=== PATIENT | female | born 1940 | race Caucasian/White ===

== ENCOUNTER → 2016-07-27 | Outpatient (REF) | payer MEDICARE, OTHER ==
[2016-07-27 19:00] LABS: BACTERIA, URINE SMALL AMOUNT; HYALINE CAST, URINE NONE SEEN /lpf (0-1); MICROSCOPIC EXAM PERFORMED; RBC, URINE NONE SEEN /hpf (0-3); SQUAMOUS EPITHELIAL CELL URINE SMALL AMOUNT /hpf (SMALL AMT)
== END ==
LOC: M LAB REF 16:54
PROVIDERS: ATTEND Internal Medicine Nephrology
DX: R31.9 Hematuria, unspecified (principal)

== ENCOUNTER → 2016-08-03 | Outpatient (REF) | payer MEDICARE, OTHER | LOC: M LAB REF 11:13 | PROVIDERS: ATTEND Internal Medicine Nephrology | DX: N18.3 Chronic kidney disease, stage 3 (moderate) (principal); R31.0 Gross hematuria ==

== ENCOUNTER → 2016-08-22 | Outpatient (CLI) | payer MEDICARE, OTHER ==
--- NOTE | 2016-08-22 12:14 | REPMRS ---
Patient History The patient states she has not had a clinical breast exam in over a year. Patient is postmenopausal. No known family history of cancer. Benign stereotatic breast biopsy of the right breast, 1999. Digital Woman Screen Mammo: August 22, 2016 - Exam #: [id number] Bilateral CC and MLO view(s) were taken. Technologist: Trang Ferrari, Technologist Prior study comparison: March 24, 2015, digital woman screen mammo performed at [facility] to [facility]. April 24, 2014, digital woman screen mammo performed at [facility] to [facility]. FINDINGS: There are scattered fibroglandular densities. There has been no change in the appearance of the mammogram from the prior studies. There is a mild amount of residual fibroglandular tissue which is fairly symmetric. There is no interval development of dominant mass, architectural distortion, or clustered microcalcification suggestive of malignancy. ASSESSMENT: BI-RADS/ACR category 1 mammogram. Negative. Recommendation Routine screening mammogram in 1 year (for women over age 40). This mammogram was interpreted with the aid of an FDA-approved computer-aided dectection system. Electronically Signed By: Florencio Black MD 08/22/16 [id number]
== END ==
LOC: M WHC 10:36
PROVIDERS: ATTEND Internal Medicine Hematology & Oncology
DX: Z12.31 Encounter for screening mammogram for malignant neoplasm of breast (principal); D59.1 Other autoimmune hemolytic anemias; Z78.0 Asymptomatic menopausal state; Z92.89 Personal history of other medical treatment
CPT/HCPCS: G0202; G0463

== ENCOUNTER 2016-09-19 17:03 | Emergency (ER) | payer MEDICARE, OTHER ==
[~2016-09-19] VITALS: Ht 162.6 cm; Wt 89.8 kg
[2016-09-19] MEDS ORDERED: ATOR1TAB18 (18:08)
[2016-09-19] MEDS ORDERED: ROZE8TAB9 (18:08)
[2016-09-19] MEDS ORDERED: FURO20TA2 (18:08)
[2016-09-19] MEDS ORDERED: LEVO150T7 (18:08)
[2016-09-19] MEDS ORDERED: ALPR0.5T3 (18:08)
[2016-09-19] MEDS ORDERED: MAG-TAB PO (18:08)
[2016-09-19] MEDS ORDERED: ASPI1TAB PO (18:08)
[2016-09-19] MEDS ORDERED: NITR4TASL SL (18:08)
[2016-09-19] MEDS ORDERED: BUPR150T3 (18:08)
[2016-09-19] MEDS ORDERED: CALC600T21 PO (18:08)
[2016-09-19] MEDS ORDERED: ATEN25TA (18:08)
[2016-09-19] MEDS ORDERED: VENLAFAXINE (18:08)
[2016-09-19] MEDS ORDERED: LOSA50TA20 (18:08)
[2016-09-19] MEDS ORDERED: FOLI1TAB2 (18:08)
[2016-09-19] MEDS ORDERED: CART240C (18:08)
[2016-09-19] MEDS ORDERED: NEXI40CA PO (18:08)
[2016-09-19 18:09] LABS: ANION GAP 6 MEQ/L (8-16); BLOOD UREA NITROGEN 23 MG/DL (7-18); CALCIUM LEVEL 8.7 MG/DL (8.8-10.2); CARBON DIOXIDE LEVEL 30 MEQ/L (21-32); CHLORIDE LEVEL 102 MEQ/L (98-107); CREATININE FOR GFR 1.36 MG/DL (0.55-1.02); GLOMERULAR FILTRATION RATE 40.5 (>39); GLUCOSE, FASTING 102 MG/DL (83-110); POTASSIUM SERUM 3.6 MEQ/L (3.5-5.1); SODIUM LEVEL 138 MEQ/L (136-145)
[2016-09-19 18:14] LABS: BASO # 0.1 K/mm3 (0.0-0.2); BASO % 0.7 % (0.0-1.0); EOS # 0.4 K/mm3 (0.0-0.50); EOS % 2.9 % (0.0-3.0); LARGE UNSTAINED CELL # 0.3 K/mm3 (0.0-0.4); LARGE UNSTAINED CELL % 1.9 % (0.0-4.0); LYMPH # 3.1 K/mm3 (1.5-4.5); LYMPH % 20.2 % (24.0-44.0); MEAN CORPUSCULAR HEMOGLOBIN 30.3 pg (27.0-33.0); MEAN CORPUSCULAR VOLUME 91.9 fl (80.0-96.0); MONO % 7.2 % (0.0-5.0); NEUTROPHILS # 9.4 K/mm3 (1.8-7.7); PLATELET COUNT, AUTOMATED 446 k/mm3 (150-450); RED CELL DISTRIBUTION WIDTH 13.8 % (11.5-14.5)
--- NOTE | 2016-09-19 18:30 | REP ---
PA and lateral chest: Comparison is 11/05/2013. The lung castle are clear. The cardiac size is normal The raj, mediastinum, and bony thorax are unremarkable. Impression: Negative PA and lateral chest. . Signed by Florencio Boudreaux MD 09/19/2016 06:21 P
[2016-09-19] MEDS ORDERED: ISOVUE-370 76% 100ML VIAL (Q9967) As Ordered ONE (22:14)
[2016-09-19 23:08] VITALS: BP 133/63
--- NOTE | 2016-09-20 08:24 | ECGEPIP ---
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
--- NOTE | 2016-09-20 08:30 | ECGEPIP ---
Stationary ECG Study [facility] - ED Test Date: 2016-09-19 Pat Name: CHUCHO TUCKER Department: Room: - Gender: F Vaccine Specialist: IssaB: 1940 Requested By: SARAVANAN Carnes Order Number: [id number] Reading MD: Phoenix Ng Measurements Intervals [place] Rate: 61 P: 58 OR: 220 QRS: -33 QRSD: 106 T: 15 QT: 420 QTc: 424 Interpretive Statements SINUS RHYTHM WITH FIRST DEGREE AV BLOCK LEFT AXIS DEVIATION SIMILAR TO PRIOR ON SAME DATE Electronically Signed On 09-20-2016 8:29:51 EDT by Phoenix Ng
== END 2016-09-19 23:14 | disposition home or self-care (01) ==
LOC: EDBD 17:03 → M ED 19:40
DX: R07.9 Chest pain, unspecified (principal); I10 Essential (primary) hypertension; E78.5 Hyperlipidemia, unspecified; M19.90 Unspecified osteoarthritis, unspecified site; D59.9 Acquired hemolytic anemia, unspecified; Z95.5 Presence of coronary angioplasty implant and graft; Z90.89 Acquired absence of other organs

== ENCOUNTER → 2016-09-26 | Outpatient (REF) | payer MEDICARE, OTHER ==
[~2016-09-26] MED LIST: ALPR0.5T3; ASPI1TAB PO; ATEN25TA; ATOR1TAB18; BUPR150T3; CALC600T21 PO; CART240C; FOLI1TAB2; FURO20TA2; LEVO150T7; LOSA50TA20; MAG-TAB PO; NEXI40CA PO; NITR4TASL SL; ROZE8TAB9; VENLAFAXINE
== END ==
LOC: M LAB REF 14:00
PROVIDERS: ATTEND Family Medicine
DX: R19.7 Diarrhea, unspecified (principal)

== ENCOUNTER → 2016-10-12 | Outpatient (CLI) | payer MEDICARE, OTHER ==
[2016-10-12 14:44] LABS: CALCIUM LEVEL 9.2 MG/DL (8.8-10.2); CREATININE FOR GFR 1.46 MG/DL (0.55-1.02); GLOMERULAR FILTRATION RATE 37.3 (>39); POTASSIUM SERUM 4.4 MEQ/L (3.5-5.1); THYROXINE (T4) 12.7 UG/DL (4.5-12.0)
[2016-10-12 14:51] LABS: BASO % 0.8 % (0.0-1.0); EOS % 2.6 % (0.0-3.0); LARGE UNSTAINED CELL % 1.7 % (0.0-4.0); LYMPH # 2.3 K/mm3 (1.5-4.5); LYMPH % 17.6 % (24.0-44.0); MEAN CORPUSCULAR HGB CONC 33.4 g/dl (32.0-36.5); MEAN CORPUSCULAR VOLUME 92.9 fl (80.0-96.0); MONO # 0.8 K/mm3 (0.0-0.8); MONO % 6.1 % (0.0-5.0); NEUTROPHILS # 9.5 K/mm3 (1.8-7.7); NEUTROPHILS % 71.3 % (36.0-66.0); PLATELET COUNT, AUTOMATED 523 k/mm3 (150-450); RED CELL DISTRIBUTION WIDTH 14.2 % (11.5-14.5); WHITE BLOOD COUNT 13.3 K/mm3 (4.0-10.0)
[2016-10-12 14:52] LABS: BASO # 0.1 K/mm3 (0.0-0.2); DIFF SLIDE NUMBER 231; EOS # 0.3 K/mm3 (0.0-0.50); LARGE UNSTAINED CELL # 0.1 K/mm3 (0.0-0.4)
[2016-10-15 00:07] LABS: ANTI-SACCHAROMYCES CEREV. IgA <20.0 Units (0.0-24.9); ANTI-SACCHAROMYCES CEREV. IgG <20.0 Units (0.0-24.9); TISSUE TRANSGLUTAMINASE IgG <2 U/mL (0-5)
== END ==
LOC: M LAB 12:55
PROVIDERS: ATTEND Internal Medicine Gastroenterology
DX: K21.9 Gastro-esophageal reflux disease without esophagitis (principal); E03.9 Hypothyroidism, unspecified

== ENCOUNTER → 2016-10-14 | Outpatient (REF) | payer MEDICARE, OTHER ==
[~2016-10-14] MED LIST changes: -ATOR1TAB18; +ATOR80TA59; -CALC600T21 PO; +CALC600T60 PO; -CART240C; +CART240C3; -FOLI1TAB2; +FOLI1TAB4; +ROZE8TAB16; -ROZE8TAB9
== END ==
LOC: M LAB REF 13:00
PROVIDERS: ATTEND Internal Medicine Gastroenterology
DX: K21.9 Gastro-esophageal reflux disease without esophagitis (principal); Z12.11 Encounter for screening for malignant neoplasm of colon

== ENCOUNTER → 2016-11-29 | Outpatient (REF) | payer MEDICARE, OTHER ==
[2016-11-29 14:56] LABS: RBC, URINE NONE SEEN /hpf (0-3)
[2016-11-29 14:59] LABS: BACTERIA, URINE NONE SEEN; HYALINE CAST, URINE NONE SEEN /lpf (0-1); MICROSCOPIC EXAM PERFORMED; SQUAMOUS EPITHELIAL CELL URINE SMALL AMOUNT /hpf (SMALL AMT)
== END ==
LOC: M LAB REF 13:03
PROVIDERS: ATTEND Internal Medicine Nephrology
DX: R31.9 Hematuria, unspecified (principal)

== ENCOUNTER → 2016-12-12 | Outpatient (CLI) | payer MEDICARE, OTHER ==
--- NOTE | 2016-12-12 12:45 | REP ---
CT ABDOMEN PELVIS WITHOUT IV OR ORAL CONTRAST: HISTORY: Chronic kidney disease stage III. Hematuria. Acquired hemolytic anemia. Comparison CT study of February 16, 2016. 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 The lung bases are clear. There is a small sliding-type hiatal hernia. There are clips in the gallbladder fossa. No focal liver lesion is seen. The spleen is surgically absent. There is no evidence of hydronephrosis, intrarenal mass or calculus on either side. Normal caliber aorta is seen. There are mildly enlarged small bowel mesenteric lymph nodes and there is an diffuse edema pattern versus fibrosis in the small bowel mesentery. This is similar in appearance to a prior CT study of the abdomen from November 13, 2008. Mesenteric panniculitis pattern. There is mild mural thickening in the rectosigmoid and sigmoid segments of the colon today question enteral colitis. No obstruction or mass lesion seen. Urinary bladder is unremarkable. The patient is status post hysterectomy. No other abnormality. IMPRESSION: Mesenteric panniculitis pattern again seen in the small bowel mesentery. The patient status post hysterectomy, appendectomy and cholecystectomy. Mild mural thickening affecting the rectosigmoid and sigmoid colon, question enteritis. Signed by Bossman Ch MD 12/12/2016 02:48 P
== END ==
LOC: M RAD 10:59
PROVIDERS: ATTEND Internal Medicine Nephrology
DX: N18.3 Chronic kidney disease, stage 3 (moderate) (principal)

== ENCOUNTER → 2017-01-05 | Outpatient (REF) | payer MEDICARE, OTHER ==
[2017-01-05 22:36] LABS: SQUAMOUS EPITHELIAL CELL URINE SMALL AMOUNT /hpf (SMALL AMT)
[2017-01-05 22:37] LABS: BACTERIA, URINE SMALL AMOUNT; HYALINE CAST, URINE NONE SEEN /lpf (0-1); MICROSCOPIC EXAM PERFORMED
== END ==
LOC: M LAB REF 16:50
PROVIDERS: ATTEND Internal Medicine Nephrology
DX: R31.9 Hematuria, unspecified (principal)

== ENCOUNTER → 2017-05-10 | Outpatient (CLI) | payer MEDICARE, OTHER ==
[2017-05-10 19:12] LABS: ANION GAP 7 MEQ/L (8-16); BLOOD UREA NITROGEN 19 MG/DL (7-18); CALCIUM LEVEL 8.7 MG/DL (8.8-10.2); CARBON DIOXIDE LEVEL 31 MEQ/L (21-32); CHLORIDE LEVEL 104 MEQ/L (98-107); CREATININE FOR GFR 1.33 MG/DL (0.55-1.02); GLOMERULAR FILTRATION RATE 41.4 (>39); GLUCOSE, FASTING 110 MG/DL (70-100); POTASSIUM SERUM 4.2 MEQ/L (3.5-5.1); SODIUM LEVEL 142 MEQ/L (136-145); URIC ACID 4.1 MG/DL (2.6-6.0)
== END ==
LOC: M WUC 11:34
DX: M10.371 Gout due to renal impairment, right ankle and foot (principal)
CPT/HCPCS: 84550

== ENCOUNTER → 2017-05-12 | Outpatient (REF) | payer MEDICARE, OTHER | LOC: M LAB REF 17:22 | DX: R31.9 Hematuria, unspecified (principal); N18.3 Chronic kidney disease, stage 3 (moderate) | CPT/HCPCS: 87186 ==

== ENCOUNTER → 2017-06-14 | Outpatient (CLI) | payer MEDICARE, OTHER | LOC: M ADAMS 14:00 | DX: J20.9 Acute bronchitis, unspecified (principal) | CPT/HCPCS: 71046 ==

== ENCOUNTER → 2017-06-30 | Outpatient (CLI) | payer MEDICARE, OTHER | LOC: M RAD 09:36 | DX: J18.1 Lobar pneumonia, unspecified organism (principal) | CPT/HCPCS: 71250 ==

== ENCOUNTER → 2017-08-14 | Outpatient (CLI) | payer MEDICARE, OTHER ==
[2017-08-14 11:46] LABS: ALBUMIN 3.1 GM/DL (3.2-5.2); ALBUMIN/GLOBULIN RATIO 1.03 (1.00-1.93); ALKALINE PHOSPHATASE 94 U/L (45-117); ALT/SGPT 28 U/L (12-78); ANION GAP 5 MEQ/L (8-16); AST/SGOT 18 U/L (7-37); BILIRUBIN,TOTAL 0.5 MG/DL (0.2-1.0); BLOOD UREA NITROGEN 18 MG/DL (7-18); CALCIUM LEVEL 8.3 MG/DL (8.8-10.2); CARBON DIOXIDE LEVEL 29 MEQ/L (21-32); CHLORIDE LEVEL 107 MEQ/L (98-107); CREATININE FOR GFR 1.27 MG/DL (0.55-1.30); GLOMERULAR FILTRATION RATE 43.7 (>39); GLUCOSE, FASTING 128 MG/DL (70-100); POTASSIUM SERUM 3.6 MEQ/L (3.5-5.1); SODIUM LEVEL 141 MEQ/L (136-145); TOTAL PROTEIN 6.1 GM/DL (6.4-8.2)
== END ==
LOC: M LAB 11:07
DX: D59.1 Other autoimmune hemolytic anemias (principal)
CPT/HCPCS: 80053

== ENCOUNTER → 2017-08-29 | Outpatient (CLI) | payer MEDICARE, OTHER | LOC: M WHC 11:28 | DX: Z12.31 Encounter for screening mammogram for malignant neoplasm of breast (principal); Z78.0 Asymptomatic menopausal state | CPT/HCPCS: 77067 ==

== ENCOUNTER → 2017-12-20 | Outpatient (CLI) | payer MEDICARE, OTHER | LOC: M ADAMS 14:21 | DX: S80.11XA Contusion of right lower leg, initial encounter (principal) | CPT/HCPCS: 73590 ==

== ENCOUNTER → 2017-12-25 | Outpatient (REF) | payer MEDICARE, OTHER ==
[2017-12-25 16:36] LABS: ERYTHROCYTE SEDIMENTATION RATE 30 mm/hr (0-30)
[2017-12-25 22:03] LABS: C REACTIVE PROTEIN QUANTITATIV 1.36 MG/DL (0.00-0.30)
== END ==
LOC: M SFHCPLAZ 12:47
DX: M79.604 Pain in right leg (principal)
CPT/HCPCS: 86140

== ENCOUNTER → 2017-12-29 | Outpatient (CLI) | payer MEDICARE, OTHER | LOC: M RAD 13:17 | DX: M79.604 Pain in right leg (principal) | CPT/HCPCS: 76882 ==

== ENCOUNTER → 2018-03-09 | Outpatient (CLI) | payer MEDICARE, OTHER ==
[2018-03-09 17:22] LABS: URIC ACID 4.2 MG/DL (2.6-6.0)
== END ==
LOC: M WUC 12:01
DX: M10.9 Gout, unspecified (principal)
CPT/HCPCS: 84550

== ENCOUNTER → 2018-03-27 | Outpatient (CLI) | payer MEDICARE, OTHER | LOC: M ADAMS 10:38 | DX: M77.31 Calcaneal spur, right foot (principal); R06.09 Other forms of dyspnea; M79.671 Pain in right foot | CPT/HCPCS: 71046 ==

== ENCOUNTER → 2018-05-10 | Outpatient (REF) | payer MEDICARE, OTHER ==
[~2018-05-10] MED LIST changes: +FOLI1TAB11; -FOLI1TAB4; -LOSA50TA20; +LOSA50TA88
[2018-05-10 13:44] LABS: HEMATOCRIT 40.3 % (36.0-47.0); HEMOGLOBIN 13.1 g/dl (12.0-15.5); MEAN CORPUSCULAR HEMOGLOBIN 30.3 pg (27.0-33.0); MEAN CORPUSCULAR HGB CONC 32.5 g/dl (32.0-36.5); MEAN CORPUSCULAR VOLUME 93.3 fl (80.0-96.0); PLATELET COUNT, AUTOMATED 361 10^3/uL (150-450); RED BLOOD COUNT 4.32 10^6/uL (4.00-5.40); WHITE BLOOD COUNT 11.6 10^3/uL (4.0-10.0)
[2018-05-10 14:37] LABS: ALBUMIN 3.7 GM/DL (3.2-5.2); BILIRUBIN,TOTAL 0.5 MG/DL (0.2-1.0); CALCIUM LEVEL 9.1 MG/DL (8.8-10.2); CHOLESTEROL RISK RATIO 3.609 (<5); CREATININE FOR GFR 1.07 MG/DL (0.55-1.30); FREE T4 1.36 NG/DL (0.76-1.46); GLOMERULAR FILTRATION RATE 53.1 (>39); POTASSIUM SERUM 4.2 MEQ/L (3.5-5.1); THYROID STIMULATING HORMONE 0.114 uIU/ML (0.358-3.740); TOTAL PROTEIN 6.7 GM/DL (6.4-8.2)
== END ==
LOC: M SFHCADAM 10:01
PROVIDERS: ATTEND Family Medicine
DX: E78.5 Hyperlipidemia, unspecified (principal); E03.9 Hypothyroidism, unspecified; N18.3 Chronic kidney disease, stage 3 (moderate); I25.10 Atherosclerotic heart disease of native coronary artery without angina pectoris
CPT/HCPCS: 80053; 80061; 84439; 84443; 85027; G0463

== ENCOUNTER → 2018-06-08 | Outpatient (CLI) | payer MEDICARE, OTHER | LOC: M LAB 12:19 | PROVIDERS: ATTEND Family Medicine | DX: M1A.9XX0 Chronic gout, unspecified, without tophus (tophi) (principal); Z53.8 Procedure and treatment not carried out for other reasons ==

== ENCOUNTER → 2018-08-22 | Outpatient (REF) | payer MEDICARE, OTHER ==
[~2018-08-22] MED LIST changes: -ASPI1TAB PO; +ASPI81TA26 PO
[2018-08-22 13:53] LABS: FERRITIN 42 NG/ML (8-252); FOLATE > 24.0 NG/ML; IRON (FE) 31 UG/DL (50-170); TOTAL IRON BINDING CAPACITY 259 UG/DL (250-450); VITAMIN B12 LEVEL 556 PG/ML
== END ==
LOC: M LAB REF 13:16
PROVIDERS: ATTEND Internal Medicine Nephrology
DX: N39.0 Urinary tract infection, site not specified (principal); D64.9 Anemia, unspecified

== ENCOUNTER → 2018-10-25 | Outpatient (REF) | payer MEDICARE, OTHER ==
[2018-10-25 19:37] LABS: HEMOGLOBIN A1c 6.8 %; TOTAL PROTEIN 7.1 GM/DL (6.4-8.2)
[2018-10-25 19:47] LABS: FOLATE > 24.0 NG/ML; VITAMIN B12 LEVEL 592 PG/ML
[2018-10-30 11:39] LABS: ALBUMIN 3.83 GM/DL (3.29-5.55); ALBUMIN % 53.9 % (55.8-66.1); ALPHA-1-GLOBULIN % 6.8 % (2.9-4.9); ALPHA-1-GLOBULINS 0.48 GM/DL (0.17-0.41); ALPHA-2-GLOBULINS 1.21 GM/DL (0.42-0.99); ALPHA-2-GLOBULINS % 17.1 % (7.1-11.8); BETA-1-GLOBULINS 0.45 GM/DL (0.28-0.60); BETA-1-GLOBULINS % 6.4 % (4.7-7.2); BETA-2-GLOBULINS 0.39 GM/DL (0.19-0.55); BETA-2-GLOBULINS % 5.5 % (3.2-6.5); GAMMA GLOBULIN % 10.3 % (11.1-18.8); GAMMA GLOBULINS 0.73 GM/DL (0.65-1.58)
[2018-11-07 00:07] LABS: CERULOPLASMIN 36.5 mg/dL (19.0-39.0); VITAMIN B1 LEVEL WHOLE BLOOD 172.1 nmol/L (66.5-200.0); VITAMIN B6,PYRIDOXAL PHOSPHATE 7.8 ug/L (2.0-32.8); VITAMIN E(GAMMA TOCOPHEROL) 1.8 mg/L (0.5-4.9)
== END ==
LOC: M LABNEURO 14:54
PROVIDERS: ATTEND Psychiatry & Neurology Neurology
DX: E11.9 Type 2 diabetes mellitus without complications (principal); E51.9 Thiamine deficiency, unspecified; E83.01 Wilson's disease; D51.9 Vitamin B12 deficiency anemia, unspecified

== ENCOUNTER → 2019-04-23 | Outpatient (CLI) | payer MEDICARE, OTHER ==
[2019-04-23 13:29] LABS: HEMATOCRIT 36.8 % (36.0-47.0); MEAN CORPUSCULAR HEMOGLOBIN 31.3 pg (27.0-33.0); MEAN CORPUSCULAR HGB CONC 32.6 g/dl (32.0-36.5); MEAN CORPUSCULAR VOLUME 95.8 fl (80.0-96.0); PLATELET COUNT, AUTOMATED 342 10^3/uL (150-450); RED BLOOD COUNT 3.84 10^6/uL (4.00-5.40); WHITE BLOOD COUNT 11.9 10^3/uL (4.0-10.0)
[2019-04-23 13:58] LABS: ALBUMIN 3.2 GM/DL (3.2-5.2); BILIRUBIN,TOTAL 0.5 MG/DL (0.2-1.0); CALCIUM LEVEL 8.7 MG/DL (8.8-10.2); CHOLESTEROL RISK RATIO 3.375 (<5); CREATININE FOR GFR 0.99 MG/DL (0.55-1.30); FREE T4 1.45 NG/DL (0.76-1.46); GLOMERULAR FILTRATION RATE 57.9 (>39); POTASSIUM SERUM 4.3 MEQ/L (3.5-5.1); THYROID STIMULATING HORMONE 0.553 uIU/ML (0.358-3.740); TOTAL PROTEIN 6.4 GM/DL (6.4-8.2)
== END ==
LOC: M LAB 11:55
PROVIDERS: ATTEND Family Medicine
DX: E03.9 Hypothyroidism, unspecified (principal); Z90.81 Acquired absence of spleen; Z95.5 Presence of coronary angioplasty implant and graft; E78.5 Hyperlipidemia, unspecified; I25.10 Atherosclerotic heart disease of native coronary artery without angina pectoris

== ENCOUNTER 2019-05-30 12:00 | Day surgery (SDC) | payer MEDICARE, OTHER ==
[~2019-05-30] VITALS: Ht 162.6 cm; Wt 81.6 kg
[~2019-05-30 12:00] MED LIST changes: -ALPR0.5T3; +ALPR0.5T3 PO; -ATEN25TA; +ATEN25TA PO; -ATOR80TA59; +ATOR80TA59 PO; -CART240C3; +CART240C3 PO; -FOLI1TAB11; +FOLI1TAB11 PO; -FURO20TA2; +FURO20TA2 PO; +GABA-843 PO; -LEVO150T7; +LEVO150T7 PO; -LOSA50TA88; +LOSA50TA88 PO; +MELA3TAB41 PO; +NS 1,000 ML IV ONE; +QUET1TAB7 PO; -VENLAFAXINE; +VENLAFAXINE PO; +ZYLO300T6 PO
--- NOTE | 2019-05-30 13:58 | ROOR ---
Patient Name: Carolina Weinstein Procedure Date: 05/30/2019 1:27 PM Date of : 1940 Age: 79 Room: [facility] Gender: Female Note Status: Finalized Procedure: Colonoscopy Indications: High risk colon cancer surveillance: Personal history of colonic polyps Providers: Noé Odom Jr, MD Referring MD: Arnold Reece MD Requesting Provider: Medicines: Propofol per Anesthesia Complications: No immediate complications. Procedure: Pre-Anesthesia Assessment: - Prior to the procedure, a History and Physical was performed, and patient medications and allergies were reviewed. The patient is competent. The risks and benefits of the procedure and the sedation options and risks were discussed with the patient. All questions were answered and informed consent was obtained. Patient identification and proposed procedure were verified by the physician and the nurse in the pre-procedure area and in the procedure room. Mental Status Examination: alert and oriented. Airway Examination: normal oropharyngeal airway and neck mobility. Respiratory Examination: clear to auscultation. CV Examination: normal. ASA Grade Assessment: II - A patient with mild systemic disease. After reviewing the risks and benefits, the patient was deemed in satisfactory condition to undergo the procedure. The anesthesia plan was to use moderate sedation / analgesia (conscious sedation). Immediately prior to administration of medications, the patient was re-assessed for adequacy to receive sedatives. The heart rate, respiratory rate, oxygen saturations, blood pressure, adequacy of pulmonary ventilation, and response to care were monitored throughout the procedure. The physical status of the patient was re-assessed after the procedure. The Colonoscope was introduced through the anus and advanced to the cecum, identified by appendiceal orifice and ileocecal valve. The colonoscopy was performed without difficulty. The patient tolerated the procedure well. The quality of the bowel preparation was adequate. Findings: The rectum, recto-sigmoid colon, sigmoid colon, descending colon, transverse colon, ascending colon, cecum, appendiceal orifice and ileocecal valve appeared normal. Biopsies for histology were taken with a cold forceps from the ascending colon, transverse colon, descending colon, sigmoid colon and rectosigmoid colon for evaluation of microscopic colitis. Impression: - The rectum, recto-sigmoid colon, sigmoid colon, descending colon, transverse colon, ascending colon, cecum, appendiceal orifice and ileocecal valve are normal. Biopsied. Recommendation: - Discharge patient to home (ambulatory). - Return to my office at appointment to be scheduled. Noé Odom MD Noé Odom Jr, MD 05/30/2019 1:58:34 PM Electronically signed by Noé Odom Jr, MD Number of Addenda: 0 Note Initiated On: 05/30/2019 1:27 PM Estimated Blood Loss: Estimated blood loss: none.
[2019-05-30] MEDS ORDERED: LIDOCAINE 2% INJ 100 MG/5 ML SDV (FOR ANES.) As Ordered ONE (13:59)
[2019-05-30] MEDS ORDERED: propofoL 200 MG/20 ML VIAL As Ordered ONE (13:59)
[2019-05-30 14:30] VITALS: BP 114/66
== END 2019-05-30 14:40 | disposition home or self-care (01) ==
LOC: M OPP 12:00
PROVIDERS: ATTEND Surgery
DX: Z12.11 Encounter for screening for malignant neoplasm of colon (principal); Z86.010 Personal history of colon polyps; D72.828 Other elevated white blood cell count; I10 Essential (primary) hypertension; E03.9 Hypothyroidism, unspecified; Z79.82 Long term (current) use of aspirin; Z79.899 Other long term (current) drug therapy; Z88.1 Allergy status to other antibiotic agents; Z88.5 Allergy status to narcotic agent; Z88.8 Allergy status to other drugs, medicaments and biological substances

== ENCOUNTER → 2019-08-16 | Outpatient (REF) | payer MEDICARE, OTHER ==
[~2019-08-16] MED LIST changes: -MELA3TAB41 PO; +MELA3TAB62 PO; -NS 1,000 ML IV ONE
[2019-08-16 19:40] LABS: PERCENT SATURATION 41.2 % (13.2-45.0)
== END ==
LOC: M LAB REF 16:43
PROVIDERS: ATTEND Nurse Practitioner Family
DX: D50.9 Iron deficiency anemia, unspecified (principal)

== ENCOUNTER → 2019-09-16 | Outpatient (CLI) | payer MEDICARE, OTHER ==
[2019-09-16 11:31] LABS: HEMATOCRIT 38.8 % (36.0-47.0); HEMOGLOBIN 12.6 g/dl (12.0-15.5); MEAN CORPUSCULAR HEMOGLOBIN 32.1 pg (27.0-33.0); MEAN CORPUSCULAR HGB CONC 32.5 g/dl (32.0-36.5); PLATELET COUNT, AUTOMATED 256 10^3/uL (150-450); RED BLOOD COUNT 3.92 10^6/uL (4.00-5.40); WHITE BLOOD COUNT 11.7 10^3/uL (4.0-10.0)
[2019-09-16 12:22] LABS: CHOLESTEROL RISK RATIO 2.219 (<5); FOLATE 21.8 NG/ML (>5.4); PERCENT SATURATION 23.9 % (13.2-45.0)
== END ==
LOC: M WUC 10:23
PROVIDERS: ATTEND Family Medicine
DX: I25.10 Atherosclerotic heart disease of native coronary artery without angina pectoris (principal); E03.9 Hypothyroidism, unspecified; I11.9 Hypertensive heart disease without heart failure; R60.0 Localized edema; N18.3 Chronic kidney disease, stage 3 (moderate); Z86.2 Personal history of diseases of the blood and blood-forming organs and certain disorders involving the immune mechanism; Z90.81 Acquired absence of spleen

== ENCOUNTER → 2019-09-16 | Outpatient (CLI) | payer MEDICARE, OTHER ==
[2019-09-16 12:28] LABS: CALCIUM LEVEL 9.1 MG/DL (8.8-10.2); CREATININE FOR GFR 1.11 MG/DL (0.55-1.30); GLOMERULAR FILTRATION RATE 50.7 (>39); POTASSIUM SERUM 3.8 MEQ/L (3.5-5.1)
== END ==
LOC: M WUC 10:28
PROVIDERS: ATTEND Physician Assistant
DX: R60.0 Localized edema (principal); N18.3 Chronic kidney disease, stage 3 (moderate)

== ENCOUNTER 2019-09-26 10:04 | Emergency (ER) | payer MEDICARE, OTHER ==
[~2019-09-26] VITALS: Ht 162.6 cm; Wt 91.9 kg
[2019-09-26] MEDS ORDERED: FURO40TA2 (10:30)
[2019-09-26] MEDS ORDERED: BUDE3CAP (10:30)
[2019-09-26 10:45] LABS: BASO # 0.1 10^3/uL (0.0-0.2); BASO % 0.8 % (0.0-1.0); EOS # 0.3 10^3/uL (0.0-0.5); EOS % 1.9 % (0.0-3.0); HEMATOCRIT 41.4 % (36.0-47.0); HEMOGLOBIN 13.5 g/dl (12.0-15.5); LYMPH # 5.3 10^3/uL (1.5-5.0); LYMPH % 37.2 % (24.0-44.0); MEAN CORPUSCULAR HEMOGLOBIN 31.8 pg (27.0-33.0); MEAN CORPUSCULAR HGB CONC 32.6 g/dl (32.0-36.5); MEAN CORPUSCULAR VOLUME 97.4 fl (80.0-96.0); MONO # 1.1 10^3/uL (0.0-0.8); MONO % 7.7 % (0.0-5.0); NEUTROPHILS # 7.5 10^3/uL (1.5-8.5); NEUTROPHILS % 51.9 % (36.0-66.0); PLATELET COUNT, AUTOMATED 267 10^3/uL (150-450); RED BLOOD COUNT 4.25 10^6/uL (4.00-5.40)
[2019-09-26 10:47] LABS: WHITE BLOOD COUNT 14.4 10^3/uL (4.0-10.0)
[2019-09-26 11:01] LABS: CALCIUM LEVEL 8.8 MG/DL (8.8-10.2); CREATININE FOR GFR 1.08 MG/DL (0.55-1.30); GLOMERULAR FILTRATION RATE 52.4 (>39); POTASSIUM SERUM 3.5 MEQ/L (3.5-5.1)
[2019-09-26] MEDS ORDERED: SPIR-10 PO (11:41)
[2019-09-26 11:45] VITALS: BP 173/79
[2019-09-26 11:57] LABS: ALBUMIN 2.7 GM/DL (3.2-5.2); BILIRUBIN,DIRECT 0.2 MG/DL (0.0-0.2); BILIRUBIN,TOTAL 0.4 MG/DL (0.2-1.0); TOTAL PROTEIN 6.3 GM/DL (6.4-8.2)
[2019-09-26] MEDS ORDERED: ACETAMINOPHEN 325 MG TAB PO ONE (12:00)
[2019-09-26 12:05] LABS: ERYTHROCYTE SEDIMENTATION RATE 11 mm/hr (0-30)
--- NOTE | 2019-09-26 21:32 | ECGEPIP ---
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
[2019-10-02 08:09] LABS: ALDOSTERONE 2.7 ng/dL (0.0-30.0); RENIN LEVEL 1.449 ng/mL/hr (0.167-5.380)
== END 2019-09-26 12:11 | disposition home or self-care (01) ==
LOC: M ED 10:04
DX: I10 Essential (primary) hypertension (principal); R00.1 Bradycardia, unspecified; N18.3 Chronic kidney disease, stage 3 (moderate); I35.0 Nonrheumatic aortic (valve) stenosis; E03.9 Hypothyroidism, unspecified; Z79.82 Long term (current) use of aspirin; Z79.899 Other long term (current) drug therapy; Z88.8 Allergy status to other drugs, medicaments and biological substances; Z87.891 Personal history of nicotine dependence

== ENCOUNTER → 2019-10-08 | Outpatient (REF) | payer MEDICARE, OTHER ==
[~2019-10-08] MED LIST changes: +BUDE3CAP; +FURO40TA2; +SPIR-10 PO
[2019-10-08 13:34] LABS: CALCIUM LEVEL 9.3 MG/DL (8.8-10.2); CREATININE FOR GFR 1.27 MG/DL (0.55-1.30); GLOMERULAR FILTRATION RATE 43.4 (>39); MAGNESIUM LEVEL 2.1 MG/DL (1.8-2.4)
== END ==
LOC: M SFHCADAM 10:51
PROVIDERS: ATTEND Physician Assistant
DX: I11.9 Hypertensive heart disease without heart failure (principal)

== ENCOUNTER → 2019-12-25 | Outpatient (REF) | payer MEDICARE, OTHER ==
[~2019-12-25] MED LIST changes: +MELA3TAB30 PO; -MELA3TAB62 PO
[2019-12-25 19:09] LABS: HEMOGLOBIN 12.3 g/dl (12.0-15.5); MEAN CORPUSCULAR HEMOGLOBIN 33.2 pg (27.0-33.0); MEAN CORPUSCULAR HGB CONC 32.4 g/dl (32.0-36.5); MEAN CORPUSCULAR VOLUME 102.7 fl (80.0-96.0); PLATELET COUNT, AUTOMATED 286 10^3/uL (150-450)
[2019-12-25 19:26] LABS: ALBUMIN 3.2 GM/DL (3.2-5.2); ALT/SGPT 43 U/L (12-78); BILIRUBIN,TOTAL 0.6 MG/DL (0.2-1.0); BLOOD UREA NITROGEN 31 MG/DL (7-18); CALCIUM LEVEL 8.9 MG/DL (8.8-10.2); CARBON DIOXIDE LEVEL 30 MEQ/L (21-32); CHLORIDE LEVEL 104 MEQ/L (98-107); CHOLESTEROL LEVEL 150 MG/DL (<200); CHOLESTEROL RISK RATIO 1.948 (<5); CREATININE FOR GFR 1.27 MG/DL (0.55-1.30); FERRITIN 61 NG/ML (8-252); GLOMERULAR FILTRATION RATE 43.4 (>39); GLUCOSE, FASTING 96 MG/DL (70-100); HDL CHOLESTEROL 77 MG/DL (>40); IRON (FE) 125 UG/DL (50-170); LDL CHOLESTEROL 59 MG/DL (<100); NON-HDL-C 73 MG/DL; PERCENT SATURATION 43.9 % (13.2-45.0); POTASSIUM SERUM 4.8 MEQ/L (3.5-5.1); SODIUM LEVEL 139 MEQ/L (136-145); TOTAL IRON BINDING CAPACITY 285 UG/DL (250-450); TRIGLYCERIDES LEVEL 71 MG/DL (<150)
[2019-12-26 11:09] LABS: VITAMIN B12 LEVEL 441 PG/ML (247-911)
[2019-12-26 11:10] LABS: FOLATE > 24.0 NG/ML (>5.4)
== END ==
LOC: M LAB REF 17:36
PROVIDERS: ATTEND Family Medicine
DX: E03.9 Hypothyroidism, unspecified (principal); I25.10 Atherosclerotic heart disease of native coronary artery without angina pectoris; I11.9 Hypertensive heart disease without heart failure; Z86.2 Personal history of diseases of the blood and blood-forming organs and certain disorders involving the immune mechanism; Z90.81 Acquired absence of spleen

== ENCOUNTER → 2020-01-02 | Outpatient (CLI) | payer MEDICARE, OTHER ==
--- NOTE | 2020-01-17 09:41 | REP ---
CHEST X-RAY: 3 VIEWS HISTORY: Dyspnea. COMPARISON: Chest x-ray 03/27/18. FINDINGS: There are surgical clips in the right upper quadrant. The lungs are symmetric aerated and clear. Pleural angles are sharp. Heart size is normal. There are degenerative changes in the thoracic spine. The aorta is somewhat tortuous. Pulmonary vasculature isnt increased. IMPRESSION: No active disease. MTDD
== END ==
LOC: M WUC 13:35
PROVIDERS: ATTEND Nurse Practitioner Family
DX: R06.00 Dyspnea, unspecified (principal)

== ENCOUNTER → 2020-01-25 | Outpatient (CLI) | payer MEDICARE, OTHER ==
[2020-01-25 13:23] LABS: FREE T4 1.57 NG/DL (0.76-1.46); THYROID STIMULATING HORMONE 0.006 uIU/ML (0.358-3.740)
== END ==
LOC: M LAB 11:47
PROVIDERS: ATTEND Family Medicine
DX: E03.9 Hypothyroidism, unspecified (principal)

== ENCOUNTER → 2020-01-30 | Outpatient (REF) | payer MEDICARE, OTHER ==
[2020-01-30 17:15] LABS: INR 0.93; PARTIAL THROMBOPLASTIN TIME 24.1 SECONDS (24.2-38.5); PROTHROMBIN TIME 12.7 SECONDS (12.5-14.3)
[2020-01-30 17:18] LABS: D-DIMER QUANT 1325.37 ng/ml (<500)
== END ==
LOC: M SFHCADAM 14:24
PROVIDERS: ATTEND Family Medicine
DX: R06.00 Dyspnea, unspecified (principal); R23.8 Other skin changes; Z86.2 Personal history of diseases of the blood and blood-forming organs and certain disorders involving the immune mechanism
CPT/HCPCS: 85379; 85610; 85730; G0463

== ENCOUNTER → 2020-01-31 | Outpatient (CLI) | payer MEDICARE, OTHER ==
--- NOTE | 2020-01-31 10:27 | REPVR ---
PROCEDURE INFORMATION: Exam: US Duplex Lower Extremity Veins, Bilateral Exam date and time: 01/31/2020 9:47 AM Age: 80 years old Clinical indication: Abnormal findings; Abnormal lab test; Elevated d-dimer; Additional info: Dyspnea on exertion TECHNIQUE: Imaging protocol: Real-time duplex ultrasound of the extremities with 2-D zapata scale, color Doppler flow and spectral waveform analysis with image documentation. Complete exam focused on the bilateral lower extremity veins. COMPARISON: No relevant prior studies available. FINDINGS: Right deep veins: The common femoral, femoral, and popliteal veins are patent without thrombus. Normal compressibility and/or augmentation response. The right femoral vein is duplicated and both vessels are patent. Right superficial veins: The saphenofemoral junction is patent without thrombus. Left deep veins: The common femoral, femoral, and popliteal veins are patent without thrombus. Normal compressibility and/or augmentation response. Left superficial veins: The saphenofemoral junction is patent without thrombus. Soft tissues: A 4.5 x 0.9 x 4.8 cm circumscribed fluid collection within the right popliteal fossa is consistent with a popliteal cyst. A 3.4 x 0.9 x 3.1 cm circumscribed mildly septated fluid collection within the left popliteal fossa is consistent with a popliteal cyst. IMPRESSION: 1. No evidence of deep vein thrombosis in the visualized lower extremities. 2. Bilateral popliteal cysts. Electronically signed by: David Koo On 01/31/2020 10:27:10 AM
--- NOTE | 2020-01-31 13:28 | REPVR ---
PROCEDURE INFORMATION: Exam: XR Chest, 2 Views Exam date and time: 01/31/2020 12:34 PM Age: 80 years old Clinical indication: Shortness of breath and other: Elevated D-dimer, question pulmonary embolism TECHNIQUE: Imaging protocol: XR of the chest Views: 2 views. COMPARISON: CR CHEST 2 VIEW 01/02/2020 1:55 PM FINDINGS: Lungs: No pulmonary mass, consolidation, or edema. Pleural space: No pleural effusion. No pneumothorax. Heart/Mediastinum: Heart size is within normal limits. Coronary stent. Vasculature: Tortuous thoracic aorta. Diaphragm: Right hemidiaphragm eventration redemonstrated. Bones/joints: Degenerative spine disease. Soft tissues: Upper abdominal surgical clips redemonstrated. IMPRESSION: No radiographic evidence of acute cardiopulmonary disease. Electronically signed by: David Koo On 01/31/2020 13:28:07 PM
--- NOTE | 2020-01-31 14:59 | REP ---
INDICATION: DYSPNEA ELEVATED D DIMER ? DVT SOB ? PE XR1/NM2 . COMPARISON: Comparison is made with today's chest x-ray.. TECHNIQUE: 1.0 mCi of technetium 99m DTPA aerosol is utilized for the ventilation study and is followed by a 5.4 mCi dose of technetium 99m MAA given intravenously for the perfusion exam. Sequence of 8 planar images are acquired for each portion of the study. FINDINGS: There is some central bronchial deposition of inspired ventilatory tracer consistent with some degree of COPD. Some swallowed tracer is observed in the esophagus and gastric fundus. There is no evidence of mismatched V/Q defect. There is a small matched defect in the left base and another on the lateral film in the left lower lobe. IMPRESSION: Low probability scan for pulmonary embolus. <Electronically signed by Enrique Ch > 01/31/20 [id number]
== END ==
LOC: M RAD 09:32
PROVIDERS: ATTEND Family Medicine
DX: R06.00 Dyspnea, unspecified (principal); Z78.9 Other specified health status; M71.21 Synovial cyst of popliteal space [Baker], right knee; M71.22 Synovial cyst of popliteal space [Baker], left knee; R79.89 Other specified abnormal findings of blood chemistry
CPT/HCPCS: 71046; 78582; 93970; A9540; A9567

== ENCOUNTER → 2020-03-13 | Outpatient (CLI) | payer MEDICARE, OTHER ==
[2020-03-13 13:06] LABS: THYROID STIMULATING HORMONE 0.077 uIU/ML (0.358-3.740)
== END ==
LOC: M LAB 11:28
PROVIDERS: ATTEND Psychiatry & Neurology Neurology
DX: R53.1 Weakness (principal); E03.9 Hypothyroidism, unspecified; R06.00 Dyspnea, unspecified

== ENCOUNTER → 2020-03-26 | Outpatient (CLI) | payer MEDICARE, OTHER ==
--- NOTE | 2020-03-26 12:06 | REP ---
INDICATION: DECLINE IN RENAL FUNCTION; CKD III - IV DECLINE IN RENAL FUNCTION. COMPARISON: None. TECHNIQUE: Real-time sonographic evaluation of the kidneys is performed. Real-time ultrasound evaluation and duplex Doppler interrogation of the bilateral renal arteries is performed. FINDINGS: Renal cortical echogenicity pattern is normal bilaterally and contours are smooth. There is bilateral cortical thinning. There is no evidence of hydronephrosis or calculus in either kidney. There is a 1 cm cyst in the mid left kidney. The right kidney measures 11.8 x 4.1 x 6.3 cm. Left renal dimensions are 11.0 x 5.6 x 6.0 cm. The peak systolic velocity of the abdominal aorta at the level of the renal arteries is 59.8 centimeter/second. The peak systolic velocity of the visualized main right renal artery is 76.1 centimeter/second, distally. The more proximal right renal artery, at the origin and in the mid aspect, is not visualized due to body habitus and bowel gas. Renal to aortic ratio 1.3. Resistive indices are measured in the upper, middle and lower thirds of the right kidney and range between 0.76 and 0.80. Acceleration times range between 0.03 and 0.06. Peak systolic velocity of the visualized main left renal artery is 49.6 centimeters/second, distally. Again the more proximal left renal artery is not visualized. Renal to aortic ratio 0.8. Resistive indices range between 0.71 and 0.82. Acceleration times range 15 0.01 and 0.04. Intrarenal waveforms are blunted. IMPRESSION: Limited evaluation of the renal arteries bilaterally due to body habitus and bowel gas. Further evaluation may be made with CTA or MRA. <Electronically signed by Florencio Black > 03/26/20 [id number]
--- NOTE | 2020-03-26 12:07 | REP ---
INDICATION: CKD III - IV DECLINE IN RENAL FUNCTION. COMPARISON: None. TECHNIQUE: Real-time sonographic evaluation of urinary bladder performed. FINDINGS: Bladder measures 4.9 x 6.6 x 5.3 cm for total volume of 112 cc. Bladder is only mildly distended. No gross bladder wall mass is seen. No calculus is seen. Ureteral jets are seen in the urinary bladder bilaterally with Doppler color evaluation. There is no postvoid residual. IMPRESSION: Suboptimal distention but no evidence of bladder mass or calculus. No postvoid residual. <Electronically signed by Florencio Black > 03/26/20 [id number]
== END ==
LOC: M RAD 08:31
PROVIDERS: ATTEND Nurse Practitioner Family
DX: N18.4 Chronic kidney disease, stage 4 (severe) (principal); R33.9 Retention of urine, unspecified; R09.89 Other specified symptoms and signs involving the circulatory and respiratory systems

== ENCOUNTER → 2020-04-06 | Outpatient (CLI) | payer MEDICARE, OTHER ==
[2020-04-06 13:16] LABS: FREE T4 1.23 NG/DL (0.76-1.46); THYROID STIMULATING HORMONE 0.078 uIU/ML (0.358-3.740)
== END ==
LOC: M LAB 11:56
PROVIDERS: ATTEND Family Medicine
DX: E03.9 Hypothyroidism, unspecified (principal)

== ENCOUNTER → 2020-04-28 | Outpatient (REF) | payer MEDICARE, OTHER ==
[2020-04-28 18:02] LABS: HEMATOCRIT 41.2 % (36.0-47.0); HEMOGLOBIN 13.3 g/dl (12.0-15.5); MEAN CORPUSCULAR HEMOGLOBIN 34.3 pg (27.0-33.0); MEAN CORPUSCULAR HGB CONC 32.3 g/dl (32.0-36.5); MEAN CORPUSCULAR VOLUME 106.2 fl (80.0-96.0); PLATELET COUNT, AUTOMATED 170 10^3/uL (150-450); RED BLOOD COUNT 3.88 10^6/uL (4.00-5.40); WHITE BLOOD COUNT 17.6 10^3/uL (4.0-10.0)
[2020-04-28 18:33] LABS: ALBUMIN 3.6 GM/DL (3.2-5.2); BILIRUBIN,TOTAL 0.7 MG/DL (0.2-1.0); CALCIUM LEVEL 9.1 MG/DL (8.8-10.2); CREATININE FOR GFR 2.37 MG/DL (0.55-1.30); FREE T4 1.18 NG/DL (0.76-1.46); GLOMERULAR FILTRATION RATE 21.1 (>39); POTASSIUM SERUM 5.3 MEQ/L (3.5-5.1); THYROID STIMULATING HORMONE 0.06 uIU/ML (0.358-3.740); TOTAL PROTEIN 6.3 GM/DL (6.4-8.2)
== END ==
LOC: M SFHCADAM 12:08
PROVIDERS: ATTEND Family Medicine
DX: E03.9 Hypothyroidism, unspecified (principal); R55 Syncope and collapse; Z90.81 Acquired absence of spleen

== ENCOUNTER 2020-05-18 14:59 | Emergency (ER) | payer MEDICARE, OTHER ==
[~2020-05-18] VITALS: Ht 162.6 cm; Wt 95.0 kg
[2020-05-18 14:59] VITALS: BP 174/96
[~2020-05-18 14:59] MED LIST changes: -BUPR150T3; +BUPR150T4; +GABA-282 PO; -GABA-843 PO
--- OUTSIDE RECORDS SUMMARY | 2020-05-18 17:58 | CCD ---
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 486092432 Problem Vitamin D deficiency E55.9 Active 14469211 Problem Nonrheumatic aortic valve stenosis I35.0 Activ e 749033240 Problem Other and unspecified hyperlipidemia E78.5 Act nahid 27053856 Problem Atherosclerosis of [place] ronary artery of [place] heart without angina pectoris I25.10 Active 0403665256926 Problem Hypertensive heart disease without heart failure I 11.9 Active 68269164 Problem Epidermal cyst of vulva N90.7 Active 52860002 Problem Medicare annual wellness visit, subsequent Z00.00 Active 195107608 Problem CKD (chronic kidney disease), stage III N18.3 Active 633997714 Problem Chronic gout without tophus, unspecified cause, unspecified site M1A.9XX0 Active 349543705 Problem Adjustment disorder with mixed anxiety and depressed mood F43.23 Active 83317213 Problem Aortic valve stenosis, etiology of cardiac valve disease unspecified I35.0 Active 57202920 Problem Insomnia, unspecified type G47.00 Active 19721 2000 Problem S/P drug eluting coronary stent placement Z95.5 Active 505898483 Problem Frequent falls R29.6 Active 652138512 Problem Adjustment disorder with anxious mood F43.22 Ac tive 64719312 Problem 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 Active 177899679 Taxol in [place] 2005 Problem Reactive depression F32.9 Active 67444534 Problem Lymphocytic colitis K52.832 Active 75690052 Problem Lower extremity edema R60.0 Active 210839445 Problem STORY (dyspnea on exertion) R06.00 Active 853430 06 Problem Stage 3b chronic kidney disease N18.32 Active 688134304 ALLERGIES Allergen (clinical drug ingredient) Drug/Non Drug Allergy do cumented on EMR Reaction Allergy Type Onset Date Status Amlodipine amlodipine edema, SOB Non Drug Allergy Active Colchicine colchicine severe GI sx Non Drug Allergy Active Rozarem didn't help her sleep Non Drug Allergy Active Lunesta didn't work Non Drug Allergy Active trazodone TraZODone HCl([facility] Code:[address]-08) Anaphylaxi s/diff. swallowing Drug Allergy Active Taxol hemolytic anemia Non Drug Allergy Ac tive levofloxacin Levofloxacin([facility] Code:[address]-04) nerve pain, tendon pain Drug Allergy Active ENCOUNTERS from 1942 to 2020-04-30 Encounter Location Date Provider Diagnosis [facility] [address] [place] [address] 12 Apr, 2020 Eddy Reece Medicare annual wellness visit, subsequent Z00.00 ; Syncope and collapse R55 ; Aortic valve stenosis, etiology of cardiac valve disease unspecified I35.0 ; RADHA (acute kidney injury) N17.9 ; Skin tear of lower leg without complication, unspecified laterality, initial encounter S81.819A ; Stress due to marital problems Z63.0 ; Frequent falls R29.6 ; Hypothyroidism, unspecified type E03.9 ; 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 ; Hypertensive heart disease without heart failure I11.9 and Stage 3b chronic kidney disease N18.32 IMMUNIZATIONS Vaccine Route Administration Date Status Meningococcal B 0.5mL (Bexsero) IM Intramuscular July 05, 2018 Administered Zoster 50mcg/0.5mL (Shingrix) Unknown September 25, 2017 Ad ministered Zoster 50mcg/0.5mL (Shingrix) Unknown Jan 10, 2018 Ad ministered Meningococcal B (VFC) 0.5mL (Bexsero) IM Intramuscular May 30 019 Administered Pneumococcal 0.5mL (Prevnar 13) Unknown September 03, 2014 Administered Meningococcal 0.5mL (Menveo Groups A,C,Y & W-135) Unknown August 16, 2013 Administered Meningococcal 0.5mL (Menveo Groups A,C,Y & W-135) Unknown Dec 07, 2004 Administered Influenza (High Dose 65 & up) Unknown Feb 15, 2017 Ad ministered Zoster 0.65mL (Zostavax) Unknown July 17, 2013 Adminis tered Pneumococcal Adult 0.5mL (Pneumovax 23) Unknown August 16, 2013 Administered Pneumococcal Adult 0.5mL (Pneumovax 23) Unknown Mar 10, 2010 Administered Pneumococcal Adult 0.5mL (Pneumovax 23) Unknown Dec 08, 2004 Administered TDAP 0.5mL (Boostrix) Unknown Apr 17, 2013 Administer ed SOCIAL HISTORY Tobacco Use: Social History Observation Description Date Details (start date - stop date) Former Smoker Sex Assigned At : Social History Observation Description Sex Assigned At Unknown Education: Question Answer Notes Level of Education: High School some college Language: Question Answer Notes Languages spoken: Greenlandic Yarsanism: Question Answer Notes Yarsanism 21 Christianity Sexual Hx: Question Answer Notes Had sex in the last 12 months (vaginal, oral, or anal)? No Have you ever had an STD? No Alcohol Screening: Question Answer Notes Did you have a drink containing alcohol in the past year? No Points 0 Interpretation Negative BMI Care Goal Follow-Up Question Answer Notes Above Normal BMI Follow-Up Giving encouragement to exercise Tobacco Use: Question Answer Notes Are you a: former smoker How long has it been since you last smoked? > 10 years REASON FOR REFERRAL No Information VITAL SIGNS Weight 209 lbs Apr, Height 64 in Apr, BMI 35.87 kg/m2 Apr, Heart Rate 75 /min Apr, Respiratory Rate 22 /min Apr, Temperature 98.8 degrees Fahrenheit Apr, Oximetry 94 Apr, Blood pressure systolic 118 mm Hg Apr, Blood pressure diastolic 62 mm Hg Apr, MEDICATIONS Medication SIG (Take, Route, Frequency, Duration) Notes Start Da te End Date Status Potassium Chloride ER 20 MEQ TAKE 1 TABLET BY MOUTH TWICE DAILY Ora l for 90 Active Furosemide 20 MG 1 tablet Orally Once a day for 90 days Not-Taking Cartia XT 240 mg TAKE 1 CAPSULE DAILY Active Alprazolam 0.5 MG 1 tablet Orally once daily as needed for 30 da y(s) Mar, Active Venlafaxine HCl 75 MG 1 tablet with food Orally Once a day Active Magnesium 400mg Daily Active Folic Acid 1 MG 1 tablet Orally Once a day Active Shower Chair without wheels as directed R26.2 Daily Use for 90 d ay(s) Apr, Active Furosemide 40 MG 1 tablet Orally Once a day for 90 days August, Not-Taking Atenolol 25 MG 1 tablet Orally Daily for 90 days Active Aspir-81 81 MG 1 tablet Orally Once a day Active Levothyroxine Sodium 100 MCG 1 tablet in the morning o n an empty stomach Orally Once a day for 30 day(s) Feb, Active Quetiapine Fumarate 25 mg 2 tabs Oral before bedtime Active Budesonide 3 MG 2 capsules Orally Once a day for 90 day(s) Jun, Active Allopurinol 300 MG TAKE 1 TABLET BY MOUTH ONCE DAILY for 90 Active Atorvastatin Calcium 80 MG 1 tablet Orally Once a day Active Albuterol Sulfate HFA Act nahid Ferrous Gluconate 324 (38 Fe) MG Oral for 100 Not-Taking Spironolactone 25 mg 1 tablet Orally Once a day Active Torsemide 20 MG TAKE 2 TABLETS BY MOUTH TWICE DAILY Oral for 30 Active PROCEDURES No Information RESULTS No Results REASON FOR VISIT bilateral leg pain/fall, shaky,dizzy, unsteady. dfell in parkinmg lot and hit he ad MEDICAL (GENERAL) HISTORY Type Description Date Medical History HTN Medical History s/p splenectomy (hemolytic anemia) Medical History hyperlipidemia Medical History Aortic stenosis, [facility]; e cho [facility] 05/05: EF55-60%, mild LAE, mild diastolic dyfxn, ao sclerosis without stenosis Medical History arthritis Medical History hypothyroid Medical History depression Medical History headache Medical History anemia hemolytic, sees Neil tologist [place]; ? 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 Medical History CAD s/p MEHNAZ stent LAD 2004; NST at [facility] 05/05: normal perfusion, EF >60% Medical History Vit D deficiency Medical History chronic anxiety/depression Medical History GERD Medical History E coli UTI /7, 05/04 Medical History gout Medical History microscopic colitis +colon bx 06/06 Surgical History AMARIS hysterectomy and BSO for endometrio sis 1974 Surgical History gallbladder Surgical History splenectomy 2005 Surgical History rectal fissure repair Surgical History CAD--MEHNAZ 2005 Surgical History colonoscopy (Dr Sanchez Patel, adenomatous darrin yp?) 2014 Surgical History colonoscopy--+ bx microscopic colitis Goals Section No Information Health Concerns No Information MEDICAL EQUIPMENT No Information MENTAL STATUS No Information FUNCTIONAL STATUS No Information ASSESSMENTS Encounter Date Diagnosis Assessment Notes Treatment Notes Treatm ent Clinical Notes Apr, Medicare annual wellness visit, subsequent (ICD- 10 - Z00.00) age appropriate anticipatory guidance given, per USPSTF recommendations; immunizations up to date. discussed plans for implementing improvement in identified areas Apr, Syncope and collapse (ICD-10 - R55) case d/w Dr Schneider, will see Apr, Aortic valve stenosis, etiol ogy of cardiac valve disease unspecified (ICD-10 - I35.0) Apr, RADHA (acute kidney injury) (ICD-10 - N17.9) saw nephro 04/23/ Will forward results They state she is NOT on FRANCIE/ARB; we have her taking losartan. Advised to d/c Apr, Skin tear of lower leg witho ut complication, unspecified laterality, initial encounter (ICD-10 - S81.819A) Apr, Stress due to marital problems (ICD-10 - Z63.0) Apr, Frequent falls (ICD-10 - R29.6) Apr, Hypothyroidism, unspecified type (ICD-10 - E03.9 ) Apr, Post-splenectomy (ICD-10 - Z90.81) Apr, Hypertensive heart disease without heart failure (ICD-10 - I11.9) Apr, Stage 3b chronic kidney disease (ICD-10 - N18.32 ) PLAN OF TREATMENT Medication Medication Name Sig Start Date Stop Date Shower Chair without wheels as directed R26.2 Daily Use for 90 day(s) Apr, Treatment Notes Assessment Notes Clinical Notes Medicare annual wellness visit, subsequent age appropriate anticipatory guidance given, per USPSTF recommendations; immunizations up to date. discussed plans for implementing improvement in identified areas Syncope and collapse case d/w Dr Schneider, wi see RADHA (acute kidney injury) saw nephro 04/23 / Will forward resultsThey state she is NOT on FRANCIE/ARB; we have her taking losartan. Advised to d/c Next Appt Details 4 Weeks Reason: Provider Name:Arnold Reece, 2020-05 11:00:00 AM, [address], [place], [address], Insurance Providers Payer Name Payer Address Payer Phone Insured Name Patient Relati onship to Insured Coverage Start Date Coverage End Date MEDICARE Part A and B [address] [facility] [address] [employer] self R [facility] [address] [id number] [facility] [phone] [employer] self
--- OUTSIDE RECORDS SUMMARY | 2020-05-18 17:58 | CCD | Continuity of Care Document ---
Author Author [facility] Organization Unknown Address [address] [place] [address] Phone [phone] Care Team Providers Care Gill Box Tender Name Role Phone Arnold Reece M.D. AUTM [phone] Problems Description No Information Available Social History Type Date Description Comments Sex Unknown ETOH Use Denies alcohol use Recreational Drug Use Denies Drug Use Tobacco Use Start: Unknown End: Unknown Patient is a former smoker 1 PPD FOR 8 YEARS QUIT 1967 Allergies, Adverse Reactions, Alerts Description No Known Drug Allergies Medications Active Medications SIG Qnty Indications Ordering Provide r Date Allopurinol 100mg Tablets 1 by mouth 2 x every day Unknown Atenolol 25mg Tablets 1 by mouth every day Unknown Atorvastatin Calcium 80mg Tablets 1 by mouth every day Unknown Diltiazem HCL ER Coated Beads 240mg Caps ER 24HR 1 qd Unknown Folic Acid 1mg Tablets 1 by mouth every day Unknown Levothyroxine Sodium 150mcg Tablet s 1 by mouth a day Unknown Nitrostat 0.4mg Tablets Sub a s needed Unknown Venlafaxine HCL ER 75mg Caps ER 24HR 1 qd Unknown Furosemide 20mg Tablets 1 by mouth every day Unknown Aspirin 81mg Tablets DR 1 by mouth every day Unknown Losartan Potassium 50mg Tablets Once Daily Unknown Melatonin 3mg Capsules AT Bed time Unknown Quetiapine Fumarate 25mg Tablets Chay Blake M.D. Immunizations Description No Information Available Vital Signs Date Vital Result Comment 06/06/2019 1:22pm BP Systolic 150 mmHg BP Diastolic 80 mmHg Height 64 inches 5'4" Weight 192.00 lb BMI (Body Mass Index) 33.0 kg/m2 [place] Body Weight 120 lb Weight 87.091 kg BSA (Body Surface Area) 1.92 m2 05/07/2019 10:48am BP Systolic 112 mmHg BP Diastolic 62 mmHg Height 64 inches 5'4" Weight 186.38 lb BMI (Body Mass Index) 32.0 kg/m2 [place] Body Weight 120 lb Weight 84.540 kg BSA (Body Surface Area) 1.90 m2 Results Description No Information Available Procedures Description No Information Available Medical Devices Description No Information Available Encounters Description No Information Available Assessments Description No Information Available Plan of Treatment 06/06/2019 - Julio Salcedo NP* R19.7 Diarrhea, unspecified * K52.839 Microscopic colitis, unspecified* Comments:* Refer to gastroenterology for management. Patient requests Dr. Metcalf. * Z48.89 Encounter for other specified surgical aftercare Functional Status Description No Information Available Mental Status Description No Information Available Referrals Description No Information Available
--- OUTSIDE RECORDS SUMMARY | 2020-05-18 17:58 | CCD ---
Author Author [facility] Organization 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 047007615 Problem Reactive depression F32.9 Active 04807239 Problem Nonrheumatic aortic valve stenosis I35.0 Activ e 896612894 Problem Hypothyroidism, unspecified type E03.9 Active 49484300 Problem Atherosclerosis of [place] co ronary artery of [place] heart without angina pectoris I25.10 Active 7909080937891 Problem Vitamin D deficiency E55.9 Active 86336016 Problem Hypertensive heart disease without heart failure I 11.9 Active 09763671 Problem Adjustment disorder with anxious mood F43.22 Ac tive 03296597 Problem CKD (chronic kidney disease), stage III N18.3 Active 959199945 Problem Lower extremity edema R60.0 Active 622494561 Problem Medicare annual wellness visit, subsequent Z00.00 Active 379369212 Problem STORY (dyspnea on exertion) R06.00 Active 935794 06 Problem Other and unspecified hyperlipidemia E78.5 Act nahid 84919718 Problem Epidermal cyst of vulva N90.7 Active 82660900 Problem Insomnia, unspecified type G47.00 Active 01079 2000 Problem Chronic gout without tophus, unspecified cause, unspecified site M1A.9XX0 Active 656561303 Problem Adjustment disorder with mixed anxiety and depressed mood F43.23 Active 12036427 Problem Lymphocytic colitis K52.832 Active 82855261 ALLERGIES Allergen (clinical drug ingredient) Drug/Non Drug Allergy do cumented on EMR Reaction Allergy Type Onset Date Status amlodipine edema, SOB Non Drug Allergy Active colchicine severe GI sx Non Drug Allergy Active Rozarem didn't help her sleep Non Drug Allergy Active Lunesta didn't work Non Drug Allergy Active trazodone TraZODone HCl([facility] Code:[address]-51) Anaphylaxi s/diff. swallowing Drug Allergy Active Taxol hemolytic anemia Non Drug Allergy Ac tive levofloxacin Levofloxacin([facility] Code:[address]-03) nerve pain, tendon pain Drug Allergy Active ENCOUNTERS from 1942 to 2020-04-01 Encounter Location Date Provider Diagnosis [address] [address] Mar, Arnold Ramireztim Adjustment disorder with mixed anxiety a nd depressed mood F43.23 IMMUNIZATIONS Vaccine Route Administration Date Status Meningococcal B 0.5mL (Bexsero) IM Intramuscular July 05, 2018 Administered Zoster 50mcg/0.5mL (Shingrix) Unknown September 25, 2017 Ad ministered Zoster 50mcg/0.5mL (Shingrix) Unknown Jan 10, 2018 Ad ministered Meningococcal B (VFC) 0.5mL (Bexsero) IM Intramuscular May 30, 019 Administered Pneumococcal 0.5mL (Prevnar 13) Unknown [...] college Language: Question Answer Notes Languages spoken: Arabic Zoroastrianism: Question Answer Notes Zoroastrianism 21 Restorationist Sexual Hx: Question Answer Notes Had sex [...] REASON FOR REFERRAL No Information VITAL SIGNS No information MEDICATIONS Medication SIG (Take, Route, Frequency, Duration) Notes Start Da te End Date Status Alprazolam 0.5 MG 1 tablet Orally once daily as needed for 30 da y(s) Mar, Active Furosemide 40 MG 1 tablet Orally Once a day for 90 days August, Not-Taking Furosemide 20 MG 1 tablet Orally Once a day for 90 days Active Allopurinol 300 MG TAKE 1 TABLET BY MOUTH ONCE DAILY for 90 Active Aspir-81 81 MG 1 tablet Orally Once a day Active Venlafaxine HCl 75 MG 1 tablet with food Orally Once a day Active Atorvastatin Calcium 80 MG 1 tablet Orally Once a day Active Magnesium 400mg Daily Active Cartia XT 240 MG 1 capsule Orally Once a day Active Spironolactone 25 mg 1 tablet Orally Once a day Active Losartan Potassium 50 MG 1 tablet Orally twice a day Active Ferrous Gluconate 324 (38 Fe) MG Oral for 100 Not-Taking Atenolol 25 MG 1 tablet Orally Daily for 90 days Active Folic Acid 1 MG 1 tablet Orally Once a day Active Levothyroxine Sodium 100 MCG 1 tablet in the morning o n an empty stomach Orally Once a day for 30 day(s) Feb, Active Quetiapine Fumarate 25 mg 2 tabs Oral before bedtime Active Budesonide 3 MG 2 capsules Orally Once a day for 90 day(s) Jun, Active PROCEDURES No Information RESULTS No Results REASON FOR VISIT alprazolam MEDICAL (GENERAL) HISTORY Type Description Date Medical History HTN Medical History s/p splenectomy (hemolytic anemia) Medical History hyperlipidemia Medical History Aortic stenosis, [facility]; e cho [facility] 05/05: EF55-60%, mild LAE, mild diastolic dyfxn, ao sclerosis without stenosis Medical History arthritis Medical History hypothyroid Medical History depression Medical History headache Medical History anemia hemolytic, sees Neil tologist [place]; ? 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 Medical History CAD s/p MEHNAZ stent LAD 2004; NST at [facility] 05/05: normal perfusion, EF >60% Medical History [...] Notes Treatment Notes Treatm ent Clinical Notes Mar, Adjustment disorder with mix ed anxiety and depressed mood (ICD-10 - F43.23) PLAN OF TREATMENT Medication Medication Name Sig Start Date Stop Date Atorvastatin Calcium 80 MG 1 tablet Orally Once a day Levothyroxine Sodium 100 MCG 1 tablet in the morning o n an empty stomach Orally Once a day for 30 day(s) Feb, Alprazolam 0.5 MG 1 tablet Orally once daily as needed for 30 day(s) Mar, Spironolactone 25 mg 1 tablet Orally Once a day Next Appt Details Provider Name:Arnold Reece, 2020-04 02:15:00 PM, [address], [place], [address], Insurance Providers Payer Name Payer Address Payer Phone Insured Name Patient Relati onship to Insured Coverage Start Date Coverage End Date R [facility] [id number] [facility] [phone] [employer] MEDICARE Part A and B [address] [place] [address] [phone] [employer] TUCKER
--- OUTSIDE RECORDS SUMMARY | 2020-05-18 17:58 | CCD | Continuity of Care Document ---
Author Author [facility]ILL[facility]FA[facility] DO Organization Unknown Address [address] [place] [address] Phone [phone] Care Team Providers Care Spray Machine Tender Name Role Phone Arnold Reece M.D. AUTM [phone] Problems Description No Information Available Social History Type Date Description Comments Sex Unknown ETOH Use Denies alcohol use Recreational Drug Use Denies Drug Use Tobacco Use Start: Unknown End: Unknown Patient is a former smoker 1 PPD FOR 8 YEARS QUIT 1966 Smoking Status Reviewed: 04/08/20 Patient is a former smoker 1 PPD FOR 8 YEARS QUIT 1966 Allergies, Adverse Reactions, Alerts Description No Known Drug Allergies Medications Active Medications SIG Qnty Indications Ordering Provide r Date Symbicort 80-4.5mcg/Act Aerosol 2 puff twice a day 30.6gm Juliano Oconnor MD 04/08/2020 Albuterol Sulfate HFA 108(90Base) mcg/Act Aerosol inhale two puffs by mouth four times a day as needed 18units Juliano Oconnor MD 04/08/2020 Prednisone 10mg Tablets 40mg po qd x 4 days then 30mg qd x 4 days then 20mg qd x 4 days then 10mg qd x 4 days and stop 40tabs Juliano Oconnor MD 04/08/2020 Bisoprolol Fumarate 5mg Tablets 1 tab by mouth everyday Unknown Gabapentin 300mg Capsules 2 tabs by mouth everyday Unknown Magnesium Oxide 400(240Mg) mg Tabl ets 1 tab by mouth everyday Unknown Spironolactone 25mg Tablets 1 by mouth every day Unknown Xanax 0.5mg Tablets 1 tab by mouth as needed Unknown Quetiapine Fumarate 25mg Tablets Chay Blake M.D. Aspirin 81mg Tablets DR 1 by mouth every day Unknown Furosemide 20mg Tablets 1 by mouth every day Unknown Venlafaxine HCL ER 75mg Caps ER 24HR 1 qd Unknown Nitrostat 0.4mg Tablets Sub a s needed Unknown Levothyroxine Sodium 150mcg Tablet s 1 by mouth a day Unknown Folic Acid 1mg Tablets 1 by mouth every day Unknown Diltiazem HCL ER Coated Beads 240mg Caps ER 24HR 1 qd Unknown Atorvastatin Calcium 80mg Tablets 1 by mouth every day Unknown Allopurinol 100mg Tablets 1 by mouth 2 x every day Unknown Immunizations Description No Information Available Vital Signs Date Vital Result Comment 04/08/2020 2:02pm BP Systolic 152 mmHg BP Diastolic 90 mmHg Heart Rate 80 /min O2 % BldC Oximetry 92 % Height 64 inches 5'4" Weight 212.00 lb BMI (Body Mass Index) 36.4 kg/m2 [place] Body Weight 120 lb Weight 96.163 kg BSA (Body Surface Area) 2.01 m2 06/06/2019 1:22pm BP Systolic 150 mmHg BP Diastolic 80 mmHg Height 64 inches 5'4" Weight 192.00 lb BMI (Body Mass Index) 33.0 kg/m2 [place] Body Weight 120 lb Weight 87.091 kg BSA (Body Surface Area) 1.92 m2 Results Description No Information Available Procedures Date Code Description Status 03/30/2020 67852 Diffusing Capacity Completed 03/30/2020 37945 Plethysmography Determination Karen ng Volumes & Per Airway Resist Completed 03/30/2020 89039 Maximum Breathing Capacity, Maxi mal Voluntary Ventilation Completed 03/30/2020 63232 Bronchospasm Evaluation Complete d Medical Devices Description No Information Available Encounters Description No Information Available Assessments Date Code Description Provider 04/08/2020 J45.40 Moderate persistent asthma, unco mplicated Juliano Oconnor MD 04/08/2020 Z90.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
--- OUTSIDE RECORDS SUMMARY | 2020-05-18 17:58 | CCD ---
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 699508646 Problem Vitamin D deficiency E55.9 Active 00549759 Problem Nonrheumatic aortic valve stenosis I35.0 Activ e 763392730 Problem Other and unspecified hyperlipidemia E78.5 Act nahid 43388236 Problem Atherosclerosis of [place] ronary artery of [place] heart without angina pectoris I25.10 Active 4654313764856 Problem Hypertensive heart disease without heart failure I 11.9 Active 10411501 Problem Epidermal cyst of vulva N90.7 Active 93366925 Problem Medicare annual wellness visit, subsequent Z00.00 Active 027886531 Problem CKD (chronic kidney disease), stage III N18.3 Active 614106951 Problem Chronic gout without tophus, unspecified cause, unspecified site M1A.9XX0 Active 089801434 Problem Adjustment disorder with mixed anxiety and depressed mood F43.23 Active 00916962 Problem Aortic valve stenosis, etiology of cardiac valve disease unspecified I35.0 Active 89734737 Problem Insomnia, unspecified type G47.00 Active 76512 2000 Problem S/P drug eluting coronary stent placement Z95.5 Active 763551732 Problem Frequent falls R29.6 Active 967837397 Problem Adjustment disorder with anxious mood F43.22 Ac tive 63049115 Problem 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 Active 362540302 Taxol in [place] 2005 Problem Reactive depression F32.9 Active 52710871 Problem Lymphocytic colitis K52.832 Active 29475666 Problem Lower extremity edema R60.0 Active 150542891 Problem STORY (dyspnea on exertion) R06.00 Active 781017 06 Problem Stage 3b chronic kidney disease N18.32 Active 115313606 ALLERGIES Allergen (clinical drug ingredient) Drug/Non Drug Allergy do cumented on EMR Reaction Allergy Type Onset Date Status Amlodipine amlodipine edema, SOB Non Drug Allergy Active Colchicine colchicine severe GI sx Non Drug Allergy Active Rozarem didn't help her sleep Non Drug Allergy Active Lunesta didn't work Non Drug Allergy Active trazodone TraZODone HCl([facility] Code:[address]-28) Anaphylaxi s/diff. swallowing Drug Allergy Active Taxol hemolytic anemia Non Drug Allergy Ac tive levofloxacin Levofloxacin([facility] Code:[address]-95) nerve pain, tendon pain Drug Allergy Active ENCOUNTERS from 1942 to 2020-04-30 Encounter Location Date Provider Diagnosis [facility] [address] [place] [address] 14 Apr, 2020 Eddy Reece IMMUNIZATIONS Vaccine Route Administration Date Status Meningococcal [...] college Language: Question Answer Notes Languages spoken: Cape Verdean Zoroastrian: Question Answer Notes Zoroastrian 21 Christianity Sexual Hx: Question Answer Notes [...] Information RESULTS No Results REASON FOR VISIT labs MEDICAL (GENERAL) HISTORY Type Description Date Medical History HTN Medical History s/p splenectomy (hemolytic anemia) Medical History hyperlipidemia Medical History Aortic stenosis, [facility]; e cho [facility] 05/05: EF55-60%, mild LAE, mild diastolic dyfxn, ao sclerosis without stenosis Medical History arthritis Medical History hypothyroid Medical History depression Medical History headache Medical History anemia hemolytic, sees Neil tologist [place]; ? 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 Medical History CAD s/p MEHNAZ stent LAD 2004; NST at [facility] 05/05: normal perfusion, EF >60% Medical History Vit D deficiency Medical History chronic anxiety/depression Medical History GERD Medical History E coli UTI /, 05/04 Medical History gout Medical History microscopic [...] No Information FUNCTIONAL STATUS No Information ASSESSMENTS No Information PLAN OF TREATMENT Medication Medication Name Sig Start Date Stop Date Shower Chair without wheels as directed R26.2 Daily Use for 90 day(s) Apr, Next Appt Details Provider Name:Arnold Reece, 2020-05 11:00:00 AM, [address], [place], [address], Insurance Providers Payer Name Payer Address Payer Phone Insured Name Patient Relati onship to Insured Coverage Start Date Coverage End Date UMR [facility] [address] [id number] [facility] [address] [employer] MEDICARE Part A and B [address] [facility] [address] [phone] [employer]
--- OUTSIDE RECORDS SUMMARY | 2020-05-18 17:58 | CCD | Continuity of Care Document ---
Author Author Carolina BLAKE M.D. Organization Unknown Address [address] [place] [address] Phone [phone] Care Team Providers Care Fertilizer Applicator Name Role Phone Arnold Reece M.D. AUTM [phone] Problems Active Problems Provider Date Cervico-occipital neuralgia Chay Blake M.D. Onset: 06/30 Migraine without aura, not refractory Chay Blake M.D. On set: 06/30/2016 Chronic tension-type headache Chay Blake M.D. Onset: Spondylolysis of cervical spine Chay Blake M.D. Onset: 0 06/30/2016 Diplopia Chay Blake M.D. Onset: 06/30/2016 Disorders of initiating and maintaining sleep Deyvi Irvin Onset: 01/20/2017 Mild major depression, single episode Chay Blake M.D. On set: 07/26/2018 Generalized anxiety disorder Chay Blake M.D. Onset: 07/16 Low back pain Chay Blake M.D. Onset: 01/25/2019 Social History Type Date Description Comments Sex Unknown Tobacco Use Start: Unknown Patient has never smoked Allergies, Adverse Reactions, Alerts Active Allergies Reaction Severity Comments Date Levofloxacin Inflammed Tendons 07/21/2017 Inactive Allergies NKDA 06/30/2016 Medications Active Medications SIG Qnty Indications Ordering Provide r Date Gabapentin 100mg Capsules 1 po tid 270caps Chay Blake M.D. 04/22/2020 Quetiapine Fumarate 25mg Tablets take 1 or 2 tablets at bedtime (max daily dose: 2) 180tabs Chay Blake M.D. 08/10/2018 Butalbital/Acetaminophen/Caffeine 50-325-40mg Capsules 1 by mouth twice a day as needed for headaches terrence Blake M.D. 06/30/2016 Immunizations Description No Information Available Vital Signs Date Vital Result Comment 06/30/2016 9:57am BP Systolic 125 mmHg BP Diastolic 75 mmHg Heart Rate 74 /min Respiratory Rate 16 /min Height 64 inches 5'4" Weight 197.00 lb BMI (Body Mass Index) 33.8 kg/m2 [place] Body Weight 120 lb Results Test Acquired Date Facility Test Result H/L Range Note Laboratory test finding 03/13/2020 Located within [facility] CPK Creatine Phosphokinase 58 U/L Normal 26-192 Thyroid Stimulating Hormone 0.077 uIU/ML Low 0.358-3.740 Anti-Histone Antibodies 0.2 units Normal 0.0-0.9 1 Acetylcholine Rcptor Binding A < 0.03 nmol/L Normal 0.00-0.24 2 Striational Antibodies Negative Normal Neg:<1:40 3 1 Negative <1.0 Weak Positive 1.0 - 1.5 Moderate Positive 1.6 - 2.5 Strong Positive >2.5 2 Negative: 0.00 - 0.24 Borderline: 0.25 - 0.40 Positive: >0.40 3 Performed at: [facility] Lab[address] [id number] 61 Estate Administrator: Mitchell Hernadez MD, Phone: [phone] Performed at: [facility] Lab[address] [id number] Estate Administrator: Lisa Natarajan MD, Phone: [phone] Procedures Description No Information Available Medical Devices Description No Information Available Encounters Type Date Location Provider Dx Diagnosis Office Visit 04/22/2020 1:30p [place] M54.81 Occipital neuralgia M54.2 Cervicalgia M43.02 Spondylolysis, cervical perez on F51.01 Primary insomnia F41.1 Generalized anxiety disorder G44.229 Chronic tension-type headach e, not intractable G43.009 Migraine w/o aura, not intra ctable, w/o status migrainosus Office Visit 02/25/2020 11:30a Main office - [place] Christie M54.81 Occipital neuralgia M54.2 Cervicalgia M43.02 Spondylolysis, cervical perez on F51.01 Primary insomnia F41.1 Generalized anxiety disorder M54.5 Low back pain G44.229 Chronic tension-type headach e, not intractable Assessments Date Code Description Provider 04/22/2020 M54.81 Occipital neuralgia Chay Blake M.D. 04/22/2020 M54.2 Cervicalgia Chay Blake M.D. 04/22/2020 M43.02 Spondylolysis, cervical region Venecia Blake M.D. 04/22/2020 F51.01 Primary insomnia Susana Irvin 04/22/2020 F41.1 Generalized anxiety disorder Mark Anthony Blake M.D. 04/22/2020 G44.229 Chronic tension-type headache, n ot intractable Chay Blake M.D. 04/22/2020 G43.009 Migraine without aura, not intra ctable, without status migra Chay Blake M.D. 02/25/2020 M54.81 Occipital neuralgia Chay Blake M.D. 02/25/2020 M54.2 Cervicalgia Chay Blake M.D. 02/25/2020 M43.02 Spondylolysis, cervical region Venecia Blake M.D. 02/25/2020 F51.01 Primary insomnia Susana Irvin 02/25/2020 F41.1 Generalized anxiety disorder Mark Anthony Blake M.D. 02/25/2020 M54.5 Low back pain Chay Blake M.D. 02/25/2020 G44.229 Chronic tension-type headache, n ot intractable Chay Blake M.D. Plan of Treatment Future Appointment(s):* 07/21/2020 2:45 pm - Chay Blake M.D. at Main office - [place] Functional Status Description No Information Available Mental Status Description No Information Available Referrals Description No Information Available
--- OUTSIDE RECORDS SUMMARY | 2020-05-18 17:58 | CCD ---
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 848366127 Problem Vitamin D deficiency E55.9 Active 66363858 Problem Nonrheumatic aortic valve stenosis I35.0 Activ e 075173618 Problem Other and unspecified hyperlipidemia E78.5 Act nahid 94709349 Problem Atherosclerosis of [place] ronary artery of [place] heart without angina pectoris I25.10 Active 5279203527952 Problem Hypertensive heart disease without heart failure I 11.9 Active 25457620 Problem Epidermal cyst of vulva N90.7 Active 71805934 Problem Medicare annual wellness visit, subsequent Z00.00 Active 281454569 Problem CKD (chronic kidney disease), stage III N18.3 Active 779241028 Problem Chronic gout without tophus, unspecified cause, unspecified site M1A.9XX0 Active 834717834 Problem Adjustment disorder with mixed anxiety and depressed mood F43.23 Active 32954177 Problem Aortic valve stenosis, etiology of cardiac valve disease unspecified I35.0 Active 12399517 Problem Insomnia, unspecified type G47.00 Active 30245 2000 Problem S/P drug eluting coronary stent placement Z95.5 Active 597747426 Problem Frequent falls R29.6 Active 629907719 Problem Adjustment disorder with anxious mood F43.22 Ac tive 24507457 Problem 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 Active 427966116 Taxol in [place] 2005 Problem Reactive depression F32.9 Active 58281146 Problem Lymphocytic colitis K52.832 Active 35491607 Problem Lower extremity edema R60.0 Active 192480980 Problem STORY (dyspnea on exertion) R06.00 Active 715031 06 Problem Stage 3b chronic kidney disease N18.32 Active 927356279 ALLERGIES Allergen (clinical drug ingredient) Drug/Non Drug Allergy do cumented on EMR Reaction Allergy Type Onset Date Status amlodipine edema, SOB Non Drug Allergy Active colchicine severe GI sx Non Drug Allergy Active Rozarem didn't help her sleep Non Drug Allergy Active Lunesta didn't work Non Drug Allergy Active trazodone TraZODone HCl([facility] Code:[address]-88) Anaphylaxi s/diff. swallowing Drug Allergy Active Taxol hemolytic anemia Non Drug Allergy Ac tive levofloxacin Levofloxacin([facility] Code:[address]-09) nerve pain, tendon pain Drug Allergy Active ENCOUNTERS from 1942 to 2020-04-29 Encounter Location Date Provider Diagnosis [facility] [address] [place] [address] 13 Apr, 2020 Eddy Reece IMMUNIZATIONS Vaccine Route Administration Date Status Meningococcal B (VFC) 0.5mL (Bexsero) IM Intramuscular May 30 019 Administered Meningococcal B 0.5mL (Bexsero) IM Intramuscular July 05, 2018 Administered Zoster 50mcg/0.5mL (Shingrix) Unknown September 25, 2017 Ad ministered Zoster 50mcg/0.5mL (Shingrix) Unknown Jan 10, 2018 Ad ministered Pneumococcal 0.5mL (Prevnar 13) Unknown September 03, [...] college Language: Question Answer Notes Languages spoken: Armenian Christian: Question Answer Notes Christian 21 Church Sexual Hx: Question Answer Notes Had sex [...] Information RESULTS No Results REASON FOR VISIT lock 04/28/2020 MEDICAL (GENERAL) HISTORY Type Description Date Medical History HTN Medical History s/p splenectomy (hemolytic anemia) Medical History hyperlipidemia Medical History [facility]ortic stenosis, [facility]; e cho [facility] 05/05: EF55-60%, mild LAE, mild diastolic dyfxn, ao sclerosis without stenosis Medical History arthritis Medical History hypothyroid Medical History depression Medical History headache Medical History anemia hemolytic, sees Neil tologist [place]; ? 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
--- OUTSIDE RECORDS SUMMARY | 2020-05-18 17:58 | CCD | Continuity of Care Document ---
Author Author Carolina BLAKE M.D. Organization Unknown Address [address] [place] [address] Phone [phone] Care Team Providers Care Oil Well Logging Engineer Name Role Phone Arnold Reece M.D. AUTM [phone] Problems Active Problems Provider Date Cervico-occipital neuralgia [...] lb BMI (Body Mass Index) 33.8 kg/m2 [place] Body Weight 120 lb Results Test Acquired Date Facility Test Result H/L Range Note Laboratory test finding 03/13/2020 [facility] CPK Creatine Phosphokinase 58 U/L Normal 26-192 [...] - 0.40 Positive: >0.40 3 Performed at: [facility] [address] [id number] Coating Manager: Mitchell Hernadez MD, Phone: [phone] Performed at: [facility] [address] [id number] Coating Manager: Lisa Natarajan MD, Phone: [phone] Procedures Description No Information Available Medical Devices Description No Information Available Encounters Type Date Location Provider Dx Diagnosis Office Visit 04/22/2020 1:30p [place] M54.81 Occipital neuralgia M54.2 Cervicalgia M43.02 Spondylolysis, cervical perez on F51.01 Primary insomnia F41.1 Generalized anxiety disorder M54.5 Low back pain G44.229 Chronic tension-type headach e, not intractable G43.009 Migraine w/o aura, not intra ctable, w/o status migrainosus Office Visit 02/25/2020 11:30a Main office - [place] Chay Ali, M. D. M54.81 Occipital neuralgia M54.2 Cervicalgia M43.02 Spondylolysis, [...] anxiety disorder Mark Anthony Blake M.D. 04/22/2020 M54.5 Low back pain Chay Blake M.D. 04/22/2020 G44.229 Chronic tension-type headache, [...] intractable Chay Blake M.D. Plan of Treatment No Information Available Functional Status Description No Information Available Mental Status Description No Information Available Referrals Description No Information Available
--- OUTSIDE RECORDS SUMMARY | 2020-05-18 17:59 | CCD | Continuity of Care Document ---
Author Author Carolina BLAKE M.D. Organization Unknown Address [address] [place] [address] Phone [phone] Care Team Providers Care Resident Advisor Name Role Phone Arnold Reece M.D. AUTM [phone] Problems Active Problems Provider Date Cervico-occipital neuralgia Chay Blake M.D. Onset: 06/30 Migraine without aura, not refractory Chay Blake M.D. On set: 06/30/2016 Chronic tension-type headache Chay Blake M.D. Onset: Spondylolysis of cervical spine Chay Blake M.D. Onset: 0 06/30/2016 Diplopia Chay Blake M.D. Onset: 06/30/2016 Disorders of initiating and maintaining sleep Devyi Irvin Onset: 01/20/2017 Mild major depression, single [...] Qnty Indications Ordering Provide r Date Gabapentin 300mg Capsules 1 po tid 270caps Chay Blake M.D. 12/11/2018 Quetiapine Fumarate 25mg Tablets take 1 or 2 tablets at bedtime (max daily dose: 2) 180tabs Chay Blake M.D. 08/10/2018 Butalbital/Acetaminophen/Caffeine 50-325-40mg Capsules 1 by mouth twice a day as needed for headaches 30caps Chay Blake M.D. 06/30/2016 Immunizations Description No Information Available Vital Signs Date Vital Result Comment 06/30/2016 9:57am BP Systolic 125 mmHg BP Diastolic 75 mmHg Heart Rate 74 /min Respiratory Rate 16 /min Height 64 inches 5'4" Weight 197.00 lb BMI (Body Mass Index) 33.8 kg/m2 [place] Body Weight 120 lb Results Description No Information Available Procedures Description No Information Available Medical Devices Description No Information Available Encounters Type Date Location Provider Dx Diagnosis Office Visit 09/25/2019 2:15p Main office - [place] Deyvi Irvin M54.81 Occipital neuralgia M54.2 Cervicalgia M43.02 Spondylolysis, cervical perez on F5.01 Primary insomnia F41.1 Generalized anxiety disorder G43.009 Migraine w/o aura, not intra ctable, w/o status migrainosus M54.5 Low back pain Assessments Date Code Description Provider 02/25/2020 M54.81 Occipital neuralgia Chay Blake M.D. 02/25/2020 M54.2 Cervicalgia Chay Blake M.D. 02/25/2020 M43.02 Spondylolysis, cervical region Venecia Blake M.D. 02/25/2020 F51.01 Primary insomnia Susana Irvin 02/25/2020 F41.1 Generalized anxiety disorder Mark Anthony Blake M.D. 02/25/2020 M54.5 Low back pain Chay Blake M.D. 02/25/2020 G44.229 Chronic tension-type headache, n ot intractable Chay Blake M.D. 09/25/2019 M54.81 Occipital neuralgia Chay Blake M.D. 09/25/2019 M54.2 Cervicalgia Chay Blake M.D. 09/25/2019 M43.02 Spondylolysis, cervical region Venecia Blake M.D. 09/25/2019 F51.01 Primary insomnia Susana Irvin 09/25/2019 F41.1 Generalized anxiety disorder Mark Anthony Blake M.D. 09/25/2019 G43.009 Migraine without aura, not intra ctable, without status migra Chay Blake M.D. 09/25/2019 M54.5 Low back pain Chay Blake M.D. Plan of Treatment No Information Available Functional Status Description No Information Available Mental Status Description No Information Available Referrals Description No Information Available
--- OUTSIDE RECORDS SUMMARY | 2020-05-18 17:59 | CCD | Continuity of Care Document ---
Author Author Carolina BLAKE M.D. Organization Unknown Address [address] [place] [address] Phone [phone] Care Team Providers Care Drug Coordinator Name Role Phone Arnold Reece M.D. AUTM [phone] Problems Active Problems Provider Date Cervico-occipital neuralgia Chay Blake M.D. Onset: 06/30 Migraine without aura, not refractory Chay Blake M.D. On set: 06/30/2016 Chronic tension-type headache Chay Blake M.D. Onset: Spondylolysis of cervical spine Chay Blake M.D. Onset: 0 06/30/2016 Diplopia Chay Blake M.D. Onset: 06/30/2016 Disorders of initiating and maintaining sleep Deyvi Irvin Onset: 01/20/2017 Mild major depression, single episode hCay Blake M.D. On set: 07/26/2018 Generalized anxiety [...] lb BMI (Body Mass Index) 33.8 kg/m2 [place] Body Weight 120 lb Results Description No Information Available Procedures Description No Information Available Medical Devices Description No Information Available Encounters Type Date Location Provider Dx Diagnosis Office Visit 02/25/2020 11:30a [place] M54.81 Occipital neuralgia M54.2 Cervicalgia M43.02 Spondylolysis, cervical perez on F5.01 Primary insomnia F41.1 Generalized anxiety disorder M54.5 Low back pain G44.229 Chronic tension-type headach e, not intractable Office Visit 09/25/2019 2:15p [place] M54.81 Occipital neuralgia M54.2 Cervicalgia M43.02 Spondylolysis, cervical perez on F51.01 Primary insomnia F41.1 Generalized anxiety disorder G43.009 [...] Blake M.D. 09/25/2019 M43.02 Spondylolysis, cervical region M katherine Blake M.D. 09/25/2019 F51.01 Primary insomnia Susana [...]
--- OUTSIDE RECORDS SUMMARY | 2020-05-18 17:59 | CCD ---
Author Author [facility] Organization [facility] Address Unknown Phone Unavailable Care Team Providers Care Is Architect Name Role Phone ERIKA GAMINO MD Unavailable Unavailable ERIKA GAMINO MD Unavailable Unavailable HANNYERIKA MD Unavailable Unavailable HANNYERIKA MD Unavailable Unavailable HANNYERIKA MD Unavailable Unavailable HANNYERIKA MD Unavailable Unavailable HANNYERIKA MD Unavailable Unavailable ERIKA GAMINO MD Unavailable Unavailable HANNYERIKA MD Unavailable Unavailable HANNYERIKA MD Unavailable Unavailable ERIKA GAMINO MD Unavailable Unavailable HANNYERIKA MD Unavailable Unavailable HANNYERIKA MD Unavailable Unavailable HANNYERIKA MD Unavailable Unavailable HANNYERIKA MD Unavailable Unavailable HANNYERIKA MD Unavailable Unavailable ERIKA GAMINO MD Unavailable Unavailable ERIKA GAMINO MD Unavailable Unavailable ERIKA GAMINO MD Unavailable Unavailable ERIKA GAMINO MD Unavailable Unavailable ERIKA GAMINO MD Unavailable Unavailable ERIKA GAMINO MD Unavailable Unavailable ERIKA GAMINO MD Unavailable Unavailable ERIKA GAMINO MD Unavailable Unavailable ERIKA GAMINO MD Unavailable Unavailable ERIKA GAMINO MD Unavailable Unavailable ERIKA GAMINO MD Unavailable Unavailable ERIKA GAMINO MD Unavailable Unavailable ERIKA GAMINO MD Unavailable Unavailable ERIKA GAMINO MD Unavailable Unavailable ERIKA GAMINO MD Unavailable Unavailable ERIKA GAMINO MD Unavailable Unavailable ERIKA GAMINO MD Unavailable Unavailable ERIKA GAMINO MD Unavailable Unavailable ERIKA GAMINO MD Unavailable Unavailable ERIKA GAMINO MD Unavailable Unavailable ERIKA GAMINO MD Unavailable Unavailable HANNYERIKA MD Unavailable Unavailable ERIKA GAMINO MD Unavailable Unavailable ERIKA GAMINO MD Unavailable Unavailable HANNYERIKA MD Unavailable Unavailable HANNY, JAMES MD Unavailable Unavailable HANNY, JAMES MD Unavailable Unavailable HANNY, JAMES MD Unavailable Unavailable HANNY, JAMES MD Unavailable Unavailable HANNY, JAMES MD Unavailable Unavailable HANNY, JAMES MD Unavailable Unavailable HANNY, JAMES MD Unavailable Unavailable HANNY, JAMES MD Unavailable Unavailable HANNY, JAMES MD Unavailable Unavailable HANNY, JAMES MD Unavailable Unavailable HANNY, JAMES MD Unavailable Unavailable HANNY, JAMES MD Unavailable Unavailable HANNY, JAMES MD Unavailable Unavailable Ali, Chay MD Unavailable Unavailable Ali, Chay MD Unavailable Unavailable Ali, Chay MD Unavailable Unavailable Ali, Chay MD Unavailable Unavailable Ali, Chay MD Unavailable Unavailable Ali, Chay MD Unavailable Unavailable Ali, Chay MD Unavailable Unavailable Ali, Chay MD Unavailable Unavailable Ali, Chay MD Unavailable Unavailable Ali, Chay MD Unavailable Unavailable Ali, Chay MD Unavailable Unavailable Ali, Chay MD Unavailable Unavailable Ali, Chay MD Unavailable Unavailable Ali, Chay MD Unavailable Unavailable Ali, Chay MD Unavailable Unavailable Ali, Chay MD Unavailable Unavailable Ali, Chay MD Unavailable Unavailable Ali, Chay MD Unavailable Unavailable Ali, Chay MD Unavailable Unavailable Ali, Chay MD Unavailable Unavailable Ali, Chay MD Unavailable Unavailable Ali, Chay MD Unavailable Unavailable Ali, Chay MD Unavailable Unavailable Ali, Chay MD Unavailable Unavailable Ali, Chay MD Unavailable Unavailable Ali, Chay MD Unavailable Unavailable Ali, Chay MD Unavailable Unavailable Ali, Chay MD Unavailable Unavailable Ali, Chay MD Unavailable Unavailable Ali, Chay MD Unavailable Unavailable Ali, Chay MD Unavailable Unavailable Ali, Chay MD Unavailable Unavailable Ali, Chay MD Unavailable Unavailable Ali, Chay MD Unavailable Unavailable Ali, Chay MD Unavailable Unavailable Ali, Chay MD Unavailable Unavailable Ali, Chay MD Unavailable Unavailable Ali, Chay MD Unavailable Unavailable Ali, Chay MD Unavailable Unavailable Ali, Chay MD Unavailable Unavailable Ali, Chay MD Unavailable Unavailable Ali, Chay MD Unavailable Unavailable Ali, Chay MD Unavailable Unavailable Ali, Chay MD Unavailable Unavailable Ali, Chay MD Unavailable Unavailable Ali, Chay MD Unavailable Unavailable Ali, Chay MD Unavailable Unavailable Ali, Chay MD Unavailable Unavailable Ali, Chay MD Unavailable Unavailable Re-disclosure Warning The records that you are about to access may contain information from federally-assisted alcohol or drug abuse programs. If such information is present, then the following federally mandated warning applies: This information has been disclosed to you from records protected by federal confidentiality rules (42 CFR part 2). The federal rules prohibit you from making any further disclosure of this information unless further disclosure is expressly permitted by the written consent of the person to whom it pertains or as otherwise permitted by 42 CFR part 2. A general authorization for the release of medical or other information is NOT sufficient for this purpose. The Federal rules restrict any use of the information to criminally investigate or prosecute any alcohol or drug abuse patient.The records that you are about to access may contain highly sensitive health information, the redisclosure of which is protected by Article 27-F of the [facility] Public Health law. If you continue you may have access to information: Regarding HIV / AIDS; Provided by facilities licensed or operated by the [facility] Office of Mental Health; or Provided by the [facility] Office for People With Developmental Disabilities. If such information is present, then the following [facility] mandated warning applies: This information has been disclosed to you from confidential records which are protected by state law. State law prohibits you from making any further disclosure of this information without the specific written consent of the person to whom it pertains, or as otherwise permitted by law. Any unauthorized further disclosure in violation of state law may result in a fine or prison sentence or both. A general authorization for the release of medical or other information is NOT sufficient authorization for further disc losure. Allergies and Adverse Reactions Type Description Substance Reaction Status Data Source(s ) Drug allergy Levofloxacin Levofloxacin nerve pain, tendon pain Activ e eCW1 ([facility]) Drug allergy TraZODone HCl Trazodone Anaphylaxis/diff. swallowing A ctive eCW1 ([facility]) colchicine colchicine Colchicine 0.6 MG Oral Capsule severe GI sx Ac tive eCW1 ([facility]) amlodipine amlodipine Amlodipine 5 MG Oral Tablet edema, SOB Active eCW1 ([facility]) Taxol Taxol Taxol hemolytic anemia Active eCW1 ([facility]) Buckyrem Jing Lawlerrem didn't help her sleep Active eC W1 ([facility]) Lunesta Lunesta Lunesta didn't work Active eCW1 ([facility]) Lunesta Lunesta Lunesta didn't work Active eCW1 ([facility]) amlodipine amlodipine Amlodipine 5 MG Oral Tablet edema, SOB Active eCW1 ([facility]) Taxol Taxol Taxol hemolytic anemia Active eCW1 ([facility]) colchicine colchicine Colchicine 0.6 MG Oral Capsule severe GI sx Ac tive eCW1 ([facility]) Rozarem Rozarem Rozarem didn't help her sleep Active eC W1 ([facility]) Lunesta Lunesta Lunesta didn't work Active eCW1 ([facility]) amlodipine amlodipine Amlodipine 5 MG Oral Tablet edema, SOB Active eCW1 ([facility]) Taxol Taxol Taxol hemolytic anemia Active eCW1 ([facility]) colchicine colchicine Colchicine 0.6 MG Oral Capsule severe GI sx Ac tive eCW1 ([facility]) Rozarem Rozarem Rozarem didn't help her sleep Active eC W1 ([facility]) Lunesta Lunesta Lunesta didn't work Active eCW1 ([facility]) amlodipine amlodipine amlodipine edema, SOB Active eCW1 ([facility]) Taxol Taxol Taxol hemolytic anemia Active eCW1 ([facility]) colchicine colchicine colchicine severe GI sx Active eCW1 ([facility]) Rozarem Rozarem Rozarem didn't help her sleep Active eC W1 ([facility]) Family History Family Member Name Family Member Gender Family Member Status Date o f Status Description Data Source(s) Unknown Unknown Problem MEDENT ([facility], [facility]) mother Unknown Male Problem MEDENT ([facility] () - brain aneuryism age 50 Unknown Unknown Problem MEDENT ([facility] Unknown Female Problem MEDENT ([facility]) Unknown Female Problem MEDENT ([facility]) Unknown Female Problem MEDENT ([facility]) Encounters Encounter Providers Location Date Indications Data Source(s ) Unknown [address] [facility] [place] [address] 04/30/2020 12:00:00 AM EST eCW1 (On license of [facility]) Unknown [address] [facility] [place] [address] 04/29/2020 12:00:00 AM EST eCW1 ([facility] Office Visit, Est Pt., Level 4 PC [address] [place] [address] 04/28/2020 12:00:00 AM EST eCW1 ([facility]) Outpatient Attender: Chay Blake MD Main office - [place] 04/22/2020 12:30:00 PM EST MEDENT ([facility], ) Unknown [address] [facility] [place] [address] 03/31/2020 12:00:00 AM EST [facility]CW1 [facility] Outpatient Attender: Chay Blake MD Main office - [place] 02/25/2020 10:30:00 AM EST MEDENT ([facility], ) Office Visit, Est Pt., Level 4 PC [address] [place] [address] 02/25/2020 12:00:00 AM EST eCW1 ([facility]) Unknown [address] [facility] [place] [address] 01/31/2020 12:00:00 AM EDT eCW1 [facility] Unknown [address] [facility] [place] [address] 01/31/2020 12:00:00 AM EDT eCW1 [facility] Outpatient [address] [facility] [place] [address] 01/30/2020 12:00:00 AM EDT eCW1 ([facility] Unknown [address] [facility] [place] [address] 01/30/2020 12:00:00 AM EDT eCW1 [facility]) Outpatient Attender: ERIKA GAMINO MD SJИван.BARBARA-SJP.BARBARA 0 12:00:00 AM EDT - 01/29/2020 11:15:22 AM [facility] [address] [facility] [place] [address] 01/16/2020 12:00:00 AM EDT eCW1 ([facility]) Outpatient Attender: ERIKA GAMINO MDReferrer: ERIKA HoganBARBARA-SJP.BARBARA 01/10/2020 07:06:[address] [facility] Outpatient Referrer: ERIKA ROBISONBARBARA-SJP.BARBARA 01/10/2020 12:00:00 AM EDT [facility] Outpatient Attender: ERIKA BALDRERAMA-SJP.BARBARA 0 12:00:00 AM EDT - 12/25/2019 01:33:[address] [facility] Outpatient [address] [facility] [place] [address] 11/07/2019 12:00:00 AM EDT eCW1 ([facility] Unknown [address] [place] [address] [place] [address] 09/26/2019 12:00:00 AM EDT eCW1 [facility]) Office Visit Attender: Chay Blake MD Main office - [place] 09/25/2019 02:15:00 PM EDT MEDENT ([facility], ) [address] [address] 09/24/2019 12:00:00 AM EDT eCW1 [facility] Unknown [address] [place] [address], [place] [address] 09/23/2019 12:00:00 AM EDT eCW1 ([facility]) [facility] Miller [address] [place] [address] [place] [address] 09/06/2019 12:00:00 AM EDT eCW1 ([facility] Miller [address] [place] [address] [place] [address] 08/29/2019 12:00:00 AM EDT eCW1 ([facility] Philippe [address] [place] [address], [place] [address] 08/27/2019 12:00:00 AM EDT eCW1 ([facility]) [facility] Paul [address] [place] [address] 07/30/2019 12:00:00 AM EDT eCW1 [facility]) [facility] Paul [address] [place] [address] 07/30/2019 12:00:00 AM EDT [facility]CW1 [facility]) [facility] Paul [address] [place] [address] 07/29/2019 12:00:00 AM EDT eCW1 ([facility]) [facility] Paul [address] [place] [address] 07/03/2019 12:00:00 AM EDT eCW1 [facility]) [facility] Paul [address] [place] [address] 06/18/2019 12:00:00 AM EST eCW1 ([facility]) [address] [address] 04/30/2019 12:00:00 AM EST [facility]CW1 [facility]) [facility] Paul [address] [place] [address] [place] [address] 04/30/2019 12:00:00 AM EST [facility]CW1 [facility]) [facility] Paul [address] [place] [address] 04/26/2019 12:00:00 AM EST eCW1 ([facility]) [facility] Paul [address] [place] [address] [place] [address] 04/08/2019 12:00:00 AM EST eCW1 ([facility]) [address] [address] 04/02/2019 12:00:00 AM EST eCW1 [facility]) Medications Medication Brand Name Start Date Product Form Dose Route Admi nistrative Instructions Pharmacy Instructions Status Indications Reaction Description Data Source(s) Shower Chair without wheels UNK 04/28/2020 12:00:00 AM EST active Shower Chair without wheels eCW1 ([facility]) Shower Chair without wheels UNK 04/28/2020 12:00:00 AM EST active Shower Chair without wheels eCW1 ([facility]) Shower Chair without wheels UNK 04/28/2020 12:00:00 AM EST active Shower Chair without wheels eCW1 ([facility]) gabapentin 100 MG Oral Capsule Gabapentin 04/22/2020 12:00:00 AM EST ORAL active MEDENT ([facility], ) Prednisone 10 MG Oral Tablet Prednisone 04/08/2020 12:00:00 AM EST ORAL active MEDENT ([facility], ) 60 ACTUAT Budesonide 0.08 MG/ACTUAT / fo rmoterol fumarate 0.0045 MG/ACTUAT Metered Dose Inhaler [Symbicort] Symbicort 04/08/2020 12:00:00 AM EST RESPIRATORY active MEDENT ( [facility], ) 60 ACTUAT Albuterol 0.09 MG/ACTUAT Metered Dose Inhaler Albu terol Sulfate HFA 04/08/2020 12:00:00 AM EST ORAL active MEDENT ([facility], ) Levothyroxine Sodium 0.1 MG Oral Tablet Levothyroxine Sodium 100 MCG Levothyroxine Sodium 100 MCG 02/25/2020 12:00:00 AM EST active Levothyroxine Sodium 100 MCG eCW1 ([facility]) Levothyroxine Sodium 0.1 MG Oral Tablet Levothyroxine Sodium 100 MCG Levothyroxine Sodium 100 MCG 02/25/2020 12:00:00 AM EST active Levothyroxine Sodium 100 MCG eCW1 ([facility]) Levothyroxine Sodium 0.1 MG Oral Tablet Levothyroxine Sodium 100 MCG Levothyroxine Sodium 100 MCG 02/25/2020 12:00:00 AM EST active Levothyroxine Sodium 100 MCG eCW1 ([facility]) Levothyroxine Sodium 0.1 MG Oral Tablet Levothyroxine Sodium 100 MCG Levothyroxine Sodium 100 MCG 02/25/2020 12:00:00 AM EST active Levothyroxine Sodium 100 MCG eCW1 ([facility]) Levothyroxine Sodium 0.1 MG Oral Tablet Levothyroxine Sodium 100 MCG Levothyroxine Sodium 100 MCG 02/25/2020 12:00:00 AM EST active Levothyroxine Sodium 100 MCG eCW1 ([facility]) Levothyroxine Sodium 0.125 MG Oral Tablet Levothyroxin e Sodium 125 MCG Levothyroxine Sodium 125 MCG 01/30/2020 12:00:00 AM EDT active Levothyroxine Sodium 125 MCG eCW1 ([facility]) Levothyroxine Sodium 0.125 MG Oral Tablet Levothyroxin e Sodium 125 MCG Levothyroxine Sodium 125 MCG 01/30/2020 12:00:00 AM EDT active Levothyroxine Sodium 125 MCG eCW1 ([facility]) Levothyroxine Sodium 0.125 MG Oral Tablet Levothyroxin e Sodium 125 MCG Levothyroxine Sodium 125 MCG 01/30/2020 12:00:00 AM EDT active Levothyroxine Sodium 125 MCG eCW1 ([facility]) Levothyroxine Sodium 0.125 MG Oral Tablet Levothyroxin e Sodium 125 MCG Levothyroxine Sodium 125 MCG 01/30/2020 12:00:00 AM EDT active Levothyroxine Sodium 125 MCG eCW1 ([facility]) Furosemide 40 MG Oral Tablet Furosemide 40 MG 09/06/2019 12:00:00 A M EDT 1.0 {tablet} active Furosemide 40 MG eCW1 ( [facility]) Furosemide 40 MG Oral Tablet Furosemide 40 MG 09/06/2019 12:00:00 A M EDT 1.0 {tablet} suspended Furosemide 40 MG eCW1 ([facility]) Furosemide 40 MG Oral Tablet Furosemide 40 MG 09/06/2019 12:00:00 A M EDT 1.0 {tablet} suspended Furosemide 40 MG eCW1 ([facility]) Furosemide 40 MG Oral Tablet Furosemide 40 MG 09/06/2019 12:00:00 A M EDT 1.0 {tablet} suspended Furosemide 40 MG eCW1 ([facility]) Furosemide 40 MG Oral Tablet Furosemide 40 MG 09/06/2019 12:00:00 A M EDT 1.0 {tablet} suspended Furosemide 40 MG eCW1 ([facility]) Furosemide 40 MG Oral Tablet Furosemide 40 MG 09/06/2019 12:00:00 A M EDT 1.0 {tablet} suspended Furosemide 40 MG eCW1 ([facility]) Furosemide 40 MG Oral Tablet Furosemide 40 MG 09/06/2019 12:00:00 A M EDT 1.0 {tablet} suspended Furosemide 40 MG eCW1 ([facility]) Furosemide 40 MG Oral Tablet Furosemide 40 MG 09/06/2019 12:00:00 A M EDT 1.0 {tablet} suspended Furosemide 40 MG eCW1 ([facility]) Furosemide 40 MG Oral Tablet Furosemide 40 MG 09/06/2019 12:00:00 AM E DT active 1 tablet eCW1 ([facility]) Furosemide 40 MG Oral Tablet Furosemide 40 MG 09/06/2019 12:00:00 A M EDT 1.0 {tablet} suspended Furosemide 40 MG eCW1 ([facility]) Furosemide 40 MG Oral Tablet Furosemide 40 MG 09/06/2019 12:00:00 A M EDT 1.0 {tablet} suspended Furosemide 40 MG eCW1 ([facility]) Furosemide 40 MG Oral Tablet Furosemide 40 MG 09/06/2019 12:00:00 A M EDT 1.0 {tablet} suspended Furosemide 40 MG eCW1 ([facility]) Furosemide 40 MG Oral Tablet Furosemide 40 MG 09/06/2019 12:00:00 A M EDT 1.0 {tablet} active Furosemide 40 MG eCW1 ( [facility]) Furosemide 40 MG Oral Tablet Furosemide 40 MG 09/06/2019 12:00:00 A M EDT 1.0 {tablet} suspended Furosemide 40 MG eCW1 ([facility]) Budesonide 3 MG Delayed Release Oral Capsule Budesonide 3 MG 06/19/2019 12:00:00 AM EST 2.0 {capsules} active Budesoni de 3 MG eCW1 ([facility]) Budesonide 3 MG Delayed Release Oral Capsule Budesonide 3 MG 06/19/2019 12:00:00 AM EST 2.0 {capsules} active Budesoni de 3 MG eCW1 ([facility]) Budesonide 3 MG Delayed Release Oral Capsule Budesonide 3 MG 06/19/2019 12:00:00 AM EST 2.0 {capsules} active Budesoni de 3 MG eCW1 ([facility]) Budesonide 3 MG Delayed Release Oral Capsule Budesonide 3 MG 06/19/2019 12:00:00 AM EST 2.0 {capsules} active Budesoni de 3 MG eCW1 ([facility]) Budesonide 3 MG Delayed Release Oral Capsule Budesonide 3 MG 06/19/2019 12:00:00 AM EST active 2 capsules eCW1 ([facility]) Budesonide 3 MG Delayed Release Oral Capsule Budesonide 3 MG 06/19/2019 12:00:00 AM EST 2.0 {capsules} active Budesoni de 3 MG eCW1 ([facility]) Budesonide 3 MG Delayed Release Oral Capsule Budesonide 3 MG 06/19/2019 12:00:00 AM EST active 2 capsules eCW1 ([facility]) Budesonide 3 MG Delayed Release Oral Capsule Budesonide 3 MG 06/19/2019 12:00:00 AM EST 2.0 {capsules} active Budesoni de 3 MG eCW1 ([facility]) Budesonide 3 MG Delayed Release Oral Capsule Budesonide 3 MG 06/19/2019 12:00:00 AM EST active 2 capsules eCW1 ([facility]) Budesonide 3 MG Delayed Release Oral Capsule Budesonide 3 MG 06/19/2019 12:00:00 AM EST 2.0 {capsules} active Budesoni de 3 MG eCW1 ([facility]) Budesonide 3 MG Delayed Release Oral Capsule Budesonide 3 MG 06/19/2019 12:00:00 AM EST 2.0 {capsules} active Budesoni de 3 MG eCW1 ([facility]) Budesonide 3 MG Delayed Release Oral Capsule Budesonide 3 MG 06/19/2019 12:00:00 AM EST 2.0 {capsules} active Budesoni de 3 MG eCW1 ([facility]) Budesonide 3 MG Delayed Release Oral Capsule Budesonide 3 MG 06/19/2019 12:00:00 AM EST 2.0 {capsules} active Budesoni de 3 MG eCW1 ([facility]) Budesonide 3 MG Delayed Release Oral Capsule Budesonide 3 MG 06/19/2019 12:00:00 AM EST 2.0 {capsules} active Budesoni de 3 MG eCW1 ([facility]) Budesonide 3 MG Delayed Release Oral Capsule Budesonide 3 MG 06/19/2019 12:00:00 AM EST 2.0 {capsules} active Budesoni de 3 MG eCW1 ([facility]) Budesonide 3 MG Delayed Release Oral Capsule Budesonide 3 MG 06/19/2019 12:00:00 AM EST 2.0 {capsules} active Budesoni de 3 MG eCW1 ([facility]) Insurance Providers Payer name Policy type / Coverage type Policy ID Covered constitution party ID Covered constitution party's relationship to scruggs Policy Scruggs Plan Information UMR [facility] [id number] SP [id number] MEDICARE [id number] SP [id number] UMR O [id number] S [id number] MEDICARE C [id number] S [id number] UMR [id number] Mily [id number] MEDICARE [id number] Mily [id number] ANSI-Medicare Part B [id number] ANSI-Commercial [id number] ANSI-Medicare Part B [id number] ANSI-Commercial [id number] ANSI-Medicare Part B [id number] ANSI-Commercial [id number] ANSI-Medicare Part B [id number] ANSI-Commercial [id number] ANSI-Medicare Part B [id number] ANSI-Commercial [id number] ANSI-Commercial [id number] ANSI-Medicare Part B [id number] Medicare Dme Medigap Part B [id number] Self [id number] Medicare Medicare Primary [id number] Self [id number] [facility] Commercial [id number] Self [id number] Medicare Dme Medigap Part B [id number] Self [id number] Medicare Medicare Primary [id number] Self 6 [id number] ANSI-Commercial [id number] ANSI-Medicare Part B [id number] ANSI-Medicare Part B [id number] ANSI-Commercial [id number] ANSI-Medicare Part B [id number] ANSI-Commercial [id number] ANSI-Medicare Part B [id number] ANSI-Commercial [id number] uh78da4b-cs3a-40k7-vvzg-eg6vu1507uut Medicare [facility] Medigap Part B [id number] Self [id number] Medicare Dme Supplies Medigap Part B [id number] Self [id number] Medicare [facility] Medicare Primary [id number] Self [id number] [facility] (pr) Medigap Part B [id number] Self [id number] [place] B [id number] Self [id number] Medicare Dme Supplies Medigap Part B [id number] Self [id number] Medicare [facility] Medicare Primary [id number] Self [id number] ANSI-Commercial [id number]-o068-70tf-i67d-[id number] 55563on9-o452-98wa-g28w-j9xy131a11a3 ANSI-Medicare Part B [id number]-9w4q-ryo1-3rw88lz4gjv8 ANSI-Medicare Part B [id number]-120s-pj8w-[id number] ANSI-Commercial 41764s65-0499-07m0-n7ja-89ug63s2i4y9 53932l90-7073-13t2-h6zy-36ps04r0g6h8 [place] [id number] Self [id number] Medicare Dme Supplies Medigap Part B [id number] Self [id number] [place] [id number] Self [id number] ANSI-Commercial [id number]-f4v1-22vt-[id number] 9f3x3w24-v6l3-31yl-l822-84606p099076 ANSI-Medicare Part B [id number]-[id number] ANSI-Medicare Part B [id number]-[id number]-[id number] ANSI-Commercial h045756z-6380-3i3p-ff93-s45s43w9x661 l501606t-1323-1f2i-wx86-o72n48r3r948 ANSI-Commercial 3k1l43c5-8818-0wgz-qeqo-pbq1v76y7p3d 4u6e30r9-0646-7sot-zmwg-yzz1c74q7k0v ANSI-Medicare Part B [id number]-[id number] ANSI-Commercial 84o21373-yz9c-9669-i372-2382q565f28a 01t07248-nn7t-0513-n217-7071t341u11j ANSI-Medicare Part B p691tq9l-7crr-2j4h-7889-r08rrm0la1t9 z447vf8r-6pvl-0a5q-3162-c98wqw9ux3w2 ANSI-Commercial y8r81bl2-08j0-23d0-ob63-u51ugznaot9n m3z41we1-65f6-68q7-ot29-t85knzsnwk3m ANSI-Medicare Part B [id number]-y8ut-1oem-068f-[id number] 70a9u7zd-m9eh-0qdc-162v-u9863g317jj9 ANSI-Medicare Part B [id number]-26c6-i1h8-5cw4r21od88y 599ba654-w6ie-87a6-f2k0-4ks4d13vb80j ANSI-Commercial 8843091k-xe87-7hv6-i739-kf4438y20829 8345956u-ag37-4jr1-c577-rn6080z26920 ANSI-Medicare Part B [id number]my5 s4j00601-5298-1gy5-5r55-696k7wb26xd9 ANSI-Commercial z25fc316-2yar-178z-44my-h0kf3t63622z g66oj574-2clb-584n-42ex-q1sg9z34577i ANSI-Medicare Part B [id number]-crv9-2h2g-xym1-[id number] 7rmt0087-jbp3-5i0i-ngk5-e978761322lb ANSI-Commercial nz75q5q7-4210-195z-8sxw-zf81632u449w oo93l2e8-7535-288y-8fhe-vs84821y766y ANSI-Commercial qp69rkz3-01c0-7u49-85x6-65go9n961703 an74zru9-70z4-3e82-28w3-47od8d965664 ANSI-Medicare Part B [id number]-5906-u745-[id number] 9518e712-km3t-8378-v430-c4c341194fs0 [facility] [id number] SP [id number] MEDICARE [id number] SP [id number] ANSI-Medicare Part B [id number]-6u08-a57w-48e44r4jwi7o y2170005-0e0v-0a75-u02u-29e56s9xgl2y ANSI-Commercial f41avv05-pm2d-355p-zub5-c7z44rys75tp o65kmv31-cq4m-741j-sxt1-e3h81jjl52ba ANSI-Medicare Part B [id number]-9e1b-35v7-z6k1a8202u96 06941i77-338l-7j3m-12a8-u7w4p5417f23 ANSI-Commercial 5l844x7i-35q9-1a00-8729-m120cvw068hb 7a590c9m-13s1-7a84-7422-k021orx752ox ANSI-Commercial 9a49n31m-4454-7240-3505-in61p66960c3 6h33k66j-1867-6042-7403-no12c89093b9 ANSI-Medicare Part B [id number]-76de-03tu-lie3-16ku89w618t7 po1410hn-03en-01yi-dcp8-43ma61h796q1 ANSI-Commercial nl6b5e59-0h74-3g77-cn0p-8x3x55x7946g ai4j8v86-7x79-9g26-te6n-7i5l92j1436d ANSI-Medicare Part B [id number]-dwd7-9883-k164-11be3qf5s15u 2x3w41b4-sgs8-7260-p791-56xp0lx3p61y ANSI-Commercial 8b065003-d5q6-7j58-o92q-277sk172c928 1l557610-a9k5-7r46-p95r-864zm109z123 ANSI-Medicare Part B [id number]-0zm5-3859-c269d6091377 o6ap706t-627q-0gu3-1753-s374q5707817 ANSI-Commercial 289fbq6d-rzm7-7si2-un43-vjt601367oj9 841zmn4b-qrb8-3de6-ym94-zxm711764hr9 ANSI-Medicare Part B f518w89i-7b68-35xl-kq6e-u0q0o91o63ei q722a40w-3x50-16in-zm1a-g3k3g74j86cd ANSI-Medicare Part B 0y5d60xn-1f2u-6lh9-la1d-4gbs03dxgpj8 0a6y56nt-1k0x-9du6-df5t-8znh51emedf7 ANSI-Commercial 49o249hn-bmx1-09a3-im76-0957qxu5c98x 64b956eu-iwy9-01c6-ao83-8774obl9u27p ANSI-Medicare Part B 9b6fo1i5-7a05-9w3g-b237-gks3k72q675b 2g8rp0t2-4o07-2b0j-n490-isk9p42r816r ANSI-Commercial 542u7773-2sdc-2d87-uipm-2041927h6410 364l7576-1mds-0b12-zxkr-8099110j1314 ANSI-Medicare Part B 42qb8fw8-3wie-3ozo-2pw2-295s806f505i 29hf2xj0-8ofr-6aqk-2jm5-624j894f753c ANSI-Commercial 4e12a993-844l-1w42-kfb4-03y15ss8n602 5b90b013-826y-8g78-bye3-41x90qg2j296 ANSI-Medicare Part B 5251g96u-3ww6-5705-8b9l-74i4i4x2o4u0 5154p24r-1iz2-9485-0r6p-54r5f1g6p7v4 ANSI-Commercial 4cav46oj-er65-4t4n-25ah-3c0elw257g76 0eml46pn-zr44-6b6e-68df-2f2jzu189i24 ANSI-Commercial 199u340u-1n10-597k-u60v-uhf39ny17049 328f391b-2v49-485e-e30i-mts81cn89037 ANSI-Medicare Part B a486wq00-31ob-6w72-1867-i794o77fy5w1 x012zo76-87ju-9f81-7190-l043a88vo3j8 ANSI-Medicare Part B b31wk1e2-b628-751b-3ufu-p5uc2uqhec97 m28el3z1-x521-877t-1pid-j4df2tqbxn72 ANSI-Commercial 966f4z1o-6u9u-837j-s304-j5509h8g3i37 975u8q2a-1w1e-279b-w850-e3512z8e7g50 ANSI-Commercial a5adlnv9-b15c-8022-5v4d-1k622pk21zf7 w8iywmy3-s22b-0157-9w3n-4p272of33hf6 ANSI-Medicare Part B 5c76br0k-581w-284g-1904-2648e8b46718 8h60qf8v-629v-496i-8196-7982y4n34125 ANSI-Medicare Part B o04373w5-4rx6-6793-ab95-l940622d3140 y59436r6-4un4-7151-mu72-l089281b8307 ANSI-Commercial 577eqh5e-13rh-0818-p41o-7884wuwh908t 676jyx4r-89xv-8365-a09j-0778axzr912k ANSI-Medicare Part B 5w596m9c-7853-309h-00c5-oq54sbj7fc2v 5o232h2r-2308-696p-02l0-tr67dxy3md2u ANSI-Commercial y0223641-e432-5ww1-i00o-u23e5880uaf4 a5454544-e191-9qo1-h93l-x04g3435ksk1 [facility] [id number] SP [id number] [facility] [place] Part B [id number] Self Y [id number] Medicare Natl Gov't Servi Medicare Primary [id number] Self [id number] ANSI-Medicare Part B [id number]-1596-552t-2s45-249844t4kj15 s11u4g0o-5769-672c-5q16-184339w3ze91 ANSI-Commercial oy6b27o2-60z6-679l-b5z3-rbq51f350919 cr4s04h7-89n4-939u-p8f2-syl30n784073 ANSI-Commercial kvs5072v-q84b-2x96-8997-993a16k1nfqx rim2851f-p33c-7s62-3139-288a75n3nlic ANSI-Medicare Part B 64pmwtlr-sd03-60nhvc21-33kz-oo87-54wyv1t01422 48yxzdjc-tk20-29ewoj53-78pj-qf03-68ubp2g68161 ANSI-Medicare Part B 18go730j-0f11-8uhf-bkq5-70slomp29r0r 30am615q-4e40-8ekb-kra3-50bpuqe59q9d ANSI-Commercial 49wbz102-2b66-2405-4127-2vhlm896uyr4 58zvw515-5b58-4068-5545-9upwj105eym5 ANSI-Commercial 670q335l-5rg6-6xk4-ik6v-332jr3l88080 011m888w-9pf5-0an4-ms2j-836oq3s49126 ANSI-Medicare Part B 600kj9s6-8811-23ay-0470-b13327r9rn9w 856dq5j0-7510-56si-5620-g87043s3cs3q [place] [id number] Self [id number] Medicare Dme Supplies Medigap Part B [id number] Self [id number] [place] [id number] Self [id number] ANSI-Medicare Part B [id number]-7924-66m2-212npf0t4ej4 r172e0t5-4d8i-8254-83d0-119xrv6d5ho5 ANSI-Commercial 3j50omqj-88k5-0b61-42fo-63g8ulwlmmv3 0m56sqeh-54p3-1n57-27nu-69k0dqbvkcg8 ANSI-Commercial 82aal126-13z1-52vw-9397-6e5642wlu9b2 03lsv095-58f2-31yq-4781-1i8053dpk7g1 ANSI-Medicare Part B [id number]-tl55-08wb-410b-71n8n080a98w 754p9sg2-su80-77ta-101z-44p5h415n56t ANSI-Medicare Part B [id number]-11p6-2kck-4ib2-7s581295h88i g83ca9qc-41f0-5nkt-2vp0-3f348631b54l ANSI-Commercial 23065r19-vj12-3kk6-110o-el72k2z0wkv4 61664f43-gt30-5qi7-005u-zr07x3b6avo8 ANSI-Medicare Part B [id number]-ez53-0cr539pk5xg1 130f4642-4828-8d04-el14-6in099pv1fi2 ANSI-Commercial 33yo15i3-ons7-4x01-7q51-24tyq07i419u 58yv39c0-yvq4-6p74-6t41-03jep23u510n ANSI-Medicare Part B [id number]-m583-02w2-7p65-2r669x9594z6 73v60i7i-l416-89m2-6x62-1r449i5184o0 ANSI-Commercial 5f94857g-94o8-153e-287i-r8j831501j06 6p10153d-76w2-137r-254n-q2i740514n28 [place] Part B [id number] Self [id number] Medicare Dme Supplies Medigap Part B [id number] Self [id number] [place] Primary [id number] Self [id number] ANSI-Commercial h224vt10-6353-656t-6s86-2220357n2suo y058rf71-1381-320l-2m55-9657080e0ovw ANSI-Medicare Part B [id number]-5t21-w80b-[id number]-0i32-s42j-02dhxs033187 [facility] Part B [id number] Self Y [id number] Medicare Natl Gov't Servi Medicare Primary [id number] Self [id number] [facility] [id number] SP [id number] [facility] [id number] SP [id number] MEDICARE [id number] SP [id number] A ANSI-Medicare Part B [id number]-0y3q-[id number] ANSI-Commercial 1r954hx1-25q3-0t18-gl4c-7uc145e66174 4x798vi4-57d1-5d67-ub4c-3ek838a60259 [facility] [id number] SP [id number] [facility] [id number] SP [id number] MEDICARE [id number] SP [id number] A [facility] PPO O [id number] S [id number] MEDICARE C [id number] S [id number] A [facility] [id number] SP [id number] [facility] Medigap Part B [id number] Self [id number] Medicare [place]l Gov't Servi Medicare Primary [id number] Self [id number] Medicare Dme Medigap Part B [id number] Self [id number] Medicare Medicare Primary [id number] Self [id number] [place] Med[place] Part B [id number] Self [id number] Medicare Dme Medigap Part B [id number] Self [id number] Medicare Medicare Primary [id number] Self [id number] Medicare Dme Medigap Part B [id number] Self [id number] Medicare Medicare Primary [id number] Self [id number] Medicare Dme Supplies Medigap Part B [id number] Self [id number] [place] [id number] Self [id number] [facility] (pr) Medigap Part B [id number] Self [id number] [facility] Medigap Part B [id number] Self [id number] [place] Primary [id number] Self [id number] [facility] PPO O [id number] S [id number] Medicare Dme Supplies Medigap Part B [id number] Self [id number] [place] Primary [id number] Self [id number] [facility] [id number] SP [id number] [facility] Med[facility]ap Part B [id number] Self [id number] [place] Medicare Primary [id number] Self [id number] [facility] Medig[place] Part B Self [place] Primary Self [facility] (pr) Medigap Part B Self [place] Primary Self [id number] A [id number] Problems, Conditions, and Diagnoses Code Display Name Description Problem Type Effective Dates Data Source(s) N18.32 252233980 Stage 3b chronic kidney disease Problem 04/28/2020 12:00:00 AM EST eCW1 ([facility]) R29.6 [id number] Frequent falls Problem 04/28/2020 12:00:00 A M EST eCW1 ([facility]) I35.0 46397202 Aortic valve stenosi s, etiology of cardiac valve disease unspecified Problem 04/28/2020 12:00:00 AM EST eCW1 ([facility]) R06.00 [id number] STORY (dyspnea on exertion) Problem 01/31/2020 12:00:00 AM EDT eCW1 ([facility]) R60.0 [id number] Lower extremity edema Problem 09/06/2019 12: 00:00 AM EDT eCW1 ([facility]) R60.0 [id number] Lower extremity edema Problem 09/06/2019 12: 00:00 AM EDT eCW1 ([facility]) K52.832 37182490 Lymphocytic colitis Problem 06/19/2019 12:00 :00 AM EST eCW1 ([facility]) K52.832 09758323 Lymphocytic colitis Problem 06/19/2019 12:00 :00 AM EST eCW1 ([facility]) R06.02 Shortness of breath Shortness of breath Diagnosis 1 10:36:53 AM EDT [facility] E03.9 Hypothyroidism, unspecified Hypothyroidism, unspecifie d Diagnosis 01/29/2020 10:36:53 AM EDT [facility] I10 Essential (primary) hypertension Essential (primary) h ypertension Diagnosis 01/29/2020 10:36:53 AM EDT [facility] 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 Other acquired hemolytic anemias Diagnosis 01/29/2020 10:36:53 AM EDT [facility] R07.9 Chest pain, unspecified Chest pain, unspecified Diagno sis 01/29/2020 10:36:53 AM EDT [facility] E78.5 Hyperlipidemia, unspecified Hyperlipidemia, unspecifie d Diagnosis 01/29/2020 10:36:53 AM EDT [facility] I25.10 Atherosclerotic heart diseas e of [place] coronary artery without angina pectoris Atherosclerotic heart disease of [place] Diagnosis 01/29/2020 10:36:53 AM EDT [facility] I35.0 Nonrheumatic aortic (valve) stenosis Nonrheumati c aortic (valve) stenosis Diagnosis 01/29/2020 10:36:[address] [facility] Surgeries/Procedures Procedure Description Date Indications Data Source(s) Bronchospasm Evaluation 03/30/2020 12:00:00 AM EST MEDENT ([facility], ) Maximum Breathing Capacity, Maximal Voluntary Ventilation 03/30/2020 12:00:00 AM EST [facility] ([facility]) Plethysmography Determination Lung Volumes & Per Airway Resi st 03/30/2020 12:00:00 AM EST [facility] ([facility]) DIFFUSING CAPACITY 03/30/2020 12:00:00 AM EST [facility] ([facility]) Office Visit, Est Pt., Level 2 FC 09/06/2019 12:00:00 AM EDT eCW1 ([facility]) Office Visit, Est Pt., Level 4 PC 09/06/2019 12:00:00 AM EDT eCW1 ([facility]) PSYTX W PT 45 MINUTES 04/30/2019 12:00:00 AM EST eCW1 ([facility]) Annual wellness visit, includes a person alized prevention plan of service (pps), subsequent visit 04/30/2019 12:00:00 AM EST eCW 1 ([facility]) Results ID Date Data Source [id number] 03/13/2020 11:38:00 AM EST [facility] ([facility], ) Name Value Range Interpretation Code Description Data Leonie rce(s) Supporting Document(s) Creatine kinase [Enzymatic activity/volume] in Serum or Plasma 58 U /L 26-192 [facility] ([facility], ) Thyrotropin [Units/volume] in Serum or Plasma 0.077 uIU/ML 0.358-3.74 0 [facility] ([facility], ) Histone Ab [Presence] in Serum 0.2 units 0.0-0.9 [facility] ([facility], ) <content>Negative <1.0</c ontent>
<content>Weak Positive 1.0 - 1.5</content>
<content>Moderate Positive 1.6 - 2.5</content>
<content>Strong Positive >2.5</content>
<content></content> Acetylcholine receptor Ab [Units/volume] in Serum [facility]24 [facility], [facility] Negative: 0.00 - 0.24 Borderline: 0.25 - 0.40 Positive: >0.40 Striated muscle Ab [Presence] in Serum Laboratory test result [facility] ([facility], ) Performed at: - [facility] [address] [id number] [place] Operator: Mitchell Hernadez MD, Phone: [phone] Performed at: - [facility] [address] [id number] [place] Operator: Lisa Natarajan MD, Phone: [phone] ID Date Data Source Chest X-ray PA and lateral 02/04/2020 05:29:27 AM EDT eCW1 ( [facility]) Name Value Range Interpretation Code Description Data Leonie rce(s) Supporting Document(s) eCW1 ([facility]) ID Date Data Source PT & APTT 01/31/2020 11:03:47 AM EDT eCW1 ([facility]) Name Value Range Interpretation Code Description Data Leonie rce(s) Supporting Document(s) 12.7 eCW1 ([facility]) 0.93 eCW1 ([facility]) 24.1 eCW1 ([facility]) ID Date Data Source DDIMER QUANT 01/31/2020 11:03:47 AM EDT eCW1 ([facility]) Name Value Range Interpretation Code Description Data Leonie rce(s) Supporting Document(s) 1325.37 eCW1 ([facility]) ID Date Data Source CBC - Complete Blood Count 01/16/2020 03:54:30 AM EDT eCW1 ( [facility]) Name Value Range Interpretation Code Description Data Leonie rce(s) Supporting Document(s) 14.0 eCW1 ([facility]) 12.3 eCW1 ([facility]) 102.7 eCW1 ([facility]) 3.70 eCW1 ([facility]) 38.0 eCW1 ([facility]) 17.0 eCW1 ([facility]) 33.2 eCW1 ([facility]) 286 eCW1 ([facility]) 32.4 eCW1 ([facility]) ID Date Data Source VITAMIN B12 LEVEL 01/16/2020 03:54:19 AM EDT eCW1 ([facility]) Name Value Range Interpretation Code Description Data Leonie rce(s) Supporting Document(s) 441 eCW1 ([facility]) ID Date Data Source FREE T4 & TSH PANEL 01/16/2020 03:54:19 AM EDT eCW1 ([facility]) Name Value Range Interpretation Code Description Data Leonie rce(s) Supporting Document(s) 0.010 THYROID STIMULATING HORMONE eC W1 ([facility]) 1.50 FREE T4 eCW1 ([facility]) ID Date Data Source LIPID PANEL (CARDIAC RISK) 01/16/2020 03:54:19 AM EDT eCW1 ( [facility]) Name Value Range Interpretation Code Description Data Leonie rce(s) Supporting Document(s) Triglyceride [Mass/volume] in Serum or Plasma by calculation 71 TRIGLYCERIDES LEVEL eCW1 ([facility]) Cholesterol [Moles/volume] in Serum or Plasma 150 CHOLESTEROL LEVEL eCW1 ([facility]) Cholesterol in HDL [Moles/volume] in Serum or Plasma 77 HDL CHOLESTEROL eCW1 ([facility]) Cholesterol in LDL [Mass/volume] in Serum or Plasma by calculation 59 LDL CHOLESTEROL eCW1 ([facility]) 73 NON-HDL-C eCW1 ([facility]) 1.948 CHOLESTEROL RISK RATIO eCW1 ([facility]) ID Date Data Source HAPTOGLOBIN 01/16/2020 03:54:19 AM EDT eCW1 ([facility]) Name Value Range Interpretation Code Description Data Leonie rce(s) Supporting Document(s) 356 eCW1 ([facility]) ID Date Data Source TOTAL IRON BINDING CAPACIT 01/16/2020 03:54:19 AM EDT eCW1 ( [facility]) Name Value Range Interpretation Code Description Data Leonie rce(s) Supporting Document(s) 285 eCW1 ([facility]) 125 eCW1 ([facility]) 43.9 eCW1 ([facility]) ID Date Data Source Reticulocyte Count Sysmex 01/16/2020 03:54:19 AM EDT eCW1 ([facility]) Name Value Range Interpretation Code Description Data Leonie rce(s) Supporting Document(s) 2.2 eCW1 ([facility]) ID Date Data Source FOLATE 01/16/2020 03:54:19 AM EDT eCW1 ([facility]) Name Value Range Interpretation Code Description Data Leonie rce(s) Supporting Document(s) > 24.0 eCW1 ([facility]) ID Date Data Source FERRITIN 01/16/2020 03:54:19 AM EDT eCW1 ([facility]) Name Value Range Interpretation Code Description Data Leonie rce(s) Supporting Document(s) 61 eCW1 ([facility]) ID Date Data Source Comprehensive Metabolic Profile (CMP) 01/16/2020 03:54:19 AM EDT eCW1 ([facility]) Name Value Range Interpretation Code Description Data Leonie rce(s) Supporting Document(s) 31 BLOOD UREA NITROGEN eCW1 [facility] 96 GLUCOSE, FASTING eCW1 ([facility]) 4.8 POTASSIUM SERUM eCW1 ([facility]) 139 SODIUM LEVEL eCW1 ([facility]) 1.27 CREATININE FOR GFR eCW1 ([facility]) 43.4 GLOMERULAR FILTRATION RATE eCW 1 ([facility]) 30 CARBON DIOXIDE LEVEL eCW1 ([facility]) 23 AST/SGOT eCW1 ([facility]) 104 CHLORIDE LEVEL eCW1 ([facility]) 8.9 CALCIUM LEVEL eCW1 ([facility]) 63 ALKALINE PHOSPHATASE eCW1 ([facility]) 6.0 TOTAL PROTEIN eCW1 ([facility]) 43 ALT/SGPT eCW1 ([facility]) 0.6 BILIRUBIN,TOTAL eCW1 ([facility]) 1.1 ALBUMIN/GLOBULIN RATIO eCW1 ([facility]) 3.2 ALBUMIN eCW1 ([facility]) ID Date Data Source [id number] 01/11/2020 12:29:31 AM EDT [facility] Name Value Range Interpretation Code Description Data Leonie rce(s) Supporting Document(s) &PDF [facility] IGVWXj8pYpZGFzIi02/ZBUgdMYMno4SiDMpnRUc0ONlcYHInT9NysXgdIPaOJgUDIz5AGLKdKMiDAVpf hdG [file] jD39UmNFA7ChgUF+A/4EGq7O+shb6qECZ12A23ROKa/TiID+CD+BA+[place]+DN3yrdaQ/TpXpY/gN/CY+js aqJD5Uo1Pt8uvd7/rSEv6E5TU6Tr/nicolás/C7+Bw+fuqVcMQ0Ul+gOvZF/L4K7YF2bseWtqU/xJelREwNaj [file] MEREDITH+MEkuRZeusRg5vQKtXEOyDz7VTCAcERMlOGKaTEFvLEMxZZOyHLLmSLJcHCQeMHErCEPeERKeFPAf ICAgICAgICAgICAgICAgICAgICAgICAgICAgICAgIC PbYUGyRRYuPHGpZNKhOFUlXSCiUUPdMSJxZJKhFM1JNNGhXPDlHIRwQRKhIEWfPBWzQLSzKRNgIPYjZU AgICAgICAgICAgICAgICAgICAgICAgICAgICAgICAgICAgICAgICAgICAgICAgICAgICAgICAgICAgIC SmIZAxBJVjYUYsHA1MTWCdQWPjCDKcQTGcTPKxUMUk ICAgICAgICAgICAgICAgICAgICAgICAgICAgICAgICAgICAgICAgICAgICAgICAgICAgICAgICAgICAg PIOcCXOoKJXnGSZxVVRgPUVxNOShLP9DIJQnPKDbCLTpQTXrREWlUBHdCNCiAJHiIAYhBNRfACHkHFEt ICAgICAgICAgICAgICAgICAgICAgICAgICAgICAgIC IoVFNsBGVuHKAsCKQcTATpEJXgTDYwMCWqLZPrIVYsQT1FHJKdQBYnBSBwZVRgQCKvUIFrJWMaNACnDN AgICAgICAgICAgICAgICAgICAgICAgICAgICAgICAgICAgICAgICAgICAgICAgICAgICAgICAgICAgIC BqSNFjHAAiTBVlGFGdUY2EQQSqQXEnWPEuBXQwSFAx ICAgICAgICAgICAgICAgICAgICAgICAgICAgICAgICAgICAgICAgICAgICAgICAgICAgICAgICAgICAg GTIpXEOnDIBaGOEwJFDeXYDkGDFxSUXxDX2DUSTdIJHvLEOkSPCiZNUvZUQgUPAhHXKoRLJeQTSeSKAx ICAgICAgICAgICAgICAgICAgICAgICAgICAgICAgIC EoMXTbLGPcEXBfFBZwTATuAHLrHFXcZDUzTZEdGJJvGZWuJD6RNHKzEDYwXYYeFGYvIXKhQJRcUCBjNQ AgICAgICAgICAgICAgICAgICAgICAgICAgICAgICAgICAgICAgICAgICAgICAgICAgICAgICAgICAgIC ElVRWhHWMcUALiCYHgYKDlBP3LKAFsPNOhFRIsZPVm ICAgICAgICAgICAgICAgICAgICAgICAgICAgICAgICAgICAgICAgICAgICAgICAgICAgICAgICAgICAg IZEcRXFvBWAgLZRjSKJrPWXsNISuEQXnGLMnFI1SSFIsXLBiUQLyLJKyRPDuVMEtRNPfUHDpZDTbCPMg ICAgICAgICAgICAgICAgICAgICAgICAgICAgICAgIC IxFODyXIMpWSCsBZOrUWKlMACjCAKeEQAbYJUmLVJxDZWqGLFjSS8YXN29lUQmf6A2UKPiJZ0rbaa/Pg 0GFHjkfiRnuHNkOF0CIxKoYO4enn1XIuXtMB5bmt0STBdXOzFbW7P6eEYlAGFyNXBSUiHxT04tIRdsNk 06LAvvTTGwMpCkISz0Va6UOzWjG0bjMWNmMhJ5GPDa ZjZ9JIZgByH5FNQtJtOrZOhbAC2Ji8RowXNxIXw+Uk3POD5zf8GqAQjgAFWjRR3tdk0MSVdZVyEeP8V1 oIClJ0F7VItrVx8XHIPjIEGgRqIoIHFYCDwkXF6WCL8zdsI5GC8QwVVkICBuSTAofJWsCNi6G11idDRm NMcrBI2OHWD+Emma+Sr2FZIHfKDBiOMThLxQnITDAVl QhD10rmLAkJSLsYRJ2SBEvNm2MAWGpQ1VngzBjwIcubsDnUDPkQELXRK6BXZficcEteOYeuCwpBL44hD quIJ0PSf4RXhKxKI4bis8QhKVlCr6ZPUAsEV1AIOZdTFOeJKIvLTP5WNIiHmToMWviSEWaDPRsATK8QA FzZIXsWT9FOhJlTAVeIkPyJTJxJESpOOFhft1CFBUr OYCbWnjnTrHoDDWtOZVnWEbbEGAyMCBdRBn1AUUqWFFhSU7EWyMhKTAuDMP8ESPdLMXiASRggy0KFBDp UFSwPhT7WDLzOBAxQUXyTDryHDZaVIQ4UXP8LINyUIRiQV6DPrXoHDBdOYG2XsbyMTGqPEFstd7DGGMi KBNzNlF3LzLmPJHlCHKwYQwfUUGzQVK5AZB1VQMnSP QgHG9WGaOoKQCzKLo3GQqoJIQiGDVmtg2FZKTdMZRsVNunXHRpFUWqUBQgBYlzWIPqMKM5HWz8UXXsUW KcBQ7KRdVwKLGqVLg9TSIrYXEfEFRyag4SLLRcCPIaUXB1SKFmCXPjWPVwCTcoXRSzBAWkVcP3TJGmSO PpNN4VMuFqDJNtZPJyEMGwUMHqEHAdpl6AARYeXQCf CDCxOZMeVTYjVYNoBEawUZTuVTT2XzTqZOQaLQEgAD0AQkOcYBArWAY0RkQcLPYgEOZfwi6MGZGdEVZu MyHmIPAyNPUiDVUhKUorFXInXFD7FRRyZYIfQPBdLP0GPmEaOVGjOWilOZWyHAYiFUChxk6JBAIdZEIx NzMxOCAwMDAwMCBuDQowMDAwMDIzMDAyIDAwMDAwIG 7CWzWxDMBrEuFsInNiUBMcKUXvgp1VBCLjRQPfTbC1XgTrRBVfFTHsSTeaHGXeGWB9NLD6VTPkTCHbWF 1TMzGwNKamYHMGBkb6AJclO1g1FRRcAU8MY0Pug0VdXpueROJMDCkiDL3lzdMtKTTcMr5ML3gVDsw3SY AvQ8TlPBM9BSY9UKA7YKOsGsG5S5WnTsHwZSN1Lv7o LDVkGmRvFuT3CbEhTAkeUmFmOHYhWbnpZPSeH6LoPhqiCpBzMA1QCf0IXqO1GVM5nKTkIq0RRwupKSOA OsSuZS0YAVc= Procedure Social History Code Duration Value Status Description Data Source(s ) Smoking 04/28/2020 12:00:00 AM EST Former Smoker completed Former Smoker [email or web address] ([facility]) Smoking 04/28/2020 12:00:00 AM EST Former Smoker completed Former Smoker [email or web address] ([facility]) Smoking 04/28/2020 12:00:00 AM EST Former Smoker completed Former Smoker [email or web address] ([facility]) Smoking 04/08/2020 12:00:00 AM EST Patient is a former smoker completed Patient is a former smoker [facility] ([facility] ) Smoking 02/25/2020 12:00:00 AM EST Former Smoker completed Former Smoker [email or web address] ([facility]) Smoking 02/25/2020 12:00:00 AM EST Former Smoker completed Former Smoker [email or web address] ([facility]) Smoking 01/30/2020 12:00:00 AM EDT Former Smoker completed Former Smoker [email or web address] ([facility]) Smoking 01/30/2020 12:00:00 AM EDT Former Smoker completed Former Smoker [email or web address] ([facility]) Smoking 01/30/2020 12:00:00 AM EDT Former Smoker completed Former Smoker eCW1 ([facility]) Smoking 01/30/2020 12:00:00 AM EDT Former Smoker completed Former Smoker [email or web address] ([facility]) Smoking 11/07/2019 12:00:00 AM EDT Former Smoker completed Former Smoker eCW1 ([facility]) Smoking 11/07/2019 12:00:00 AM EDT Former Smoker completed Former Smoker [email or web address] ([facility]) Smoking 09/06/2019 12:00:00 AM EDT Former Smoker completed Former Smoker [email or web address] ([facility]) Smoking 09/06/2019 12:00:00 AM EDT Former Smoker completed Former Smoker [email or web address] ([facility]) Vital Signs ID Date Data Source UNK Name Value Range Interpretation Code Description Data Source(s) Diastolic blood pressure 62 mm[Hg] 62 mm[Hg] eCW1 ([facility]) Systolic blood pressure 118 mm[Hg] 118 mm[Hg] e CW1 ([facility]) Body temperature 98.8 [degF] 98.8 [degF] eCW1 ( [facility]) Respiratory rate 22 /min 22 /min eCW1 ([facility]) Heart rate 75 /min 75 /min eCW1 ([facility]) Body mass index (BMI) [Ratio] 35.87 kg/m2 35.87 kg/m2 eCW1 ([facility]) Body height 64 [in_i] 64 [in_i] eCW1 ([facility]) Body weight 209 [lb_av] 209 [lb_av] eCW1 ([facility]) Body surface area Derived from formula 2.01 m2 2.01 m2 MEDENT ([facility], ) Body weight 96.163 kg 96.163 kg MEDENT ([facility], ) [place] body weight 120 [lb_av] 120 [lb_av] MEDEN T ([facility], ) Body mass index (BMI) [Ratio] 36.4 kg/m2 36.4 k g/m2 MEDENT ([facility], ) Body weight 212.00 [lb_av] 212.00 [lb_av] MEDEN T ([facility], ) Body height 64 [in_i] 64 [in_i] [facility] ([facility], ) 5'4" Oxygen saturation in Arterial blood by Pulse oximetry 92 % 92 % [facility] ([facility]) Heart rate 80 /min 80 /min [facility] Diastolic blood pressure 90 mm[Hg] 90 mm[Hg] [facility] Systolic blood pressure 152 mm[Hg] 152 mm[Hg] [facility] Diastolic blood pressure 72 mm[Hg] 72 mm[Hg] eCW1 ([facility]) Systolic blood pressure 128 mm[Hg] 128 mm[Hg] e CW1 ([facility]) Body temperature 96.8 [degF] 96.8 [degF] eCW1 ( [facility]) Respiratory rate 20 /min 20 /min eCW1 ([facility]) Heart rate 101 /min 101 /min eCW1 ([facility]) Body mass index (BMI) [Ratio] 36.73 kg/m2 36.73 kg/m2 W1 ([facility]) Body height 64 [in_i] 64 [in_i] eCW1 ([facility]) Body weight 214 [lb_av] 214 [lb_av] eCW1 ([facility]) Diastolic blood pressure 80 mm[Hg] 80 mm[Hg] eCW1 ([facility]) Systolic blood pressure 120 mm[Hg] 120 mm[Hg] e CW1 ([facility]) Body temperature 98.9 [degF] 98.9 [degF] eCW1 ( [facility]) Respiratory rate 18 /min 18 /min eCW1 ([facility]) Heart rate 85 /min 85 /min eCW1 ([facility]) Body mass index (BMI) [Ratio] 37.62 kg/m2 37.62 kg/m2 eCW1 ([facility]) Body height 64 [in_i] 64 [in_i] eCW1 ([facility]) Body weight 219.2 [lb_av] 219.2 [lb_av] eCW1 ([facility]) Diastolic blood pressure 68 mm[Hg] 68 mm[Hg] eCW1 ([facility]) Systolic blood pressure 134 mm[Hg] 134 mm[Hg] e CW1 ([facility]) Body temperature 97.9 [degF] 97.9 [degF] eCW1 ( [facility]) Respiratory rate 18 /min 18 /min eCW1 ([facility]) Heart rate 95 /min 95 /min eCW1 ([facility]) Body mass index (BMI) [Ratio] 35.18 kg/m2 35.18 kg/m2 eCW1 ([facility]) Body height 64 [in_i] 64 [in_i] eCW1 ([facility]) Body weight 205 [lb_av] 205 [lb_av] eCW1 ([facility]) Diastolic blood pressure 66 mm[Hg] 66 mm[Hg] eCW1 ([facility]) Systolic blood pressure 132 mm[Hg] 132 mm[Hg] e CW1 ([facility]) Body temperature 97.8 [degF] 97.8 [degF] eCW1 ( [facility]) Respiratory rate 18 /min 18 /min eCW1 ([facility]) Heart rate 77 /min 77 /min eCW1 ([facility]) Body mass index (BMI) [Ratio] 34.64 kg/m2 34.64 kg/m2 eCW1 ([facility]) Body height 64 [in_us] 64 [in_us] eCW1 ([facility]) Body weight Measured 201.8 [lb_av] 201.8 [lb_av ] eCW1 ([facility]) Diastolic blood pressure 70 mm[Hg] 70 mm[Hg] eCW1 ([facility]) Systolic blood pressure 140 mm[Hg] 140 mm[Hg] e CW1 ([facility]) Body temperature 97.9 [degF] 97.9 [degF] eCW1 ( [facility]) Respiratory rate 18 /min 18 /min eCW1 ([facility]) Heart rate 82 /min 82 /min eCW1 ([facility]) Body mass index (BMI) [Ratio] 34.36 kg/m2 34.36 kg/m2 eCW1 ([facility]) Body height 64 [in_us] 64 [in_us] eCW1 ([facility]) Body weight Measured 200.2 [lb_av] 200.2 [lb_av ] eCW1 ([facility]) Body surface area Derived from formula 1.92 m2 1.92 m2 [facility] ([facility]) Body weight 87.091 kg 87.091 kg [facility] ([facility]) [place] body weight 120 [lb_av] 120 [lb_av] MEDEN T ([facility]) Body mass index (BMI) [Ratio] 33.0 kg/m2 33.0 k g/m2 [facility] ([facility]) Body weight 192.00 [lb_av] 192.00 [lb_av] MEDEN T ([facility]) Body height 64 [in_i] 64 [in_i] [facility] ([facility]) 5'4" Diastolic blood pressure 80 mm[Hg] 80 mm[Hg] [facility] ([facility]) Systolic blood pressure 150 mm[Hg] 150 mm[facility]Hg] [facility] Body surface area Derived from formula 1.90 m2 1.90 m2 [facility] ([facility]) Body weight 84.540 kg 84.540 kg [facility] ([facility]) [place] body weight 120 [lb_av] 120 [lb_av] MEDEN T ([facility]) Body mass index (BMI) [Ratio] 32.0 kg/m2 32.0 k g/m2 [facility] ([facility]) Body weight 186.38 [lb_av] 186.38 [lb_av] MEDEN T ([facility]) Body height 64 [in_i] 64 [in_i] MEDENT ([facility], ) 5'4" Diastolic blood pressure 62 mm[Hg] 62 mm[Hg] MEDENT ([facility], ) Systolic blood pressure 112 mm[Hg] 112 mm[Hg] M EDENT ([facility], ) Diastolic blood pressure 70 mm[Hg] 70 mm[Hg] eCW1 ([facility]) Systolic blood pressure 130 mm[Hg] 130 mm[Hg] e CW1 ([facility]) Body temperature 97.2 [degF] 97.2 [degF] eCW1 ( [facility]) Respiratory rate 18 /min 18 /min eCW1 ([facility]) Heart rate 77 /min 77 /min eCW1 ([facility]) Body mass index (BMI) [Ratio] 32.09 kg/m2 32.09 kg/m2 eCW1 ([facility]) Body height 64 [in_us] 64 [in_us] eCW1 ([facility]) Body weight Measured 187 [lb_av] 187 [lb_av] eC W1 ([facility]) Patient Treatment Plan of Care Planned Activity Planned Date Details Description Data Source (s) Shower Chair without wheels 04/28/2020 12:00:00 AM EST eCW1 ([facility]) Shower Chair without wheels 04/28/2020 12:00:00 AM EST eCW1 ([facility]) Shower Chair without wheels 04/28/2020 12:00:00 AM EST eCW1 ([facility]) Levothyroxine Sodium 0.1 MG Oral Tablet 02/25/2020 12:00:00 AM EST eCW1 ([facility]) Levothyroxine Sodium 0.1 MG Oral Tablet 02/25/2020 12:00:00 AM EST eCW1 ([facility]) Levothyroxine Sodium 0.125 MG Oral Tablet 01/30/2020 12:00:00 AM ED T eCW1 ([facility]) Levothyroxine Sodium 0.125 MG Oral Tablet 01/30/2020 12:00:00 AM ED T eCW1 ([facility]) Levothyroxine Sodium 0.125 MG Oral Tablet 01/30/2020 12:00:00 AM ED T eCW1 ([facility]) Levothyroxine Sodium 0.125 MG Oral Tablet 01/30/2020 12:00:00 AM ED T eCW1 ([facility]) Furosemide 40 MG Oral Tablet 09/06/2019 12:00:00 AM EDT eCW1 ([facility]) Furosemide 40 MG Oral Tablet 09/06/2019 12:00:00 AM EDT eCW1 ([facility]) Furosemide 40 MG Oral Tablet 09/06/2019 12:00:00 AM EDT eCW1 ([facility]) Budesonide 3 MG Delayed Release Oral Capsule 06/19/2019 12:00:00 AM EST eCW1 ([facility])
--- OUTSIDE RECORDS SUMMARY | 2020-05-18 17:59 | CCD ---
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 Active 447114197 Problem Reactive depression F32.9 Active 31104110 Problem Nonrheumatic aortic valve stenosis I35.0 Activ e 822551781 Problem Hypothyroidism, unspecified type E03.9 Active 00574424 Problem Atherosclerosis of [place] co ronary artery of [place] heart without angina pectoris I25.10 Active 6200715126243 Problem Vitamin D deficiency E55.9 Active 19389911 Problem Hypertensive heart disease without heart failure I 11.9 Active 14520581 Problem Adjustment disorder with anxious mood F43.22 Ac tive 44061818 Problem CKD (chronic kidney disease), stage III N18.3 Active 759202377 Problem Lower extremity edema R60.0 Active 268045050 Problem Medicare annual wellness visit, subsequent Z00.00 Active 431399846 Problem STORY (dyspnea on exertion) R06.00 Active 490596 06 Problem Other and unspecified hyperlipidemia E78.5 Act nahid 09530527 Problem Epidermal cyst of vulva N90.7 Active 37683773 Problem Insomnia, unspecified type G47.00 Active 72030 2000 Problem Chronic gout without tophus, unspecified cause, unspecified site M1A.9XX0 Active 685821514 Problem Adjustment disorder with mixed anxiety and depressed mood F43.23 Active 12801944 Problem Lymphocytic colitis K52.832 Active 48370282 ALLERGIES Allergen (clinical drug ingredient) Drug/Non Drug Allergy do cumented on EMR Reaction Allergy Type Onset Date Status amlodipine edema, SOB Non Drug Allergy Active colchicine severe GI sx Non Drug Allergy Active Rozarem didn't help her sleep Non Drug Allergy Active Lunesta didn't work Non Drug Allergy Active trazodone TraZODone HCl([facility] Code:[address]-85) Anaphylaxi s/diff. swallowing Drug Allergy Active Taxol hemolytic anemia Non Drug Allergy Ac tive levofloxacin Levofloxacin([facility] Code:[address]-77) nerve pain, tendon pain Drug Allergy Active ENCOUNTERS from 1942 to 2020-02-29 Encounter Location Date Provider Diagnosis [facility] [address] [place] [address] 10 Feb, 2020 Eddy Reece STORY (dyspnea on exertion) R06.00 ; Hypertensive heart disease without heart failure I11.9 ; Hypothyroidism, unspecified type E03.9 ; Nonrheumatic aortic valve stenosis I35.0 ; Atherosclerosis of [place] coronary artery of [place] heart without angina pectoris I25.10 ; S/P drug eluting coronary stent placement Z95.5 ; 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 and Adjustment disorder with mixed anxiety and depressed mood F43.23 IMMUNIZATIONS Vaccine Route Administration Date Status Zoster 50mcg/0.5mL (Shingrix) Unknown Jan 10, 2018 Ad ministered Meningococcal B 0.5mL (Bexsero) IM Intramuscular July 05, 2018 Administered Meningococcal B (VFC) 0.5mL (Bexsero) IM Intramuscular May 30 019 Administered Zoster 50mcg/0.5mL (Shingrix) Unknown September 25, 2017 Ad ministered Pneumococcal 0.5mL (Prevnar 13) Unknown [...] college Language: Question Answer Notes Languages spoken: Haitian Congregation: Question Answer Notes Congregation 21 Yazdanism Sexual Hx: Question Answer Notes Had sex [...] FOR REFERRAL No Information VITAL SIGNS Weight 214 lbs Feb, Height 64 in Feb, BMI 36.73 kg/m2 Feb, Heart Rate 101 /min Feb, Respiratory Rate 20 /min Feb, Temperature 96.8 degrees Fahrenheit Feb, Oximetry 94 Feb, Blood pressure systolic 128 mm Hg Feb, Blood pressure diastolic 72 mm Hg Feb, MEDICATIONS Medication SIG (Take, Route, Frequency, Duration) Start Date En d Date Status Atorvastatin Calcium 80 MG 1 tablet Orally Once a day Active Furosemide 40 MG 1 tablet Orally Once a day for 90 days August, 0 Not-Taking Spironolactone 25 MG 1 tablet Orally Once a day for 90 days Active Allopurinol 300 MG TAKE 1 TABLET BY MOUTH ONCE DAILY for 90 Active Aspir-81 81 MG 1 tablet Orally Once a day Active Alprazolam 0.5 MG 1 tablet Orally once daily as needed for 30 day(s) Mar, Active Venlafaxine HCl 75 MG 1 tablet with food Orally Once a day Active Magnesium 400mg Daily Active Cartia XT 240 MG 1 capsule Orally Once a day Active Furosemide 20 MG 1 tablet Orally Once a day for 90 days Active Losartan Potassium 50 MG 1 tablet [...] Information RESULTS No Results REASON FOR VISIT discuss breathing test, refill MEDICAL (GENERAL) HISTORY Type Description Date Medical History HTN Medical History s/p splenectomy (hemolytic anemia) Medical History hyperlipidemia Medical History [facility], [facility]; e cho [facility] 05/05: EF55-60%, mild LAE, mild diastolic dyfxn, ao sclerosis without stenosis Medical History arthritis Medical History hypothyroid Medical History depression Medical History headache Medical History anemia hemolytic, sees Neil tologist [place]; ? 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 05/05: normal perfusion, EF >60% Medical History [...] STATUS No Information ASSESSMENTS Encounter Date Diagnosis Notes Feb, Atherosclerosis of [place] co ronary artery of [place] heart without angina pectoris (ICD-10 - I25.10) Feb, Nonrheumatic aortic valve stenosis (ICD- 10 - I35.0) Feb, 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 (ICD-10 - Z86.2) Taxol in MEHNAZ 2005Feb, S/P drug eluting coronary stent placemen t (ICD-10 - Z95.5) Feb, STORY (dyspnea on exertion) (ICD-10 - R06. 00) Feb, Hypothyroidism, unspecified type (ICD-10 - E03.9) Feb, Hypertensive heart disease without heart failure (ICD-10 - I11.9) Feb, Adjustment disorder with mix ed anxiety and depressed mood (ICD-10 - F43.23) PLAN OF TREATMENT Medication Medication Name Sig Start Date Stop Date Alprazolam 0.5 MG 1 tablet Orally once daily as needed for 30 day(s) Mar, Levothyroxine Sodium 100 MCG 1 tablet in the morning o n an empty stomach Orally Once a day for 30 day(s) Feb, Treatment Notes Assessment Notes Clinical Notes STORY (dyspnea on exertion) we walked aggr essively in halls, O2 sat was 94% at rest, 90-91% with walking. I had ordered PFTs with [facility] but pt cancelled. Agrees to [facility] referral Hypertensive heart disease without heart failure Per JNC 8 guidelines, goal BP < 140/90 (150/90 if age >60), is meeting goal on current regimen. Advised heart- healthy diet, sodium restriction Nonrheumatic aortic valve stenosis per p t, [place] [facility] [place] 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 haptoglobin nl Future Test Test Name Order Date FREE T4 & TSH PANEL [id number] Next Appt Details 2 Months Reason: Provider Name:Arnold Ashleytim, 2020-04 02:15:00 PM, [address] , [place], [address], Insurance Providers Payer Name Payer Address Payer Phone Insured Name Patient Relati onship to Insured Coverage Start Date Coverage End Date MEDICARE Part A and B [address] [facility] [id number] [phone] [employer] self [facility] [address] [address] [facility] [address] [employer] self
== END 2020-05-18 18:28 | disposition left against medical advice (07) ==
LOC: M ED 14:59
DX: I73.9 Peripheral vascular disease, unspecified (principal); G89.29 Other chronic pain; M54.5 Low back pain; M79.604 Pain in right leg; M79.605 Pain in left leg; R53.1 Weakness; I12.9 Hypertensive chronic kidney disease with stage 1 through stage 4 chronic kidney disease, or unspecified chronic kidney disease; E78.5 Hyperlipidemia, unspecified; M10.9 Gout, unspecified; E03.9 Hypothyroidism, unspecified; Z88.1 Allergy status to other antibiotic agents; Z88.8 Allergy status to other drugs, medicaments and biological substances; Z79.899 Other long term (current) drug therapy

== ENCOUNTER 2020-05-22 12:22 | Inpatient (IN) | payer MEDICARE, OTHER ==
[~2020-05-22] VITALS: Ht 162.6 cm; Wt 92.8 kg
[~2020-05-22 12:22] MED LIST changes: -ALBU8.5H INH; -BISO5TAB14 PO; -GABA-1171 PO; -LEVO100T54 PO; -PATIENT COMMENT; -POTA1TAB14 PO; -QUET1TAB7 PO; +QUET25TA3 PO; -SYMB80INH INH; -TORS20TA2 PO; -VENL75TA2 PO
[2020-05-22] MEDS ORDERED: ACETAMINOPHEN TAB 650MG DOSE (2X325MG) PO PRN (12:45)
[2020-05-22] MEDS ORDERED: NS 1,000 ML IV SCH (12:45)
[2020-05-22] MEDS ORDERED: CEFTAROLINE FOSAMIL 300 MG in D5W 50 ML IV SCH (12:45)
[2020-05-22] MEDS ORDERED: ALPRAZolam 0.5 MG TAB PO PRN (13:00)
[2020-05-22 14:13] VITALS: BP_SYST 123; BP_SYST 160; BP_DIAS 68; BP_DIAS 85
--- OUTSIDE RECORDS SUMMARY | 2020-05-22 14:20 | CCD ---
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 confirmed 161 374846 Problem Vitamin D deficiency E55.9 Active confirmed 98328483 Problem Nonrheumatic aortic valve stenosis I35.0 Activ e confirmed 591445480 Problem Other and unspecified hyperlipidemia E78.5 Act nahid confirmed 08677961 Problem Atherosclerosis of [place] co ronary artery of [place] heart without angina pectoris I25.10 Active confirmed 6313339986499 Problem Hypertensive heart disease without heart failure I 11.9 Active confirmed 27846774 Problem Epidermal cyst of vulva N90.7 Active confirmed 47433231 Problem Medicare annual wellness visit, subsequent Z00.00 Active confirmed 477702043 Problem CKD (chronic kidney disease), stage III N18.3 Active confirmed 813094260 Problem Chronic gout without tophus, unspecified cause, unspecified site M1A.9XX0 Active confirmed 171305901 Problem Adjustment disorder with mixed anxiety and depressed mood F43.23 Active confirmed 97456155 Problem Aortic valve stenosis, etiology of cardiac valve disease unspecified I35.0 Active confirmed 96938861 Problem Insomnia, unspecified type G47.00 Active confirmed 876038175 Problem S/P drug eluting coronary stent placement Z95.5 Active confirmed 193954077 Problem Frequent falls R29.6 Active confirmed 24700 2001 Problem Adjustment disorder with anxious mood F43.22 Ac tive confirmed 18682711 Problem 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 Active confirmed 929057147 Taxol in MEHNAZ 2006 Problem Reactive depression F32.9 Active confirmed 55527349 Problem Lymphocytic colitis K52.832 Active confirmed 01320352 Problem Lower extremity edema R60.0 Active confirmed 508165614 Problem STORY (dyspnea on exertion) R06.00 Active confirmed 71464859 Problem Stage 3b chronic kidney disease N18.32 Active confi rmed 740503925 ALLERGIES Allergen (clinical drug ingredient) Drug/Non Drug Allergy do cumented on EMR Reaction Allergy Type Onset Date Status amlodipine edema, SOB Non Drug Allergy Active colchicine severe GI sx Non Drug Allergy Active Rozarem didn't help her sleep Non Drug Allergy Active Lunesta didn't work Non Drug Allergy Active trazodone TraZODone HCl([facility] Code:[address]-05) Anaphylaxi s/diff. swallowing Drug Allergy Active Taxol hemolytic anemia Non Drug Allergy Ac tive levofloxacin Levofloxacin([facility] Code:[address]-90) nerve pain, tendon pain Drug Allergy Active ENCOUNTERS from 1942 to 2020-05-20 Encounter Location Date Provider Diagnosis [address] [address] May, Arnold Reece IMMUNIZATIONS Vaccine Route Administration Date Status [...] college Language: Question Answer Notes Languages spoken: Latvian Hindu: Question Answer Notes Hindu 21 Worship Sexual Hx: Question Answer Notes Had sex [...] with food Orally Once a day Active Allopurinol 300 mg TAKE 1 TABLET DAILY Active Folic Acid 1 MG 1 tablet [...] a day for 30 day(s) Feb, Active Magnesium 400mg Daily Active Budesonide 3 MG 2 capsules Orally Once a day for 90 day(s) Jun, Active Spironolactone 25 mg 1 tablet Orally Once a day Active Atorvastatin Calcium 80 MG 1 tablet Orally Once a day Active Albuterol Sulfate HFA Act nahid Ferrous Gluconate 324 (38 Fe) MG Oral for 100 Not-Taking Quetiapine Fumarate 25 mg 2 tabs Oral before bedtime Active Torsemide 20 MG TAKE 2 TABLETS BY MOUTH TWICE DAILY Oral for 30 Active PROCEDURES No Information RESULTS No Results REASON FOR VISIT not well MEDICAL (GENERAL) HISTORY Type Description Date Medical History HTN Medical History s/p splenectomy (hemolytic anemia) Medical History hyperlipidemia Medical History [facility]ortic stenosis, [facility]; e cho [facility] 05/05: EF55-60%, mild LAE, mild diastolic dyfxn, ao sclerosis without stenosis Medical History arthritis Medical History hypothyroid Medical History depression Medical History headache Medical History anemia hemolytic, sees Neil tologist [place]; ? 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 Medical History CAD s/p MEHNAZ stent LAD 2004; NST at [facility] 05/05: normal perfusion, EF >60% Medical [...] Medication Name Sig Start Date Stop Date Allopurinol 300 mg TAKE 1 TABLET DAILY Shower Chair without wheels as directed R26.2 Daily Use for 90 day(s) Apr, Next Appt Details Provider Name:Arnold Zakmae, 2020-05 11:00:00 AM, [address], [place], [address], Insurance Providers Payer Name Payer Address Payer Phone Insured Name Patient Relati onship to Insured Coverage Start Date Coverage End Date MEDICARE Part A and B [facility] [address] [facility] [id number] [phone] [employer]UCKER self [facility] [id number] [facility] [phone] [employer] self
--- OUTSIDE RECORDS SUMMARY | 2020-05-22 14:22 | CCD ---
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 If you continue you may have access to information: Regarding HIV / AIDS; Provided by facilities licensed or operated by the [facility] Office of Mental Health; or Provided by the [facility] Office for People With Developmental Disabilities. If such information is present, then the following [facility] mandated warning applies: This information has been [...] law may result in a fine or halfway sentence or both. A general authorization for the release of medical or other information is NOT sufficient authorization for further disc losure. Allergies and Adverse Reactions Type Description Substance Reaction Status Data Source(s ) Drug allergy Levofloxacin Levofloxacin nerve pain, tendon pain Activ e eCW1 ([facility]) Drug allergy TraZODone HCl Trazodone Anaphylaxis/diff. swallowing A ctive eCW1 ([facility]) colchicine colchicine Colchicine 0.6 MG Oral Capsule severe GI sx Ac tive eCW1 ([facility]) amlodipine amlodipine Amlodipine 5 MG Oral Tablet edema, SOB Active eCW1 ([facility]) Taxol Taxol Taxol hemolytic anemia Active eCW1 ([facility]) Buckyrem Jing Lawlerrem didn't help her sleep Active eC W1 ([facility]) Lunesta Lunesta Lunesta didn't work Active eCW1 ([facility]) Lunesta Lunesta Lunesta didn't work Active eCW1 ([facility]) amlodipine amlodipine Amlodipine 5 MG Oral Tablet edema, SOB Active eCW1 ([facility]) Taxol Taxol Taxol hemolytic anemia Active eCW1 ([facility]) colchicine colchicine Colchicine 0.6 MG Oral Capsule severe GI sx Ac tive eCW1 ([facility]) Rozarem Rozarem Rozarem didn't help her sleep Active eC W1 ([facility]) Lunesta Lunesta Lunesta didn't work Active eCW1 ([facility]) amlodipine amlodipine Amlodipine 5 MG Oral Tablet edema, SOB Active eCW1 ([facility]) Taxol Taxol Taxol hemolytic anemia Active eCW1 ([facility]) colchicine colchicine Colchicine 0.6 MG Oral Capsule severe GI sx Ac tive eCW1 ([facility]) Rozarem Rozarem Rozarem didn't help her sleep Active eC W1 ([facility]) Lunesta Lunesta Lunesta didn't work Active eCW1 ([facility]) amlodipine amlodipine amlodipine edema, SOB [facility] Taxol Taxol Taxol hemolytic anemia Active eCW1 ([facility]) colchicine colchicine colchicine severe GI sx Active eCW1 ([facility]) Rozarem Rozarem Rozarem didn't help her sleep Active eC W1 ([facility]) Family History Family Member Name Family Member Gender Family Member Status Date o f Status Description Data Source(s) Unknown Unknown Problem MEDENT ([facility]) mother Unknown Male Problem MEDENT ([facility] () - brain aneuryism age 50 Unknown Unknown Problem MEDENT ([facility] Unknown Female Problem MEDENT ([facility]) Unknown Female Problem MEDENT ([facility]) Unknown Female Problem MEDENT ([facility]) Encounters Encounter Providers Location Date Indications Data Source(s ) [place] [address] [facility] [address] 05/18/2020 12:00:00 AM EST eCW1 ([facility]) Unknown [address] [facility] [address] 04/30/2020 12:00:00 AM EST eCW1 ([facility]) Unknown [address] [facility] [place] [address] 04/29/2020 12:00:00 AM EST eCW1 ([facility]) Office Visit, Est Pt., Level 4 PC [address] [place] [address] 04/28/2020 12:00:00 AM EST eCW1 ([facility]) Outpatient Attender: Chay Blake MD Main office - [place] 04/22/2020 12:30:00 PM EST MEDENT ([facility]) Unknown [address] [facility] [address] 03/31/2020 12:00:00 AM EST eCW1 ([facility]) Outpatient Attender: Chay Blake MD Main office - [place] 02/25/2020 10:30:00 AM EST MEDENT ([facility]) Office Visit, Est Pt., Level 4 PC [address] [place] [address] 02/25/2020 12:00:00 AM EST eCW1 ([facility]) Unknown [address] [facility] [place] [address] 01/31/2020 12:00:00 AM EDT eCW1 [facility] Unknown [address] [facility] [place] [address] 01/31/2020 12:00:00 AM EDT eCW1 ([facility]) Outpatient [address] [facility] [place] [address] 01/30/2020 12:00:00 AM EDT eCW1 ([facility]) Unknown [address] [facility] [place] [address] 01/30/2020 12:00:00 AM EDT eCW1 ([facility]) Outpatient Attender: ERIKA GAMINO MD SJP.BARBARA-SJSharlaBARBARA 0 12:00:00 AM EDT - 01/29/2020 11:15:22 AM EDT [facility] [place] [address] [facility] [address] 01/16/2020 12:00:00 AM EDT eCW1 ([facility]) Outpatient Attender: ERIKA GAMINO MDReferrer: ERIKA HoganBARBARA-SJP.BARBARA 01/10/2020 07:06:12 AM EDT [facility] Outpatient Referrer: ERIKA ROBISONBARBARA-SJP.BARBARA 01/10/2020 12:00:[address] [facility] Outpatient Attender: ERIKA ROBISONBARBARA-SJP.BARBARA 0 12:00:00 AM EDT - 12/25/2019 01:33:03 PM EDT [facility] Outpatient [address] [facility] [address] 11/07/2019 12:00:00 AM EDT eCW1 ([facility]) [place] [address] [facility] [address] 09/26/2019 12:00:00 AM EDT eCW1 ([facility]) Office Visit Attender: Chay Blake MD Main office - [place] 09/25/2019 02:15:00 PM EDT MEDENT ([facility] anurag, ) [facility] [address] [facility] [address] 09/24/2019 12:00:00 AM EDT eCW1 ([facility]) [place] [address] [facility] [place] [address] 09/23/2019 12:00:00 AM EDT eCW1 ([facility]) [facility] Miller [address] [facility] [place] [address] 09/06/2019 12:00:00 AM EDT eCW1 ([facility]) [facility] Miller [address] [facility] [place] [address] 08/29/2019 12:00:00 AM EDT eCW1 ([facility]) [facility] Philippe [address] [facility] [address] 08/27/2019 12:00:00 AM EDT eCW1 ([facility]) [facility] Paul [address] [facility] [address] 07/30/2019 12:00:00 AM EDT eCW1 ([facility]) [facility] Paul [address] [place] [address], [place] [address] 07/30/2019 12:00:00 AM EDT eCW1 ([facility]) [facility] Paul [address] [place] [address] [place] [address] 07/29/2019 12:00:00 AM EDT eCW1 ([facility]) [facility] Paul [address] [place] [address] [place] [address] 07/03/2019 12:00:00 AM EDT eCW1 ([facility]) [facility] Paul [address] [place] [address], [place] [address] 06/18/2019 12:00:00 AM EST eCW1 ([facility]) [address] [address] 04/30/2019 12:00:00 AM EST eCW1 ([facility]) [facility] Paul [address] [place] [address] [place] [address] 04/30/2019 12:00:00 AM EST eCW1 ([facility]) [facility] Paul [address] [place] [address] N [place] [address] 04/26/2019 12:00:00 AM EST eCW1 ([facility]) [facility] Miller [address] [place] [address] [place] [address] 04/08/2019 12:00:00 AM EST eCW1 ([facility]) [address] [address] 04/02/2019 12:00:00 AM EST eCW1 ([facility]) Medications Medication Brand Name Start Date Product Form Dose Route Admi nistrative Instructions Pharmacy Instructions Status Indications Reaction Description Data Source(s) Shower Chair without wheels UNK 04/28/2020 12:00:00 AM EST active Shower Chair without wheels eCW1 ([facility]) Shower Chair without wheels UNK 04/28/2020 12:00:00 AM EST active Shower Chair without wheels eCW1 ([facility]) Shower Chair without wheels UNK 04/28/2020 12:00:00 AM EST active Shower Chair without wheels eCW1 ([facility]) Shower Chair without wheels UNK 04/28/2020 12:00:00 AM EST active Shower Chair without wheels eCW1 ([facility]) gabapentin 100 MG Oral Capsule Gabapentin 04/22/2020 12:00:00 AM EST ORAL active MEDENT ([facility], ) Prednisone 10 MG Oral Tablet Prednisone 04/08/2020 12:00:00 AM EST ORAL active MEDENT ([facility], ) 60 ACTUAT Budesonide 0.08 MG/ACTUAT / fo rmoterol fumarate 0.0045 MG/ACTUAT Metered Dose Inhaler [Symbicort] Symbicort 04/08/2020 12:00:00 AM EST RESPIRATORY active MEDENT ( [facility], ) 60 ACTUAT Albuterol 0.09 MG/ACTUAT Metered Dose Inhaler Albu terol Sulfate HFA 04/08/2020 12:00:00 AM EST ORAL active MEDENT ([facility], ) Levothyroxine Sodium 0.1 MG Oral Tablet Levothyroxine Sodium 100 MCG Levothyroxine Sodium 100 MCG 02/25/2020 12:00:00 AM EST active Levothyroxine Sodium 100 MCG eCW1 ([facility]) Levothyroxine Sodium 0.1 MG Oral Tablet Levothyroxine Sodium 100 MCG Levothyroxine Sodium 100 MCG 02/25/2020 12:00:00 AM EST active Levothyroxine Sodium 100 MCG eCW1 ([facility]) Levothyroxine Sodium 0.1 MG Oral Tablet Levothyroxine Sodium 100 MCG Levothyroxine Sodium 100 MCG 02/25/2020 12:00:00 AM EST active Levothyroxine Sodium 100 MCG eCW1 ([facility]) Levothyroxine Sodium 0.1 MG Oral Tablet Levothyroxine Sodium 100 MCG Levothyroxine Sodium 100 MCG 02/25/2020 12:00:00 AM EST active Levothyroxine Sodium 100 MCG eCW1 ([facility]) Levothyroxine Sodium 0.1 MG Oral Tablet Levothyroxine Sodium 100 MCG Levothyroxine Sodium 100 MCG 02/25/2020 12:00:00 AM EST active Levothyroxine Sodium 100 MCG eCW1 ([facility]) Levothyroxine Sodium 0.1 MG Oral Tablet Levothyroxine Sodium 100 MCG Levothyroxine Sodium 100 MCG 02/25/2020 12:00:00 AM EST active Levothyroxine Sodium 100 MCG eCW1 ([facility]) Levothyroxine Sodium 0.125 MG Oral Tablet Levothyroxin e Sodium 125 MCG Levothyroxine Sodium 125 MCG 01/30/2020 12:00:00 AM EDT active Levothyroxine Sodium 125 MCG eCW1 ([facility]) Levothyroxine Sodium 0.125 MG Oral Tablet Levothyroxin e Sodium 125 MCG Levothyroxine Sodium 125 MCG 01/30/2020 12:00:00 AM EDT active Levothyroxine Sodium 125 MCG eCW1 ([facility]) Levothyroxine Sodium 0.125 MG Oral Tablet Levothyroxin e Sodium 125 MCG Levothyroxine Sodium 125 MCG 01/30/2020 12:00:00 AM EDT active Levothyroxine Sodium 125 MCG eCW1 ([facility]) Levothyroxine Sodium 0.125 MG Oral Tablet Levothyroxin e Sodium 125 MCG Levothyroxine Sodium 125 MCG 01/30/2020 12:00:00 AM EDT active Levothyroxine Sodium 125 MCG eCW1 ([facility]) Furosemide 40 MG Oral Tablet Furosemide 40 MG 09/06/2019 12:00:00 A M EDT 1.0 {tablet} suspended Furosemide 40 MG eCW1 ([facility]) Furosemide 40 MG Oral Tablet Furosemide 40 MG 09/06/2019 12:00:00 A M EDT 1.0 {tablet} suspended Furosemide 40 MG eCW1 ([facility]) Furosemide 40 MG Oral Tablet Furosemide 40 MG 09/06/2019 12:00:00 A M EDT 1.0 {tablet} suspended Furosemide 40 MG eCW1 ([facility]) Furosemide 40 MG Oral Tablet Furosemide 40 MG 09/06/2019 12:00:00 A M EDT 1.0 {tablet} suspended Furosemide 40 MG eCW1 ([facility]) Furosemide 40 MG Oral Tablet Furosemide 40 MG 09/06/2019 12:00:00 A M EDT 1.0 {tablet} active Furosemide 40 MG eCW1 ( [facility]) Furosemide 40 MG Oral Tablet Furosemide 40 MG 09/06/2019 12:00:00 A M EDT 1.0 {tablet} suspended Furosemide 40 MG eCW1 ([facility]) Furosemide 40 MG Oral Tablet Furosemide 40 MG 09/06/2019 12:00:00 A M EDT 1.0 {tablet} active Furosemide 40 MG eCW1 ( [facility]) Furosemide 40 MG Oral Tablet Furosemide 40 MG 09/06/2019 12:00:00 A M EDT 1.0 {tablet} suspended Furosemide 40 MG eCW1 ([facility]) Furosemide 40 MG Oral Tablet Furosemide 40 MG 09/06/2019 12:00:00 A M EDT 1.0 {tablet} suspended Furosemide 40 MG eCW1 ([facility]) Furosemide 40 MG Oral Tablet Furosemide 40 MG 09/06/2019 12:00:00 A M EDT 1.0 {tablet} suspended Furosemide 40 MG eCW1 ([facility]) Furosemide 40 MG Oral Tablet Furosemide 40 MG 09/06/2019 12:00:00 A M EDT 1.0 {tablet} suspended Furosemide 40 MG eCW1 ([facility]) Furosemide 40 MG Oral Tablet Furosemide 40 MG 09/06/2019 12:00:00 A M EDT 1.0 {tablet} suspended Furosemide 40 MG eCW1 ([facility]) Furosemide 40 MG Oral Tablet Furosemide 40 MG 09/06/2019 12:00:00 A M EDT 1.0 {tablet} suspended Furosemide 40 MG eCW1 ([facility]) Furosemide 40 MG Oral Tablet Furosemide 40 MG 09/06/2019 12:00:00 AM E DT active 1 tablet eCW1 ([facility]) Furosemide 40 MG Oral Tablet Furosemide 40 MG 09/06/2019 12:00:00 A M EDT 1.0 {tablet} suspended Furosemide 40 MG eCW1 ([facility]) Budesonide 3 MG Delayed Release Oral Capsule Budesonide 3 MG 06/19/2019 12:00:00 AM EST 2.0 {capsules} active Budesoni de 3 MG eCW1 ([facility]) Budesonide 3 MG Delayed Release Oral Capsule Budesonide 3 MG 06/19/2019 12:00:00 AM EST 2.0 {capsules} active Budesoni de 3 MG eCW1 ([facility]) Budesonide 3 MG Delayed Release Oral Capsule Budesonide 3 MG 06/19/2019 12:00:00 AM EST 2.0 {capsules} active Budesoni de 3 MG eCW1 ([facility]) Budesonide 3 MG Delayed Release Oral Capsule Budesonide 3 MG 06/19/2019 12:00:00 AM EST 2.0 {capsules} active Budesoni de 3 MG eCW1 ([facility]) Budesonide 3 MG Delayed Release Oral Capsule Budesonide 3 MG 06/19/2019 12:00:00 AM EST 2.0 {capsules} active Budesoni de 3 MG eCW1 ([facility]) Budesonide 3 MG Delayed Release Oral Capsule Budesonide 3 MG 06/19/2019 12:00:00 AM EST 2.0 {capsules} active Budesoni de 3 MG eCW1 ([facility]) Budesonide 3 MG Delayed Release Oral Capsule Budesonide 3 MG 06/19/2019 12:00:00 AM EST 2.0 {capsules} active Budesoni de 3 MG eCW1 ([facility]) Budesonide 3 MG Delayed Release Oral Capsule Budesonide 3 MG 06/19/2019 12:00:00 AM EST 2.0 {capsules} active Budesoni de 3 MG eCW1 ([facility]) Budesonide 3 MG Delayed Release Oral Capsule Budesonide 3 MG 06/19/2019 12:00:00 AM EST 2.0 {capsules} active Budesoni de 3 MG eCW1 ([facility]) Budesonide 3 MG Delayed Release Oral Capsule Budesonide 3 MG 06/19/2019 12:00:00 AM EST 2.0 {capsules} active Budesoni de 3 MG eCW1 ([facility]) Budesonide 3 MG Delayed Release Oral Capsule Budesonide 3 MG 06/19/2019 12:00:00 AM EST active 2 capsules eCW1 ([facility]) Budesonide 3 MG Delayed Release Oral Capsule Budesonide 3 MG 06/19/2019 12:00:00 AM EST 2.0 {capsules} active Budesoni de 3 MG eCW1 ([facility]) Budesonide 3 MG Delayed Release Oral Capsule Budesonide 3 MG 06/19/2019 12:00:00 AM EST active 2 capsules eCW1 ([facility]) Budesonide 3 MG Delayed Release Oral Capsule Budesonide 3 MG 06/19/2019 12:00:00 AM EST 2.0 {capsules} active Budesoni de 3 MG eCW1 ([facility]) Budesonide 3 MG Delayed Release Oral Capsule Budesonide 3 MG 06/19/2019 12:00:00 AM EST active 2 capsules eCW1 ([facility]) Budesonide 3 MG Delayed Release Oral Capsule Budesonide 3 MG 06/19/2019 12:00:00 AM EST 2.0 {capsules} active Budesoni de 3 MG eCW1 ([facility]) Budesonide 3 MG Delayed Release Oral Capsule Budesonide 3 MG 06/19/2019 12:00:00 AM EST 2.0 {capsules} active Budesoni de 3 MG eCW1 ([facility]) Insurance Providers Payer name Policy type / Coverage type Policy ID Covered constitution party ID Covered constitution party's relationship to scruggs Policy Scruggs Plan Information UMR [facility] [id number] SP [id number] MEDICARE [id number] SP [id number] X41 UMR O [id number] S [id number] MEDICARE C [id number] S [id number] X41 UMR [id number] Mily [id number] MEDICARE [id number] Mily [id number] X41 ANSI-Medicare Part B [id number] ANSI-Commercial [id number] ANSI-Medicare Part B [id number] ANSI-Commercial [id number] ANSI-Medicare Part B [id number] ANSI-Commercial [id number] ANSI-Medicare Part B [id number] ANSI-Commercial [id number] ANSI-Medicare Part B [id number] ANSI-Commercial [id number] ANSI-Commercial [id number] ANSI-Medicare Part B [id number] Medicare Dme [facility] [id number] Self [id number] Medicare Medicare Primary [id number] Self [id number] Commercial [id number] Self [id number] Medicare Dme [facility] [id number] Self [id number] Medicare Medicare Primary [id number] Self [id number] ANSI-Commercial [id number] ANSI-Medicare Part B [id number] ANSI-Medicare Part B [id number] ANSI-Commercial [id number] ANSI-Medicare Part B [id number] ANSI-Commercial [id number] ANSI-Medicare Part B [id number] ANSI-Commercial [id number] [place] [id number] Self [id number] Medicare Dme Supplies Medigap Part B [id number] Self [id number] [place] Primary [id number] Self [id number] Umr (pr) [facility] Part B [id number] Self [id number] [place] Med[place] Part B [id number] Self [id number] Medicare Dme Supplies [facility] [id number] Self [id number] [place] Primary [id number] Self [id number] ANSI-Commercial [id number] ANSI-Medicare Part B [id number] ANSI-Medicare Part B [id number] ANSI-Commercial [id number] [place] Med[place] B [id number] Self [id number] Medicare Dme Supplies [facility] [id number] Self [id number] [place] Primary [id number] Self [id number] ANSI-Commercial [id number] ANSI-Medicare Part B [id number] ANSI-Medicare Part B [id number] ANSI-Commercial [id number] ANSI-Commercial [id number] ANSI-Medicare Part B [id number] ANSI-Commercial [id number] ANSI-Medicare Part B [id number] ANSI-Commercial [id number] ANSI-Medicare Part B [id number] ANSI-Medicare Part B [id number] ANSI-Commercial [id number] ANSI-Medicare Part B [id number] ANSI-Commercial [id number]-36nl-y9si7x13297n ANSI-Medicare Part B 4hpk0082-rhw9-5m3j-euo0-j756821758li 5hly9707-efd1-2h5s-lpu9-l852692167kc ANSI-Commercial eh73b2w1-7096-517a-7ilo-np70402x099g lw74y5x3-0814-813f-4slh-au95005m249j ANSI-Commercial mh54xpx6-12v5-4h43-52u9-28tu1t381245 ym40prq1-11g8-1j81-29z0-50ga4m170183 ANSI-Medicare Part B 0580v892-aj4f-4500-t834-c0v023854lz3 8345q545-iq4p-4028-p497-r4b044393sh4 [facility] [id number] SP [id number] MEDICARE [id number] SP 2FH0FB7E X41 ANSI-Medicare Part B [id number]-2m52-t61h-82d25o5vqn6i f8131504-7b3x-7i38-f80k-70m16o7qjp7k ANSI-Commercial c64yfz99-xx9r-233s-yhh3-t0b90mgt67ot e71epg29-yb0z-312x-ocv3-f9r19tau32gx ANSI-Medicare Part B 28168l75-229x-5u5y-04m1-q9t0l7010v08 76059c97-639i-4o4z-06b8-y5k0j8252s29 ANSI-Commercial 0h850u8m-65o9-1h06-6730-q269htn192yq 3c740c5c-89d8-1y02-3284-m475lgz831il ANSI-Commercial 4i92i15a-3902-5728-1490-ns35u99615m6 0h97z59b-4883-1311-1208-bi75a28104s1 ANSI-Medicare Part B ez4377yd-32vw-27uf-slu6-10ff72y689s1 cr4284ge-52fr-59hz-rsg2-85do31x894w8 ANSI-Commercial ba6e4j42-1x63-2m08-qk4o-2p5s70t1335a pe9z8m08-3i74-9s61-xq3j-4y2x58n5164r ANSI-Medicare Part B 4d0x61l8-wmw7-7673-a127-78eq9wm6u78c 8i1i87m8-xlu1-5630-h671-69ra3xf1t78z ANSI-Commercial 2c540952-n4r8-6w76-v82f-893bl700a562 2z945877-a0d3-5i77-l39g-251vy049e643 ANSI-Medicare Part B i6ej766q-955t-8ox1-6323-w722z4274021 i5ng832w-831d-8vb0-3784-m327w6317902 ANSI-Commercial 566ckq1l-bwh6-2vj0-bs06-lhp201121kn8 046lfz3g-sxc4-8tc8-an16-nxo592319hb9 ANSI-Medicare Part B r443b15j-9c33-34mb-qn7a-s8x5s09k46ni m229e81y-6y26-61ey-dh3c-s8u8s85z12de ANSI-Medicare Part B 9e6t92zi-2w1c-5iv7-yz1u-1icp30peogb1 3n2a36sn-8y3y-9go8-oc1t-9aqm85jvusc5 ANSI-Commercial 78y986jj-juq3-12q4-he80-8872npg7c87c 52t853yt-edt3-21j9-lw42-2002smx2m00d ANSI-Medicare Part B 0h0is5c0-5t99-1g4n-j570-wre3u50b125a 4z5sy6q6-7b25-3q6c-q797-mtu1t95u729m ANSI-Commercial 675m9117-9euj-5u59-gjmj-1992585s2980 796d1381-6ajp-7d14-rktx-4457230z9501 ANSI-Medicare Part B 43tt3pr4-1hah-5ioi-1yc5-442m095j906q 00qz2qt1-5zcp-4xcy-3ky8-156i038p183b ANSI-Commercial 8b76w904-204f-1l77-dxe7-17y12ax2s065 1x07u080-134z-6n06-ekm9-35h92og7m209 ANSI-Medicare Part B 9362b12n-6ag6-1935-9n6f-21f4w8x8p3l4 2032f82d-1wy7-8284-7b7m-23x2z0l6o5l0 ANSI-Commercial 2eqd66vr-lr10-1g6x-83cq-3h0llp141i42 7lqc61nm-dv47-1c1u-90yx-1q5wfo217x36 ANSI-Commercial 506u800e-2k64-670j-y58o-uiu52kc80124 876s987x-2d30-990e-g04b-vub55jh09642 ANSI-Medicare Part B u180yd61-06tk-2s82-3326-c468o53ji9i0 c110vg12-97tg-1r02-9663-g393s55rr8q1 ANSI-Medicare Part B v79yg9h2-k154-914m-4cup-e4ap2lvyzn40 n21na4n9-x935-139j-8cbo-n6dp6ndlop55 ANSI-Commercial [id number] ANSI-Commercial [id number] ANSI-Medicare Part B [id number] ANSI-Medicare Part B [id number] ANSI-Commercial [id number] ANSI-Medicare Part B [id number] ANSI-Commercial [id number] UMR [facility] [id number] SP [id number] Umr/[facility] Medigap Part B [id number] Self [id number] Medicare Natl Gov't Servi Medicare Primary [id number] Self [id number] ANSI-Medicare Part B [id number] ANSI-Commercial [id number] ANSI-Commercial [id number] ANS-Medicare Part B [id number] ANS-Medicare Part B [id number] ANSI-Commercial [id number] ANSI-Commercial [id number] ANSI-Medicare Part B [id number] [place] B [id number] Self [id number] Medicare Dme Supplies Medigap Part B [id number] Self [id number] [place] [id number] Self [id number] ANSI-Medicare Part B [id number] ANSI-Commercial [id number] ANSI-Commercial [id number] ANSI-Medicare Part B [id number] ANSI-Medicare Part B [id number] ANSI-Commercial [id number] ANSI-Medicare Part B [id number] ANSI-Commercial [id number] ANSI-Medicare Part B [id number] ANSI-Commercial [id number] Medicare [facility] [id number] Self [id number] Medicare Dme Supplies Medigap Part B [id number] Self [id number] [place] Primary [id number] Self [id number] ANSI-Commercial [id number] ANSI-Medicare Part B [id number] Umr/[facility] Medigap Part B [id number] Self Y [id number] Medicare Natl Gov't Servi Medicare Primary [id number] Self [id number] UMR [facility] [id number] SP [id number] [facility] [id number] SP [id number] MEDICARE [id number] SP [id number] A ANSI-Medicare Part B [id number] ANSI-Commercial [id number] [facility] [id number] SP [id number] [facility] [id number] SP [id number] MEDICARE [id number] SP [id number] A [facility] PPO O [id number] S [id number] MEDICARE C [id number] S [id number] A [facility] [id number] SP [id number] [facility] Medigap Part B [id number] Self [id number] Medicare Natl Gov't Servi Medicare Primary [id number] Self [id number] Medicare Dme Medigap Part B [id number] Self [id number] Medicare Medicare Primary [id number] Self [id number] [facility] Medigap Part B [id number] Self [id number] Medicare Dme Medigap Part B [id number] Self [id number] Medicare Medicare Primary [id number] Self [id number] Medicare Dme Medigap Part B [id number] Self 0 [id number] Medicare Medicare Primary [id number] Self [id number] Medicare Dme Supplies Medigap Part B [id number] Self [id number] [place] Primary [id number] Self [id number] [facility] (pr) Medigap Part B [id number] Self [id number] [employer] Medigap Part B [id number] Self [id number] [place] Primary [id number] Self [id number] [facility] PPO O [id number] S [id number] Medicare Dme Supplies Medigap Part B [id number] Self [id number] [place] Primary [id number] Self [id number] [facility] [id number] SP [id number] [facility] Medigap Part B [id number] Self [id number] [place] Medicare Primary [id number] Self [id number] [employer] Medigap Part B Self [place] Medicare Primary Self [facility] (pr) Medigap Part B Self [place] Primary Self [id number] A [id number] Problems, Conditions, and Diagnoses Code Display Name Description Problem Type Effective Dates Data Source(s) N18.32 434080461 Stage 3b chronic kidney disease Problem 04/28/2020 12:00:00 AM EST eCW1 ([facility]) R29.6 [id number] Frequent falls Problem 04/28/2020 12:00:00 A M EST eCW1 ([facility]) I35.0 [id number] Aortic valve stenosi s, etiology of cardiac valve disease unspecified Problem 04/28/2020 12:00:00 AM EST eCW1 [facility] R06.00 [id number] STORY (dyspnea on exertion) Problem 01/31/2020 12:00:00 AM EDT eCW1 ([facility]) R60.0 [id number] Lower extremity edema Problem 09/06/2019 12: 00:00 AM EDT eCW1 ([facility]) R60.0 [id number] Lower extremity edema Problem 09/06/2019 12: 00:00 AM EDT eCW1 ([facility]) K52.832 93879819 Lymphocytic colitis Problem 06/19/2019 12:00 :00 AM EST eCW1 ([facility]) K52.832 62053830 Lymphocytic colitis Problem 06/19/2019 12:00 :00 AM EST eCW1 ([facility]) R06.02 Shortness of breath Shortness of breath Diagnosis 1 10:36:[address] [facility] E03.9 Hypothyroidism, unspecified Hypothyroidism, unspecifie d Diagnosis 01/29/2020 10:36:[address] [facility] I10 Essential (primary) hypertension Essential (primary) h ypertension Diagnosis 01/29/2020 10:36:[address] 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 E78.5 Hyperlipidemia, unspecified Hyperlipidemia, unspecifie d Diagnosis 01/29/2020 10:36:[address] [facility] I25.10 Atherosclerotic heart diseas e of [place] coronary artery without angina pectoris Atherosclerotic heart disease of [place] Diagnosis 01/29/2020 10:36:[address] [facility] I35.0 Nonrheumatic aortic (valve) stenosis Nonrheumati c aortic (valve) stenosis Diagnosis 01/29/2020 10:36:53 AM EDT [facility] Surgeries/Procedures Procedure Description Date Indications Data Source(s) Bronchospasm Evaluation 03/30/2020 12:00:00 AM EST [facility] ([facility], ) Maximum Breathing Capacity, Maximal Voluntary Ventilation 03/30/2020 12:00:00 AM EST [facility] Plethysmography Determination Lung Volumes & Per Airway Resi st 03/30/2020 12:00:00 AM EST [facility] ([facility] ) DIFFUSING CAPACITY 03/30/2020 12:00:00 AM EST [facility] ([facility], ) Office Visit, Est Pt., Level 2 FC 09/06/2019 12:00:00 AM EDT eCW1 ([facility]) Office Visit, Est Pt., Level 4 PC 09/06/2019 12:00:00 AM EDT eCW1 ([facility]) PSYTX W PT 45 MINUTES 04/30/2019 12:00:00 AM EST eCW1 ([facility]) Annual wellness visit, includes a person alized prevention plan of service (pps), subsequent visit 04/30/2019 12:00:00 AM EST eCW 1 ([facility]) Results ID Date Data Source [id number] 03/13/2020 11:38:00 AM EST MEDENT ([facility], ) Name Value Range Interpretation Code Description Data Leonie rce(s) Supporting Document(s) Creatine kinase [Enzymatic activity/volume] in Serum or Plasma 58 U /L 26-192 MEDENT ([facility], ) Thyrotropin [Units/volume] in Serum or Plasma 0.077 uIU/ML 0.358-3.74 0 [facility] ([facility], ) Histone Ab [Presence] in Serum 0.2 units 0.0-0.9 [facility] <content>Negative <1.0</c ontent>
<content>Weak Positive 1.0 - 1.5</content>
<content>Moderate Positive 1.6 - 2.5</content>
<content>Strong Positive >2.5</content>
<content></content> Acetylcholine receptor Ab [Units/volume] in Serum Laboratory test result 0.00-0.24 [facility]) Negative: 0.00 - 0.24 Borderline: 0.25 - 0.40 Positive: >0.40 Striated muscle Ab [Presence] in Serum Laboratory test result [facility] ([facility], ) Performed at: - [facility] [id number] [employer] Feeder: Mitchell Hernadez MD, Phone: [phone] Performed at: - [facility] [address] [id number] [employer]: Lisa Natarajan MD, Phone: [phone] ID Date Data Source Chest X-ray PA and lateral 02/04/2020 05:29:27 AM EDT eCW1 ( [facility]) Name Value Range Interpretation Code Description Data Leonie rce(s) Supporting Document(s) eCW1 ([facility]) ID Date Data Source PT & APTT 01/31/2020 11:03:47 AM EDT eCW1 ([facility] Name Value Range Interpretation Code Description Data Leonie rce(s) Supporting Document(s) 12.7 eCW1 ([facility]) 0.93 eCW1 ([facility]) 24.1 eCW1 ([facility]) ID Date Data Source DDIMER QUANT 01/31/2020 11:03:47 AM EDT eCW1 ([facility]) Name Value Range Interpretation Code Description Data Leonie rce(s) Supporting Document(s) 1325.37 eCW1 ([facility]) ID Date Data Source CBC - Complete Blood Count 01/16/2020 03:54:30 AM EDT eCW1 ( [facility]) Name Value Range Interpretation Code Description Data Leonie rce(s) Supporting Document(s) 14.0 eCW1 ([facility]) 12.3 eCW1 ([facility]) 102.7 eCW1 ([facility]) 3.70 eCW1 ([facility]) 38.0 eCW1 ([facility]) 17.0 eCW1 ([facility]) 33.2 eCW1 ([facility]) 286 eCW1 ([facility]) 32.4 eCW1 ([facility]) ID Date Data Source VITAMIN B12 LEVEL 01/16/2020 03:54:19 AM EDT eCW1 ([facility]) Name Value Range Interpretation Code Description Data Leonie rce(s) Supporting Document(s) 441 eCW1 ([facility]) ID Date Data Source FREE T4 & TSH PANEL 01/16/2020 03:54:19 AM EDT eCW1 ([facility]) Name Value Range Interpretation Code Description Data Leonie rce(s) Supporting Document(s) 0.010 THYROID STIMULATING HORMONE eC W1 ([facility]) 1.50 FREE T4 eCW1 ([facility]) ID Date Data Source LIPID PANEL (CARDIAC RISK) 01/16/2020 03:54:19 AM EDT eCW1 ( [facility]) Name Value Range Interpretation Code Description Data Leonie rce(s) Supporting Document(s) Triglyceride [Mass/volume] in Serum or Plasma by calculation 71 TRIGLYCERIDES LEVEL eCW1 ([facility]) Cholesterol [Moles/volume] in Serum or Plasma 150 CHOLESTEROL LEVEL eCW1 ([facility]) Cholesterol in HDL [Moles/volume] in Serum or Plasma 77 HDL CHOLESTEROL eCW1 ([facility]) Cholesterol in LDL [Mass/volume] in Serum or Plasma by calculation 59 LDL CHOLESTEROL eCW1 ([facility]) 73 NON-HDL-C eCW1 ([facility]) 1.948 CHOLESTEROL RISK RATIO eCW1 ([facility]) ID Date Data Source HAPTOGLOBIN 01/16/2020 03:54:19 AM EDT eCW1 ([facility]) Name Value Range Interpretation Code Description Data Leonie rce(s) Supporting Document(s) 356 eCW1 ([facility]) ID Date Data Source TOTAL IRON BINDING CAPACIT 01/16/2020 03:54:19 AM EDT eCW1 ( [facility]) Name Value Range Interpretation Code Description Data Leonie rce(s) Supporting Document(s) 285 eCW1 ([facility]) 125 eCW1 ([facility]) 43.9 eCW1 ([facility]) ID Date Data Source Reticulocyte Count Sysmex 01/16/2020 03:54:19 AM EDT eCW1 ([facility]) Name Value Range Interpretation Code Description Data Leonie rce(s) Supporting Document(s) 2.2 eCW1 ([facility]) ID Date Data Source FOLATE 01/16/2020 03:54:19 AM EDT eCW1 ([facility]) Name Value Range Interpretation Code Description Data Leonie rce(s) Supporting Document(s) > 24.0 eCW1 ([facility]) ID Date Data Source FERRITIN 01/16/2020 03:54:19 AM EDT eCW1 ([facility]) Name Value Range Interpretation Code Description Data Leonie rce(s) Supporting Document(s) 61 eCW1 ([facility]) ID Date Data Source Comprehensive Metabolic Profile (CMP) 01/16/2020 03:54:19 AM EDT eCW1 ([facility]) Name Value Range Interpretation Code Description Data Leonie rce(s) Supporting Document(s) 31 BLOOD UREA NITROGEN eCW1 ([facility]) 96 GLUCOSE, FASTING eCW1 ([facility] hospital) 4.8 POTASSIUM SERUM eCW1 ([facility]) 139 SODIUM LEVEL eCW1 ([facility] hospital) 1.27 CREATININE FOR GFR eCW1 ([facility]) 43.4 GLOMERULAR FILTRATION RATE eCW 1 ([facility]) 30 CARBON DIOXIDE LEVEL eCW1 (Count includes the [facility]) 23 AST/SGOT eCW1 ([facility]) 104 CHLORIDE LEVEL eCW1 ([facility]) 8.9 CALCIUM LEVEL eCW1 ([facility]) 63 ALKALINE PHOSPHATASE eCW1 (Count includes the [facility]) 6.0 TOTAL PROTEIN eCW1 ([facility]) 43 ALT/SGPT eCW1 ([facility]) 0.6 BILIRUBIN,TOTAL eCW1 ([facility]) 1.1 ALBUMIN/GLOBULIN RATIO eCW1 ([facility]) 3.2 ALBUMIN eCW1 ([facility]) ID Date Data Source [id number] 01/11/2020 12:29:[address] [facility] Name Value Range Interpretation Code Description Data Leonie rce(s) Supporting Document(s) &PDF [facility] MKLSVd6lTiDNTzBw21/KGLwvAIYeo9OeUOnmOXr3VEikPMFsE7GfhKdkKVpCOfTILd2DXNQzJGvYUIuc hdG [file] gC44FwBCS3XorGW+A/4EGq7O+sew6aGEL22E26XYJo/TiID+CD+BA+Chion+ZJ7mwboP/TpXpY/gN/CY+js vbIP3Xc0Us9vby4/gJIu9R4BL1Df/nicolás/C7+Bw+rttNxUE2Qv+gOvZF/U5A2JH4yloXuaI/xJelREwNaj [file] MEREDITH+SXwtAKnqbQc7qSLmQFNzYa7NOHQuRPPhHKFhOENnXWIjBHYhSSWkORVtJDFhOEGqQIHoKVXrIYId ICAgICAgICAgICAgICAgICAgICAgICAgICAgICAgIC NvMCBnBDUmUJJjXVAaNVCnBRNyGDZfBCAoVGSeGE4YNVRnQPOsRWLtFTDpYBPdCGFvBWSpMOKyCSOfRW AgICAgICAgICAgICAgICAgICAgICAgICAgICAgICAgICAgICAgICAgICAgICAgICAgICAgICAgICAgIC EkRZWbTNNdXAViSD1GHLKbUOJkCWTfSSHtRHAnFECu ICAgICAgICAgICAgICAgICAgICAgICAgICAgICAgICAgICAgICAgICAgICAgICAgICAgICAgICAgICAg GQGfLWEoIQCgVZOeDJLzETJuUAHlEF8NHPOrFVTvGAAxUVTdWTVmYDUqEJAoYCMmYHGvZJEkNMIdRUMt ICAgICAgICAgICAgICAgICAgICAgICAgICAgICAgIC KwEMEsDCNcPYRrQPMvDMQwSSYwNBEwIRYmIPJfLDBsRE8OYULgYPLtHMIiPHRlQXLvZSErLQXeKYQgUK AgICAgICAgICAgICAgICAgICAgICAgICAgICAgICAgICAgICAgICAgICAgICAgICAgICAgICAgICAgIC FhZHEzITBqCRTvDTZiEO2YHSSoWAAoAUAuWOZkEQNq ICAgICAgICAgICAgICAgICAgICAgICAgICAgICAgICAgICAgICAgICAgICAgICAgICAgICAgICAgICAg URLzHYHoJOZvCGVaGZTxHLFrEBVsQUSgKC2MMWKlFUMjMYXrSKBaUFQvSICpMLLhYUTiQVIcMKJnLBGp ICAgICAgICAgICAgICAgICAgICAgICAgICAgICAgIC WoJLTsGYSyQMNtWVOfFMKnPZOhIUJhJRXzOBXpFJXdVJCvCK0KFDPeLGJlXCKnVSQfMMWuJXTyPUDpSO AgICAgICAgICAgICAgICAgICAgICAgICAgICAgICAgICAgICAgICAgICAgICAgICAgICAgICAgICAgIC XuAAUgSCPrPHEmOMTvDVFnYL9BAOPeECYuDGYpTKPl ICAgICAgICAgICAgICAgICAgICAgICAgICAgICAgICAgICAgICAgICAgICAgICAgICAgICAgICAgICAg XCUkCXIaWAHvSPYiRCHvAMHwUSFqTVNhPXVwJW3IUULlKCPdLEIhILDcRXEgMUFtQGFzWJVcZYTjLHMu ICAgICAgICAgICAgICAgICAgICAgICAgICAgICAgIC LwTYYmGTMvKNSnUJWvITEkBFEhIAIhWDGoLQTsLMXdJXZuPZVzBD6MNR47mYHnw9M3FBEnFV8yyxs/Pg 6CZTugrjQqzREoPF0TRfXpCU7lgy8YNcZwGU7hya3OLKzCFkSkK0Z6wOByQROvWNDXQnSkY66hFWfjKq 73OOqyTSYfMlQlREx0Ag7NKkLcE4tiHWDvQoX9ZHUn GqR8AWYyUvI6WLMoAvLiOEcbLP3Mf7MhaQSmHJp+Ui7KKQ3mw4EoOXnvBBQeRC3xba5QQQcMKjTlR5C1 lHPeH2G9QVomVs1XWCHtVHKaDwRrEUAVDClcYZ4PBS7ugkX9FJ2EyJClDHWaCBFeuKYhWTf4R19bgTSw TXrfPT6KYAS+Emma+Qk8LGSNuFURdPESwJbNsOCSXLn ZoI66poRLbHKQoOTP5KFLpFd9UNCLoZ3FvmgKsaYbryzUgUFYlMBPKKB2YXQnicbRltSBahLcgNJ80kS sqCO7JJy8VCfUhKJ9cam7CiMRvXb6WAUGqOA7GCLZbQZVaXBMlQPN1KUTnNnDeZUqpNKMsJBHxORR2WZ AhPASqQN7GDfEhGLXfUbRsGXMoGWBnIVJhvm4JWQEz YSFdXgwgVeExPIUjQDXfVVjbVCXvPOKpZLi5NOPrLCLmBB6VOdXoOCPnNVV8WWYjQUDySXOheb7KKSGf KZHzKvY8QTFjKFRqLUZtHNnwINWyMVB0YNY4RRImXFGtJB8TSoPeOEDlNSU2ZyclXVAhTUWxlw3QREHg WEEwQkG6WqEpUJQwJPJnWDjjQAOhARL1FID4KIQpFG BxRG8BHaDwQJFaCCh9JKvhBRGhPOUedv9UIBIfFJKdLAlcLRYcFDZhSFXpMBafNPRxFKD2ZMt4BHDsSS DtNX7BBiEwFIJgFKh7ENEyYZHxXUQgji8FXHIyVQVpOXE3LJEyFIVlWMRhIHokOHPmDSTnSsG8NXQsPQ AtTL1PTiSrNVUbVHFbYFMwXYErNUNlac3VVBQgUCDo PMWoMUPvTJWoBWOfEIjwOANeOEW9UvDfEDBaUWHbWS0GNzKeNLPuYER5WaBsKLSpQXSimz3EAAPoJYKb AqObPSInKFMtECMuDTizAYIbFDP5BPEhRXHnBVShIB0RZkUeSTKxTHayPZWfKQQxGHSnmy6PKBAtRSAm NzMxOCAwMDAwMCBuDQowMDAwMDIzMDAyIDAwMDAwIG 4NXfWnHPRnKoOrNeAhJQZhXQOwib9NPGHqLNVvHeE5TuOsVQFaKCIlUTeiZZPzRNN1OLL9JBLtWKVvQA 4PAyToBVgiSDUFYgb0OWpnD0y9QPEuOE7BG3Cmp8ErBzhpQVOBOSdsQF7swyZeGAMaMp4NW2nIKyt5PJ ZaM0WcZUV1RFC4IVW1UYHnUtG5B5WfKnBjVQQ6Ly9p WROvTtIaJqR5BqRkCDljPdRbUQOrVrrnQYIlA3EaYgkvBbKdGZ4NPr2KFsA1SFQ7bQOjQt2VJciwBHBZ EoNaEW9SMEn= Procedure Social History Code Duration Value Status Description Data Source(s ) Smoking 04/28/2020 12:00:00 AM EST Former Smoker completed Former Smoker eCW1 ([facility]) Smoking 04/28/2020 12:00:00 AM EST Former Smoker completed Former Smoker eCW1 ([facility]) Smoking 04/28/2020 12:00:00 AM EST Former Smoker completed Former Smoker eCW1 ([facility]) Smoking 04/28/2020 12:00:00 AM EST Former Smoker completed Former Smoker eCW1 ([facility]) Smoking 04/08/2020 12:00:00 AM EST Patient is a former smoker completed Patient is a former smoker [facility] ([facility], ) Smoking 02/25/2020 12:00:00 AM EST Former Smoker completed Former Smoker eCW1 ([facility]) Smoking 02/25/2020 12:00:00 AM EST Former Smoker completed Former Smoker eCW1 ([facility]) Smoking 01/30/2020 12:00:00 AM EDT Former Smoker completed Former Smoker eCW1 ([facility]) Smoking 01/30/2020 12:00:00 AM EDT Former Smoker completed Former Smoker eCW1 ([facility]) Smoking 01/30/2020 12:00:00 AM EDT Former Smoker completed Former Smoker eCW1 ([facility]) Smoking 01/30/2020 12:00:00 AM EDT Former Smoker completed Former Smoker eCW1 ([facility]) Smoking 11/07/2019 12:00:00 AM EDT Former Smoker completed Former Smoker eCW1 ([facility]) Smoking 11/07/2019 12:00:00 AM EDT Former Smoker completed Former Smoker eCW1 ([facility]) Smoking 09/06/2019 12:00:00 AM EDT Former Smoker completed Former Smoker eCW1 ([facility]) Smoking 09/06/2019 12:00:00 AM EDT Former Smoker completed Former Smoker eCW1 ([facility]) Vital Signs ID Date Data Source UNK Name Value Range Interpretation Code Description Data Source(s) Diastolic blood pressure 62 mm[Hg] 62 mm[Hg] eCW1 ([facility]) Systolic blood pressure 118 mm[Hg] 118 mm[Hg] e CW1 ([facility]) Body temperature 98.8 [degF] 98.8 [degF] eCW1 ( [facility]) Respiratory rate 22 /min 22 /min eCW1 ([facility]) Heart rate 75 /min 75 /min eCW1 ([facility]) Body mass index (BMI) [Ratio] 35.87 kg/m2 35.87 kg/m2 eCW1 ([facility]) Body height 64 [in_i] 64 [in_i] eCW1 [facility] Body weight 209 [lb_av] 209 [lb_av] eCW1 ([facility]) Body surface area Derived from formula 2.01 m2 2.01 m2 [facility] ([facility]) Body weight 96.163 kg 96.163 kg [facility] ([facility]) [place] body weight 120 [lb_av] 120 [lb_av] MEDEN T ([facility]) Body mass index (BMI) [Ratio] 36.4 kg/m2 36.4 k g/m2 [facility] ([facility]) Body weight 212.00 [lb_av] 212.00 [lb_av] [facility] Body height 64 [in_i] 64 [in_i] [facility] ([facility]) 5'4" Oxygen saturation in Arterial blood by Pulse oximetry 92 % 92 % [facility] ([facility]) Heart rate 80 /min 80 /min [facility] ([facility]) Diastolic blood pressure 90 mm[Hg] 90 mm[Hg] [facility] ([facility]) Systolic blood pressure 152 mm[Hg] 152 mm[Hg] M EDENT ([facility]) Diastolic blood pressure 72 mm[Hg] 72 mm[Hg] eCW1 ([facility]) Systolic blood pressure 128 mm[Hg] 128 mm[Hg] e CW1 ([facility]) Body temperature 96.8 [degF] 96.8 [degF] eCW1 ( [facility]) Respiratory rate 20 /min 20 /min eCW1 ([facility]) Heart rate 101 /min 101 /min eCW1 ([facility]) Body mass index (BMI) [Ratio] 36.73 kg/m2 36.73 kg/m2 eCW1 ([facility]) Body height 64 [in_i] 64 [in_i] eCW1 [facility] Body weight 214 [lb_av] 214 [lb_av] eCW1 ([facility]) Diastolic blood pressure 80 mm[Hg] 80 mm[Hg] eCW1 ([facility]) Systolic blood pressure 120 mm[Hg] 120 mm[Hg] e CW1 ([facility]) Body temperature 98.9 [degF] 98.9 [degF] eCW1 ( [facility]) Respiratory rate 18 /min 18 /min eCW1 ([facility]) Heart rate 85 /min 85 /min eCW1 ([facility]) Body mass index (BMI) [Ratio] 37.62 kg/m2 37.62 kg/m2 eCW1 ([facility]) Body height 64 [in_i] 64 [in_i] eCW1 ([facility]) Body weight 219.2 [lb_av] 219.2 [lb_av] eCW1 ([facility]) Diastolic blood pressure 68 mm[Hg] 68 mm[Hg] eCW1 ([facility]) Systolic blood pressure 134 mm[Hg] 134 mm[Hg] e CW1 ([facility]) Body temperature 97.9 [degF] 97.9 [degF] eCW1 ( [facility]) Respiratory rate 18 /min 18 /min eCW1 ([facility]) Heart rate 95 /min 95 /min eCW1 ([facility]) Body mass index (BMI) [Ratio] 35.18 kg/m2 35.18 kg/m2 eCW1 ([facility]) Body height 64 [in_i] 64 [in_i] eCW1 ([facility] Body weight 205 [lb_av] 205 [lb_av] eCW1 ([facility]) Diastolic blood pressure 66 mm[Hg] 66 mm[Hg] eCW1 ([facility]) Systolic blood pressure 132 mm[Hg] 132 mm[Hg] e CW1 ([facility]) Body temperature 97.8 [degF] 97.8 [degF] eCW1 ( [facility]) Respiratory rate 18 /min 18 /min eCW1 ([facility]) Heart rate 77 /min 77 /min eCW1 ([facility]) Body mass index (BMI) [Ratio] 34.64 kg/m2 34.64 kg/m2 eCW1 ([facility]) Body height 64 [in_us] 64 [in_us] eCW1 ([facility]) Body weight Measured 201.8 [lb_av] 201.8 [lb_av ] eCW1 ([facility]) Diastolic blood pressure 70 mm[Hg] 70 mm[Hg] eCW1 ([facility]) Systolic blood pressure 140 mm[Hg] 140 mm[Hg] e CW1 ([facility]) Body temperature 97.9 [degF] 97.9 [degF] eCW1 ( [facility]) Respiratory rate 18 /min 18 /min eCW1 ([facility]) Heart rate 82 /min 82 /min eCW1 ([facility]) Body mass index (BMI) [Ratio] 34.36 kg/m2 34.36 kg/m2 eCW1 ([facility]) Body height 64 [in_us] 64 [in_us] eCW1 ([facility]) Body weight Measured 200.2 [lb_av] 200.2 [lb_av ] eCW1 ([facility]) Body surface area Derived from formula 1.92 m2 1.92 m2 MEDENT ([facility] ) Body weight 87.091 kg 87.091 kg MEDENT ([facility], ) [place] body weight 120 [lb_av] 120 [lb_av] MEDEN T ([facility], ) Body mass index (BMI) [Ratio] 33.0 kg/m2 33.0 k g/m2 MEDENT ([facility]) Body weight 192.00 [lb_av] 192.00 [lb_av] MEDEN T ([facility]) Body height 64 [in_i] 64 [in_i] [facility] ([facility]) 5'4" Diastolic blood pressure 80 mm[Hg] 80 mm[Hg] [facility] ([facility]) Systolic blood pressure 150 mm[Hg] 150 mm[Hg] [facility] Body surface area Derived from formula 1.90 m2 1.90 m2 [facility] ([facility]) Body weight 84.540 kg 84.540 kg [facility] ([facility]) [place] body weight 120 [lb_av] 120 [lb_av] MEDEN T ([facility]) Body mass index (BMI) [Ratio] 32.0 kg/m2 32.0 k g/m2 [facility] ([facility]) Body weight 186.38 [lb_av] 186.38 [lb_av] MEDEN T ([facility]) Body height 64 [in_i] 64 [in_i] [facility] ([facility]) 5'4" Diastolic blood pressure 62 mm[Hg] 62 mm[Hg] [facility] ([facility]) Systolic blood pressure 112 mm[Hg] 112 mm[Hg] [facility] ([facility]) Diastolic blood pressure 70 mm[Hg] 70 mm[Hg] eCW1 ([facility]) Systolic blood pressure 130 mm[Hg] 130 mm[Hg] e CW1 ([facility]) Body temperature 97.2 [degF] 97.2 [degF] eCW1 ( [facility]) Respiratory rate 18 /min 18 /min eCW1 ([facility]) Heart rate 77 /min 77 /min eCW1 ([facility]) Body mass index (BMI) [Ratio] 32.09 kg/m2 32.09 kg/m2 eCW1 ([facility]) Body height 64 [in_us] 64 [in_us] eCW1 ([facility]) Body weight Measured 187 [lb_av] 187 [lb_av] eC W1 ([facility]) Patient Treatment Plan of Care Planned Activity Planned Date Details Description Data Source (s) Shower Chair without wheels 04/28/2020 12:00:00 AM EST eCW1 ([facility]) Shower Chair without wheels 04/28/2020 12:00:00 AM EST eCW1 ([facility]) Shower Chair without wheels 04/28/2020 12:00:00 AM EST eCW1 ([facility]) Shower Chair without wheels 04/28/2020 12:00:00 AM EST eCW1 ([facility]) Levothyroxine Sodium 0.1 MG Oral Tablet 02/25/2020 12:00:00 AM EST eCW1 ([facility]) Levothyroxine Sodium 0.1 MG Oral Tablet 02/25/2020 12:00:00 AM EST eCW1 ([facility]) Levothyroxine Sodium 0.125 MG Oral Tablet 01/30/2020 12:00:00 AM ED T eCW1 ([facility]) Levothyroxine Sodium 0.125 MG Oral Tablet 01/30/2020 12:00:00 AM ED T eCW1 ([facility]) Levothyroxine Sodium 0.125 MG Oral Tablet 01/30/2020 12:00:00 AM ED T eCW1 ([facility]) Levothyroxine Sodium 0.125 MG Oral Tablet 01/30/2020 12:00:00 AM ED T eCW1 ([facility]) Furosemide 40 MG Oral Tablet 09/06/2019 12:00:00 AM EDT eCW1 ([facility]) Furosemide 40 MG Oral Tablet 09/06/2019 12:00:00 AM EDT eCW1 ([facility]) Furosemide 40 MG Oral Tablet 09/06/2019 12:00:00 AM EDT eCW1 ([facility]) Budesonide 3 MG Delayed Release Oral Capsule 06/19/2019 12:00:00 AM EST eCW1 ([facility])
[2020-05-22] MEDS ORDERED: LEVO100T54 PO (14:42)
[2020-05-22] MEDS ORDERED: BISO5TAB14 PO (14:42)
[2020-05-22] MEDS ORDERED: SPIR-10 PO (14:42)
[2020-05-22] MEDS ORDERED: ALBU8.5H INH (14:42)
[2020-05-22] MEDS ORDERED: SYMB80INH INH (14:42)
[2020-05-22] MEDS ORDERED: POTA1TAB14 PO (14:42)
[2020-05-22] MEDS ORDERED: TORS20TA2 PO (14:42)
[2020-05-22] MEDS ORDERED: VENL75TA2 PO (14:42)
[2020-05-22] MEDS ORDERED: PATIENT COMMENT (14:52)
[2020-05-22] MEDS ORDERED: GABA-1171 PO (14:52)
[2020-05-22 15:15] LABS: BASO # 0.1 10^3/uL (0.0-0.2); BASO % 0.8 % (0.0-1.0); EOS # 0.1 10^3/uL (0.0-0.5); EOS % 1.2 % (0.0-3.0); HEMATOCRIT 41.6 % (36.0-47.0); HEMOGLOBIN 13.4 g/dl (12.0-15.5); LYMPH # 3.4 10^3/uL (1.5-5.0); LYMPH % 31.2 % (24.0-44.0); MEAN CORPUSCULAR HEMOGLOBIN 33.8 pg (27.0-33.0); MEAN CORPUSCULAR HGB CONC 32.2 g/dl (32.0-36.5); MEAN CORPUSCULAR VOLUME 105.1 fl (80.0-96.0); MONO % 8.9 % (0.0-5.0); NEUTROPHILS # 6.3 10^3/uL (1.5-8.5); NEUTROPHILS % 56.7 % (36.0-66.0); PLATELET COUNT, AUTOMATED 229 10^3/uL (150-450); RED BLOOD COUNT 3.96 10^6/uL (4.00-5.40)
[2020-05-22 15:54] LABS: BILIRUBIN,TOTAL 0.4 MG/DL (0.2-1.0); CREATININE FOR GFR 1.1 MG/DL (0.55-1.30); FREE T4 0.86 NG/DL (0.76-1.46); GLOMERULAR FILTRATION RATE 51.1 (>39); POTASSIUM SERUM 3.7 MEQ/L (3.5-5.1); THYROID STIMULATING HORMONE 8.5 uIU/ML (0.358-3.740); TOTAL PROTEIN 5.7 GM/DL (6.4-8.2)
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
--- NOTE | 2020-05-22 17:30 | REP ---
INDICATION: sepsis COMPARISON: 01/31/2020. TECHNIQUE: PA/Lateral FINDINGS: There is mild to moderate elevation of the right hemidiaphragm unchanged. No acute infiltrate is seen. The heart is not enlarged. The mediastinal silhouette is unchanged. There are mild degenerative changes of the spine. There is a stable chronic compression deformity of a lower thoracic spine. IMPRESSION: No acute pulmonary disease. <Electronically signed by Florencio Black > 05/22/20 [id number]
[2020-05-22] MEDS: GABAPENTIN 100 MG CAP PO SCH ×2 (17:56→20:13)
[2020-05-22] MEDS: CEFTAROLINE FOSAMIL 400 MG in D5W MINI-BAG PLUS 50 ML IV SCH (17:56)
[2020-05-22 18:00] VITALS: BP 152/88
[2020-05-22 19:38] LABS: CK-MB VALUE MASS 1.7 NG/ML (<3.6); MB/CK RELATIVE INDEX 2.79 (< OR =4); TROPONIN I 0.05 NG/ML (< 0.10)
[2020-05-22] MEDS: ENOXAPARIN 30MG/0.3ML SYRINGE (J1650 PER 10MG) SC SCH (20:14)
[2020-05-22] MEDS: QUEtiapine FUMARATE 50MG TAB PO SCH (20:49)
[2020-05-22 22:00] VITALS: BP 140/90
[2020-05-23 01:29] LABS: APPEARANCE, URINE HAZY (CLEAR); BACTERIA, URINE AUTO NEGATIVE (NEGATIVE); BILIRUBIN, URINE AUTO NEGATIVE (NEGATIVE); BLOOD, URINE BLOOD NEGATIVE (NEGATIVE); CALCIUM OXALATE CRYSTALS SMALL; COLOR, URINE AMBER (YELLOW); GLUCOSE, URINE (UA) AUTO NEGATIVE (NEGATIVE); KETONE, URINE AUTO TRACE mg/dL (NEGATIVE); LEUKOCYTE ESTERASE, URINE AUTO 1+ (NEGATIVE); MUCUS, URINE SMALL (NEGATIVE); NITRITE, URINE AUTO NEGATIVE (NEGATIVE); PROTEIN, URINE AUTO 2+ mg/dL (NEGATIVE); RBC, URINE AUTO 5 /HPF (0-3); SPECIFIC GRAVITY URINE AUTO 1.021 (1.002-1.035); SQUAMOUS EPITHELIAL CELL UR AU 10 /HPF (0-6); UROBILINOGEN, URINE AUTO 0.2 mg/dL (0.0-2.0); WBC, URINE AUTO 12 /HPF (0-3)
[2020-05-23 02:35] VITALS: BP 115/63
[2020-05-23 02:51] LABS: BASO # 0.1 10^3/uL (0.0-0.2); BASO % 0.8 % (0.0-1.0); EOS # 0.2 10^3/uL (0.0-0.5); HEMOGLOBIN 11.7 g/dl (12.0-15.5); LYMPH # 3.8 10^3/uL (1.5-5.0); LYMPH % 35.9 % (24.0-44.0); MEAN CORPUSCULAR HEMOGLOBIN 33.1 pg (27.0-33.0); MEAN CORPUSCULAR HGB CONC 31.6 g/dl (32.0-36.5); MEAN CORPUSCULAR VOLUME 104.8 fl (80.0-96.0); MONO # 1.1 10^3/uL (0.0-0.8); MONO % 10.1 % (0.0-5.0); NEUTROPHILS # 5.3 10^3/uL (1.5-8.5); NEUTROPHILS % 50.6 % (36.0-66.0); PLATELET COUNT, AUTOMATED 222 10^3/uL (150-450); RED BLOOD COUNT 3.53 10^6/uL (4.00-5.40)
[2020-05-23 02:53] LABS: WHITE BLOOD COUNT 10.5 10^3/uL (4.0-10.0)
[2020-05-23 03:15] LABS: CALCIUM LEVEL 8.1 MG/DL (8.8-10.2); CREATININE FOR GFR 1.25 MG/DL (0.55-1.30); GLOMERULAR FILTRATION RATE 44.1 (>39); POTASSIUM SERUM 3.6 MEQ/L (3.5-5.1)
[2020-05-23 03:16] LABS: CK-MB VALUE MASS 1.7 NG/ML (<3.6); MB/CK RELATIVE INDEX 2.7 (< OR =4); TROPONIN I 0.05 NG/ML (< 0.10)
[2020-05-23] MEDS: CEFTAROLINE FOSAMIL 400 MG in D5W MINI-BAG PLUS 50 ML IV SCH ×2 (04:31→17:20)
[2020-05-23] MEDS: LEVOTHYROXINE 100MCG TABLET (0.1MG) PO SCH (05:37)
[2020-05-23 06:00] VITALS: BP 117/61
[2020-05-23] MEDS ORDERED: FLUBLOK(EGG FREE)(QUAD)INFLUENZA VACC 0.5ML SYRINGE 18YRS & OLDER IM ONE (09:00)
[2020-05-23 10:00] VITALS: BP 106/68
[2020-05-23] MEDS: ASPIRIN 81 MG ENTERIC TAB PO SCH (10:13)
[2020-05-23] MEDS: BUDESONIDE EC 3 MG CAP (ENTOCORT EC) PO SCH (10:14)
[2020-05-23] MEDS: allopurinoL 100 MG TAB PO SCH (10:14)
[2020-05-23] MEDS: GABAPENTIN 100 MG CAP PO SCH ×3 (10:14→20:26)
[2020-05-23] MEDS: VENLAFAXINE **XR** 75MG CAPSULE PO SCH (10:14)
[2020-05-23] MEDS: bisoproloL fumarate 5 MG TAB PO SCH (10:16)
[2020-05-23 11:12] LABS: CK-MB VALUE MASS 1.7 NG/ML (<3.6); MB/CK RELATIVE INDEX 2.66 (< OR =4); TROPONIN I 0.04 NG/ML (< 0.10)
[2020-05-23 14:00] VITALS: BP 114/67
[2020-05-23 18:00] VITALS: BP 121/69
[2020-05-23] MEDS: QUEtiapine FUMARATE 50MG TAB PO SCH (20:25)
[2020-05-23] MEDS: ENOXAPARIN 30MG/0.3ML SYRINGE (J1650 PER 10MG) SC SCH (20:26)
[2020-05-23 22:00] VITALS: BP 107/68
[2020-05-24 02:00] VITALS: BP 115/63
[2020-05-24] MEDS: CEFTAROLINE FOSAMIL 400 MG in D5W MINI-BAG PLUS 50 ML IV SCH ×2 (04:41→17:10)
[2020-05-24] MEDS: LEVOTHYROXINE 100MCG TABLET (0.1MG) PO SCH (05:48)
[2020-05-24 06:00] VITALS: BP 111/53
[2020-05-24 06:46] LABS: BASO # 0.1 10^3/uL (0.0-0.2); BASO % 0.9 % (0.0-1.0); EOS # 0.2 10^3/uL (0.0-0.5); EOS % 1.6 % (0.0-3.0); HEMATOCRIT 34.3 % (36.0-47.0); HEMOGLOBIN 11.2 g/dl (12.0-15.5); LYMPH # 3.1 10^3/uL (1.5-5.0); LYMPH % 32.1 % (24.0-44.0); MEAN CORPUSCULAR HEMOGLOBIN 33.5 pg (27.0-33.0); MEAN CORPUSCULAR HGB CONC 32.7 g/dl (32.0-36.5); MEAN CORPUSCULAR VOLUME 102.7 fl (80.0-96.0); MONO # 0.7 10^3/uL (0.0-0.8); MONO % 7.3 % (0.0-5.0); NEUTROPHILS # 5.5 10^3/uL (1.5-8.5); NEUTROPHILS % 56.8 % (36.0-66.0); PLATELET COUNT, AUTOMATED 201 10^3/uL (150-450); RED BLOOD COUNT 3.34 10^6/uL (4.00-5.40); WHITE BLOOD COUNT 9.6 10^3/uL (4.0-10.0)
[2020-05-24 07:15] LABS: CALCIUM LEVEL 8.8 MG/DL (8.8-10.2); CREATININE FOR GFR 1.79 MG/DL (0.55-1.30); GLOMERULAR FILTRATION RATE 29.2 (>39); POTASSIUM SERUM 3.9 MEQ/L (3.5-5.1)
[2020-05-24 10:00] VITALS: BP 116/58
[2020-05-24] MEDS: VENLAFAXINE **XR** 75MG CAPSULE PO SCH (10:54)
[2020-05-24] MEDS: BUDESONIDE EC 3 MG CAP (ENTOCORT EC) PO SCH (10:54)
[2020-05-24] MEDS: ASPIRIN 81 MG ENTERIC TAB PO SCH (10:54)
[2020-05-24] MEDS: GABAPENTIN 100 MG CAP PO SCH ×3 (10:55→21:00)
[2020-05-24] MEDS: allopurinoL 100 MG TAB PO SCH (10:55)
[2020-05-24] MEDS: bisoproloL fumarate 5 MG TAB PO SCH (10:55)
[2020-05-24] MEDS: FOLIC ACID 1 MG TAB PO SCH (11:52)
[2020-05-24 14:00] VITALS: BP 125/69
[2020-05-24] MEDS: TORSEMIDE 20 MG TAB PO SCH (17:10)
[2020-05-24 18:00] VITALS: BP 121/67
[2020-05-24] MEDS: QUEtiapine FUMARATE 50MG TAB PO SCH (21:00)
[2020-05-24] MEDS: ENOXAPARIN 30MG/0.3ML SYRINGE (J1650 PER 10MG) SC SCH (21:00)
[2020-05-24 22:00] VITALS: BP 125/65
[2020-05-25 02:00] VITALS: BP 124/63
[2020-05-25] MEDS: CEFTAROLINE FOSAMIL 400 MG in D5W MINI-BAG PLUS 50 ML IV SCH (04:31)
[2020-05-25] MEDS: LEVOTHYROXINE 100MCG TABLET (0.1MG) PO SCH (05:33)
[2020-05-25 06:00] VITALS: BP 126/65
[2020-05-25 06:39] LABS: BASO # 0.1 10^3/uL (0.0-0.2); BASO % 0.9 % (0.0-1.0); EOS # 0.1 10^3/uL (0.0-0.5); EOS % 1.2 % (0.0-3.0); HEMATOCRIT 34.8 % (36.0-47.0); HEMOGLOBIN 11.4 g/dl (12.0-15.5); LYMPH # 3.3 10^3/uL (1.5-5.0); LYMPH % 32.5 % (24.0-44.0); MEAN CORPUSCULAR HEMOGLOBIN 33.9 pg (27.0-33.0); MEAN CORPUSCULAR HGB CONC 32.8 g/dl (32.0-36.5); MEAN CORPUSCULAR VOLUME 103.6 fl (80.0-96.0); MONO # 0.9 10^3/uL (0.0-0.8); MONO % 8.9 % (0.0-5.0); NEUTROPHILS # 5.6 10^3/uL (1.5-8.5); NEUTROPHILS % 54.9 % (36.0-66.0); PLATELET COUNT, AUTOMATED 226 10^3/uL (150-450); RED BLOOD COUNT 3.36 10^6/uL (4.00-5.40); WHITE BLOOD COUNT 10.1 10^3/uL (4.0-10.0)
[2020-05-25 07:09] LABS: CALCIUM LEVEL 8.3 MG/DL (8.8-10.2); CREATININE FOR GFR 1.97 MG/DL (0.55-1.30); GLOMERULAR FILTRATION RATE 26.1 (>39); POTASSIUM SERUM 3.5 MEQ/L (3.5-5.1)
--- NOTE | 2020-05-25 07:16 | IPN ---
PROGRESS NOTE DATE: 05/24/2020 SUBJECTIVE: Carolina feels better. The cellulitis is improving. She thinks she has one more day in the hospital. She is sleeping well and I think being away from her and the stressful situation there is helping her. PHYSICAL EXAMINATION: VITAL SIGNS: Stable. Afebrile. GENERAL APPEARANCE: Alert, conversant, smiling, in no distress. LUNGS: Clear. HEART: Regular rate and rhythm. ABDOMEN: Soft, nontender. EXTREMITIES: Right lower extremity less erythematous. No warm or swelling around her right or left ankle. LABORATORY DATA: White count is down to 9.6. Creatinine is up to 1.79. IMPRESSION: 1. Cellulitis. Continue Ceftaroline. 2. Chronic kidney disease. Creatinine is actually going back up towards baseline. Her diuretics have been held, I am going to restart them. Recheck her labs tomorrow. 3. History of splenectomy, increased risk of sepsis, seems to have done well with the IV antibiotics. 4. Hypertension. I will put her on an extended release dose of Diltiazem starting tomorrow. 5. Hypothyroidism, continue current dose of levothyroxine.
[2020-05-25] MEDS: ASPIRIN 81 MG ENTERIC TAB PO SCH (10:03)
[2020-05-25] MEDS: VENLAFAXINE **XR** 75MG CAPSULE PO SCH (10:03)
[2020-05-25] MEDS: FOLIC ACID 1 MG TAB PO SCH (10:03)
[2020-05-25] MEDS: BUDESONIDE EC 3 MG CAP (ENTOCORT EC) PO SCH (10:03)
[2020-05-25] MEDS: GABAPENTIN 100 MG CAP PO SCH ×3 (10:03→20:27)
[2020-05-25] MEDS: TORSEMIDE 20 MG TAB PO SCH ×2 (10:03→16:29)
[2020-05-25] MEDS: allopurinoL 100 MG TAB PO SCH (10:04)
[2020-05-25] MEDS: bisoproloL fumarate 5 MG TAB PO SCH (10:07)
--- NOTE | 2020-05-25 11:30 | IPN ---
PROGRESS NOTE DATE: 05/25/2020 SUBJECTIVE: I had hoped to send Carolina home today, unfortunately he renal function declined significantly and she needs to stay for further workup. Her cellulitis is improved. PHYSICAL EXAMINATION: VITAL SIGNS: Afebrile. Vital signs are stable. Blood pressure is 132/69, afebrile. GENERAL APPEARANCE: She is fully dressed ready to go home. HEENT: Unremarkable. LUNGS: Clear. HEART: Regular rate and rhythm. ABDOMEN: Soft, nontender. No masses. EXTREMITIES: Right lower extremity is still mildly erythematous, much better than on admission. 1+ peripheral edema bilaterally. LABORATORY DATA: Sodium 142, potassium 3.5, BUN 30, creatinine is 1.97. Glucose is 140. BNP is 878. White count is 10.1, hemoglobin is 11.4, platelets are 226,000. IMPRESSION: 1. Acute kidney injury. Her creatinine was actually better than her baseline when she came in but now her creatinine has doubled. It could be acute interstitial nephritis related to her Ceftaroline which I have discontinued. Urine for eosinophils has been ordered. Volume status is tricky. I did restart her diuretics yesterday. She does have peripheral edema. A BNP is high so I m going to continue these. 2. Cellulitis. I stopped her Ceftaroline. She has a number of antibiotic allergies that limits the dosing options. I think her cellulitis has improved to the point where I can stop antibiotics but this needs to be checked daily. She has a history of splenectomies and is at increased risk of sepsis. 3. Hypertension, blood pressure is well-controlled. 4. Hypothyroidism is well-controlled. For the acute kidney injury I have ordered renal ultrasound which cannot be done until tomorrow, urine for eosinophils and repeat lab monitoring. She is followed by [facility] and if her renal function does not improve, consideration can be given to consulting Nephrology.
--- NOTE | 2020-05-25 12:12 | ECHO ---
DATE OF PROCEDURE: 05/22/2020 Age: 80 Gender: Female PATIENT LOCATION: Room 4229 REFERRING PHYSICIAN: Arnold Reece MD REASON FOR STUDY: Shortness of breath. 2D MEASUREMENTS: IVS 1.6 cm LV 2.7 cm LVPW 1.6 cm LA 4.0 cm Aorta 2.9 cm DOPPLER MEASUREMENT Peak velocity across the aortic valve 2.2 m/s Peak velocity across the LVOT 0.8 m/s Mitral E 1.1 2D COMMENTS: 1. Normal left ventricular size with moderately increased left ventricular wall thickness and a normal left ventricular systolic function. The estimated left ventricular systolic ejection fraction is 55% to 60%. 2. Borderline enlarged left atrium. Normal right atrium and right ventricle. 3. The atrial septum appeared to be normal without evidence of defect or shunt. 4. Normal aortic root. 5. A small pericardial effusion was noted, no evidence of cardiac tamponade. 6. Mildly calcified aortic valve with normal leaflet excursion. Mildly calcified mitral annulus with normal anterior mitral valve leaflet motion. Normal tricuspid valve and pulmonic valve. The proximal pulmonary artery branches were not well visualized. 7. The inferior vena cava was not well visualized. Doppler detects trace to mild aortic regurgitation. Abnormal relaxation pattern was noted across the mitral valve leaflets, as well as the mitral valve annulus consistent with features of grade 1 left ventricular diastolic dysfunction. IMPRESSION: 1. Normal global left ventricular systolic function with mild concentric left ventricular hypertrophy. There are some features of left ventricular diastolic dysfunction manifested by abnormal relaxation. 2. Aortic valve sclerosis with mild aortic stenosis and trace to mild aortic regurgitation. 3. Isolated mitral annulus calcification. No significant mitral regurgitation detected. 4. A small pericardial effusion noted, no evidence of cardiac tamponade. [facility]
[2020-05-25 13:43] VITALS: BP 123/71
--- NOTE | 2020-05-25 16:12 | IPN ---
PROGRESS NOTE DATE: 05/23/2020 SUBJECTIVE: Carolina looks the best she has in a while. I think getting her out of the stressful home environment ( has been brought to the Emergency Room repeatedly for dementia with paranoid homicidal ideation) has helped her a lot. Her cellulitis looks better. She slept well. PHYSICAL EXAMINATION: Vital signs stable. No fever. Lungs clear. Heart regular rhythm. Abdomen soft, nontender. Right lower leg has decreased erythema. She is a little tender around her left ankle, but no warmth, redness or swelling. No palpable abnormality. LABORATORY DATA: White count 10.5, hemoglobin 11.7, platelets 222,000. Electrolytes are unremarkable. CIPs were negative. TSH was mildly elevated. PLAN: Continue the Ceftaroline for her cellulitis. I hope she gets discharged tomorrow. Her lab work looks significantly better than it has as an outpatient. She has family coming up from [place] tomorrow, and they can help with the home situation.
[2020-05-25 18:53] VITALS: BP 123/68
[2020-05-25] MEDS: QUEtiapine FUMARATE 50MG TAB PO SCH (20:27)
[2020-05-25] MEDS: ENOXAPARIN 30MG/0.3ML SYRINGE (J1650 PER 10MG) SC SCH (20:28)
[2020-05-25 22:00] VITALS: BP 124/66
[2020-05-26 02:00] VITALS: BP 126/64
[2020-05-26] MEDS: LEVOTHYROXINE 100MCG TABLET (0.1MG) PO SCH (05:49)
[2020-05-26 06:00] VITALS: BP 124/64
[2020-05-26 06:41] LABS: BASO # 0.1 10^3/uL (0.0-0.2); BASO % 0.9 % (0.0-1.0); EOS # 0.1 10^3/uL (0.0-0.5); EOS % 1.2 % (0.0-3.0); HEMATOCRIT 34.3 % (36.0-47.0); HEMOGLOBIN 11.3 g/dl (12.0-15.5); LYMPH # 4.1 10^3/uL (1.5-5.0); LYMPH % 36.6 % (24.0-44.0); MEAN CORPUSCULAR HEMOGLOBIN 33.6 pg (27.0-33.0); MEAN CORPUSCULAR HGB CONC 32.9 g/dl (32.0-36.5); MEAN CORPUSCULAR VOLUME 102.1 fl (80.0-96.0); NEUTROPHILS # 5.7 10^3/uL (1.5-8.5); NEUTROPHILS % 50.8 % (36.0-66.0); PLATELET COUNT, AUTOMATED 248 10^3/uL (150-450); RED BLOOD COUNT 3.36 10^6/uL (4.00-5.40)
[2020-05-26 06:45] LABS: WHITE BLOOD COUNT 11.3 10^3/uL (4.0-10.0)
[2020-05-26 06:59] LABS: CREATININE FOR GFR 2.31 MG/DL (0.55-1.30); GLOMERULAR FILTRATION RATE 21.7 (>39); POTASSIUM SERUM 3.2 MEQ/L (3.5-5.1)
[2020-05-26 07:00] LABS: CALCIUM LEVEL 8.4 MG/DL (8.8-10.2)
[2020-05-26] MEDS ORDERED: POTASSIUM CHLORIDE 10 MEQ SR TABLET PO ONE (08:30)
--- NOTE | 2020-05-26 08:43 | REP ---
INDICATION: RADHA COMPARISON: 03/26/2020 TECHNIQUE: Real time zapata scale ultrasound examination using curved array transducer followed by color Doppler evaluation of the renal vasculature. FINDINGS: The bilateral kidneys demonstrate increased parenchymal echotexture along with renovascular calcifications and increased central sinus fat consistent with chronic medical renal disease. No hydronephrosis or obvious renal mass lesion.. Right kidney measures 9.0 x 4.0 x 3.6 cm. Left kidney measures 10.6 x 4.9 x 5.4 cm and includes 1.8 cm midpole simple cyst. Bladder is under distended. Color Doppler evaluation is markedly limited and essentially nondiagnostic due to body habitus and overlying bowel gas obscuring the renal vasculature. Peak aortic velocity: Not obtainable RIGHT KIDNEY Renal arterial velocity: Not obtainable Renal-aortic ratio: -- Intrarenal resistive indices: 0.52-0.66 Intrarenal acceleration times: 0.03-0.04 LEFT KIDNEY Renal arterial velocity: Not obtainable Renal-aortic ratio: -- Intrarenal resistive indices: 0.71-0.76 Intrarenal acceleration times: 0.04-0.04 IMPRESSION: 1. Kidneys demonstrate chronic renal disease without hydronephrosis. Incidental simple 1.8 cm left renal cyst noted. 2. Doppler interegation is incomplete and essentially nondiagnostic. Consider CT or MR evaluation of the renal vasculature if necessary. <Electronically signed by Zoran Richmond > 05/26/20 0842
[2020-05-26] MEDS: VENLAFAXINE **XR** 75MG CAPSULE PO SCH (09:39)
[2020-05-26] MEDS: ASPIRIN 81 MG ENTERIC TAB PO SCH (09:39)
[2020-05-26] MEDS: GABAPENTIN 100 MG CAP PO SCH ×2 (09:39→16:55)
[2020-05-26] MEDS: KCL 10MEQ/100ML SWI (KRUN) 10 MEQ in IV 1 EA IV SCH ×2 (09:39→10:51)
[2020-05-26 09:40] VITALS: BP 121/66
[2020-05-26] MEDS: BUDESONIDE EC 3 MG CAP (ENTOCORT EC) PO SCH (09:40)
[2020-05-26] MEDS: bisoproloL fumarate 5 MG TAB PO SCH (09:40)
[2020-05-26] MEDS: allopurinoL 100 MG TAB PO SCH (09:40)
[2020-05-26] MEDS: TORSEMIDE 20 MG TAB PO SCH ×2 (09:40→16:55)
[2020-05-26] MEDS: FOLIC ACID 1 MG TAB PO SCH (09:40)
[2020-05-26] MEDS ORDERED: NS 1,000 ML IV ONE (09:45)
[2020-05-26 14:00] VITALS: BP 128/66
[2020-05-26 14:11] LABS: CALCIUM LEVEL 7.9 MG/DL (8.8-10.2); CREATININE FOR GFR 2.19 MG/DL (0.55-1.30); GLOMERULAR FILTRATION RATE 23.1 (>39); POTASSIUM SERUM 3.4 MEQ/L (3.5-5.1)
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
[2020-05-26] MEDS ORDERED: CEPH500C PO (15:25)
== END 2020-05-26 18:41 | disposition home or self-care (01) | DRG 603 ==
LOC: M MSPAV 14:16
PROVIDERS: ADMIT Family Medicine; ATTEND Family Medicine
DX: L03.115 Cellulitis of right lower limb (principal); N17.9 Acute kidney failure, unspecified; Z79.82 Long term (current) use of aspirin; Z79.899 Other long term (current) drug therapy; Z88.8 Allergy status to other drugs, medicaments and biological substances; E03.9 Hypothyroidism, unspecified; M10.9 Gout, unspecified; M79.10 Myalgia, unspecified site; Z90.81 Acquired absence of spleen; I35.0 Nonrheumatic aortic (valve) stenosis; E78.5 Hyperlipidemia, unspecified; F32.9 Major depressive disorder, single episode, unspecified; I25.10 Atherosclerotic heart disease of native coronary artery without angina pectoris; Z95.2 Presence of prosthetic heart valve; F41.9 Anxiety disorder, unspecified; Z90.49 Acquired absence of other specified parts of digestive tract; N18.9 Chronic kidney disease, unspecified; I12.9 Hypertensive chronic kidney disease with stage 1 through stage 4 chronic kidney disease, or unspecified chronic kidney disease

== ENCOUNTER → 2020-05-22 | Outpatient (REF) | payer MEDICARE, OTHER ==
[~2020-05-22] MED LIST changes: +ALBU8.5H INH; +BISO5TAB14 PO; -BUDE3CAP; +BUDE3CAP PO; +GABA-1171 PO; +LEVO100T54 PO; +PATIENT COMMENT; +POTA1TAB14 PO; +SYMB80INH INH; +TORS20TA2 PO; +VENL75TA2 PO
== END ==
LOC: M SFHCADAM 11:36
PROVIDERS: ATTEND Physician Assistant
DX: R00.0 Tachycardia, unspecified (principal); R50.9 Fever, unspecified; Z20.822 Contact with and (suspected) exposure to COVID-19

== ENCOUNTER → 2020-05-29 | Outpatient (REF) | payer MEDICARE, OTHER ==
[~2020-05-29] MED LIST changes: +ALBU8.5H INH; +BISO5TAB14 PO; +CEPH500C PO; +GABA-1171 PO; +LEVO100T54 PO; +PATIENT COMMENT; +POTA1TAB14 PO; +SYMB80INH INH; +TORS20TA2 PO; +VENL75TA2 PO
== END ==
LOC: M SFHCADAM 15:43
PROVIDERS: ATTEND Family Medicine
DX: L03.116 Cellulitis of left lower limb (principal); N17.9 Acute kidney failure, unspecified

== ENCOUNTER → 2020-06-02 | Outpatient (CLI) | payer MEDICARE, OTHER ==
[2020-06-02 16:15] LABS: HEMATOCRIT 42.5 % (36.0-47.0); HEMOGLOBIN 13.3 g/dl (12.0-15.5); MEAN CORPUSCULAR HEMOGLOBIN 33.3 pg (27.0-33.0); MEAN CORPUSCULAR HGB CONC 31.3 g/dl (32.0-36.5); MEAN CORPUSCULAR VOLUME 106.5 fl (80.0-96.0); PLATELET COUNT, AUTOMATED 298 10^3/uL (150-450); RED BLOOD COUNT 3.99 10^6/uL (4.00-5.40); WHITE BLOOD COUNT 18.1 10^3/uL (4.0-10.0)
[2020-06-02 16:19] LABS: CALCIUM LEVEL 9.4 MG/DL (8.8-10.2); CREATININE FOR GFR 1.58 MG/DL (0.55-1.30); GLOMERULAR FILTRATION RATE 33.7 (>39)
== END ==
LOC: M WUC 11:55
PROVIDERS: ATTEND Physician Assistant
DX: L03.116 Cellulitis of left lower limb (principal)

== ENCOUNTER → 2020-06-09 | Outpatient (CLI) | payer MEDICARE, OTHER ==
[2020-06-09 19:58] LABS: BASO # 0.1 10^3/uL (0.0-0.2); BASO % 0.6 % (0.0-1.0); EOS # 0.1 10^3/uL (0.0-0.5); EOS % 0.5 % (0.0-3.0); HEMATOCRIT 42.5 % (36.0-47.0); HEMOGLOBIN 13.2 g/dl (12.0-15.5); LYMPH # 3.9 10^3/uL (1.5-5.0); LYMPH % 21.6 % (24.0-44.0); MEAN CORPUSCULAR HEMOGLOBIN 33.2 pg (27.0-33.0); MEAN CORPUSCULAR HGB CONC 31.1 g/dl (32.0-36.5); MEAN CORPUSCULAR VOLUME 106.8 fl (80.0-96.0); MONO # 1.1 10^3/uL (0.0-0.8); MONO % 6.3 % (2.0-8.0); NEUTROPHILS # 12.6 10^3/uL (1.5-8.5); NEUTROPHILS % 69.9 % (36.0-66.0); PLATELET COUNT, AUTOMATED 259 10^3/uL (150-450); RED BLOOD COUNT 3.98 10^6/uL (4.00-5.40)
[2020-06-09 19:59] LABS: CALCIUM LEVEL 8.9 MG/DL (8.8-10.2); CREATININE FOR GFR 1.56 MG/DL (0.55-1.30); GLOMERULAR FILTRATION RATE 34.2 (>39); POTASSIUM SERUM 3.8 MEQ/L (3.5-5.1)
== END ==
LOC: M WUC 15:49
PROVIDERS: ATTEND Physician Assistant
DX: D72.829 Elevated white blood cell count, unspecified (principal); N18.30 Chronic kidney disease, stage 3 unspecified

== ENCOUNTER → 2020-06-18 | Outpatient (REF) | payer MEDICARE, OTHER ==
[~2020-06-18] MED LIST changes: +BUPR150T12; -BUPR150T4; +CEFD1CAP8 PO; +DOXY100C PO
[2020-06-20 12:11] LABS: ANTINUCLEAR ANTIBODIES DIRECT Negative (Negative); SJOGREN'S ANTI SS-A <0.2 AI (0.0-0.9); SJOGREN'S ANTI SS-B <0.2 AI (0.0-0.9)
== END ==
LOC: M LAB REF 17:02
PROVIDERS: ATTEND Nurse Practitioner Family
DX: M35.00 Sjogren syndrome, unspecified (principal)

== ENCOUNTER 2020-06-22 13:08 | Inpatient (IN) | payer MEDICARE, OTHER ==
[~2020-06-22] VITALS: Ht 162.6 cm; Wt 95.0 kg
[~2020-06-22 13:08] MED LIST changes: -CEFD1CAP8 PO; -DOXY100C PO
[2020-06-22] MEDS ORDERED: VANCOMYCIN HCL 2,000 MG in D5W 500 ML IV ONE (13:35)
[2020-06-22] MEDS ORDERED: BOOSTRIX/ADACEL VACCINE (DIPHTH/PERTUSS/ACELL/TETANUS) 0.5ML SYR IM ONE (13:55)
[2020-06-22 14:32] LABS: BASO # 0.1 10^3/uL (0.0-0.2); BASO % 0.3 % (0.0-1.0); EOS # 0.1 10^3/uL (0.0-0.5); EOS % 0.5 % (0.0-3.0); HEMATOCRIT 39.5 % (36.0-47.0); HEMOGLOBIN 12.7 g/dl (12.0-15.5); LYMPH # 2.1 10^3/uL (1.5-5.0); LYMPH % 12.3 % (24.0-44.0); MEAN CORPUSCULAR HEMOGLOBIN 33.8 pg (27.0-33.0); MEAN CORPUSCULAR HGB CONC 32.2 g/dl (32.0-36.5); MEAN CORPUSCULAR VOLUME 105.1 fl (80.0-96.0); MONO # 1.3 10^3/uL (0.0-0.8); MONO % 7.3 % (2.0-8.0); NEUTROPHILS # 13.3 10^3/uL (1.5-8.5); PLATELET COUNT, AUTOMATED 252 10^3/uL (150-450); RED BLOOD COUNT 3.76 10^6/uL (4.00-5.40)
[2020-06-22] MEDS ORDERED: DOXY100C PO (14:35)
[2020-06-22] MEDS ORDERED: CEFD1CAP8 PO (14:35)
[2020-06-22 14:53] LABS: ERYTHROCYTE SEDIMENTATION RATE 57 mm/hr (0-30)
[2020-06-22] MEDS ORDERED: VANCOMYCIN HCL 1,000 MG, VIAL MATE ADAPTER 1 EACH in NS 250 ML IV ONE ×2 (15:00→16:00)
[2020-06-22 15:03] LABS: ALBUMIN 3.3 GM/DL (3.2-5.2); BILIRUBIN,TOTAL 0.5 MG/DL (0.2-1.0); C REACTIVE PROTEIN QUANTITATIV 5.42 MG/DL (0.00-0.30); CREATININE FOR GFR 1.25 MG/DL (0.55-1.30); GLOMERULAR FILTRATION RATE 44.1 (>39); POTASSIUM SERUM 4.4 MEQ/L (3.5-5.1); TOTAL PROTEIN 6.7 GM/DL (6.4-8.2)
[2020-06-22 15:50] LABS: RSV AMPLIFICATION NEGATIVE (NEGATIVE)
[2020-06-22] MEDS: GABAPENTIN 100 MG CAP PO SCH ×2 (16:00→20:48)
[2020-06-22] MEDS ORDERED: ALBUTEROL 90 MCG/ACT 8GM HFA INHALER INH PRN (16:50)
[2020-06-22] MEDS ORDERED: MAALOX 30 ML SUSP *UDC PO PRN (16:50)
[2020-06-22] MEDS ORDERED: MOM 30ML SUSPENSION UDC PO PRN (16:50)
[2020-06-22] MEDS ORDERED: SYMBICORT 80/4.5MCG INHALER 6GM INH PRN (16:50)
[2020-06-22] MEDS ORDERED: ACETAMINOPHEN TAB 650MG DOSE (2X325MG) PO PRN (16:50)
[2020-06-22] MEDS ORDERED: ALPRAZolam 0.5 MG TAB PO PRN (16:50)
[2020-06-22] MEDS: TORSEMIDE 20 MG TAB PO SCH (17:00)
--- NOTE | 2020-06-22 17:22 | HPEPDOC ---
[facility] Medical History & Physical Date of Admission Jun 22, 2020 Date of Service: Jun 22, 2020 Primary Care Physician: Arnold Reece MD History and Physical CHIEF COMPLAINT: L leg swelling HISTORY OF PRESENT ILLNESS: 80-year-old female with a history of stage III, COPD, coronary artery disease status post MEHNAZ to LAD in 2004, hypothyroid, hyperlipidemia, depression. Presented to ER with 4 day history of worsening left lower leg pain, swelling and erythema extending up to the left knee. Patient r eports sliding off her chair accidentally and scraping her leg under the table. She denies any brittle wound or other foreign bodies that could've entered the leg. She was last admitted to hospitalist beginning of May 2020 for the management of severe bilateral cellulitis with sepsis. Patient was last seen in nephrology clinic on 06/19/20 where she was diagnosed with cellulitis and started on doxycycline and cefdinir. The area of erythema was demarcated at the time. On presentation to the ER is obvious that her cellulitis extends beyon the borders of the prior demarcation. Patient denies any fevers, chills, shortness of breath, nausea, vomiting, palpitations or chest pain. Vitals reviewed. BP elevated at 180/90. Pulse ox 95. Temperature 98.3, pulse 82, respiratory 26. Manual repeat blood pressure normalized. WBC 17. Hemoglobin 12.7. ESR 57. Na+140. K+ 4.4. Creatinine 1.25. BUN 32. CRP 5.42. LA 1.4. Patient will be admitted to hospitalist service for management of cellulitis (LLE) which has failed outpatient PO therapy. PAST MEDICAL HISTORY: 1. Splenectomy for hemolytic anemia. 2. Aortic stenosis. Echocardiogram last done 05/05 with aortic sclerosis without stenosis noted at that time. Ejection fraction 55% to 60%, mild left atrial enlargement with mild diastolic dysfunction. 3. Hypertensive heart disease. 4. Hyperlipidemia. 5. Hypothyroidism. 6. Depression. 7. Hemolytic anemia for which she sees a field operations farm manager in [place]. 8. Stage III chronic kidney disease with recent decline. 9. Coronary artery disease status post drug-eluting stent to the LAD in 2004; last nuclear stress test at [facility] 05/05, showed normal perfusion and ejection fraction 60%. 10. Chronic anxiety and depression. 11. Recent situational deterioration of her mental status secondary to her 's dementia with behavioral disturbance. 12. E. coli UTI 12/2016 and 04/2017. 13. Microscopic colitis on a colon biopsy from 06/06 to explain her chronic diarrhea. 14. Gout. 15. GERD. PAST SURGICAL HISTORY: 1. Hysterectomy with BSO in 1974. 2. Cholecystectomy. 3. Splenectomy in 2005. 4. Rectal fissure repair. 5. Drug-eluting stent in 2005. 6. Colonoscopy in 2014 for adenomatous colon polyp. 7. Colonoscopy 06/06 with biopsy showing microscopic colitis. SOCIAL HISTORY: - remote hx of smoking - no signficant etoh use - lives at home with , who was recently dx with lung cancer, has dementia with behaviours FAMILY HISTORY: -Father at 48 of cerebral aneurysm -Mother at 87 of heart disease. ALLERGIES: Please see below. REVIEW OF SYSTEMS: 10 point review of systems was completed. Relevant findings are noted in the HPI. HOME MEDICATIONS: Please see below. PHYSICAL EXAMINATION: VITAL SIGNS: please see below General: NAD, comfortable HEENT: PERRLA, EOMI, sclerae clear Neck: supple, normal ROM, no JVD Respiratory: lungs CTAB, no wheeze, no rales, no crackles CVS: RRR, normal S1, S2, no murmurs Abdo: soft, no masses, no hepatosplenomegaly, BS+, no rebound tenderness Extremities: Left leg significant erythema extending beyond marked borders from 06/20/20. Distal left leg laceration/abrasion. Extending cephalad is up to the left knee. Pulses 2+. No cyanosis Neuro: no focal neuro deficits, moving all 4 extremities, CN2-12 intact. Strength 5/5 in all 4 extremities. No nystagmus. Psych: calm, cooperative, AAO x 3 LABORATORY DATA: See below MICROBIOLOGY: Please see below. ASSESSMENT: . PLAN: #Cellulitis L leg - admitted to med surg bed - has WBC elevation without fevers. Blood cultures send from ER - started on vanc in ER. Added ceftriaxone - obtain LLE venous duplex to r/o DVT given marked swelling - trend ESR and CRP #CKD3 - Cr 1.25 - follows with Dr. Vargas, last seen on 07/20/20, no medication changes - avoid nephrotoxins #HTN - resume home meds - hypertensive in ER, but on manual repeat BP improved #Diastolic CHF - last echo - EF 55-60%, mildly calcified AV. G1DD. Small pericardial effusion, no evidence for tamponade - resume home meds #Hx of splenectomy - increased risk for sepsis - check blood cx, c/w IV abx #hypothyroid - c/w home meds #Hx of gout - c/w allopurinol #hx of depression - c/w home meds #hyperlipidemia - c/w statin DVT ppx: SCDs. TEDs. Heparin 5000 units q8h [place] Vital Signs Vital Signs Date Time Temp Pulse Resp B/P (MAP) Pulse Ox O2 Delivery O2 Flow Rate FiO2 06/22/20 15:38 75 06/22/20 14:45 162/74 (103) 06/22/20 13:09 98.3 26 95 Laboratory Data Labs 24H Laboratory Tests 2 06/22/20 14:00: Immature Granulocyte % (Auto) 1.6, Neutrophils (%) (Auto) 78.0H, Lymphocytes (%) (Auto) 12.3L, Monocytes (%) (Auto) 7.3, Eosinophils (%) (Auto) 0.5, Basophils (%) (Auto) 0.3, Neutrophils # (Auto) 13.3H, Lymphocytes # (Auto) 2.1, Monocytes # (Auto) 1.3H, Eosinophils # (Auto) 0.1, Basophils # (Auto) 0.1, Nucleated Red Blood Cells % (auto) 0.4H, Erythrocyte Sedimentation Rate 57H, Anion Gap 4L, Glomerular Filtration Rate 44.1, Lactic Acid Level 1.4, Calcium Level 9.0, Total Bilirubin 0.5, Aspartate Amino Transf (AST/SGOT) 42H, Alanine Aminotransferase (ALT/SGPT) 30, Alkaline Phosphatase 82, C-Reactive Protein, Quantitative 5.42H, Total Protein 6.7, Albumin 3.3, Albumin/Globulin Ratio 1.0L 06/22/20 14:25: Coronavirus (COVID-19)(PCR) NEGATIVE, Influenza Type A (RT-PCR) NEGATIVE, Influenza Type B (RT-PCR) NEGATIVE, Respiratory Syncytial Virus (PCR) NEGATIVE CBC/BMP Laboratory Tests 06/22/20 14:00 Microbiology Microbiology 06/22/20 Blood Culture, Received Pending 06/22/20 Blood Culture, Received Pending Home Medications Scheduled Allopurinol (Zyloprim) 300 Mg Tablet, 300 MG PO DAILY Aspirin (Aspirin EC) 81 Mg Tab, 81 MG PO Q2D TAKES AT BEDTIME EVERY OTHER NIGHT Atorvastatin Calcium (Atorvastatin Calcium) 80 Mg Tab, 80 MG PO QHS Bisoprolol Fumarate (Bisoprolol Fumarate) 5 Mg Tablet, 5 MG PO DAILY Budesonide (Budesonide EC) 3 Mg Capdr...er, 6 MG PO DAILY Cefdinir (Cefdinir) 300 Mg Capsule, 300 MG PO DAILY FOR 7 DAYS, STARTED 06/19 Diltiazem HCl (Cartia Xt) 240 Mg Cap, 240 MG PO DAILY Doxycycline Hyclate (Doxycycline Hyclate) 100 Mg Capsule, 100 MG PO BID FOR 7 DAYS, STARTED 06/19 Folic Acid (Folic Acid) 1 Mg Tab, 1 MG PO QHS Gabapentin (Gabapentin) 100 Mg Capsule, 100 MG PO TID Levothyroxine Sodium (Levoxyl) 100 Mcg Tablet, 100 MCG PO DAILY Potassium Chloride (Potassium Chloride) 20 Meq Tablet.er, 20 MEQ PO BID Quetiapine Fumarate (Quetiapine Fumarate) 25 Mg Tablet, 50 MG PO QHS Torsemide (Torsemide) 20 Mg Tablet, 20 MG PO BID TAKES AM/MIDDAY Venlafaxine HCl (Venlafaxine HCl) 75 Mg Tablet, 75 MG PO DAILY Scheduled PRN Albuterol Sulfate (Albuterol Sulfate Hfa) 8.5 Gm Hfa.aer.ad, 2 PUFFS INH QID PRN for SHORTNESS OF BREATH Alprazolam (Alprazolam) 0.5 Mg Tab, 0.5 MG PO DAILY PRN for ANXIETY/AGITATION Budesonide/Formoterol (Symbicort 80-4.5 Mcg Inhaler) 6.9 Gm Hfa.aer.ad, 2 PUFFS INH BID PRN for SHORTNESS OF BREATH Allergies Coded Allergies: indomethacin (Verified Allergy, Unknown, as takes asprin, 05/21/19) levofloxacin (Verified Allergy, Unknown, UNKNOWN REACTION, 06/22/20) tetracycline (Unverified Allergy, Unknown, UNKNOWN REACTION, 06/22/20) amlodipine (Verified Adverse Reaction, Mild, MUSCLE CRAMPS, 06/22/20) trazodone (Unverified Adverse Reaction, Mild, DIZZINESS, 06/22/20) SHANNA BALDWIN MD Jun 22, 2020 17:22
--- NOTE | 2020-06-22 18:25 | REPVR ---
PROCEDURE INFORMATION: Exam: US Duplex Left Lower Extremity Veins, Limited Exam date and time: 06/22/2020 5:54 PM Age: 80 years old Clinical indication: Pain; Leg, lower; Left; Additional info: R/O dvt TECHNIQUE: Imaging protocol: Real-time Duplex ultrasound of the Left Lower Extremity with 2-D zapata scale, color Doppler flow and spectral waveform analysis with image documentation. Limited exam focused on the left lower extremity veins. COMPARISON: US Duplex, Ext LOWER veins, bilat BILATERAL 01/31/2020 10:06 AM FINDINGS: Left deep veins: Unremarkable. The common femoral, femoral, popliteal and tibioperoneal trunk/posterior tibial veins are patent without thrombus. Normal Doppler waveforms. Normal compressibility and/or augmentation response. Left superficial veins: Unremarkable. Saphenofemoral junction is patent without thrombus. Soft tissues: Unremarkable. IMPRESSION: No evidence of deep vein thrombosis in the left lower extremity. Electronically signed by: Kennedy Woodward On 06/22/2020 18:25:48 PM
[2020-06-22 18:45] VITALS: BP 174/89
[2020-06-22] MEDS: cefTRIAXone SOD 1 GM in D5W MINI-BAG PLUS 50 ML IV SCH (20:45)
[2020-06-22] MEDS: ATORVASTATIN 20 MG TAB PO SCH (20:46)
[2020-06-22] MEDS: DOCUSATE SODIUM 100MG CAPSULE PO SCH (20:47)
[2020-06-22] MEDS: POTASSIUM CHLORIDE 10 MEQ SR TABLET PO SCH (20:47)
[2020-06-22] MEDS: QUEtiapine FUMARATE 50MG TAB PO SCH (20:48)
[2020-06-22] MEDS: HEPARIN SOD (PORCINE) 5000UNITS/ML 1ML VIAL/SYRINGE SC SCH (20:48)
[2020-06-22] MEDS: FOLIC ACID 1 MG TAB PO SCH (20:48)
[2020-06-22 22:00] VITALS: BP 166/89
[2020-06-23] MEDS: HEPARIN SOD (PORCINE) 5000UNITS/ML 1ML VIAL/SYRINGE SC SCH ×3 (05:28→21:33)
[2020-06-23] MEDS: LEVOTHYROXINE 100MCG TABLET (0.1MG) PO SCH (05:28)
[2020-06-23 05:41] LABS: BASO # 0.1 10^3/uL (0.0-0.2); BASO % 0.5 % (0.0-1.0); EOS # 0.2 10^3/uL (0.0-0.5); HEMATOCRIT 36.5 % (36.0-47.0); HEMOGLOBIN 11.6 g/dl (12.0-15.5); LYMPH # 4.4 10^3/uL (1.5-5.0); LYMPH % 28.9 % (24.0-44.0); MEAN CORPUSCULAR HEMOGLOBIN 33.4 pg (27.0-33.0); MEAN CORPUSCULAR HGB CONC 31.8 g/dl (32.0-36.5); MEAN CORPUSCULAR VOLUME 105.2 fl (80.0-96.0); MONO % 6.7 % (2.0-8.0); NEUTROPHILS # 9.5 10^3/uL (1.5-8.5); PLATELET COUNT, AUTOMATED 220 10^3/uL (150-450); RED BLOOD COUNT 3.47 10^6/uL (4.00-5.40); WHITE BLOOD COUNT 15.3 10^3/uL (4.0-10.0)
[2020-06-23] MEDS ORDERED: VANCOMYCIN HCL 1,000 MG, VIAL MATE ADAPTER 1 EACH in NS 250 ML IV SCH (06:00)
[2020-06-23 06:08] VITALS: BP 135/59
[2020-06-23] MEDS: bisoproloL fumarate 5 MG TAB PO SCH (08:13)
[2020-06-23] MEDS: ASPIRIN 81MG ENTERIC TABLET PO SCH (08:13)
[2020-06-23] MEDS: TORSEMIDE 20 MG TAB PO SCH (08:14)
[2020-06-23] MEDS: allopurinoL 300 MG TAB PO SCH (08:14)
[2020-06-23] MEDS: GABAPENTIN 100 MG CAP PO SCH ×3 (08:14→20:11)
[2020-06-23] MEDS: POTASSIUM CHLORIDE 10 MEQ SR TABLET PO SCH ×2 (08:14→20:11)
[2020-06-23] MEDS: DOCUSATE SODIUM 100MG CAPSULE PO SCH ×2 (08:14→20:10)
[2020-06-23 09:29] LABS: BILIRUBIN,TOTAL 0.3 MG/DL (0.2-1.0); CALCIUM LEVEL 9.3 MG/DL (8.8-10.2); CREATININE FOR GFR 1.16 MG/DL (0.55-1.30); GLOMERULAR FILTRATION RATE 48.1 (>39); POTASSIUM SERUM 3.9 MEQ/L (3.5-5.1); TOTAL PROTEIN 6.5 GM/DL (6.4-8.2)
[2020-06-23] MEDS ORDERED: ISOVUE-370 76% 100ML VIAL As Ordered ONE (09:44)
[2020-06-23] MEDS: BUDESONIDE EC 3 MG CAP (ENTOCORT EC) PO SCH (09:53)
[2020-06-23] MEDS: LACTOBACILLUS ACIDOPHILUS CAP (BACID) PO SCH ×2 (09:54→18:05)
[2020-06-23] MEDS ORDERED: NS 1,000 ML IV SCH (10:25)
[2020-06-23] MEDS: VENLAFAXINE 37.5 MG TAB PO SCH (11:42)
[2020-06-23 14:00] VITALS: BP 156/89
[2020-06-23] MEDS: VANCOMYCIN HCL 750 MG, VIAL MATE ADAPTER 1 EACH in NS 250 ML IV SCH ×2 (15:01→17:05)
--- NOTE | 2020-06-23 16:45 | IPNPDOC ---
Date Seen The patient was seen on 06/23/20. Progress Note SUBJECTIVE: CT LLE with contrast: neg for abscess. Improving cellulitis but definite non draining areas of pus seen. Discussed with Dr. Corral, will see in AM to see if can be drained and wound cx sent. Denies fevers, chills, n/v/d. OBJECTIVE: PHYSICAL EXAMINATION: VITAL SIGNS: please see below General: NAD, comfortable HEENT: PERRLA, EOMI, sclerae clear Neck: supple, normal ROM, no JVD Respiratory: lungs CTAB, no wheeze, no rales, no crackles CVS: RRR, normal S1, S2, no murmurs Abdo: soft, no masses, no hepatosplenomegaly, BS+, no rebound tenderness Extremities/INTEG. : Left leg , anterior cuello improving edema with area around wound still erythematous, warm to touch, tender. Pulses 2+. No cyanosis Neuro: no focal neuro deficits, moving all 4 extremities, CN2-12 intact. Strength 5/5 in all 4 extremities. No nystagmus. Psych: calm, cooperative, AAO x 3 IMAGING: CT left lower ext with contrast: edema, swelling, fat stranding with cellulitiis. NO abscess US LLE: neg for DVT LABORATORY DATA: See below MICROBIOLOGY: BCX NG ASSESSMENT: 80 y/o F with PMH below admitted for LLE cellulitis. PLAN: Cellulitis L leg with anterior cuello wound -WBC improving slowly at 15.3, afebrile -CT with contrast LLE: neg for abscess -Discussed with Dr. Corral, will see 06/24/20 to see if pustulant areas need to be drained to get wound culture. Would be helpful, since has failed multiple abx PO as o/p already, to get wound culture and narrow down micro responsible. -Currently on vancomycin, ceftriaxone -Daily labs CKD3 -Cr 1.16 -Discussed with Dr. Garcia prior to contrasted imaging today, placed on IVFs for period of time, held night diuretic to resume in AM -Follows with Dr. Vargas, last seen on 07/20/20, no medication changes -Daily labs HTN -C/w home meds Diastolic CHF, chronic -last echo -EF 55-60%, mildly calcified AV. G1DD. Small pericardial effusion, no evidence for tamponade -C/whome meds Hx of splenectomy -NO worsening s/s of infection Hypothyroidism - c/w home meds Hx of gout - c/w allopurinol Hx of depression - c/w home meds Hyperlipidemia - c/w statin DVT ppx: SCDs. TEDs. Heparin 5000 units q8h SC DISPOSITION: PT: safe for discharge home when medically cleared. VS, I&O, 24H, Fishbone Vital Signs/I&O Vital Signs Date Time Temp Pulse Resp B/P (MAP) Pulse Ox O2 Delivery O2 Flow Rate FiO2 06/23/20 14:00 97.8 76 20 156/89 (111) 95 Room Air I&O- Last 24 Hours up to 6 AM 06/23/20 06:00 Intake Total 940 ml Output Total 200 ml Balance 740 ml Laboratory Data 24H LABS Laboratory Tests 2 06/23/20 05:20: Immature Granulocyte % (Auto) 0.9, Neutrophils (%) (Auto) 62.0, Lymphocytes (%) (Auto) 28.9, Monocytes (%) (Auto) 6.7, Eosinophils (%) (Auto) 1.0, Basophils (%) (Auto) 0.5, Neutrophils # (Auto) 9.5H, Lymphocytes # (Auto) 4.4, Monocytes # (Auto) 1.0H, Eosinophils # (Auto) 0.2, Basophils # (Auto) 0.1, Nucleated Red Blood Cells % (auto) 0.3H 06/23/20 08:33: Anion Gap 7L, Glomerular Filtration Rate 48.1, Calcium Level 9.3, Magnesium Level 2.0, Total Bilirubin 0.3, Aspartate Amino Transf (AST/SGOT) 26, Alanine Aminotransferase (ALT/SGPT) 31, Alkaline Phosphatase 79, Total Protein 6.5, Albumin 3.0L, Albumin/Globulin Ratio 0.9L 06/23/20 14:03: Vancomycin Level Trough 13.3 CBC/BMP Laboratory Tests 06/23/20 05:20 06/23/20 08:33 Microbiology Microbiology 06/22/20 Blood Culture - Preliminary, Resulted No growth after 24 hours . All specim... 06/22/20 Blood Culture - Preliminary, Resulted No growth after 24 hours . All specim... Current Medications Current Medications Medications (Trade) Dose Ordered Sig/Mercedes Route PRN Reason Start Time Stop Time Status Last Admin Dose Admin Acetaminophen (Tylenol Tab) 650 mg Q4H PRN PO PAIN OR FEVER 06/22/20 16:50 Al Hydrox/Mg Hydrox/Simethicone (Mylanta) 30 ml DAILY PRN PO DYSPEPSIA 06/22/20 16:50 Albuterol Sulfate (Proventil, Ventolin Hfa) 2 puff QID PRN INH SHORTNESS OF BREATH 06/22/20 16:50 Allopurinol (Zyloprim) 300 mg DAILY PO 06/23/20 09:00 06/23/20 08:14 Alprazolam (Xanax) 0.5 mg DAILY PRN PO ANXIETY/AGITATION 06/22/20 16:50 Aspirin (Ecotrin) 81 mg Q2D PO 06/23/20 09:00 06/23/20 08:13 Atorvastatin Calcium (Lipitor) 80 mg QHS PO 06/22/20 21:00 06/22/20 20:46 Bisoprolol Fumarate (Zebeta) 5 mg DAILY PO 06/23/20 09:00 06/23/20 08:13 Budesonide (Entocort Ec) 6 mg DAILY PO 06/23/20 09:00 06/23/20 09:53 Budesonide/ Formoterol Fumarate (Symbicort 80/ 4.5mcg) 2 puff BID PRN INH SHORTNESS OF BREATH 06/22/20 16:50 Ceftriaxone Sodium 1 gm/ Dextrose 50 ml @ 100 mls/hr Q24H IV 06/22/20 18:00 06/22/20 20:45 Diltiazem HCl (Cardizem Cd) 240 mg DAILY PO 06/23/20 09:00 06/23/20 08:13 Docusate Sodium (Colace) 100 mg BID PO 06/22/20 21:00 06/23/20 08:14 Folic Acid (Folic Acid) 1 mg QHS PO 06/22/20 21:00 06/22/20 20:48 Gabapentin (Neurontin) 100 mg TID PO 06/22/20 16:00 06/23/20 08:14 Heparin Sodium (Porcine) (Heparin) 5,000 units Q8H SC 06/22/20 22:00 06/23/20 15:01 Home Med (Med Rec Complete!) ASDIRECTED XX 06/22/20 14:40 06/22/20 14:38 DC Lactobacillus Acidophilus (Bacid) 1 ea BIDWM PO 06/23/20 08:00 06/23/20 09:54 Levothyroxine Sodium (Synthroid) 100 mcg DAILY@0600 PO 06/23/20 06:00 06/23/20 05:28 Magnesium Hydroxide (Milk Of Magnesia) 30 ml DAILY PRN PO CONSTIPATION 06/22/20 16:50 Potassium Chloride (Micro-K Extencaps) 20 meq BID PO 06/22/20 21:00 06/23/20 08:14 Quetiapine Fumarate (SEROquel) 50 mg QHS PO 06/22/20 21:00 06/22/20 20:48 Sodium Chloride 1,000 ml @ 100 mls/hr Q10H IV 06/23/20 10:25 06/23/20 15:00 DC 06/23/20 11:17 Torsemide (Demadex) 20 mg BID@0900,1700 PO 06/24/20 09:00 Torsemide (Demadex) 20 mg BID@0900,1700 PO 06/22/20 17:00 06/23/20 10:25 DC 06/23/20 08:14 Vancomycin HCl 750 mg/IV Miscellaneous Supplies 1 each/ Sodium Chloride 275 ml @ 275 mls/hr Q24H IV 06/23/20 15:00 06/23/20 15:01 Vancomycin HCl 750 mg/IV Miscellaneous Supplies 1 each/ Sodium Chloride 275 ml @ 275 mls/hr Q24H IV 06/23/20 16:00 Vancomycin HCl 1000 mg/IV Miscellaneous Supplies 1 each/ Sodium Chloride 270 ml @ 270 mls/hr Q12H IV 06/23/20 06:00 06/22/20 19:07 DC Venlafaxine HCl (Effexor) 75 mg DAILY PO 06/23/20 09:00 06/23/20 11:42 Allergies Coded Allergies: indomethacin (Verified Allergy, Unknown, as takes asprin, 05/21/19) levofloxacin (Verified Allergy, Unknown, UNKNOWN REACTION, 06/22/20) tetracycline (Unverified Allergy, Unknown, UNKNOWN REACTION, 06/22/20) amlodipine (Verified Adverse Reaction, Mild, MUSCLE CRAMPS, 06/22/20) trazodone (Unverified Adverse Reaction, Mild, DIZZINESS, 06/22/20) Wendy Kennedy MD Jun 23, 2020 16:45
[2020-06-23] MEDS: cefTRIAXone SOD 1 GM in D5W MINI-BAG PLUS 50 ML IV SCH (19:00)
[2020-06-23] MEDS: FOLIC ACID 1 MG TAB PO SCH (20:10)
[2020-06-23] MEDS: ATORVASTATIN 20 MG TAB PO SCH (20:10)
[2020-06-23] MEDS: QUEtiapine FUMARATE 50MG TAB PO SCH (20:11)
[2020-06-23 22:00] VITALS: BP 166/93
[2020-06-24 06:00] VITALS: BP 147/63
[2020-06-24] MEDS: LEVOTHYROXINE 100MCG TABLET (0.1MG) PO SCH (06:20)
[2020-06-24] MEDS: HEPARIN SOD (PORCINE) 5000UNITS/ML 1ML VIAL/SYRINGE SC SCH ×3 (06:20→20:07)
[2020-06-24 06:32] LABS: BASO # 0.1 10^3/uL (0.0-0.2); BASO % 0.7 % (0.0-1.0); EOS # 0.2 10^3/uL (0.0-0.5); EOS % 1.2 % (0.0-3.0); HEMATOCRIT 38.1 % (36.0-47.0); LYMPH # 4.7 10^3/uL (1.5-5.0); LYMPH % 31.9 % (24.0-44.0); MEAN CORPUSCULAR HEMOGLOBIN 33.3 pg (27.0-33.0); MEAN CORPUSCULAR HGB CONC 31.5 g/dl (32.0-36.5); MEAN CORPUSCULAR VOLUME 105.8 fl (80.0-96.0); MONO # 1.1 10^3/uL (0.0-0.8); MONO % 7.1 % (2.0-8.0); NEUTROPHILS # 8.6 10^3/uL (1.5-8.5); NEUTROPHILS % 58.3 % (36.0-66.0); PLATELET COUNT, AUTOMATED 222 10^3/uL (150-450); WHITE BLOOD COUNT 14.8 10^3/uL (4.0-10.0)
[2020-06-24 06:56] LABS: ALBUMIN 2.9 GM/DL (3.2-5.2); BILIRUBIN,TOTAL 0.2 MG/DL (0.2-1.0); CALCIUM LEVEL 8.8 MG/DL (8.8-10.2); CREATININE FOR GFR 1.17 MG/DL (0.55-1.30); GLOMERULAR FILTRATION RATE 47.6 (>39); MAGNESIUM LEVEL 2.2 MG/DL (1.8-2.4); POTASSIUM SERUM 4.1 MEQ/L (3.5-5.1)
[2020-06-24] MEDS: bisoproloL fumarate 5 MG TAB PO SCH (09:12)
[2020-06-24] MEDS: LACTOBACILLUS ACIDOPHILUS CAP (BACID) PO SCH ×2 (09:12→18:37)
[2020-06-24] MEDS: GABAPENTIN 100 MG CAP PO SCH ×3 (09:13→20:08)
[2020-06-24] MEDS: POTASSIUM CHLORIDE 10 MEQ SR TABLET PO SCH ×2 (09:13→20:07)
[2020-06-24] MEDS: DOCUSATE SODIUM 100MG CAPSULE PO SCH ×2 (09:13→20:08)
[2020-06-24] MEDS: allopurinoL 300 MG TAB PO SCH (09:13)
[2020-06-24] MEDS: TORSEMIDE 20 MG TAB PO SCH ×2 (09:16→16:52)
[2020-06-24] MEDS: BUDESONIDE EC 3 MG CAP (ENTOCORT EC) PO SCH (10:11)
[2020-06-24] MEDS: VENLAFAXINE 37.5 MG TAB PO SCH (10:12)
--- NOTE | 2020-06-24 10:22 | CR ---
CONSULTATION DATE: 06/22/2020 REASON FOR CONSULTATION: Left lower extremity cellulitis. HISTORY OF PRESENT ILLNESS: The patient is a 72-year-old female who presented with a 4-day history of pain to the left lower leg and swelling. She claims to have had bilateral lower extremity cellulitis recently that was resolving; however, on Monday she got her leg hit underneath the rung on a dining room chair and since then she has had increased swelling and a lump in the left lower extremity. Since it was not getting better, she was started on outpatient antibiotics. She was brought in to the emergency room, found to have an elevated white count of 17, and she was admitted for the cellulitis. The hospitalist felt that there was some purulent fluid underneath the skin surrounding an opening that was draining bloody fluid. Because of that, they have asked me to evaluate for possible culture of the fluid. The patient says that she is having some pain. There is active drainage currently covered. No fevers or chills. No nausea or vomiting. No other symptoms. PAST MEDICAL HISTORY: 1. Hemolytic anemia. 2. Aortic stenosis. 3. Hypertension. 4. Hyperlipidemia. 5. Hypothyroidism. 6. Depression. 7. Chronic kidney disease. 8. Coronary artery disease. 9. Anxiety depression. 10. Gout. 11. Gastroesophageal reflux disease (GERD). PAST SURGICAL HISTORY: 1. Hysterectomy. 2. Cholecystectomy. 3. Splenectomy. 4. Rectal fissure repair. 5. Cardiac stent placement. SOCIAL HISTORY: Denies drug, alcohol, tobacco abuse. FAMILY HISTORY: Noncontributory. ALLERGIES: 1. AMLODIPINE. 2. ENDOMETHICIN. 3. LEVAQUIN. 4. TETRACYCLINE. 5. TRAZODONE. MEDICATIONS: Please see medicine reconciliation. REVIEW OF SYSTEMS: Pertinent positives and negatives seen in history of present illness. PHYSICAL EXAMINATION: GENERAL: Alert and oriented times 3, in no acute distress. VITALS: Temperature 98.1, pulse 80, respirations 19, blood pressure 166/93, pulse ox 93% on room air. HEENT: Pupils equally round, reactive to light and accommodation. HEART: S1, S2. Regular rate and rhythm. LUNGS: Clear to auscultation bilaterally. ABDOMEN: Soft, nontender, nondistended. EXTREMITIES: Bilateral lower extremity pitting edema. Left lower extremity: There is erythema from the mid cuello distally. In the mid anterior cuello, there is a 3 cm fluctuant area that has about a 4 mm opening in the inferior portion of it that is draining bloody discharge. There is some surrounding loose skin that is slightly bubbled giving the appearance of purulent fluid underneath it but it is all just loose skin that was able to be wiped off with a piece of gauze. I was able to take a sterile Q-tip and poke inside of the wound and then obtain a culture from the wound, and also was able to express a large amount of formed clot out of the cavity as well. No purulent fluid was in there. LABORATORY DATA: White count 15.3, down from 17. Hemoglobin 11.6. Platelets 220. Potassium 3.9. Creatinine 1.16. ASSESSMENT AND PLAN: Patient is a 80-year-old female with left lower extremity cellulitis likely secondary to an infected hematoma. At this time, the hematoma is open and actively draining. I was able to express the majority of the fluid out of the wound as well at the bedside. Cultures were obtained to help narrow down the antibiotics. No further surgery is needed for this wound. Patient understands. Dressing was reapplied at the end of our visit. She can continue with just dry dressings until the wound closes up on its own, and she is stable for discharge once her antibiotics are tailored.
[2020-06-24] MEDS: VANCOMYCIN HCL 750 MG, VIAL MATE ADAPTER 1 EACH in NS 250 ML IV SCH ×2 (14:54→16:52)
--- NOTE | 2020-06-24 15:18 | IPNPDOC ---
Date Seen The patient was seen on 06/24/20. Progress Note SUBJECTIVE: WBC mildly improved. Surgery saw, collected wound cx but GS neg thus far, cx pending. Erythema and swelling slightly improved. OBJECTIVE: PHYSICAL EXAMINATION: VITAL SIGNS: please see below General: NAD, comfortable HEENT: PERRLA, EOMI, sclerae clear Neck: supple, normal ROM, no JVD Respiratory: lungs CTAB, no wheeze, no rales, no crackles CVS: RRR, normal S1, S2, no murmurs Abdo: soft, no masses, no hepatosplenomegaly, BS+, no rebound tenderness Extremities/INTEG. : Left leg , anterior cuello improving edema with area around wound still erythematous, warm to touch, tender. Pulses 2+. No cyanosis Neuro: no focal neuro deficits, moving all 4 extremities, CN2-12 intact. Stren gth 5/5 in all 4 extremities. No nystagmus. Psych: calm, cooperative, AAO x 3 IMAGING: CT left lower ext with contrast: edema, swelling, fat stranding with cellulitiis. NO abscess US LLE: neg for DVT LABORATORY DATA: See below MICROBIOLOGY: BCX NG ASSESSMENT: 80 y/o F with PMH below admitted for LLE cellulitis. PLAN: Cellulitis L leg with anterior cuello wound -WBC improving slowly 14.8, afebrile -CT with contrast LLE: neg for abscess -F/u Wound GS and Cx -Currently on vancomycin, ceftriaxone -Daily labs CKD3 -Cr wnl -Follows with Dr. Vargas, last seen on 07/20/20, no medication changes -Daily labs HTN -C/w home meds Diastolic CHF, chronic -last echo -EF 55-60%, mildly calcified AV. G1DD. Small pericardial effusion, no evidence for tamponade -C/w home meds Hx of splenectomy -No worsening s/s of infection Hypothyroidism - c/w home meds Hx of gout - c/w allopurinol Hx of depression - c/w home meds Hyperlipidemia - c/w statin DVT ppx: SCDs. TEDs. Heparin 5000 units q8h SC DISPOSITION: PT: safe for discharge home when medically cleared. VS, I&O, 24H, Fishbone Vital Signs/I&O Vital Signs Date Time Temp Pulse Resp B/P (MAP) Pulse Ox O2 Delivery O2 Flow Rate FiO2 06/24/20 09:12 80 149/86 06/24/20 06:00 96.9 20 94 Room Air I&O- Last 24 Hours up to 6 AM 06/24/20 06:00 Intake Total 2020 ml Output Total 800 ml Balance 1220 ml Laboratory Data 24H LABS Laboratory Tests 2 06/24/20 05:58: Immature Granulocyte % (Auto) 0.8, Neutrophils (%) (Auto) 58.3, Lymphocytes (%) (Auto) 31.9, Monocytes (%) (Auto) 7.1, Eosinophils (%) (Auto) 1.2, Basophils (%) (Auto) 0.7, Neutrophils # (Auto) 8.6H, Lymphocytes # (Auto) 4.7, Monocytes # (Auto) 1.1H, Eosinophils # (Auto) 0.2, Basophils # (Auto) 0.1, Nucleated Red Blood Cells % (auto) 0.5H, Anion Gap 7L, Glomerular Filtration Rate 47.6, Calcium Level 8.8, Magnesium Level 2.2, Total Bilirubin 0.2, Aspartate Amino Transf (AST/SGOT) 20, Alanine Aminotransferase (ALT/SGPT) 26, Alkaline Phosphatase 74, Total Protein 6.0L, Albumin 2.9L, Albumin/Globulin Ratio 0.9L CBC/BMP Laboratory Tests 06/24/20 05:58 Microbiology Microbiology 06/24/20 Gram Stain - Final, Resulted 06/24/20 Abscess Culture, Resulted Pending 06/22/20 Blood Culture - Preliminary, Resulted No Growth after 48 hours. All Specime... 06/22/20 Blood Culture - Preliminary, Resulted No Growth after 48 hours. All Specime... Current Medications Current Medications Medications (Trade) Dose Ordered Sig/Mercedes Route PRN Reason Start Time Stop Time Status Last Admin Dose Admin Acetaminophen (Tylenol Tab) 650 mg Q4H PRN PO PAIN OR FEVER 06/22/20 16:50 Al Hydrox/Mg Hydrox/Simethicone (Mylanta) 30 ml DAILY PRN PO DYSPEPSIA 06/22/20 16:50 Albuterol Sulfate (Proventil, Ventolin Hfa) 2 puff QID PRN INH SHORTNESS OF BREATH 06/22/20 16:50 Allopurinol (Zyloprim) 300 mg DAILY PO 06/23/20 09:00 06/24/20 09:13 Alprazolam (Xanax) 0.5 mg DAILY PRN PO ANXIETY/AGITATION 06/22/20 16:50 Aspirin (Ecotrin) 81 mg Q2D PO 06/23/20 09:00 06/23/20 08:13 Atorvastatin Calcium (Lipitor) 80 mg QHS PO 06/22/20 21:00 06/23/20 20:10 Bisoprolol Fumarate (Zebeta) 5 mg DAILY PO 06/23/20 09:00 06/24/20 09:12 Budesonide (Entocort Ec) 6 mg DAILY PO 06/23/20 09:00 06/24/20 10:11 Budesonide/ Formoterol Fumarate (Symbicort 80/ 4.5mcg) 2 puff BID PRN INH SHORTNESS OF BREATH 06/22/20 16:50 Ceftriaxone Sodium 1 gm/ Dextrose 50 ml @ 100 mls/hr Q24H IV 06/22/20 18:00 06/23/20 19:00 Diltiazem HCl (Cardizem Cd) 240 mg DAILY PO 06/23/20 09:00 06/24/20 09:12 Docusate Sodium (Colace) 100 mg BID PO 06/22/20 21:00 06/24/20 09:13 Folic Acid (Folic Acid) 1 mg QHS PO 06/22/20 21:00 06/23/20 20:10 Gabapentin (Neurontin) 100 mg TID PO 06/22/20 16:00 06/24/20 09:13 Heparin Sodium (Porcine) (Heparin) 5,000 units Q8H SC 06/22/20 22:00 06/24/20 14:54 Home Med (Med Rec Complete!) ASDIRECTED XX 06/22/20 14:40 06/22/20 14:38 DC Lactobacillus Acidophilus (Bacid) 1 ea BIDWM PO 06/23/20 08:00 06/24/20 09:12 Levothyroxine Sodium (Synthroid) 100 mcg DAILY@0600 PO 06/23/20 06:00 06/24/20 06:20 Magnesium Hydroxide (Milk Of Magnesia) 30 ml DAILY PRN PO CONSTIPATION 06/22/20 16:50 Potassium Chloride (Micro-K Extencaps) 20 meq BID PO 06/22/20 21:00 06/24/20 09:13 Quetiapine Fumarate (SEROquel) 50 mg QHS PO 06/22/20 21:00 06/23/20 20:11 Sodium Chloride 1,000 ml @ 100 mls/hr Q10H IV 06/23/20 10:25 06/23/20 15:00 DC 06/23/20 11:17 Torsemide (Demadex) 20 mg BID@0900,1700 PO 06/24/20 09:00 06/24/20 09:16 Torsemide (Demadex) 20 mg BID@0900,1700 PO 06/22/20 17:00 06/23/20 10:25 DC 06/23/20 08:14 Vancomycin HCl 750 mg/IV Miscellaneous Supplies 1 each/ Sodium Chloride 275 ml @ 275 mls/hr Q24H IV 06/23/20 15:00 06/24/20 14:54 Vancomycin HCl 750 mg/IV Miscellaneous Supplies 1 each/ Sodium Chloride 275 ml @ 275 mls/hr Q24H IV 06/23/20 16:00 06/23/20 17:05 Vancomycin HCl 1000 mg/IV Miscellaneous Supplies 1 each/ Sodium Chloride 270 ml @ 270 mls/hr Q12H IV 06/23/20 06:00 06/22/20 19:07 DC Venlafaxine HCl (Effexor) 75 mg DAILY PO 06/23/20 09:00 06/24/20 10:12 Allergies Coded Allergies: indomethacin (Verified Allergy, Unknown, as takes asprin, 05/21/19) levofloxacin (Verified Allergy, Unknown, UNKNOWN REACTION, 06/22/20) tetracycline (Unverified Allergy, Unknown, UNKNOWN REACTION, 06/22/20) amlodipine (Verified Adverse Reaction, Mild, MUSCLE CRAMPS, 06/22/20) trazodone (Unverified Adverse Reaction, Mild, DIZZINESS, 06/22/20) Wendy Kennedy MD Jun 24, 2020 15:18
[2020-06-24 15:27] VITALS: BP 137/60
[2020-06-24] MEDS: cefTRIAXone SOD 1 GM in D5W MINI-BAG PLUS 50 ML IV SCH (18:37)
[2020-06-24] MEDS: QUEtiapine FUMARATE 50MG TAB PO SCH (20:07)
[2020-06-24] MEDS: ATORVASTATIN 20 MG TAB PO SCH (20:08)
[2020-06-24] MEDS: FOLIC ACID 1 MG TAB PO SCH (20:08)
[2020-06-24 22:00] VITALS: BP 141/70
[2020-06-25] MEDS: LEVOTHYROXINE 100MCG TABLET (0.1MG) PO SCH (05:21)
[2020-06-25] MEDS: HEPARIN SOD (PORCINE) 5000UNITS/ML 1ML VIAL/SYRINGE SC SCH ×3 (05:21→20:08)
[2020-06-25 06:00] VITALS: BP 133/58
[2020-06-25 07:10] LABS: BASO # 0.1 10^3/uL (0.0-0.2); BASO % 0.6 % (0.0-1.0); EOS # 0.2 10^3/uL (0.0-0.5); EOS % 1.3 % (0.0-3.0); HEMATOCRIT 38.9 % (36.0-47.0); HEMOGLOBIN 12.7 g/dl (12.0-15.5); MEAN CORPUSCULAR HEMOGLOBIN 34.2 pg (27.0-33.0); MEAN CORPUSCULAR HGB CONC 32.6 g/dl (32.0-36.5); MEAN CORPUSCULAR VOLUME 104.9 fl (80.0-96.0); MONO # 0.9 10^3/uL (0.0-0.8); MONO % 6.3 % (2.0-8.0); NEUTROPHILS # 7.6 10^3/uL (1.5-8.5); NEUTROPHILS % 54.5 % (36.0-66.0); PLATELET COUNT, AUTOMATED 242 10^3/uL (150-450); RED BLOOD COUNT 3.71 10^6/uL (4.00-5.40)
[2020-06-25 07:17] LABS: WHITE BLOOD COUNT 13.9 10^3/uL (4.0-10.0)
[2020-06-25 08:03] LABS: ALBUMIN 3.2 GM/DL (3.2-5.2); BILIRUBIN,TOTAL 0.4 MG/DL (0.2-1.0); CALCIUM LEVEL 9.1 MG/DL (8.8-10.2); CREATININE FOR GFR 1.25 MG/DL (0.55-1.30); GLOMERULAR FILTRATION RATE 44.1 (>39); POTASSIUM SERUM 3.7 MEQ/L (3.5-5.1); TOTAL PROTEIN 6.3 GM/DL (6.4-8.2)
[2020-06-25 08:46] VITALS: BP 130/70
[2020-06-25] MEDS: POTASSIUM CHLORIDE 10 MEQ SR TABLET PO SCH ×2 (10:23→20:08)
[2020-06-25] MEDS: GABAPENTIN 100 MG CAP PO SCH ×3 (10:25→20:08)
[2020-06-25] MEDS: allopurinoL 300 MG TAB PO SCH (10:26)
[2020-06-25] MEDS: VENLAFAXINE 37.5 MG TAB PO SCH (10:27)
[2020-06-25] MEDS: TORSEMIDE 20 MG TAB PO SCH ×2 (10:28→16:39)
[2020-06-25] MEDS: BUDESONIDE EC 3 MG CAP (ENTOCORT EC) PO SCH (10:30)
[2020-06-25] MEDS: DOCUSATE SODIUM 100MG CAPSULE PO SCH ×2 (10:30→20:08)
[2020-06-25] MEDS: ASPIRIN 81MG ENTERIC TABLET PO SCH (10:32)
[2020-06-25] MEDS: bisoproloL fumarate 5 MG TAB PO SCH (10:32)
[2020-06-25] MEDS: LACTOBACILLUS ACIDOPHILUS CAP (BACID) PO SCH ×2 (10:35→17:57)
[2020-06-25 15:06] VITALS: BP 133/58
[2020-06-25] MEDS: VANCOMYCIN HCL 750 MG, VIAL MATE ADAPTER 1 EACH in NS 250 ML IV SCH (15:10)
--- NOTE | 2020-06-25 15:50 | IPNPDOC ---
Date Seen The patient was seen on 06/25/20. Progress Note SUBJECTIVE: WBC improving slowly. wound Cx pending, likely be back on 06/26/20. Discussed with ID who gave recommendations. Erythema still present, decreased warmth of LLE. New small popped blister/tear on left lateral calf area, +2 swelling of that leg alone. Denies fevers, chills, n/v/d. OBJECTIVE: PHYSICAL EXAMINATION: VITAL SIGNS: please see below General: NAD, comfortable HEENT: PERRLA, EOMI, sclerae clear Neck: supple, normal ROM, no JVD Respiratory: lungs CTAB, no wheeze, no rales, no crackles CVS: RRR, normal S1, S2, no murmurs Abdo: soft, no masses, no hepatosplenomegaly, BS+, no rebound tenderness Extremities/INTEG. : Left leg , anterior cuello improving edema with area around wound still erythematous, decreased warm to touch, decreased tender. +2 edema in LLE, no swelling of RLE. New left lateral calf skin tear/popped blister. Pulses 2+. No cyanosis Neuro: no focal neuro deficits, moving all 4 extremities, CN2-12 intact. Strength 5/5 in all 4 extremities. No nystagmus. Psych: calm, cooperative, AAO x 3 IMAGING: CT left lower ext with contrast: edema, swelling, fat stranding with cellulitiis. NO abscess US LLE: neg for DVT LABORATORY DATA: See below MICROBIOLOGY: BCX NG ASSESSMENT: 80 y/o F with PMH below admitted for LLE cellulitis. PLAN: Cellulitis L leg with anterior cuello wound -WBC improving slowly 13.9, afebrile -+2 swelling of the LLE, popped left lateral calf blister vs. skin tear -CT with contrast LLE: neg for abscess -F/u Wound Cx -Currently on vancomycin, ceftriaxone. If culture neg, can d/c home on zyvox x 10 days, probiotic. -No additional diuresis needs to occur for unilateral swelling of that leg per nephrology -Daily labs CKD3 -Cr wnl -Follows with Dr. Vargas, last seen on 07/20/20, no medication changes -Daily labs HTN -C/w home meds Diastolic CHF, chronic -last echo -EF 55-60%, mildly calcified AV. G1DD. Small pericardial effusion, no evidence for tamponade -C/w home meds Hx of splenectomy -No worsening s/s of infection Hypothyroidism - c/w home meds Hx of gout - c/w allopurinol Hx of depression - c/w home meds Hyperlipidemia - c/w statin DVT ppx: SCDs. TEDs. Heparin 5000 units q8h SC DISPOSITION: PT: safe for discharge home when medically cleared. VS, I&O, 24H, Fishbone Vital Signs/I&O Vital Signs Date Time Temp Pulse Resp B/P (MAP) Pulse Ox O2 Delivery O2 Flow Rate FiO2 06/25/20 15:06 98.4 80 16 133/58 (83) 93 Room Air I&O- Last 24 Hours up to 6 AM 06/25/20 05:59 Intake Total 2490 ml Output Total 0 ml Balance 2490 ml Laboratory Data 24H LABS Laboratory Tests 2 06/25/20 06:45: Immature Granulocyte % (Auto) 1.3, Neutrophils (%) (Auto) 54.5, Lymphocytes (%) (Auto) 36.0, Monocytes (%) (Auto) 6.3, Eosinophils (%) (Auto) 1.3, Basophils (%) (Auto) 0.6, Neutrophils # (Auto) 7.6, Lymphocytes # (Auto) 5.0, Monocytes # (Auto) 0.9H, Eosinophils # (Auto) 0.2, Basophils # (Auto) 0.1, Nucleated Red Blood Cells % (auto) 0.6H, Anion Gap 7L, Glomerular Filtration Rate 44.1, Calcium Level 9.1, Magnesium Level 2.0, Total Bilirubin 0.4#, Aspartate Amino Transf (AST/SGOT) 19, Alanine Aminotransferase (ALT/SGPT) 29, Alkaline Phosp hatase 78, Total Protein 6.3L, Albumin 3.2, Albumin/Globulin Ratio 1.0L 06/25/20 13:57: Vancomycin Level Trough 19.3 CBC/BMP Laboratory Tests 06/25/20 06:45 Microbiology Microbiology 06/24/20 Gram Stain - Final, Resulted 06/24/20 Abscess Culture, Resulted Pending 06/22/20 Blood Culture - Preliminary, Resulted No Growth after 72 hours. All specime... 06/22/20 Blood Culture - Preliminary, Resulted No Growth after 72 hours. All specime... Current Medications Current Medications Medications (Trade) Dose Ordered Sig/Mercedes Route PRN Reason Start Time Stop Time Status Last Admin Dose Admin Acetaminophen (Tylenol Tab) 650 mg Q4H PRN PO PAIN OR FEVER 06/22/20 16:50 Al Hydrox/Mg Hydrox/Simethicone (Mylanta) 30 ml DAILY PRN PO DYSPEPSIA 06/22/20 16:50 Albuterol Sulfate (Proventil, Ventolin Hfa) 2 puff QID PRN INH SHORTNESS OF BREATH 06/22/20 16:50 Allopurinol (Zyloprim) 300 mg DAILY PO 06/23/20 09:00 06/25/20 10:26 Alprazolam (Xanax) 0.5 mg DAILY PRN PO ANXIETY/AGITATION 06/22/20 16:50 Aspirin (Ecotrin) 81 mg Q2D PO 06/23/20 09:00 06/25/20 10:32 Atorvastatin Calcium (Lipitor) 80 mg QHS PO 06/22/20 21:00 06/24/20 20:08 Bisoprolol Fumarate (Zebeta) 5 mg DAILY PO 06/23/20 09:00 06/25/20 10:32 Budesonide (Entocort Ec) 6 mg DAILY PO 06/23/20 09:00 06/25/20 10:30 Budesonide/ Formoterol Fumarate (Symbicort 80/ 4.5mcg) 2 puff BID PRN INH SHORTNESS OF BREATH 06/22/20 16:50 Ceftriaxone Sodium 1 gm/ Dextrose 50 ml @ 100 mls/hr Q24H IV 06/22/20 18:00 06/24/20 18:37 Diltiazem HCl (Cardizem Cd) 240 mg DAILY PO 06/23/20 09:00 06/25/20 10:25 Docusate Sodium (Colace) 100 mg BID PO 06/22/20 21:00 06/25/20 10:30 Folic Acid (Folic Acid) 1 mg QHS PO 06/22/20 21:00 06/24/20 20:08 Gabapentin (Neurontin) 100 mg TID PO 06/22/20 16:00 06/25/20 10:25 Heparin Sodium (Porcine) (Heparin) 5,000 units Q8H SC 06/22/20 22:00 06/25/20 15:10 Home Med (Med Rec Complete!) ASDIRECTED XX 06/22/20 14:40 06/22/20 14:38 DC Lactobacillus Acidophilus (Bacid) 1 ea BIDWM PO 06/23/20 08:00 06/25/20 10:35 Levothyroxine Sodium (Synthroid) 100 mcg DAILY@0600 PO 06/23/20 06:00 06/25/20 05:21 Magnesium Hydroxide (Milk Of Magnesia) 30 ml DAILY PRN PO CONSTIPATION 06/22/20 16:50 Potassium Chloride (Micro-K Extencaps) 20 meq BID PO 06/22/20 21:00 06/25/20 10:23 Quetiapine Fumarate (SEROquel) 50 mg QHS PO 06/22/20 21:00 06/24/20 20:07 Sodium Chloride 1,000 ml @ 100 mls/hr Q10H IV 06/23/20 10:25 06/23/20 15:00 DC 06/23/20 11:17 Torsemide (Demadex) 20 mg BID@0900,1700 PO 06/24/20 09:00 06/25/20 10:28 Torsemide (Demadex) 20 mg BID@0900,1700 PO 06/22/20 17:00 06/23/20 10:25 DC 06/23/20 08:14 Vancomycin HCl 500 mg/Dextrose 110 ml @ 110 mls/hr Q24H IV 06/25/20 16:00 Vancomycin HCl 750 mg/IV Miscellaneous Supplies 1 each/ Sodium Chloride 275 ml @ 275 mls/hr Q24H IV 06/23/20 15:00 06/25/20 15:10 Vancomycin HCl 750 mg/IV Miscellaneous Supplies 1 each/ Sodium Chloride 275 ml @ 275 mls/hr Q24H IV 06/23/20 16:00 06/25/20 14:51 DC 06/24/20 16:52 Vancomycin HCl 1000 mg/IV Miscellaneous Supplies 1 each/ Sodium Chloride 270 ml @ 270 mls/hr Q12H IV 06/23/20 06:00 06/22/20 19:07 DC Venlafaxine HCl (Effexor) 75 mg DAILY PO 06/23/20 09:00 06/25/20 10:27 Allergies Coded Allergies: indomethacin (Verified Allergy, Unknown, as takes asprin, 05/21/19) levofloxacin (Verified Allergy, Unknown, UNKNOWN REACTION, 06/22/20) tetracycline (Unverified Allergy, Unknown, UNKNOWN REACTION, 06/22/20) amlodipine (Verified Adverse Reaction, Mild, MUSCLE CRAMPS, 06/22/20) trazodone (Unverified Adverse Reaction, Mild, DIZZINESS, 06/22/20) Wendy Kennedy MD Jun 25, 2020 15:50
[2020-06-25] MEDS ORDERED: VANCOMYCIN HCL 500 MG in D5W MINI-BAG PLUS 100 ML IV SCH (16:00)
[2020-06-25] MEDS: cefTRIAXone SOD 1 GM in D5W MINI-BAG PLUS 50 ML IV SCH (17:57)
[2020-06-25] MEDS: ATORVASTATIN 20 MG TAB PO SCH (20:08)
[2020-06-25] MEDS: QUEtiapine FUMARATE 50MG TAB PO SCH (20:09)
[2020-06-25] MEDS: FOLIC ACID 1 MG TAB PO SCH (20:09)
[2020-06-25 22:00] VITALS: BP 146/84
[2020-06-26] MEDS: LEVOTHYROXINE 100MCG TABLET (0.1MG) PO SCH (05:30)
[2020-06-26] MEDS: HEPARIN SOD (PORCINE) 5000UNITS/ML 1ML VIAL/SYRINGE SC SCH ×3 (05:30→20:17)
[2020-06-26 06:00] VITALS: BP 161/77
[2020-06-26 06:18] LABS: BASO # 0.1 10^3/uL (0.0-0.2); BASO % 0.8 % (0.0-1.0); EOS # 0.3 10^3/uL (0.0-0.5); EOS % 1.6 % (0.0-3.0); HEMATOCRIT 35.3 % (36.0-47.0); HEMOGLOBIN 11.3 g/dl (12.0-15.5); LYMPH # 5.9 10^3/uL (1.5-5.0); LYMPH % 38.5 % (24.0-44.0); MEAN CORPUSCULAR HEMOGLOBIN 33.4 pg (27.0-33.0); MEAN CORPUSCULAR VOLUME 104.4 fl (80.0-96.0); MONO # 1.2 10^3/uL (0.0-0.8); MONO % 7.8 % (2.0-8.0); NEUTROPHILS # 7.6 10^3/uL (1.5-8.5); NEUTROPHILS % 49.8 % (36.0-66.0); PLATELET COUNT, AUTOMATED 231 10^3/uL (150-450); RED BLOOD COUNT 3.38 10^6/uL (4.00-5.40)
[2020-06-26 06:19] LABS: WHITE BLOOD COUNT 15.4 10^3/uL (4.0-10.0)
[2020-06-26 06:43] LABS: ALBUMIN 2.7 GM/DL (3.2-5.2); BILIRUBIN,TOTAL 0.3 MG/DL (0.2-1.0); CALCIUM LEVEL 8.7 MG/DL (8.8-10.2); CREATININE FOR GFR 1.26 MG/DL (0.55-1.30); GLOMERULAR FILTRATION RATE 43.7 (>39); MAGNESIUM LEVEL 1.9 MG/DL (1.8-2.4); POTASSIUM SERUM 3.8 MEQ/L (3.5-5.1); TOTAL PROTEIN 5.5 GM/DL (6.4-8.2)
--- NOTE | 2020-06-26 07:50 | REP ---
INDICATION: r/o abscess Left anterior cuello. COMPARISON: None. TECHNIQUE: Axial contrast-enhanced images from the lower abdomen through the bilateral ankles with coronal and sagittal reformations using 100 cc Isovue 370 intravenous contrast material. Images obtained using CT angiographic technique including multiplanar MIP reformations and volume rendered 3D CT arteriogram. FINDINGS: Visualized intrapelvic structures including portions of the small and large bowel as well as the bladder are normal. Evidence for prior hysterectomy noted. No pelvic ascites, adenopathy, or free air noted. Osseous structures of the pelvis are intact. Mild amounts of partially calcified atheromatous plaquing is identified through the visualized abdominal aorta without abdominal aortic aneurysm or dissection and without evidence for aortic stenosis. Common iliac arteries are symmetric, patent and without atheromatous plaquing, aneurysm or stenosis. Internal iliac arteries demonstrate mild atheromatous plaquing and appear relatively symmetric, patent and without aneurysm or stenosis. Bilateral lower extremity arteries demonstrate minimal scattered calcified plaque but appear otherwise symmetric, patent and without areas of stenosis or occlusion. Three-vessel runoff is noted to the bilateral ankles. Left lower extremity demonstrates subcutaneous edema and infiltration along with skin thickening from the level of the knee through the foot. Areas of anterior bruising along the mid/distal calf suggested without obvious ulceration or fistula. No evidence for drainable collection/abscess identified. Musculature and osseous structures are intact and relatively age-appropriate. Right lower extremity appears normal. IMPRESSION: 1. Left lower extremity demonstrates findings consistent with cellulitis. No underlying drainable collection/abscess or significant deep intramuscular or osseous abnormalities are noted. 2. Vasculature as described above with minimal atherosclerotic changes and relatively appropriate arterial flow to lower extremities. <Electronically signed by Zoran Richmond > 06/26/20 [id number]
[2020-06-26] MEDS: VENLAFAXINE 37.5 MG TAB PO SCH (08:09)
[2020-06-26] MEDS: DOCUSATE SODIUM 100MG CAPSULE PO SCH ×2 (08:09→20:17)
[2020-06-26] MEDS: BUDESONIDE EC 3 MG CAP (ENTOCORT EC) PO SCH (08:09)
[2020-06-26] MEDS: LACTOBACILLUS ACIDOPHILUS CAP (BACID) PO SCH ×2 (08:09→17:22)
--- NOTE | 2020-06-26 08:11 | CR ---
CONSULTATION DATE: 06/25/2020 CONSULTATION REQUESTED BY: Wendy Kennedy MD REASON FOR CONSULTATION: Left leg swelling and evaluation for diuretic adjustment in his lady with chronic kidney disease and cellulitis. HISTORY OF PRESENT ILLNESS: This is a 80-year-old female with multiple chronic medical problems including a history of stage 3 of chronic kidney disease, coronary artery disease; status post angioplasty with stent in LAD, history of COPD, hypothyroidism and hyperlipidemia. She reports cellulitis on both legs lately and was admitted to [facility] on June 22 due to left leg swelling and redness. She had a small wound on her leg and significant cellulitis extending up to the knee. She has been treated with antibiotics, however, left leg has significant swelling. She had a CAT scan done due to suspected abscess, however, no abscess was identified. She had a surgical evaluation and wound was evaluated and drainage attempted, however, there was no significant drainage. There is a concern about significant swelling of her leg and need for increased diuretic dose. In view of her chronic kidney disease, nephrology consultation was requested and patient is seen this morning. PAST MEDICAL HISTORY: She has multiple chronic medical problems including at least the followin. History of splenectomy for hemolytic anemia. 2. History of aortic stenosis. 3. History of diastolic congestive heart failure. 4. History of hypertension heart disease. 5. Hyperlipidemia. 6. Hypothyroidism. 7. Depression. 8. Stage 3 of chronic kidney disease. 9. History of coronary artery disease; status post MEHNAZ in LAD. 10.History of chronic anxiety and depression. 11.History of cellulitis on right leg recently. 12.History of UTI. 13.History of microscopic colitis. 14.History of gout. 15.History of gastroesophageal reflux disease. PAST SURGICAL HISTORY: Significant for: 1. Hysterectomy. 2. BSO in 1974. 3. Cholecystectomy. 4. Splenectomy in 2005. 5. History of rectal fissure repair. 6. History of coronary angioplasty with stent placement. 7. History of colonoscopy with polyp removal. 8. History of incision and drainage of left leg fluid collection. PERSONAL AND SOCIAL HISTORY: Patient reports remote history of smoking, but no active smoking, alcohol or drug use. She lives with her . FAMILY HISTORY: Father at age 48 of cerebral aneurysm. Mother at age 87 of heart disease. There is no family history of kidney problems. ALLERGIES: He has allergy to Levofloxacin, Tetracycline, Amlodipine, Terazosin and Indomethacin. HOME MEDICATIONS: Include: 1. Allopurinol 300 mg daily. 2. Aspirin 81 mg daily. 3. Atorvastatin 80 mg daily. 4. Bisoprolol 5 mg daily. 5. Budesonide 6 mg daily. 6. Diltiazem 240 mg daily. 7. Gabapentin 100 mg t.i.d. 8. Levothyroxine 100 mcg daily. 9. Torsemide 20 mg b.i.d. 10.Potassium chloride 20 mEq b.i.d. 11.Venlafaxine 75 mg daily. REVIEW OF SYSTEMS: She denies any fever or chills. Left leg discomfort has been persistent. Ears, nose and throat are unremarkable. Cardiovascular system is significant for diastolic congestive heart failure, left edema, but denies any chest pain. Respiratory system is negative for hemoptysis or pleuritic type of chest pain. GI system is negative for vomiting or diarrhea. system is negative for dysuria or hematuria. She denies any history of kidney stones. Endocrine system is negative for diabetes. Hematological system is negative for long-term anticoagulation. She denies any easy bruising or excessive bleeding. Skin is significant for multiple scabs on her arms due to skin tears. She has a cellulitis on her left leg. Hematological system is significant for hemolytic anemia. She is followed by hematology. Neurological system is negative for seizures or stroke. PHYSICAL EXAMINATION: VITALS: Temperature 96.4 degrees Fahrenheit, heart rate 72 per minute, respiratory rate 20 per minute, blood pressure 130/70 mmHg and oxygen saturation 90% on room air. HEENT: Head atraumatic. Neck supple and without JVD or thyroid enlargement sitting upright, I could not see any neck veins. LUNGS: Sound clear to auscultation bilaterally. HEART: Sounds are regular with a systolic murmur grade 2/6. ABDOMEN: Soft, nontender and without palpable organomegaly. Bowel sounds normal. EXTREMITIES: Without any cyanosis or clubbing. She has no edema on her right leg. Left leg has a couple of small wounds covered with dressing. Her left leg is swollen, tender and also erythematous. NEUROLOGIC: She is awake, alert and oriented x3. LABORATORY DATA: Today's labs show WBC 13.9, hemoglobin 12.7, hematocrit 38.9, platelets 242,000. Sodium 143, potassium 3.7, chloride 109, CO2 27, BUN 32, creatinine 1.25, glucose 109 and calcium 9.1. Total protein 6.3 and albumin 3.2. PROBLEMS: 1. Acute kidney injury superimposed on chronic kidney disease: She has only slight fluctuation in her kidney function. Her kidney function is still close to baseline with stage 3. At present, she does not have any significant electrolyte problems. 2. Diastolic congestive heart failure and leg edema: Her volume status clinically seems to be well compensated. Leg edema is isolated on her left leg, where she has cellulitis and infected wound on the cuello. I recommend to continue with current diuretic and have advised the patient to elevate her leg as much as she can. 3. Cellulitis and infected wound left leg: I recommend to continue with appropriate antibiotic depending upon the culture results. She should follow-up if her wound does not heal quickly. Thank you for involving me in the evaluation of your patient. She will follow-up in our clinic as an outpatient after discharge. LUZ MARINA
[2020-06-26] MEDS: POTASSIUM CHLORIDE 10 MEQ SR TABLET PO SCH ×2 (08:12→20:18)
[2020-06-26] MEDS: allopurinoL 300 MG TAB PO SCH (08:13)
[2020-06-26] MEDS: TORSEMIDE 20 MG TAB PO SCH ×2 (08:13→15:54)
[2020-06-26] MEDS: GABAPENTIN 100 MG CAP PO SCH ×3 (08:13→20:17)
[2020-06-26] MEDS: bisoproloL fumarate 5 MG TAB PO SCH (08:13)
[2020-06-26] MEDS: LINEZOLID 600 MG in IV 1 EA IV SCH ×2 (09:41→20:17)
[2020-06-26 14:00] VITALS: BP 155/81
[2020-06-26] MEDS ORDERED: ZYVO1TAB PO (14:31)
--- NOTE | 2020-06-26 14:35 | IPNPDOC ---
Date Seen The patient was seen on 06/26/20. Progress Note SUBJECTIVE: WBC slightly increased to 15.4, changed to IV zyvox with anticipation of discharge in next 24 hours with it. Swelling decreased in LLE. WCx neg. Decreased warmth of LLE. Denies fevers, chills, n/v/d. OBJECTIVE: PHYSICAL EXAMINATION: VITAL SIGNS: please see below General: NAD, comfortable HEENT: PERRLA, EOMI, sclerae clear Neck: supple, normal ROM, no JVD Respiratory: lungs CTAB, no wheeze, no rales, no crackles CVS: RRR, normal S1, S2, no murmurs Abdo: soft, no masses, no hepatosplenomegaly, BS+, no rebound tenderness Extremities/INTEG. : Left leg , anterior cuello improving edema with area around wound still erythematous, no longer warm to touch, decreased tenderness. +2 edema in LLE, no swelling of RLE. New left lateral calf skin tear/popped blister is healing nicely. Pulses 2+. No cyanosis Neuro: no focal neuro deficits, moving all 4 extremities, CN2-12 intact. Stre ngth 5/5 in all 4 extremities. No nystagmus. Psych: calm, cooperative, AAO x 3 IMAGING: CT left lower ext with contrast: edema, swelling, fat stranding with cellulitiis. NO abscess US LLE: neg for DVT LABORATORY DATA: See below MICROBIOLOGY: Wound cX: ng BCX NG ASSESSMENT: 80 y/o F with PMH below admitted for LLE cellulitis. PLAN: Cellulitis LLE with anterior cuello wound -WBC increased slightly to 15.4, afebrile -+2 swelling of the LLE, popped left lateral calf blister improved today -CT with contrast LLE: neg for abscess -Wound Cx: ng -Switched to IV zyvox. If looks improved with labs by 06/27/20, can be discharged home with zyvox x 9 days (total 10) -No additional diuresis needs to occur for unilateral swelling of that leg per nephrology -Daily labs CKD3 -Cr wnl -Follows with Dr. Vargas, last seen on 07/20/20, no medication changes -Daily labs HTN -C/w home meds Diastolic CHF, chronic -last echo -EF 55-60%, mildly calcified AV. G1DD. Small pericardial effusion, no evidence for tamponade -C/w home meds Hx of splenectomy -No worsening s/s of infection Hypothyroidism - c/w home meds Hx of gout - c/w allopurinol Hx of depression - c/w home meds Hyperlipidemia - c/w statin DVT ppx: SCDs. TEDs. Heparin 5000 units q8h SC DISPOSITION: PT: safe for discharge home when medically cleared. VS, I&O, 24H, Fishbone Vital Signs/I&O Vital Signs Date Time Temp Pulse Resp B/P (MAP) Pulse Ox O2 Delivery O2 Flow Rate FiO2 06/26/20 08:13 75 156/80 06/26/20 06:00 98.1 20 96 Room Air I&O- Last 24 Hours up to 6 AM 06/26/20 06:00 Intake Total 1985 ml Balance 1985 ml Laboratory Data 24H LABS Laboratory Tests 2 06/26/20 05:31: Immature Granulocyte % (Auto) 1.5, Neutrophils (%) (Auto) 49.8, Lymphocytes (%) (Auto) 38.5, Monocytes (%) (Auto) 7.8, Eosinophils (%) (Auto) 1.6, Basophils (%) (Auto) 0.8, Neutrophils # (Auto) 7.6, Lymphocytes # (Auto) 5.9H, Monocytes # (Auto) 1.2H, Eosinophils # (Auto) 0.3, Basophils # (Auto) 0.1, Nucleated Red Blood Cells % (auto) 0.7H, Anion Gap 6L, Glomerular Filtration Rate 43.7, Calcium Level 8.7L, Magnesium Level 1.9, Total Bilirubin 0.3, Aspartate Amino Transf (AST/SGOT) 16, Alanine Aminotransferase (ALT/SGPT) 27, Alkaline Phosphatase 68, Total Protein 5.5L, Albumin 2.7L, Albumin/Globulin Ratio 1.0L CBC/BMP Laboratory Tests 06/26/20 05:31 Microbiology Microbiology 06/24/20 Gram Stain - Final, Complete 06/24/20 Abscess Culture - Final, Complete 06/22/20 Blood Culture - Preliminary, Resulted No Growth after 72 hours. All specime... 06/22/20 Blood Culture - Preliminary, Resulted No Growth after 72 hours. All specime... Current Medications Current Medications Medications (Trade) Dose Ordered Sig/Mercedes Route PRN Reason Start Time Stop Time Status Last Admin Dose Admin Acetaminophen (Tylenol Tab) 650 mg Q4H PRN PO PAIN OR FEVER 06/22/20 16:50 Al Hydrox/Mg Hydrox/Simethicone (Mylanta) 30 ml DAILY PRN PO DYSPEPSIA 06/22/20 16:50 Albuterol Sulfate (Proventil, Ventolin Hfa) 2 puff QID PRN INH SHORTNESS OF BREATH 06/22/20 16:50 Allopurinol (Zyloprim) 300 mg DAILY PO 06/23/20 09:00 06/26/20 08:13 Alprazolam (Xanax) 0.5 mg DAILY PRN PO ANXIETY/AGITATION 06/22/20 16:50 Aspirin (Ecotrin) 81 mg Q2D PO 06/23/20 09:00 06/25/20 10:32 Atorvastatin Calcium (Lipitor) 80 mg QHS PO 06/22/20 21:00 06/25/20 20:08 Bisoprolol Fumarate (Zebeta) 5 mg DAILY PO 06/23/20 09:00 06/26/20 08:13 Budesonide (Entocort Ec) 6 mg DAILY PO 06/23/20 09:00 06/26/20 08:09 Budesonide/ Formoterol Fumarate (Symbicort 80/ 4.5mcg) 2 puff BID PRN INH SHORTNESS OF BREATH 06/22/20 16:50 Ceftriaxone Sodium 1 gm/ Dextrose 50 ml @ 100 mls/hr Q24H IV 06/22/20 18:00 06/26/20 08:08 DC 06/25/20 17:57 Diltiazem HCl (Cardizem Cd) 240 mg DAILY PO 06/23/20 09:00 06/26/20 08:12 Docusate Sodium (Colace) 100 mg BID PO 06/22/20 21:00 06/26/20 08:09 Folic Acid (Folic Acid) 1 mg QHS PO 06/22/20 21:00 06/25/20 20:09 Gabapentin (Neurontin) 100 mg TID PO 06/22/20 16:00 06/26/20 08:13 Heparin Sodium (Porcine) (Heparin) 5,000 units Q8H SC 06/22/20 22:00 06/26/20 05:30 Home Med (Med Rec Complete!) ASDIRECTED XX 06/22/20 14:40 06/22/20 14:38 DC Lactobacillus Acidophilus (Bacid) 1 ea BIDWM PO 06/23/20 08:00 06/26/20 08:09 Levothyroxine Sodium (Synthroid) 100 mcg DAILY@0600 PO 06/23/20 06:00 06/26/20 05:30 Linezolid 600 mg/ IV Miscellaneous Supplies 300 ml @ 150 mls/hr Q12H IV 06/26/20 10:00 06/26/20 09:41 Magnesium Hydroxide (Milk Of Magnesia) 30 ml DAILY PRN PO CONSTIPATION 06/22/20 16:50 Potassium Chloride (Micro-K Extencaps) 20 meq BID PO 06/22/20 21:00 06/26/20 08:12 Quetiapine Fumarate (SEROquel) 50 mg QHS PO 06/22/20 21:00 06/25/20 20:09 Sodium Chloride 1,000 ml @ 100 mls/hr Q10H IV 06/23/20 10:25 06/23/20 15:00 DC 06/23/20 11:17 Torsemide (Demadex) 20 mg BID@0900,1700 PO 06/24/20 09:00 06/26/20 08:13 Torsemide (Demadex) 20 mg BID@0900,1700 PO 06/22/20 17:00 06/23/20 10:25 DC 06/23/20 08:14 Vancomycin HCl 500 mg/Dextrose 110 ml @ 110 mls/hr Q24H IV 06/25/20 16:00 06/26/20 08:08 DC 06/25/20 16:39 Vancomycin HCl 750 mg/IV Miscellaneous Supplies 1 each/ Sodium Chloride 275 ml @ 275 mls/hr Q24H IV 06/23/20 15:00 06/26/20 08:08 DC 06/25/20 15:10 Vancomycin HCl 750 mg/IV Miscellaneous Supplies 1 each/ Sodium Chloride 275 ml @ 275 mls/hr Q24H IV 06/23/20 16:00 06/25/20 14:51 DC 06/24/20 16:52 Vancomycin HCl 1000 mg/IV Miscellaneous Supplies 1 each/ Sodium Chloride 270 ml @ 270 mls/hr Q12H IV 06/23/20 06:00 06/22/20 19:07 DC Venlafaxine HCl (Effexor) 75 mg DAILY PO 06/23/20 09:00 06/26/20 08:09 Allergies Coded Allergies: indomethacin (Verified Allergy, Unknown, as takes asprin, 05/21/19) levofloxacin (Verified Allergy, Unknown, UNKNOWN REACTION, 06/22/20) tetracycline (Unverified Allergy, Unknown, UNKNOWN REACTION, 06/22/20) amlodipine (Verified Adverse Reaction, Mild, MUSCLE CRAMPS, 06/22/20) trazodone (Unverified Adverse Reaction, Mild, DIZZINESS, 06/22/20) Wendy Kennedy MD Jun 26, 2020 14:35
[2020-06-26] MEDS: FOLIC ACID 1 MG TAB PO SCH (20:17)
[2020-06-26] MEDS: QUEtiapine FUMARATE 50MG TAB PO SCH (20:17)
[2020-06-26] MEDS: ATORVASTATIN 20 MG TAB PO SCH (20:17)
--- NOTE | 2020-06-26 20:19 | IPN ---
NEPHROLOGY PROGRESS NOTE DATE: 06/26/2020 SUBJECTIVE: Ms. Weinstein is seen this morning on her bedside. She is sitting in her chair with legs elevated. Her left leg swelling is better and she is feeling much better. She denies any dyspnea or chest pain. Erythema on her left leg is also slightly improved. The wound on her left leg is covered with scab. There is no edema on her right leg. PHYSICAL EXAMINATION: Temperature 98 degrees Fahrenheit, heart rate 75 per minute and respiratory rate 20 per minute. Blood pressure 156/80 mmHg and oxygen saturation 96% on room air. Head: Atraumatic. Neck: Supple and without JVD or thyroid enlargement. Heart: Sounds are regular. Lungs: Clear to auscultation. Abdomen: Soft and nontender and bowel sounds are normal. Extremities: Without any cyanosis or clubbing. Left leg swelling is improving and erythema is better compared to yesterday. There is no edema on her right leg. Neurologically: She is awake, alert and oriented times 3. LABORATORY DATA: Today's labs show WBC count 15.4, hemoglobin 11.3 and hematocrit 35.3. Sodium 145, potassium 3.8, CO2 28, BUN 36 and creatinine 1.26. PROBLEMS/PLAN: 1. Acute kidney injury superimposed on chronic kidney disease: Kidney function is unchanged since yesterday. This is probably close to her baseline kidney function. She is currently not on any nephrotoxic medications. She is likely to be discharged to home today with oral antibiotics. Here in the hospital she had been getting ceftriaxone and then Zyvox. She did receive vancomycin also which is now stopped. She is currently not on any FRANCIE inhibitor or angiotensin receptor mary. 2. Congestive heart failure: Volume status is reasonably well compensated and she should continue with her chronic diuretic dose of torsemide 20 mg twice a day. 3. Left leg cellulitis: Her cellulitis is improving. She has been given vancomycin which was stopped yesterday and vancomycin level was 19.3. She is likely to go home with oral antibiotic now. I have advised her to continue with antibiotic for at least 1 more week. 4. Disposition: From a renal standpoint patient can be discharged to home and follow up as an outpatient in the clinic.
[2020-06-26 22:00] VITALS: BP 156/81
[2020-06-27 06:00] VITALS: BP 148/78
[2020-06-27] MEDS: LEVOTHYROXINE 100MCG TABLET (0.1MG) PO SCH (06:03)
[2020-06-27] MEDS: HEPARIN SOD (PORCINE) 5000UNITS/ML 1ML VIAL/SYRINGE SC SCH ×3 (06:03→21:21)
[2020-06-27 06:50] LABS: BASO # 0.1 10^3/uL (0.0-0.2); BASO % 0.7 % (0.0-1.0); EOS # 0.2 10^3/uL (0.0-0.5); EOS % 1.2 % (0.0-3.0); HEMATOCRIT 37.8 % (36.0-47.0); HEMOGLOBIN 12.1 g/dl (12.0-15.5); LYMPH # 6.2 10^3/uL (1.5-5.0); LYMPH % 37.8 % (24.0-44.0); MEAN CORPUSCULAR HEMOGLOBIN 33.6 pg (27.0-33.0); MONO # 1.2 10^3/uL (0.0-0.8); MONO % 7.4 % (2.0-8.0); NEUTROPHILS # 8.4 10^3/uL (1.5-8.5); NEUTROPHILS % 51.4 % (36.0-66.0); PLATELET COUNT, AUTOMATED 227 10^3/uL (150-450)
[2020-06-27 06:51] LABS: WHITE BLOOD COUNT 16.3 10^3/uL (4.0-10.0)
[2020-06-27 07:08] LABS: ALBUMIN 2.9 GM/DL (3.2-5.2); BILIRUBIN,TOTAL 0.6 MG/DL (0.2-1.0); CALCIUM LEVEL 9.1 MG/DL (8.8-10.2); CREATININE FOR GFR 1.43 MG/DL (0.55-1.30); GLOMERULAR FILTRATION RATE 37.8 (>39); MAGNESIUM LEVEL 1.8 MG/DL (1.8-2.4); POTASSIUM SERUM 3.5 MEQ/L (3.5-5.1); TOTAL PROTEIN 6.3 GM/DL (6.4-8.2)
[2020-06-27] MEDS: BUDESONIDE EC 3 MG CAP (ENTOCORT EC) PO SCH (09:09)
[2020-06-27] MEDS: VENLAFAXINE 37.5 MG TAB PO SCH (09:09)
[2020-06-27] MEDS: ASPIRIN 81MG ENTERIC TABLET PO SCH (09:09)
[2020-06-27] MEDS: DOCUSATE SODIUM 100MG CAPSULE PO SCH ×2 (09:10→21:21)
[2020-06-27] MEDS: GABAPENTIN 100 MG CAP PO SCH ×3 (09:10→21:21)
[2020-06-27] MEDS: LACTOBACILLUS ACIDOPHILUS CAP (BACID) PO SCH ×2 (09:10→17:21)
[2020-06-27] MEDS: bisoproloL fumarate 5 MG TAB PO SCH (09:10)
[2020-06-27] MEDS: allopurinoL 300 MG TAB PO SCH (09:10)
[2020-06-27] MEDS: LINEZOLID 600 MG in IV 1 EA IV SCH ×2 (09:10→21:22)
[2020-06-27] MEDS: TORSEMIDE 20 MG TAB PO SCH ×2 (09:10→16:14)
[2020-06-27] MEDS: POTASSIUM CHLORIDE 10 MEQ SR TABLET PO SCH ×2 (09:10→21:21)
[2020-06-27 14:00] VITALS: BP 156/80
--- NOTE | 2020-06-27 15:12 | IPNPDOC ---
Date Seen The patient was seen on 06/27/20. Progress Note SUBJECTIVE: WBC increased to 16.3. According to patient, this has been an ongoing problem with her WBC, her PCP has told her it is high often. Cr increased, discussed with Dr. Vargas who recommended to watch another night. LLE appears much improved, decreased erythema. OBJECTIVE: PHYSICAL EXAMINATION: VITAL SIGNS: please see below General: NAD, comfortable HEENT: PERRLA, EOMI, sclerae clear Neck: supple, normal ROM, no JVD Respiratory: lungs CTAB, no wheeze, no rales, no crackles CVS: RRR, normal S1, S2, no murmurs Abdo: soft, no masses, no hepatosplenomegaly, BS+, no rebound tenderness Extremities/INTEG. : Left leg , anterior shinwith decreased edema , erythema. +1 edema in LLE, no swelling of RLE. left lateral calf skin tear/popped blister is healing nicely. Pulses 2+. No cyanosis Neuro: no focal neuro deficits, moving all 4 extremities, CN2-12 intact. Strength 5/5 in all 4 extremities. No nystagmus. Psych: calm, cooperative, AAO x 3 IMAGING: CT left lower ext with contrast: edema, swelling, fat stranding with cellulitiis. NO abscess US LLE: neg for DVT LABORATORY DATA: See below MICROBIOLOGY: Wound cX: NG BCX NG ASSESSMENT: 80 y/o F with PMH below admitted for LLE cellulitis. PLAN: Cellulitis LLE with anterior cuello wound -WBC 16.3, afebrile, healing well and clinically appears to be improving despite leukocytosis -C/w IV zyvox. Plan is discharge home with zyvox (total 10) -Daily labs RADHA on CKD3 -Cr increased since 06/26/20 to 1.43 -Follows with Dr. Vargas, discussed with him today. Wishes to keep another day to see how labs trend -Zyvox added on 06/26/20 should not have caused this change in labs -Daily labs Chronic leukocytosis -Upon trending labs, this appears to be a problem she has dealt with for many years -When discussing labs, she says he PCP is aware and they have worked her up for it. -Monitor with daily CBC HTN -C/w home meds Diastolic CHF, chronic -last echo -EF 55-60%, mildly calcified AV. G1DD. Small pericardial effusion, no evidence for tamponade -C/w home meds Hx of splenectomy -No worsening s/s of infection Hypothyroidism - c/w home meds Hx of gout - c/w allopurinol Hx of depression - c/w home meds Hyperlipidemia - c/w statin DVT ppx: SCDs. TEDs. Heparin 5000 units q8h SC DISPOSITION: PT: safe for discharge home when medically cleared. VS, I&O, 24H, Fishbone Vital Signs/I&O Vital Signs Date Time Temp Pulse Resp B/P (MAP) Pulse Ox O2 Delivery O2 Flow Rate FiO2 06/27/20 14:00 98.1 81 16 156/80 (105) 91 Room Air I&O- Last 24 Hours up to 6 AM 06/27/20 06:00 Intake Total 1500 ml Balance 1500 ml Laboratory Data 24H LABS Laboratory Tests 2 06/27/20 06:17: Immature Granulocyte % (Auto) 1.5, Neutrophils (%) (Auto) 51.4, Lymphocytes (%) (Auto) 37.8, Monocytes (%) (Auto) 7.4, Eosinophils (%) (Auto) 1.2, Basophils (%) (Auto) 0.7, Neutrophils # (Auto) 8.4, Lymphocytes # (Auto) 6.2H, Monocytes # (Auto) 1.2H, Eosinophils # (Auto) 0.2, Basophils # (Auto) 0.1, Nucleated Red Blood Cells % (auto) 0.7H, Anion Gap 5L, Glomerular Filtration Rate 37.8L, Calcium Level 9.1, Magnesium Level 1.8, Total Bilirubin 0.6#, Aspartate Amino Transf (AST/SGOT) 17, Alanine Aminotransferase (ALT/SGPT) 29, Alkaline Phosphatase 72, Total Protein 6.3L, Albumin 2.9L, Albumin/Globulin Ratio 0.9L CBC/BMP Laboratory Tests 06/27/20 06:17 Microbiology Microbiology 06/24/20 Gram Stain - Final, Complete 06/24/20 Abscess Culture - Final, Complete 06/22/20 Blood Culture - Preliminary, Resulted No Growth after 72 hours. All specime... 06/22/20 Blood Culture - Final, Complete NO GROWTH AFTER 5 DAYS Current Medications Current Medications Medications (Trade) Dose Ordered Sig/Mercedes Route PRN Reason Start Time Stop Time Status Last Admin Dose Admin Acetaminophen (Tylenol Tab) 650 mg Q4H PRN PO PAIN OR FEVER 06/22/20 16:50 Al Hydrox/Mg Hydrox/Simethicone (Mylanta) 30 ml DAILY PRN PO DYSPEPSIA 06/22/20 16:50 Albuterol Sulfate (Proventil, Ventolin Hfa) 2 puff QID PRN INH SHORTNESS OF BREATH 06/22/20 16:50 Allopurinol (Zyloprim) 300 mg DAILY PO 06/23/20 09:00 06/27/20 09:10 Alprazolam (Xanax) 0.5 mg DAILY PRN PO ANXIETY/AGITATION 06/22/20 16:50 Aspirin (Ecotrin) 81 mg Q2D PO 06/23/20 09:00 06/27/20 09:09 Atorvastatin Calcium (Lipitor) 80 mg QHS PO 06/22/20 21:00 06/26/20 20:17 Bisoprolol Fumarate (Zebeta) 5 mg DAILY PO 06/23/20 09:00 06/27/20 09:10 Budesonide (Entocort Ec) 6 mg DAILY PO 06/23/20 09:00 06/27/20 09:09 Budesonide/ Formoterol Fumarate (Symbicort 80/ 4.5mcg) 2 puff BID PRN INH SHORTNESS OF BREATH 06/22/20 16:50 Ceftriaxone Sodium 1 gm/ Dextrose 50 ml @ 100 mls/hr Q24H IV 06/22/20 18:00 06/26/20 08:08 DC 06/25/20 17:57 Diltiazem HCl (Cardizem Cd) 240 mg DAILY PO 06/23/20 09:00 06/27/20 09:09 Docusate Sodium (Colace) 100 mg BID PO 06/22/20 21:00 06/27/20 09:10 Folic Acid (Folic Acid) 1 mg QHS PO 06/22/20 21:00 06/26/20 20:17 Gabapentin (Neurontin) 100 mg TID PO 06/22/20 16:00 06/27/20 09:10 Heparin Sodium (Porcine) (Heparin) 5,000 units Q8H SC 06/22/20 22:00 06/27/20 13:41 Home Med (Med Rec Complete!) ASDIRECTED XX 06/22/20 14:40 06/22/20 14:38 DC Lactobacillus Acidophilus (Bacid) 1 ea BIDWM PO 06/23/20 08:00 06/27/20 09:10 Levothyroxine Sodium (Synthroid) 100 mcg DAILY@0600 PO 06/23/20 06:00 06/27/20 06:03 Linezolid 600 mg/ IV Miscellaneous Supplies 300 ml @ 150 mls/hr Q12H IV 06/26/20 10:00 06/27/20 09:10 Magnesium Hydroxide (Milk Of Magnesia) 30 ml DAILY PRN PO CONSTIPATION 06/22/20 16:50 Potassium Chloride (Micro-K Extencaps) 20 meq BID PO 06/22/20 21:00 06/27/20 09:10 Quetiapine Fumarate (SEROquel) 50 mg QHS PO 06/22/20 21:00 06/26/20 20:17 Sodium Chloride 1,000 ml @ 100 mls/hr Q10H IV 06/23/20 10:25 06/23/20 15:00 DC 06/23/20 11:17 Torsemide (Demadex) 20 mg BID@0900,1700 PO 06/24/20 09:00 06/27/20 09:10 Torsemide (Demadex) 20 mg BID@0900,1700 PO 06/22/20 17:00 06/23/20 10:25 DC 06/23/20 08:14 Vancomycin HCl 500 mg/Dextrose 110 ml @ 110 mls/hr Q24H IV 06/25/20 16:00 06/26/20 08:08 DC 06/25/20 16:39 Vancomycin HCl 750 mg/IV Miscellaneous Supplies 1 each/ Sodium Chloride 275 ml @ 275 mls/hr Q24H IV 06/23/20 15:00 06/26/20 08:08 DC 06/25/20 15:10 Vancomycin HCl 750 mg/IV Miscellaneous Supplies 1 each/ Sodium Chloride 275 ml @ 275 mls/hr Q24H IV 06/23/20 16:00 06/25/20 14:51 DC 06/24/20 16:52 Vancomycin HCl 1000 mg/IV Miscellaneous Supplies 1 each/ Sodium Chloride 270 ml @ 270 mls/hr Q12H IV 06/23/20 06:00 3/8/21 19:07 DC Venlafaxine HCl (Effexor) 75 mg DAILY PO 06/23/20 09:00 06/27/20 09:09 Allergies Coded Allergies: indomethacin (Verified Allergy, Unknown, as takes asprin, 05/21/19) levofloxacin (Verified Allergy, Unknown, UNKNOWN REACTION, 06/22/20) tetracycline (Unverified Allergy, Unknown, UNKNOWN REACTION, 06/22/20) amlodipine (Verified Adverse Reaction, Mild, MUSCLE CRAMPS, 06/22/20) trazodone (Unverified Adverse Reaction, Mild, DIZZINESS, 06/22/20) Wendy Kennedy MD Jun 27, 2020 15:12
[2020-06-27] MEDS: ATORVASTATIN 20 MG TAB PO SCH (21:21)
[2020-06-27] MEDS: QUEtiapine FUMARATE 50MG TAB PO SCH (21:21)
[2020-06-27] MEDS: FOLIC ACID 1 MG TAB PO SCH (21:21)
[2020-06-27 22:00] VITALS: BP 168/70
[2020-06-27 23:32] VITALS: BP 148/74
[2020-06-28] MEDS: LEVOTHYROXINE 100MCG TABLET (0.1MG) PO SCH (05:47)
[2020-06-28] MEDS: HEPARIN SOD (PORCINE) 5000UNITS/ML 1ML VIAL/SYRINGE SC SCH (05:47)
[2020-06-28 06:00] VITALS: BP 148/80
[2020-06-28 06:58] LABS: BASO # 0.1 10^3/uL (0.0-0.2); BASO % 0.6 % (0.0-1.0); EOS # 0.2 10^3/uL (0.0-0.5); EOS % 1.5 % (0.0-3.0); HEMATOCRIT 35.3 % (36.0-47.0); HEMOGLOBIN 11.5 g/dl (12.0-15.5); LYMPH % 36.7 % (24.0-44.0); MEAN CORPUSCULAR HEMOGLOBIN 33.7 pg (27.0-33.0); MEAN CORPUSCULAR HGB CONC 32.6 g/dl (32.0-36.5); MEAN CORPUSCULAR VOLUME 103.5 fl (80.0-96.0); MONO # 1.3 10^3/uL (0.0-0.8); MONO % 7.8 % (2.0-8.0); NEUTROPHILS # 8.4 10^3/uL (1.5-8.5); NEUTROPHILS % 51.9 % (36.0-66.0); PLATELET COUNT, AUTOMATED 229 10^3/uL (150-450); RED BLOOD COUNT 3.41 10^6/uL (4.00-5.40)
[2020-06-28 06:59] LABS: WHITE BLOOD COUNT 16.2 10^3/uL (4.0-10.0)
[2020-06-28 07:28] LABS: ALBUMIN 2.9 GM/DL (3.2-5.2); BILIRUBIN,TOTAL 0.3 MG/DL (0.2-1.0); CALCIUM LEVEL 8.9 MG/DL (8.8-10.2); CREATININE FOR GFR 1.36 MG/DL (0.55-1.30); MAGNESIUM LEVEL 1.9 MG/DL (1.8-2.4); POTASSIUM SERUM 3.8 MEQ/L (3.5-5.1); TOTAL PROTEIN 5.5 GM/DL (6.4-8.2)
[2020-06-28] MEDS: VENLAFAXINE 37.5 MG TAB PO SCH (08:35)
[2020-06-28] MEDS: DOCUSATE SODIUM 100MG CAPSULE PO SCH (08:35)
[2020-06-28] MEDS: TORSEMIDE 20 MG TAB PO SCH (08:35)
[2020-06-28] MEDS: GABAPENTIN 100 MG CAP PO SCH (08:36)
[2020-06-28] MEDS: BUDESONIDE EC 3 MG CAP (ENTOCORT EC) PO SCH (08:36)
[2020-06-28] MEDS: POTASSIUM CHLORIDE 10 MEQ SR TABLET PO SCH (08:36)
[2020-06-28] MEDS: LACTOBACILLUS ACIDOPHILUS CAP (BACID) PO SCH (08:36)
[2020-06-28] MEDS: allopurinoL 300 MG TAB PO SCH (08:36)
[2020-06-28 08:37] VITALS: BP 152/88
[2020-06-28] MEDS: bisoproloL fumarate 5 MG TAB PO SCH (08:39)
--- NOTE | 2020-06-28 12:54 | DS.PDOC ---
Discharge Summary General Date of Admission Jun 22, 2020 at 16:48 Date of Discharge 06/28/20 Attending Physician: Wendy Kennedy MD Discharge Summary HISTORY OF PRESENT ILLNESS: 80-year-old female with a history of stage III, COPD, coronary artery disease status post MEHNAZ to LAD in 2004, hypothyroid, hyperlipidemia, depression. Presented to ER with 4 day history of worsening left lower leg pain, swelling and erythema extending up to the left knee. Patient reports sliding off her ch air accidentally and scraping her leg under the table. She denies any brittle wound or other foreign bodies that could've entered the leg. She was last admitted to hospitalist beginning of May 2020 for the management of severe bilateral cellulitis with sepsis. Patient was last seen in nephrology clinic on 06/19/20 where she was diagnosed with cellulitis and started on doxycycline and cefdinir. The area of erythema was demarcated at the time. On presentation to the ER is obvious that her cellulitis extends beyon the borders of the prior demarcation. Patient denies any fevers, chills, shortness of breath, nausea, vomiting, palpitations or chest pain. Vitals reviewed. BP elevated at 180/90. Pulse ox 95. Temperature 98.3, pulse 82, respiratory 26. Manual repeat blood pressure normalized. WBC 17. Hemoglobin 12.7. ESR 57. Na+140. K+ 4.4. Creatinine 1.25. BUN 32. CRP 5.42. LA 1.4. Patient was admitted to hospitalist service for management of cellulitis (LLE) which has failed outpatient PO therapy. HOSPITAL COURSE: Patient was continued on IV abx after admission. Cellulitis LLE with anterior cuello wound slowly continued to improve. She was later switched to IV zyvox BID. WBC remained slightly elevated but was afebrile, healing well and clinically appears to be improving despite leukocytosis. Per patient, she has been told she has chronically elevated WBC and this was looked into as o/p. Culture done of the anterior cuello wound did not grow bacteria. By 06/28/20 patient's cellulitis was much improved and she was discharged home with Po zyvox for additional 9 days. Her RADHA on CKD3 was improving, she was evaluated by nephrology here and will f/u o/p. At discharge, she denied ches tpain, SOB, fevers, chills. PAST MEDICAL HISTORY: 1. Splenectomy for hemolytic anemia. 2. Aortic stenosis. Echocardiogram last done 05/05 with aortic sclerosis without stenosis noted at that time. Ejection fraction 55% to 60%, mild left atrial enlargement with mild diastolic dysfunction. 3. Hypertensive heart disease. 4. Hyperlipidemia. 5. Hypothyroidism. 6. Depression. 7. Hemolytic anemia for which she sees a android architect in [place]. 8. Stage III chronic kidney disease with recent decline. 9. Coronary artery disease status post drug-eluting stent to the LAD in 2004; last nuclear stress test at [facility] 05/05, showed normal perfusion and ejection fraction 60%. 10. Chronic anxiety and depression. 11. Recent situational deterioration of her mental status secondary to her 's dementia with behavioral disturbance. 12. E. coli UTI 12/2016 and 04/2017. 13. Microscopic colitis on a colon biopsy from 06/06 to explain her chronic diarrhea. 14. Gout. 15. GERD. PAST SURGICAL HISTORY: 1. Hysterectomy with BSO in 1974. 2. Cholecystectomy. 3. Splenectomy in 2005. 4. Rectal fissure repair. 5. Drug-eluting stent in 2005. 6. Colonoscopy in 2014 for adenomatous colon polyp. 7. Colonoscopy 06/06 with biopsy showing microscopic colitis. SOCIAL HISTORY: - remote hx of smoking - no signficant etoh use - lives at home with , who was recently dx with lung cancer, has dementia with behaviours FAMILY HISTORY: -Father at 48 of cerebral aneurysm -Mother at 87 of heart disease. DISCHARGE MEDICATIONS: Please see below PHYSICAL EXAMINATION: VITAL SIGNS: please see below General: NAD, comfortable HEENT: PERRLA, EOMI, sclerae clear Neck: supple, normal ROM, no JVD Respiratory: lungs CTAB, no wheeze, no rales, no crackles CVS: RRR, normal S1, S2, no murmurs Abdo: soft, no masses, no hepatosplenomegaly, BS+, no rebound tenderness Extremities/INTEG. : Left leg , anterior shinwith decreased edema , erythema. nonpitting edema in LLE, no swelling of RLE. left lateral calf skin tear/popped blister is healing nicely. Pulses 2+. No cyanosis Neuro: no focal neuro deficits, moving all 4 extremities, CN2-12 intact. Strength 5/5 in all 4 extremities. No nystagmus. Psych: calm, cooperative, AAO x 3 IMAGING: CT left lower ext with contrast: edema, swelling, fat stranding with cellulitiis. NO abscess US LLE: neg for DVT LABORATORY DATA: See below MICROBIOLOGY: Wound cX: NG BCX NG ASSESSMENT: 80 y/o F with PMH below admitted for LLE cellulitis. PLAN: Cellulitis LLE with anterior cuello wound -WBC 16.2, afebrile, healing well and clinically appears to be improving despite leukocytosis -C/w zyvox PO to complete total 10 days. -F/u with PCP CKD3 -Cr increased since 06/26/20 to 1.43, improving slowly -Follows with Dr. Vargas, discussed with him prior to discharge. W Chronic leukocytosis -Upon trending labs, this appears to be a problem she has dealt with for many years -When discussing labs, she says he PCP is aware and they have worked her up for it. -Monitor o/p HTN -C/w home meds Diastolic CHF, chronic -last echo :EF 55-60%, mildly calcified AV. G1DD. Small pericardial effusion, no evidence for tamponade -C/w home meds Hx of splenectomy -No worsening s/s of infection Hypothyroidism - c/w home meds Hx of gout - c/w allopurinol Hx of depression - c/w home meds Hyperlipidemia - c/w statin DISPOSITION: Discharged home to f/u with PCP after weekend. TIME SPENT ON DISCHARGE: 35 minutes. Vital Signs/I&Os Vital Signs Date Time Temp Pulse Resp B/P (MAP) Pulse Ox O2 Delivery O2 Flow Rate FiO2 06/28/20 08:37 79 152/88 06/28/20 06:00 98.7 18 94 Room Air I&O- Last 24 Hours up to 6 AM 06/28/20 06:00 Intake Total 1740 ml Balance 1740 ml Laboratory Data Labs 24H Laboratory Tests 2 06/28/20 06:25: Immature Granulocyte % (Auto) 1.5, Neutrophils (%) (Auto) 51.9, Lymphocytes (%) (Auto) 36.7, Monocytes (%) (Auto) 7.8, Eosinophils (%) (Auto) 1.5, Basophils (%) (Auto) 0.6, Neutrophils # (Auto) 8.4, Lymphocytes # (Auto) 6.0H, Monocytes # (Auto) 1.3H, Eosinophils # (Auto) 0.2, Basophils # (Auto) 0.1, Nucleated Red Blood Cells % (auto) 1.0H, Anion Gap 8, Glomerular Filtration Rate 40.0, Calcium Level 8.9, Magnesium Level 1.9, Total Bilirubin 0.3, Aspartate Amino Transf (AST/SGOT) 18, Alanine Aminotransferase (ALT/SGPT) 30, Alkaline Phosphatase 71, Total Protein 5.5L, Albumin 2.9L, Albumin/Globulin Ratio 1.1L CBC/BMP Laboratory Tests 06/28/20 06:25 Microbiology Microbiology 06/24/20 Gram Stain - Final, Complete 06/24/20 Abscess Culture - Final, Complete 06/22/20 Blood Culture - Final, Complete NO GROWTH AFTER 5 DAYS 06/22/20 Blood Culture - Final, Complete NO GROWTH AFTER 5 DAYS Discharge Medications Scheduled Allopurinol (Zyloprim) 300 Mg Tablet, 300 MG PO DAILY, (Reported) Aspirin (Aspirin EC) 81 Mg Tab, 81 MG PO Q2D, (Reported) TAKES AT BEDTIME EVERY OTHER NIGHT Atorvastatin Calcium (Atorvastatin Calcium) 80 Mg Tab, 80 MG PO QHS, (Reported) Bisoprolol Fumarate (Bisoprolol Fumarate) 5 Mg Tablet, 5 MG PO DAILY, (Reported) Budesonide (Budesonide EC) 3 Mg Capdr...er, 6 MG PO DAILY, (Reported) Diltiazem HCl (Cartia Xt) 240 Mg Cap, 240 MG PO DAILY, (Reported) Folic Acid (Folic Acid) 1 Mg Tab, 1 MG PO QHS, (Reported) Gabapentin (Gabapentin) 100 Mg Capsule, 100 MG PO TID, (Reported) Levothyroxine Sodium (Levoxyl) 100 Mcg Tablet, 100 MCG PO DAILY, (Reported) Linezolid (Zyvox) 600 Mg Tablet, 1 TAB PO BID with food Potassium Chloride (Potassium Chloride) 20 Meq Tablet.er, 20 MEQ PO BID, (Reported) Quetiapine Fumarate (Quetiapine Fumarate) 25 Mg Tablet, 50 MG PO QHS, (Reported) Torsemide (Torsemide) 20 Mg Tablet, 20 MG PO BID, (Reported) TAKES AM/MIDDAY Venlafaxine HCl (Venlafaxine HCl) 75 Mg Tablet, 75 MG PO DAILY, (Reported) Scheduled PRN Albuterol Sulfate (Albuterol Sulfate Hfa) 8.5 Gm Hfa.aer.ad, 2 PUFFS INH QID PRN for SHORTNESS OF BREATH, (Reported) Alprazolam (Alprazolam) 0.5 Mg Tab, 0.5 MG PO DAILY PRN for ANXIETY/AGITATION, (Reported) Budesonide/Formoterol (Symbicort 80-4.5 Mcg Inhaler) 6.9 Gm Hfa.aer.ad, 2 PUFFS INH BID PRN for SHORTNESS OF BREATH, (Reported) Allergies Coded Allergies: indomethacin (Verified Allergy, Unknown, as takes asprin, 05/21/19) levofloxacin (Verified Allergy, Unknown, UNKNOWN REACTION, 06/22/20) tetracycline (Unverified Allergy, Unknown, UNKNOWN REACTION, 06/22/20) amlodipine (Verified Adverse Reaction, Mild, MUSCLE CRAMPS, 06/22/20) trazodone (Unverified Adverse Reaction, Mild, DIZZINESS, 06/22/20) Wendy Kennedy MD Jun 28, 2020 12:54
--- NOTE | 2020-06-28 21:24 | IPN ---
PROGRESS NOTE DATE: 06/28/2020 SUBJECTIVE: Patient was seen and examined at the bedside today morning. She is afebrile, hemodynamically stable. She reports her leg edema is getting better. Her erythema and left lower extremity cellulitis is also improving. Her renal function is also slightly better today as compared with yesterday and she reports that she is getting ready to be discharged today. OBJECTIVE: Vital signs: Temperature is 98.7 degrees Fahrenheit, blood pressure 148/80, pulse is 64, respiratory rate of 18, saturating 94% on room air. Intake and output: There is no urine output recorded. Weight in the bed scale is not available. PHYSICAL EXAMINATION: General: Patient is awake, alert, oriented times three, slightly obese body habitus, sitting up in the sofa, no apparent distress. Head and neck exam: Extraocular muscles intact. Pupils equally round and reactive to light. Mucous membranes are moist. Neck is supple. There is no jugular venous distension (JVD). Cardiovascular: S1, S2, regular rate. 1+ edema of the bilateral lower extremities. Respiratory: Chest is clear to auscultation bilaterally. Bilateral equal air entry. No rales or rhonchi. Abdomen: Soft, obese, positive bowel sounds, nontender, no organomegaly. Musculoskeletal: Left lower extremity cellulitis and ulcer is healing. 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 Power is 5/5 in all extremities. LABORATORY REVIEW: CBC showed WBC 16.2, hemoglobin 11.5, platelets are 229. BMP showed sodium 144, potassium 3.8, chloride 108, bicarbonate 28, BUN 37, creatinine is 1.3, it was 1.4 yesterday. CURRENT INPATIENT MEDICATIONS: Patient's medications were all reviewed by myself. She continues to be on Zyvox. Her diuretic dose is currently torsemide 20 mg by mouth twice a day. ASSESSMENT AND PLAN: 1. Acute kidney injury superimposed on chronic kidney disease. Patient's renal function is stable and improving. Creatinine is down to 1.3. Okay to discharge the patient home on current diuretics. 2. Left lower extremity cellulitis. Patient is currently on Zyvox. Cellulitis is improving. She can be discharged home on oral Zyvox. 3. Congestive heart failure and lower extremity edema. Continue current dose of torsemide 20 mg by mouth twice a day. Rest of the diuretic adjustment will be done as outpatient. 4. Disposition. Patient is okay to be discharged home. She needs to followup in nephrology within 2 weeks after discharge from the hospital.
--- NOTE | 2020-06-29 10:15 | IPN ---
NEPHROLOGY PROGRESS NOTE DATE: 06/27/2020 SUBJECTIVE: Patient was seen and examined at the bedside today morning. She is afebrile, hemodynamically stable. She reports the leg edema is getting better and cellulitis in the left lower extremity is also improving. She was started on I.V. Zyvox yesterday. In anticipation of her discharge, renal function is slightly worse today as compared with yesterday. OBJECTIVE: VITAL SIGNS: Temperature 98.1 degrees Fahrenheit, blood pressure 156/80, pulse 81, respiratory rate 16, sating 91% on room air. INTAKE AND OUTPUT: Urine output is not recorded. Weight in the bed scale is not available. PHYSICAL EXAMINATION: GENERAL: Patient is awake, alert and oriented x3, sitting up in the bed in no apparent distress. HEENT: Extraocular muscles intact. Pupils equally round and reactive to light. Mucous membranes are moist. Neck is supple. There is no JVD. RESPIRATORY: Chest is clear to auscultation bilaterally. Bilateral equal air entry. No rales or rhonchi. CARDIOVASCULAR: S1, S2, regular rate. 1+ edema of the right lower extremity and 2+ edema of the left lower extremity. ABDOMEN: Soft, positive bowel sounds, nontender. No organomegaly. MUSCULOSKELETAL: No cyanosis or clubbing. Pulses are 2+. 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 Power is 5/5 in all extremities. LABORATORY DATA: CBC showed WBC 16.3, hemoglobin 12.1, platelets 227,000. BMP showed sodium 142, potassium 3.5, chloride 109, CO2 28, BUN 36, creatinine 1.4; it was 1.2 yesterday. CURRENT INPATIENT MEDICATIONS: Patient's medications were all reviewed by myself. She was started on I.V. Zyvox 600 mg every 12 hours. She continues to be on Torsemide 20 mg p.o. twice a day. No other significant change in the medications today. ASSESSMENT AND PLAN: 1. Acute kidney injury superimposed on chronic kidney disease: Creatinine is slightly bumped up today as compared with yesterday. Okay to continue Zyvox at this time. Ceftriaxone has been stopped. Okay to continue the diuretics. 2. Congestive heart failure: Patient's volume status is optimal. She reports lower extremity edema is getting better. Continue current dose of Torsemide twice a day along with potassium. 3. Left leg cellulitis: She was on I.V. Ceftriaxone and Vancomycin, currently she is on Zyvox. Third generation cephalosporin has been stopped. She still has persistent leukocytosis, swelling, and redness is getting better. DISPOSITION: There is a slight bump in patient's creatinine, she will be observed for the next 24 hours and hopefully she should be able to be discharged over the next 24 to 48 hours.
== END 2020-06-28 10:25 | disposition home or self-care (01) | DRG 605 ==
LOC: M ED 13:08 → M ED INP 16:48 → ENRESERV 17:04 → M MS5PR 18:45
PROVIDERS: ADMIT Family Medicine; ATTEND Internal Medicine
DX: S80.12XA Contusion of left lower leg, initial encounter (principal); L03.116 Cellulitis of left lower limb; I13.0 Hypertensive heart and chronic kidney disease with heart failure and stage 1 through stage 4 chronic kidney disease, or unspecified chronic kidney disease; I50.32 Chronic diastolic (congestive) heart failure; N17.9 Acute kidney failure, unspecified; N18.30 Chronic kidney disease, stage 3 unspecified; J44.9 Chronic obstructive pulmonary disease, unspecified; Z90.81 Acquired absence of spleen; I25.10 Atherosclerotic heart disease of native coronary artery without angina pectoris; E03.9 Hypothyroidism, unspecified; E78.5 Hyperlipidemia, unspecified; F32.9 Major depressive disorder, single episode, unspecified; W07.XXXA Fall from chair, initial encounter; Y92.009 Unspecified place in unspecified non-institutional (private) residence as the place of occurrence of the external cause; I35.0 Nonrheumatic aortic (valve) stenosis; F41.9 Anxiety disorder, unspecified; M10.9 Gout, unspecified; K21.9 Gastro-esophageal reflux disease without esophagitis; D72.829 Elevated white blood cell count, unspecified; Z79.82 Long term (current) use of aspirin; Z79.899 Other long term (current) drug therapy; Z88.8 Allergy status to other drugs, medicaments and biological substances; Z95.2 Presence of prosthetic heart valve

== ENCOUNTER 2020-06-30 14:29 | Emergency (ER) | payer MEDICARE, OTHER ==
[~2020-06-30] VITALS: Ht 154.9 cm; Wt 94.7 kg
[~2020-06-30 14:29] MED LIST changes: +CEFD1CAP8 PO; +DOXY100C PO; +ZYVO1TAB PO
[2020-06-30] MEDS ORDERED: LINE1TAB6 (14:46)
[2020-06-30 16:33] LABS: BASO # 0.1 10^3/uL (0.0-0.2); BASO % 0.5 % (0.0-1.0); EOS # 0.1 10^3/uL (0.0-0.5); EOS % 0.3 % (0.0-3.0); HEMATOCRIT 40.6 % (36.0-47.0); LYMPH % 18.6 % (24.0-44.0); MEAN CORPUSCULAR HEMOGLOBIN 33.9 pg (27.0-33.0); MEAN CORPUSCULAR VOLUME 105.7 fl (80.0-96.0); MONO # 0.9 10^3/uL (0.0-0.8); MONO % 5.3 % (2.0-8.0); NEUTROPHILS # 12.1 10^3/uL (1.5-8.5); NEUTROPHILS % 74.1 % (36.0-66.0); PLATELET COUNT, AUTOMATED 240 10^3/uL (150-450); RED BLOOD COUNT 3.84 10^6/uL (4.00-5.40); WHITE BLOOD COUNT 16.3 10^3/uL (4.0-10.0)
[2020-06-30 16:57] LABS: RSV AMPLIFICATION NEGATIVE (NEGATIVE)
[2020-06-30 17:01] LABS: ERYTHROCYTE SEDIMENTATION RATE 51 mm/hr (0-30)
[2020-06-30 17:06] LABS: ALBUMIN 3.5 GM/DL (3.2-5.2); BILIRUBIN,DIRECT 0.1 MG/DL (0.0-0.2); BILIRUBIN,TOTAL 0.3 MG/DL (0.2-1.0); C REACTIVE PROTEIN QUANTITATIV 0.96 MG/DL (0.00-0.30); TOTAL PROTEIN 6.7 GM/DL (6.4-8.2)
--- NOTE | 2020-06-30 18:01 | REP ---
INDICATION: ?abscess US around area of eschar/drainage. Left leg infection. COMPARISON: Comparison venous study left lower extremity June 22, 2020.. TECHNIQUE: Left lower extremity soft tissue ultrasound is performed targeting the area of inflammation. FINDINGS: In the anterior aspect of the left lower leg pretibial soft tissues, there is an irregular subcutaneous hypoechoic area consistent with a irregular fluid collection. This measures 2.8 x 0.4 x 2.3 cm. There is echogenic fat adjacent to this consistent with some degree of edema or inflammation. IMPRESSION: Very small hypoechoic irregular fluid collection in the subcutaneous space as above. Possible small abscess. <Electronically signed by Enrique Ch > 06/30/20 [id number]
--- NOTE | 2020-06-30 19:38 | CR.PDOC ---
General Date of Consultation: Jun 30, 2020 Consultation REASON FOR CONSULTATION/CHIEF COMPLAINT: Request for admission for leg cellulitis and diarrhea with RADHA. HISTORY OF PRESENT ILLNESS: 80 year old female with multiple medical problems as below was recently in the hospital from 06/22/20 to 06/28/20 for cellulitis of left leg was treated with 7 days of ceftriaxone and vancomycin and discharged home with Linezolid day before yesterday. She took 1 dose of linezolid yesterday morning and started having uncontrollable diarrhea. So she called Dr Vargas and was instructed to come to ED. Hospitalist was consulted for possible admission. Patient reports that she has chronic diarrhea at baseline. She reports that she stubbed her left leg against the table about 2 weeks ago then it became red and swollen and painful and warm and was admitted for cellulitis. SHe had another bout of cellulitis on the right leg in May also at that time she could hardly walk and was also confused. After the antibiotics its is not longer as swollen as before though winder tender and now has a black scab on top. the lesion was about 4 cm x 4 cm onthe cuello of the left leg with black eschar on top and some localized swelling and mild erythema. I was able to express out quite a bit of thick blood mixed with pus. She denied any fever or chills. She says her diarrhea seems to have subsided as did not have any bowel movement in the ED. Denied any abdominal pain or nausea or vomiting. The lesion needs to be deroofed and the eschar removed for healing. I discussed with Dr Hernadez and he recommended to send the patetint ot the surgical office and to wound clinic. She does complain of chronic bilateral leg swelling. ALLERGIES: Please see below. HOME MEDICATIONS: Please see below. 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 Morbid obesity BMI 39.4 COPD Chronic venous stasis Diastolic CHF Hypertensive heart disease. Hyperlipidemia. Hypothyroidism. Stage III chronic kidney disease Coronary artery disease status post drug-eluting stent to the LAD in 2004; Chronic anxiety and depression. Gout. GERD. PSH: Hysterectomy with BSO in 1974. Cholecystectomy. Splenectomy in 2005. Rectal fissure repair. Drug-eluting stent in 2005. Colonoscopy in 2014 for adenomatous colon polyp. Colonoscopy 06/06 with biopsy showing microscopic colitis. Family History Father at 48 of cerebral aneurysm Mother at 87 of heart disease. SISTER HEART DISEASE (ATRIAL FIB), DEPRESSION Social History Smoker: former Smoker Alcohol: Denies Drugs: denies REVIEW OF SYSTEMS: All 11 point review of systems are negative except those mentioned in HPI. PHYSICAL EXAMINATION: VITAL SIGNS: Please see below. GENERAL APPEARANCE: awake , alert, oriented x 3, laying in bed in no distress. HEENT: NC, AT moist mucous membranes. RESPIRATORY: Clear to Auscultation. CARDIOVASCULAR: S1, S2 regular ABDOMEN: Obese, soft, nontender, bowel sounds hyperperistaltic. EXTREMITIES: Bipedal 2+ pitting edema, small abscess 4cm x3cm on the left cuello with eschar with some pus draining. NEUROLOGICAL: No focal neurodeficit. LABORATORY DATA: Please see below. Radiology: left lef soft tissue US: Very small hypoechoic irregular fluid collection in the subcutaneous space as above. Possible small abscess. ASSESSMENT/PLAN: Left cuello old hematoma now developed a localized abscess with eschar. Patient is not septic. Patient does not need to be admitted. Will recommend giving 1 dose of Dalvance and referral to Dr Hernadez for deroofing of the abscess in the clinic and referral to Dr Milian for chronic wound care. Apply optifoam dression to avoid trauma to the area and soakage of any discharges cultures have been sent from the wound and also blood cultures CKD: Stable. Patient's creatinine is 1.4 today which is the same as was 2 days ago. Diarrhea: Patient has microscopic colitis and chronic diarrhea which was likely exaxerbated by the oral antibiotic but seems to have now resolved. did not have any movement for several hours. Continue Home Budesonide po. Leukocytosis: Seems to be chronic for several years. It is stable since discharge. PMD has worked it up as outpatient. Chronic diastolic CHF: continue torsemide. Still has bipedal edema. Would benefit from adjustment of her diuretics to bring her to euvolemic status if possible . I will leave that to the PMD and nephrology to adjust as outpatient Bipedal edema Patient has bipedal edema. May have chronic venous stasis. this makes her susceptible to recurrent cellulitis. Follow up with Dr milian. Vital Signs/I&O Vital Signs Date Time Temp Pulse Resp B/P (MAP) Pulse Ox O2 Delivery O2 Flow Rate FiO2 06/30/20 19:17 98.2 70 20 168/81 (110) 94 Room Air Laboratory Data Labs 24H Laboratory Tests 2 06/30/20 16:07: Coronavirus (COVID-19)(PCR) NEGATIVE, Influenza Type A (RT-PCR) NEGATIVE, Influenza Type B (RT-PCR) NEGATIVE, Respiratory Syncytial Virus (PCR) NEGATIVE 06/30/20 16:17: Immature Granulocyte % (Auto) 1.2, Neutrophils (%) (Auto) 74.1H, Lymphocytes (%) (Auto) 18.6L, Monocytes (%) (Auto) 5.3, Eosinophils (%) (Auto) 0.3, Basophils (%) (Auto) 0.5, Neutrophils # (Auto) 12.1H, Lymphocytes # (Auto) 3.0, Monocytes # (Auto) 0.9H, Eosinophils # (Auto) 0.1, Basophils # (Auto) 0.1, Nucleated Red Blood Cells % (auto) 0.9H, Erythrocyte Sedimentation Rate 51H, Lactic Acid Level 1.6, Total Bilirubin 0.3, Direct Bilirubin 0.1, Aspartate Amino Transf (AST/SGOT) 28, Alanine Aminotransferase (ALT/SGPT) 41, Alkaline Phosphatase 85, C-Reactive Protein, Quantitative 0.96H, Total Protein 6.7#, Albumin 3.5#, Albumin/Globulin Ratio 1.1L 06/30/20 16:20: POC Glucose (Misc Panel) 128H, POC Sodium (Misc Panel) 139, POC Potassium (Misc Panel) 4.0, POC Chloride (Misc Panel) 102, POC Total CO2 (Misc Panel) 31.0H, POC Blood Urea Nitrogen (Misc Panel 38H, POC Ionized Calcium (Misc Panel) 4.8, POC Creatinine (Misc Panel) 1.4H, POC Hematocrit (Misc Panel) 44.0 CBC/BMP Laboratory Tests 06/30/20 16:17 Microbiology Microbiology 06/30/20 Blood Culture, Received Pending 06/30/20 Gram Stain, Received Pending 06/30/20 Wound Culture, Received Pending 06/30/20 Blood Culture, Received Pending Allergies Coded Allergies: indomethacin (Verified Allergy, Unknown, as takes asprin, 2/4/20) levofloxacin (Verified Allergy, Unknown, UNKNOWN REACTION, 06/22/20) tetracycline (Unverified Allergy, Unknown, UNKNOWN REACTION, 06/22/20) amlodipine (Verified Adverse Reaction, Mild, MUSCLE CRAMPS, 06/22/20) trazodone (Unverified Adverse Reaction, Mild, DIZZINESS, 06/22/20) Home Medications Scheduled Allopurinol (Zyloprim) 300 Mg Tablet, 300 MG PO DAILY, (Reported) Aspirin (Aspirin EC) 81 Mg Tab, 81 MG PO Q2D, (Reported) TAKES AT BEDTIME EVERY OTHER NIGHT Atorvastatin Calcium (Atorvastatin Calcium) 80 Mg Tab, 80 MG PO QHS, (Reported) Bisoprolol Fumarate (Bisoprolol Fumarate) 5 Mg Tablet, 5 MG PO DAILY, (Reported) Budesonide (Budesonide EC) 3 Mg Capdr...er, 6 MG PO DAILY, (Reported) Diltiazem HCl (Cartia Xt) 240 Mg Cap, 240 MG PO DAILY, (Reported) Folic Acid (Folic Acid) 1 Mg Tab, 1 MG PO QHS, (Reported) Gabapentin (Gabapentin) 100 Mg Capsule, 100 MG PO TID, (Reported) Levothyroxine Sodium (Levoxyl) 100 Mcg Tablet, 100 MCG PO DAILY, (Reported) Potassium Chloride (Potassium Chloride) 20 Meq Tablet.er, 20 MEQ PO BID, (Reported) Quetiapine Fumarate (Quetiapine Fumarate) 25 Mg Tablet, 50 MG PO QHS, (Reported) Torsemide (Torsemide) 20 Mg Tablet, 20 MG PO BID, (Reported) TAKES AM/MIDDAY Venlafaxine HCl (Venlafaxine HCl) 75 Mg Tablet, 75 MG PO DAILY, (Reported) Scheduled PRN Albuterol Sulfate (Albuterol Sulfate Hfa) 8.5 Gm Hfa.aer.ad, 2 PUFFS INH QID PRN for SHORTNESS OF BREATH, (Reported) Alprazolam (Alprazolam) 0.5 Mg Tab, 0.5 MG PO DAILY PRN for ANXIETY/AGITATION, (Reported) Budesonide/Formoterol (Symbicort 80-4.5 Mcg Inhaler) 6.9 Gm Hfa.aer.ad, 2 PUFFS INH BID PRN for SHORTNESS OF BREATH, (Reported) MORENA WRIGHT MD Jun 30, 2020 19:38
[2020-06-30] MEDS ORDERED: DALBAVANCIN 1,500 MG in D5W 250 ML IV ONE (20:00)
[2020-06-30 20:17] VITALS: BP 190/96
== END 2020-06-30 20:23 | disposition home or self-care (01) ==
LOC: M ED 14:29
DX: L03.116 Cellulitis of left lower limb (principal); L97.929 Non-pressure chronic ulcer of unspecified part of left lower leg with unspecified severity; R19.7 Diarrhea, unspecified; I13.0 Hypertensive heart and chronic kidney disease with heart failure and stage 1 through stage 4 chronic kidney disease, or unspecified chronic kidney disease; E78.5 Hyperlipidemia, unspecified; K21.9 Gastro-esophageal reflux disease without esophagitis; E03.9 Hypothyroidism, unspecified; E66.01 Morbid (severe) obesity due to excess calories; J44.9 Chronic obstructive pulmonary disease, unspecified; F41.9 Anxiety disorder, unspecified; F33.9 Major depressive disorder, recurrent, unspecified; Z88.1 Allergy status to other antibiotic agents; Z88.8 Allergy status to other drugs, medicaments and biological substances; Z79.899 Other long term (current) drug therapy
CPT/HCPCS: 76882; 80047; 80076; 83605; 85025; 85652; 86140; 87040; 87070; 87205; 87631; 96365; 99284; J0875

== ENCOUNTER → 2020-09-04 | Outpatient (REF) | payer MEDICARE, OTHER ==
[~2020-09-04] MED LIST changes: +LINE1TAB6
[2020-09-04 16:46] LABS: BASO # 0.1 10^3/uL (0.0-0.2); BASO % 0.7 % (0.0-1.0); EOS # 0.2 10^3/uL (0.0-0.5); EOS % 1.1 % (0.0-3.0); HEMATOCRIT 41.7 % (36.0-47.0); HEMOGLOBIN 13.3 g/dl (12.0-15.5); LYMPH # 2.1 10^3/uL (1.5-5.0); LYMPH % 13.7 % (24.0-44.0); MEAN CORPUSCULAR HEMOGLOBIN 34.3 pg (27.0-33.0); MEAN CORPUSCULAR HGB CONC 31.9 g/dl (32.0-36.5); MEAN CORPUSCULAR VOLUME 107.5 fl (80.0-96.0); MONO # 1.3 10^3/uL (0.0-0.8); MONO % 8.5 % (2.0-8.0); NEUTROPHILS # 11.4 10^3/uL (1.5-8.5); NEUTROPHILS % 74.8 % (36.0-66.0); PLATELET COUNT, AUTOMATED 229 10^3/uL (150-450); RED BLOOD COUNT 3.88 10^6/uL (4.00-5.40); WHITE BLOOD COUNT 15.2 10^3/uL (4.0-10.0)
[2020-09-04 17:09] LABS: CREATININE FOR GFR 1.37 MG/DL (0.55-1.30); GLOMERULAR FILTRATION RATE 39.7 (>39)
== END ==
LOC: M SFHCADAM 11:40
PROVIDERS: ATTEND Physician Assistant
DX: N18.32 Chronic kidney disease, stage 3b (principal); L03.116 Cellulitis of left lower limb; R60.0 Localized edema; D72.829 Elevated white blood cell count, unspecified

== ENCOUNTER → 2020-09-22 | Outpatient (CLI) | payer MEDICARE, OTHER ==
[2020-09-22 15:02] LABS: BASO # 0.1 10^3/uL (0.0-0.2); BASO % 0.6 % (0.0-1.0); EOS # 0.2 10^3/uL (0.0-0.5); EOS % 1.1 % (0.0-3.0); HEMATOCRIT 41.1 % (36.0-47.0); HEMOGLOBIN 12.8 g/dl (12.0-15.5); LYMPH # 3.7 10^3/uL (1.5-5.0); MEAN CORPUSCULAR HEMOGLOBIN 33.5 pg (27.0-33.0); MEAN CORPUSCULAR HGB CONC 31.1 g/dl (32.0-36.5); MEAN CORPUSCULAR VOLUME 107.6 fl (80.0-96.0); MONO # 1.5 10^3/uL (0.0-0.8); MONO % 9.1 % (2.0-8.0); NEUTROPHILS # 11.1 10^3/uL (1.5-8.5); PLATELET COUNT, AUTOMATED 256 10^3/uL (150-450); RED BLOOD COUNT 3.82 10^6/uL (4.00-5.40)
[2020-09-22 15:32] LABS: ALBUMIN 3.5 GM/DL (3.2-5.2); ALT/SGPT 56 U/L (12-78); BILIRUBIN,TOTAL 0.4 MG/DL (0.2-1.0); BLOOD UREA NITROGEN 31 MG/DL (7-18); CARBON DIOXIDE LEVEL 33 MEQ/L (21-32); CHLORIDE LEVEL 107 MEQ/L (98-107); COMPLEMENT C3 134 MG/DL (90-180); COMPLEMENT C4 20 MG/DL (10-40); CREATININE FOR GFR 1.17 MG/DL (0.55-1.30); GLOMERULAR FILTRATION RATE 47.6 (>39); GLUCOSE, FASTING 94 MG/DL (70-100); POTASSIUM SERUM 3.9 MEQ/L (3.5-5.1); RHEUMATOID FACTOR QUANT < 10.0 IU/ML (<15.0); SODIUM LEVEL 145 MEQ/L (136-145); TOTAL PROTEIN 6.3 GM/DL (6.4-8.2)
[2020-09-22 15:41] LABS: ERYTHROCYTE SEDIMENTATION RATE 25 mm/hr (0-30)
[2020-09-22 15:58] LABS: WHITE BLOOD COUNT 16.8 10^3/uL (4.0-10.0)
[2020-09-24 16:08] LABS: ANTINUCLEAR ANTIBODIES DIRECT Negative (Negative)
== END ==
LOC: M WUC 11:25
PROVIDERS: ATTEND Physician Assistant
DX: L97.812 Non-pressure chronic ulcer of other part of right lower leg with fat layer exposed (principal)

== ENCOUNTER → 2020-10-25 | Outpatient (REF) | payer MEDICARE, OTHER ==
[~2020-10-25] MED LIST changes: +ALLO300T2 PO; +PERCOCET PO
== END ==
LOC: M LAB REF 18:38
PROVIDERS: ATTEND Physician Assistant
DX: R30.0 Dysuria (principal); M54.32 Sciatica, left side

== ENCOUNTER 2020-10-26 11:20 | Inpatient (IN) | payer MEDICARE, OTHER ==
[~2020-10-26] VITALS: Ht 162.6 cm; Wt 90.9 kg
[~2020-10-26 11:20] MED LIST changes: -ALLO300T2 PO; -PERCOCET PO
[2020-10-26 12:26] LABS: BASO # 0.1 10^3/uL (0.0-0.2); BASO % 0.6 % (0.0-1.0); EOS # 0.2 10^3/uL (0.0-0.5); EOS % 1.6 % (0.0-3.0); HEMATOCRIT 44.1 % (36.0-47.0); HEMOGLOBIN 13.9 g/dl (12.0-15.5); LYMPH # 2.5 10^3/uL (1.5-5.0); LYMPH % 17.3 % (24.0-44.0); MEAN CORPUSCULAR HEMOGLOBIN 33.2 pg (27.0-33.0); MEAN CORPUSCULAR HGB CONC 31.5 g/dl (32.0-36.5); MEAN CORPUSCULAR VOLUME 105.3 fl (80.0-96.0); MONO # 1.5 10^3/uL (0.0-0.8); MONO % 10.4 % (2.0-8.0); NEUTROPHILS # 9.8 10^3/uL (1.5-8.5); NEUTROPHILS % 69.1 % (36.0-66.0); PLATELET COUNT, AUTOMATED 227 10^3/uL (150-450); RED BLOOD COUNT 4.19 10^6/uL (4.00-5.40)
[2020-10-26 12:32] LABS: WHITE BLOOD COUNT 14.2 10^3/uL (4.0-10.0)
[2020-10-26 12:52] LABS: CALCIUM LEVEL 9.5 MG/DL (8.8-10.2); CREATININE FOR GFR 0.96 MG/DL (0.55-1.30); GLOMERULAR FILTRATION RATE 59.8 (>39); POTASSIUM SERUM 4.6 MEQ/L (3.5-5.1)
[2020-10-26] MEDS ORDERED: GABA-1171 PO (13:33)
[2020-10-26] MEDS ORDERED: CEPH500C PO (13:33)
[2020-10-26] MEDS ORDERED: MORPHINE 4 MG/ML 1ML VIAL/SYRINGE (J2270) IV ONE (14:10)
[2020-10-26] MEDS ORDERED: ONDANSETRON 4MG/2ML VIAL IV ONE (14:10)
--- NOTE | 2020-10-26 14:35 | REP ---
INDICATION: cough. COMPARISON: Comparison chest x-ray May 22, 2020.. TECHNIQUE: Sitting AP portable chest x-ray. FINDINGS: Right hemidiaphragm remains elevated. The lungs are otherwise well inflated and clear. The pleural angles are sharp. Heart is not felt to be enlarged. The thoracic aorta is tortuous as before. Pulmonary vasculature is not increased. No acute bony abnormality is appreciated. IMPRESSION: Elevated right hemidiaphragm again noted. Otherwise no active disease. <Electronically signed by Enrique Ch > 10/26/20 [id number]
[2020-10-26 15:13] LABS: RSV AMPLIFICATION NEGATIVE (NEGATIVE)
[2020-10-26] MEDS ORDERED: ALLO300T2 PO (16:09)
[2020-10-26] MEDS ORDERED: ACETAMINOPHEN TAB 650MG DOSE (2X325MG) PO PRN (16:10)
[2020-10-26] MEDS ORDERED: ALBUTEROL 90 MCG/ACT 8GM HFA INHALER INH PRN (16:10)
[2020-10-26] MEDS ORDERED: MAALOX 30 ML SUSP *UDC PO PRN (16:10)
--- NOTE | 2020-10-26 17:16 | HPEPDOC ---
[facility] Medical History & Physical Date of Admission Oct 26, 2020 Date of Service: Oct 26, 2020 Primary Care Physician: Arnold Reece MD Attending Physician: CLIFFORD LADD DO History and Physical CHIEF COMPLAINT: Low back pain HISTORY OF PRESENT ILLNESS: Patient is a 80-year-old female who presents today for worsening low back pain. Patient has a history of chronic low back pain but has been getting worse over the last month. Patient saw neurology who told her that she has sciatica. Patient was supposed to have an appointment in 2 days to see a spinal surgeon however, she was unable to take it anymore so she decided come to the emergency department. Patient states that she has been confined to a wheelchair because of the back pain. Patient also has multiple leg wounds who she was seeing Dr. Henning of wound care for and was supposed to go today however, she was unable to get out of the car so they brought her to the emergency room. Patient denies any saddle anesthesia or any bowel incontinence. Patient states that she has had some incontinence with urine. Upon further questioning, it appears that this is mostly when she needs to go the bathroom sh e is unable to get to the bathroom because of the pain and ends up having a small amount of urine spill out into her undergarments. Patient denies any abdominal pain. Patient denies any numbness or tingling in her legs. Patient denies any weakness in her legs. Patient went to urgent care yesterday and was diagnosed with a urinary tract infection. Patient was started on cephalexin and given hydrocodoneacetaminophen for the pain which she says is helping. Patient states that when she wakes up in the morning the pain is at its worst and she cries until she takes the hydrocodoneacetaminophen. PAST MEDICAL HISTORY: 1. Splenectomy for hemolytic anemia. 2. Aortic stenosis. 3. Hypertensive heart disease. 4. Hyperlipidemia 5. Hypothyroidism 6. Depression 7. Stage III chronic kidney disease 8. Coronary artery disease 9. Chronic anxiety 10. Current situational deterioration of her mental status secondary to 's dementia 11. E. coli UTI 12. Microscopic colitis on colon biopsy 13. Gout 15. GERD PAST SURGICAL HISTORY: 1. Hysterectomy with bilateral salpingo-oophorectomy in 1974. 2. Cholecystectomy. 3. Splenectomy in 2005. 4. Rectal fissure. 5. Drug-eluting stent in 2005 6. Colonoscopy x2 SOCIAL HISTORY: Lives at home with her . 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 Remote history of smoking but denies alcohol and drug use FAMILY HISTORY: Father at 48 of cerebral aneurysm. Mother at 87 of heart disease ALLERGIES: Please see below. REVIEW OF SYSTEMS: General: Patient denies fevers HEENT: Patient denies headaches Cardiovascular: Patient denies chest pain Respiratory: Patient denies shortness of breath, cough GI: Patient denies abdominal pain, nausea, vomiting, diarrhea : Patient denies increased frequency or pain with urination Extremities: Patient denies swelling or pain in extremities Neurological: Patient denies numbness or tingling in legs Skin: Patient multiple wounds on her lower extremities that she was going to see wound care for today but was unable to get out of the car. Hematologic: Patient denies any easy bruising. Lymphatic: Patient denies any lumps lumps or bumps in neck, axilla, or groin HOME MEDICATIONS: Please see below. PHYSICAL EXAMINATION: VITAL SIGNS: Temperature 98.1, pulse 77, respiratory rate 18, blood pressure 155/74, pulse oximetry 94% on room air. General: Alert and oriented female patient who was laying in bed when I walked in the room. Patient was able to sit up without any difficulty. Patient did not appear to be in any acute distress. HEENT: Normocephalic, atraumatic, moist mucous membranes. Neck: No lymphadenopathy or thyromegaly Cardiac: Regular rate and rhythm, 2/6 systolic murmur heard loudest over the second intercostal space on the right sternal border, normal S1, normal S2 Pulm: Clear to auscultation bilaterally. No wheezes, rhonchi, rales Abd: Nondistended, nontender to palpation, normal bowel sounds Ext: Trace edema around the ankles of the level of the mid cuello Neuro: Patient had 5/5 strength in upper and lower extremities bilaterally. Pat ient reported equal sensation to light touch in all dermatomes tested of the upper and lower extremities bilaterally. Skin: Patient had multiple senile purpura on both her upper and lower extremities. There was a small blister on the left cuello that appeared to be filled possible blood. There is no erythema or warmth coming from either lower extremity. There was a wound with a scab over it just below the knee Musculoskeletal: Patient has hypertonicity of the paraspinal muscles on the left much more so than the right. There is tenderness to palpation of the paraspinal muscles. Patient is able to flex and extend the lumbar spine as well as rotate and side bend however, this causes her great pain. LABORATORY DATA: See below. IMAGING: Chest x-ray performed on 10/26/2020 is reported to show elevated right hemidiaphragm again noted. Otherwise no active disease. MICROBIOLOGY: Please see below. ASSESSMENT: Patient is a 80-year-old female who presents today to the hospital for intractable back pain and was diagnosed with a urinary tract infection yesterday urgent care.. . PLAN: 1. Intractable back pain. Patient will work with physical therapy and pain medication has been given. Patient has an appointment with a spinal surgeon on 10/28/2020. Goal is to try to get her discharged so she can get to that appointment however, we need the patient be able to walk around and have her pain controlled. Patient has an MRI on a disc that was performed by her neurologist in 2019. Because the patient does not have any neurological symptoms at this time, I do not believe MRI is warranted. We will order a lumbar spine series. 2. Urinary tract infection. Patient was diagnosed with urinary tract infection at urgent care yesterday. Patient was started on Keflex. We will continue this medication at this time. 3. Leg wounds. At this time, we will continue to monitor the leg wounds. Foam dressings can be placed over the wounds in the left leg at this time. I do not believe the patient has cellulitis although patient is also on Keflex which we will continue for urinary tract infection. 4. Hypertension. We will continue the patient's home medications. 5. Aortic stenosis. 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 6. Hyperlipidemia. Continue home medications. 7. Anxiety and depression. Continue home medications. 8. DVT prophylaxis: Lovenox 9. CODE STATUS: Full code Disposition: Patient will be admitted to the medical surgical floor under observation for her back pain. We will try to get her pain better controlled and hopefully be able to discharge her in the next 24 hours. Vital Signs Vital Signs Date Time Temp Pulse Resp B/P (MAP) Pulse Ox O2 Delivery O2 Flow Rate FiO2 10/26/20 15:55 18 10/26/20 15:44 77 155/74 (101) 90 Room Air 10/26/20 11:33 98.1 Laboratory Data Labs 24H Laboratory Tests 2 10/26/20 11:49: Immature Granulocyte % (Auto) 1.0, Neutrophils (%) (Auto) 69.1H, Lymphocytes (%) (Auto) 17.3L, Monocytes (%) (Auto) 10.4H, Eosinophils (%) (Auto) 1.6, Basophils (%) (Auto) 0.6, Neutrophils # (Auto) 9.8H, Lymphocytes # (Auto) 2.5, Monocytes # (Auto) 1.5H, Eosinophils # (Auto) 0.2, Basophils # (Auto) 0.1, Nucleated Red Blood Cells % (auto) 0.5H, Anion Gap 6L, Glomerular Filtration Rate 59.8, Calcium Level 9.5, DK-Pma-J-Type Natriuretic Peptide 281 10/26/20 13:28: Urine Color YELLOW, Urine Appearance CLOUDYH, Urine pH 5.0, Urine Specific Castine 1.020, Urine Protein 2+H, Urine Glucose (UA) NEGATIVE, Urine Ketones TRACEH, Urine Blood 1+H, Urine Nitrite NEGATIVE, Urine Bilirubin NEGATIVE, Urine Urobilinogen 4.0H, Urine Leukocyte Esterase 3+H, Urine WBC (Auto) 58H, Urine RBC (Auto) 9H, Urine Hyaline Casts (Auto) 0, Urine Bacteria (Auto) 1+H, Urine Squamous Epithelial Cells 9, Urine Mucus (Auto) SMALL, Urine Sperm (Auto) 10/26/20 14:10: Lactic Acid Level 1.8 10/26/20 14:19: Coronavirus (COVID-19)(PCR) NEGATIVE, Influenza Type A (RT-PCR) NEGATIVE, Influenza Type B (RT-PCR) NEGATIVE, Respiratory Syncytial Virus (PCR) NEGATIVE CBC/BMP Laboratory Tests 10/26/20 11:49 Microbiology Microbiology 10/26/20 Urine Culture, Received Pending Home Medications Scheduled Aspirin (Aspirin EC) 81 Mg Tab, 81 MG PO Q2D TAKES AT BEDTIME EVERY OTHER NIGHT Atorvastatin Calcium (Atorvastatin Calcium) 80 Mg Tab, 80 MG PO QHS Bisoprolol Fumarate (Bisoprolol Fumarate) 5 Mg Tablet, 5 MG PO DAILY Budesonide (Budesonide EC) 3 Mg Capdr...er, 6 MG PO DAILY Cephalexin (Cephalexin) 500 Mg Capsule, 500 MG PO BID Diltiazem HCl (Cartia Xt) 240 Mg Cap, 240 MG PO DAILY Folic Acid (Folic Acid) 1 Mg Tab, 1 MG PO QHS Gabapentin (Gabapentin) 100 Mg Capsule, 100 MG PO BID Levothyroxine Sodium (Levoxyl) 100 Mcg Tablet, 100 MCG PO DAILY Potassium Chloride (Potassium Chloride) 20 Meq Tablet.er, 20 MEQ PO BID Quetiapine Fumarate (Quetiapine Fumarate) 25 Mg Tablet, 50 MG PO QHS Torsemide (Torsemide) 20 Mg Tablet, 20 MG PO BID TAKES AM/MIDDAY Venlafaxine HCl (Venlafaxine HCl) 75 Mg Tablet, 75 MG PO DAILY allopurinoL (allopurinoL) 300 Mg Tablet, 300 MG PO DAILY Scheduled PRN Albuterol Sulfate (Albuterol Sulfate Hfa) 8.5 Gm Hfa.aer.ad, 2 PUFFS INH QID PRN for SHORTNESS OF BREATH Allergies Coded Allergies: indomethacin (Verified Allergy, Unknown, as takes asprin, 10/26/20) levofloxacin (Verified Allergy, Unknown, UNKNOWN REACTION, 10/26/20) tetracycline (Unverified Allergy, Unknown, UNKNOWN REACTION, 10/26/20) amlodipine (Verified Adverse Reaction, Mild, MUSCLE CRAMPS, 10/26/20) trazodone (Unverified Adverse Reaction, Mild, DIZZINESS, 10/26/20) A-FIB/CHADSVASC A-FIB History Current/History of A-Fib/PAF?: No CLIFFORD LADD DO Oct 26, 2020 17:16
[2020-10-26] MEDS: FOLIC ACID 1 MG TAB PO SCH (21:03)
[2020-10-26] MEDS: ATORVASTATIN 20 MG TAB PO SCH (21:03)
[2020-10-26] MEDS: POTASSIUM CHLORIDE 10 MEQ SR TABLET PO SCH (21:03)
[2020-10-26] MEDS: CEPHALEXIN 500 MG CAP PO SCH (21:03)
[2020-10-26] MEDS: GABAPENTIN 100 MG CAP PO SCH (21:04)
[2020-10-26] MEDS: QUEtiapine FUMARATE 25 MG TAB PO SCH (21:04)
[2020-10-26] MEDS ORDERED: ENALAPRIL MALEATE 5 MG TAB PO ONE (21:30)
--- NOTE | 2020-10-26 22:42 | REP ---
INDICATION: low back pain COMPARISON: None. TECHNIQUE: AP, lateral, bilateral oblique, and coned-down views of the lumbar spine. FINDINGS: Age-related osteopenia and early-advanced multilevel degenerative changes include endplate sclerosis, osteophytosis, disc space narrowing and facet hypertrophy. No acute fracture/compression injury or subluxation. IMPRESSION: Advanced multilevel degenerative spondylosis. No acute fracture/compression injury or subluxation. <Electronically signed by Zoran Richmond > 10/26/20 [id number]
[2020-10-27 06:07] LABS: HEMATOCRIT 39.7 % (36.0-47.0); HEMOGLOBIN 12.4 g/dl (12.0-15.5); MEAN CORPUSCULAR HEMOGLOBIN 33.2 pg (27.0-33.0); MEAN CORPUSCULAR HGB CONC 31.2 g/dl (32.0-36.5); MEAN CORPUSCULAR VOLUME 106.4 fl (80.0-96.0); PLATELET COUNT, AUTOMATED 187 10^3/uL (150-450); RED BLOOD COUNT 3.73 10^6/uL (4.00-5.40); WHITE BLOOD COUNT 12.5 10^3/uL (4.0-10.0)
[2020-10-27] MEDS: LEVOTHYROXINE 100MCG TABLET (0.1MG) PO SCH (06:21)
[2020-10-27 06:30] LABS: CALCIUM LEVEL 8.8 MG/DL (8.8-10.2); CREATININE FOR GFR 1.44 MG/DL (0.55-1.30); GLOMERULAR FILTRATION RATE 37.5 (>39); MAGNESIUM LEVEL 2.3 MG/DL (1.8-2.4); POTASSIUM SERUM 4.9 MEQ/L (3.5-5.1)
[2020-10-27] MEDS: POTASSIUM CHLORIDE 10 MEQ SR TABLET PO SCH ×2 (08:30→20:24)
[2020-10-27] MEDS: bisoproloL fumarate 5 MG TAB PO SCH (08:30)
[2020-10-27] MEDS: allopurinoL 300 MG TAB PO SCH (08:31)
[2020-10-27] MEDS: TORSEMIDE 20 MG TAB PO SCH ×2 (08:31→14:21)
[2020-10-27] MEDS: GABAPENTIN 100 MG CAP PO SCH ×2 (08:31→20:25)
[2020-10-27] MEDS: PERCOCET 5MG/325MG TAB PO PRN ×2 (08:34→20:26)
[2020-10-27] MEDS: BUDESONIDE EC 3 MG CAP (ENTOCORT EC) PO SCH (11:28)
[2020-10-27] MEDS: CEPHALEXIN 500 MG CAP PO SCH ×2 (11:28→20:24)
[2020-10-27] MEDS: VENLAFAXINE 37.5 MG TAB PO SCH (11:28)
--- NOTE | 2020-10-27 14:02 | IPNPDOC ---
Text Note Date of Service The patient was seen on 10/27/20. NOTE Subjective: Patient is a 80-year-old female presents for worsening lower back pain. Patient has a history of chronic lower back pain and was supposed to see orthopedic surgery on 10/28/2020 for this but she is unable to get out of the car yesterday so she ended up having to come to the emergency department. Patient work with physical therapy today but was unable to really participate due to the pain. Physical therapy is recommending subacute rehabilitation. Patient denies any numbness in her lower extremities. Patient last had an MRI of her lumbar spine in 2019. Patient was also diagnosed with a urinary tract infection which she says is getting better. Patient also has wounds on her legs which she was then to be following up with wound care for was unable to make the appointment due to the pain. Patient is otherwise feeling well today. Review of systems: General: Patient denies fevers HEENT: Patient denies headaches Cardiovascular: Patient denies chest pain Respiratory: Patient denies shortness of breath, cough GI: Patient denies abdominal pain, nausea, vomiting, diarrhea : Patient denies increased frequency or pain with urination Extremities: Patient denies swelling or pain in extremities Neurological: Patient denies numbness or tingling in legs Physical exam: Vitals: See below General: Alert and oriented female who is laying in bed with nasal cannula oxygen in place when I walked in. Patient did not appear to be in any acute distress. HEENT: Normocephalic, atraumatic, moist mucous membranes. Neck: No lymphadenopathy or thyromegaly Cardiac: Regular rate and rhythm, no murmurs, normal S1, normal S2 Pulm: Clear to auscultation bilaterally. No wheezes, rhonchi, rales Abd: Nondistended, nontender to palpation, normal bowel sounds Ext: No edema bilateral lower extremities Neuro: Patient reports equal sensation to light touch in upper and lower extremities bilaterally. Patient is able to move all 4 extremities without any difficulty. Labs: See below Imaging: X-ray of the lumbar spine performed on 10/26/2020 is reported to show advanced multilevel degenerative spondylosis. No acute fracture/compression injury or subluxation. Assessment/plan: 80-year-old female who presents today to the hospital for intractable back pain who was diagnosed with a urinary tract infection at urgent care the day prior to admission. 1. Intractable back pain. Patient did not do well physical therapy and they are recommending placement in subacute rehab. MRI of the lumbar spine has been ordered as x-rays show degenerative changes. We will continue to monitor the patient. Pain control has been ordered. 2. Urinary tract infection. Continue with the home antibiotics that she was started on which were cephalexin. 3. Leg wounds. At this time, we will continue to monitor leg wounds. If any of the wounds are open, foam dressings can be placed on them. Patient does not appear to have cellulitis but is on Keflex for UTI which will also cover soft tissue infections. 4. Hypertension. Continue home medications. 5. Aortic stenosis. Patient follows with her PCP and household chores. 6. Hyperlipidemia. Continue home medications. 7. Anxiety depression. Continue home medications. DVT Prophylaxis: Lovenox Disposition: Pending subacute rehabilitation placement. VS,Fishbone, I+O VS, Fishbone, I+O Laboratory Tests 10/27/20 05:30 Vital Signs Date Time Temp Pulse Resp B/P (MAP) Pulse Ox O2 Delivery O2 Flow Rate FiO2 10/27/20 11:33 67 93 Nasal Cannula 1.0 10/27/20 11:31 104/55 (71) 10/27/20 11:31 18 10/26/20 18:50 98.5 CLIFFORD LADD DO Oct 27, 2020 14:02
[2020-10-27 18:45] VITALS: BP 150/69
--- NOTE | 2020-10-27 19:53 | IPNPDOC ---
Subjective Date Seen The patient was seen on 10/27/20. Subjective Chief Complaint/HPI Altered mental status Called to bedside by RN. Patient just brought to the floor after boarding in the ER. RN concerned because the patient is normally alert and oriented during previous admissions. New onset of acute confusion reportedly, on the way up to the floor. All previous notes indicate the patient was alert and oriented prior to this. Was found to be satting 89% on room air with no history of hypoxia. Had been diagnosed with urinary tract infection per abnormal urinalysis on 10/26/2020. Culture shows no growth. Patient was started on Keflex as outpatient and this is been continued at the time of admission. She is admitted with intractable back pain. She received 1 Percocet earlier this morning. According to the medical record, she was unable to participate with therapy today secondary to severe back pain and physical therapy was recommending subacute rehabilitation. Objective Physical Examination Other physical findings Patient is seen lying in her hospital bed. She tells me she is in a hotel. When she is reoriented to the hospital. She believes that she has only been here a short time. She does admit that she is confused currently. HEENT is unremarkable. There is no facial droop. Tongue is midline. Speech is clear and easily understood. No unilateral weakness. Lungs clear to auscultation. Heart regular rate and rhythm without murmur. Assessment /Plan Assessment 1. Acute metabolic encephalopathy, possibly secondary to uncontrolled pain versus uremia versus acute infection. Will recheck bladder scan and UA with previous culture showing no growth. Will also check CT of the head. Case discussed with Dr. Lopez. Continue Percocet for now. We'll hold off on escalating antibiotics until UA is resulted. 2. Acute respiratory failure with hypoxia, etiology unclear. Chest x-ray yesterday with no acute pathophysiology. Patient refused CTA, stating she would not cooperate with contrast. Continue oxygen and titrate to keep sats greater than 90%. Encourage good pulmonary toilet. Will add prophylactic Lovenox. 3. Acute kidney injury, probably secondary to decreased renal perfusion with torsemide bid. Will initiate gentle IV fluids and monitor intake and output closely. Recheck renal function in the morning. Plan/VTE VTE Prophylaxis Ordered?: Yes VS, I&O, 24H, Fishbone Vital Signs/I&O Vital Signs Date Time Temp Pulse Resp B/P (MAP) Pulse Ox O2 Delivery O2 Flow Rate FiO2 10/27/20 18:45 98.1 74 18 150/69 (96) 94 Nasal Cannula 1.0 Laboratory Data 24H LABS Laboratory Tests 2 10/27/20 05:30: Nucleated Red Blood Cells % (auto) 0.5H, Anion Gap 6L, Glomerular Filtration Rate 37.5L, Calcium Level 8.8, Magnesium Level 2.3 CBC/BMP Laboratory Tests 10/27/20 05:30 Microbiology Microbiology 10/26/20 Urine Culture - Final, Complete JUAN BLACK Oct 27, 2020 19:53
[2020-10-27] MEDS ORDERED: ISOVUE-370 76% 100ML VIAL As Ordered ONE (20:05)
[2020-10-27 20:20] VITALS: BP 128/58
[2020-10-27] MEDS: QUEtiapine FUMARATE 25 MG TAB PO SCH (20:24)
[2020-10-27] MEDS: ATORVASTATIN 20 MG TAB PO SCH (20:24)
[2020-10-27] MEDS: FOLIC ACID 1 MG TAB PO SCH (20:25)
[2020-10-27] MEDS: NS 1,000 ML IV SCH (20:45)
[2020-10-27] MEDS ORDERED: ASPIRIN 81MG ENTERIC TABLET PO SCH (21:00)
--- NOTE | 2020-10-27 21:02 | REPVR ---
PROCEDURE INFORMATION: Exam: CT Head Without Contrast Exam date and time: 10/27/2020 8:00 PM Age: 80 years old Clinical indication: Altered mental status/memory loss TECHNIQUE: Imaging protocol: Computed tomography of the head without contrast. Radiation optimization: All CT scans at this facility use at least one of these dose optimization techniques: automated exposure control; mA and/or kV adjustment per patient size (includes targeted exams where dose is matched to clinical indication); or iterative reconstruction. COMPARISON: No relevant prior studies available. FINDINGS: Brain: There is no acute cortical infarction, intracranial hemorrhage or mass. Cerebral ventricles: The ventricles appear mildly enlarged, but not out of proportion to the degree of parenchymal volume loss. Paranasal sinuses: There is no significant mucoperiosteal thickening or air-fluid levels in the visualized portion of the paranasal sinuses. Mastoid air cells: The middle ear cavities and mastoid air cells are clear. Vasculature: Atherosclerosis. Bones/joints: Unremarkable. No acute fracture. Soft tissues: Unremarkable. IMPRESSION: No acute intracranial findings. Electronically signed by: Sharmaine Jones On 10/27/2020 21:01:30 PM
[2020-10-28 06:11] VITALS: BP 104/60
[2020-10-28] MEDS: LEVOTHYROXINE 100MCG TABLET (0.1MG) PO SCH (06:17)
[2020-10-28 07:29] LABS: HEMATOCRIT 37.6 % (36.0-47.0); HEMOGLOBIN 11.8 g/dl (12.0-15.5); MEAN CORPUSCULAR HEMOGLOBIN 33.1 pg (27.0-33.0); MEAN CORPUSCULAR HGB CONC 31.4 g/dl (32.0-36.5); MEAN CORPUSCULAR VOLUME 105.3 fl (80.0-96.0); PLATELET COUNT, AUTOMATED 205 10^3/uL (150-450); RED BLOOD COUNT 3.57 10^6/uL (4.00-5.40); WHITE BLOOD COUNT 11.4 10^3/uL (4.0-10.0)
[2020-10-28 08:04] LABS: CALCIUM LEVEL 8.6 MG/DL (8.8-10.2); CREATININE FOR GFR 2.16 MG/DL (0.55-1.30); GLOMERULAR FILTRATION RATE 23.5 (>39); MAGNESIUM LEVEL 2.6 MG/DL (1.8-2.4)
[2020-10-28] MEDS: bisoproloL fumarate 5 MG TAB PO SCH (09:47)
[2020-10-28] MEDS: allopurinoL 300 MG TAB PO SCH (09:47)
[2020-10-28] MEDS: VENLAFAXINE 37.5 MG TAB PO SCH (09:47)
[2020-10-28] MEDS: CEPHALEXIN 500 MG CAP PO SCH ×2 (09:47→21:38)
[2020-10-28] MEDS: TORSEMIDE 20 MG TAB PO SCH ×2 (09:47→13:01)
[2020-10-28] MEDS: BUDESONIDE EC 3 MG CAP (ENTOCORT EC) PO SCH (09:47)
[2020-10-28] MEDS: GABAPENTIN 100 MG CAP PO SCH ×2 (09:47→21:38)
[2020-10-28] MEDS: ENOXAPARIN 30MG/0.3ML SYRINGE (J1650 PER 10MG) SC SCH (09:48)
[2020-10-28] MEDS: POTASSIUM CHLORIDE 10 MEQ SR TABLET PO SCH ×2 (09:48→21:38)
[2020-10-28] MEDS: NS 1,000 ML IV SCH ×2 (10:05→22:07)
[2020-10-28] MEDS: PERCOCET 5MG/325MG TAB PO PRN ×2 (11:58→17:08)
[2020-10-28 14:00] VITALS: BP 117/63
--- NOTE | 2020-10-28 18:17 | IPNPDOC ---
Text Note Date of Service The patient was seen on 10/28/20. NOTE Subjective: Patient refused physical therapy due to low back pain. No fever or chills Objective: GENERAL APPEARANCE: In mild distress HEENT: no scleral icterus, no JVD, EOMI CARDIOVASCULAR: S1S2 LUNGS: CTA ABDOMEN: soft & not tender w palpitation MUSCULOSKELETAL: no cyanosis, no swelling INTEGUMENT: no generalized pallor NEUROLOGICAL: cranial nerve function from 2-12 intact intact, follows commands, speech not dysarthric Assessment and plan Patient is 80 years old female with a past medical history of hypertension, hyperlipidemia, aortic stenosis, chronic back pain presented to hospital with increased back pain Intractable back pain X-ray showed Advanced multilevel degenerative spondylosis. No acute fracture/compression injury or subluxation. Pain management PT/OT RADHA Most likely secondary to intensive diuresis with torsemide Torsemide and allopurinol on hold Continue to monitor IV fluid UTI Continue cephalexin for 5 days. Today day 4 Leg wounds No pus, in different stage of healing Hypertension Continue home meds Aortic stenosis Follow-up with employment officer in the outpatient settings Hyperlipidemia Continue statin Anxiety/depression Continue home meds VS,Fishbone, I+O VS, Fishbone, I+O Laboratory Tests 10/28/20 07:10 Vital Signs Date Time Temp Pulse Resp B/P (MAP) Pulse Ox O2 Delivery O2 Flow Rate FiO2 10/28/20 17:08 18 10/28/20 14:00 97.5 67 117/63 (81) 89 Room Air 10/27/20 20:20 1.0 I&O- Last 24 Hours up to 6 AM 10/28/20 06:00 Intake Total 300 ml Output Total 100 ml Balance 200 ml EBONIE STEELE DO Oct 28, 2020 18:17
--- NOTE | 2020-10-28 20:37 | REPVR ---
PROCEDURE INFORMATION: Exam: MR Lumbar Spine Without Contrast Exam date and time: 10/28/2020 7:35 PM Age: 80 years old Clinical indication: Low back pain TECHNIQUE: Imaging protocol: Multiplanar magnetic resonance images of the lumbar spine without intravenous contrast. COMPARISON: CR Spine. Lumbosacral, complete 10/26/2020 5:22 PM FINDINGS: Vertebrae: No acute fracture in the lumbar spine. Normal alignment. Diffuse degenerative facet arthropathy. Spinal cord: The conus medullaris is normal appearance at the L1 level. L1-L2: No significant spinal canal stenosis or neural foraminal narrowing. L2-L3: Diffusely bulging annulus with disc herniation and possible free fragment extending inferiorly from the disc space along the posterior margin of the L3 vertebral body just to the left of midline. There is severe spinal canal stenosis with narrowing of both lateral recesses compressing the exiting L3 nerve roots. The neural foramina are patent. There is also compression of the thecal sac with severe spinal canal stenosis. The free disc fragment measures 1.5 cm in width by 1.9 cm cc by 7 mm AP. L3-L4: Diffusely bulging annulus with moderate to severe spinal canal stenosis. Stenosis is also due to a synovial cyst emanating from the medial margin of the left facet joint series 601, image 1 frames 11-13. This compresses the exiting left L4 nerve root. The neural foramina are patent. L4-L5: Diffusely bulging annulus with resultant moderate to severe spinal canal stenosis with narrowing of both lateral recesses and compression of the exiting L5 nerve roots. The neural foramina are patent. L5-S1: Diffusely bulging annulus narrows the neural foramen greater on right than left with compression of the right L5 nerve root. Series 601, image 1 frame 4. There is no spinal canal stenosis. Soft tissues: Bilateral renal cortical atrophy. IMPRESSION: 1. There is a large central/left paracentral disc herniation at the L2-L3 level compressing the thecal sac and extending inferiorly almost to the L3-L4 level due to a large free fragment. This may affect the lower lumbar and sacral nerve roots within the compressed thecal sac as well as the exiting L3 nerve roots. 2. Moderate to severe spinal canal stenosis at the L3-L4 and L4-L5 levels likely affecting the exiting L4 and L5 nerve roots respectively. There may also be compromise of the right L5 nerve root at the L5-S1 level in the narrowed neural foramen. Electronically signed by: Sharmaine Jones On 10/28/2020 20:37:32 PM
[2020-10-28] MEDS: QUEtiapine FUMARATE 25 MG TAB PO SCH (21:38)
[2020-10-28] MEDS: FOLIC ACID 1 MG TAB PO SCH (21:38)
[2020-10-28] MEDS: ATORVASTATIN 20 MG TAB PO SCH (21:38)
[2020-10-28 22:00] VITALS: BP 129/57
[2020-10-29] MEDS: LEVOTHYROXINE 100MCG TABLET (0.1MG) PO SCH (05:32)
[2020-10-29 06:00] VITALS: BP 123/61
[2020-10-29 07:05] LABS: HEMATOCRIT 37.9 % (36.0-47.0); HEMOGLOBIN 12.1 g/dl (12.0-15.5); MEAN CORPUSCULAR HEMOGLOBIN 33.4 pg (27.0-33.0); MEAN CORPUSCULAR HGB CONC 31.9 g/dl (32.0-36.5); MEAN CORPUSCULAR VOLUME 104.7 fl (80.0-96.0); PLATELET COUNT, AUTOMATED 226 10^3/uL (150-450); RED BLOOD COUNT 3.62 10^6/uL (4.00-5.40); WHITE BLOOD COUNT 10.6 10^3/uL (4.0-10.0)
[2020-10-29 07:30] LABS: CALCIUM LEVEL 8.8 MG/DL (8.8-10.2); CREATININE FOR GFR 1.68 MG/DL (0.55-1.30); GLOMERULAR FILTRATION RATE 31.4 (>39); MAGNESIUM LEVEL 2.2 MG/DL (1.8-2.4); POTASSIUM SERUM 4.8 MEQ/L (3.5-5.1)
[2020-10-29] MEDS: NS 1,000 ML IV SCH (08:07)
[2020-10-29 08:49] VITALS: BP 130/56
[2020-10-29] MEDS: GABAPENTIN 100 MG CAP PO SCH (08:49)
[2020-10-29] MEDS: VENLAFAXINE 37.5 MG TAB PO SCH (08:49)
[2020-10-29] MEDS: BUDESONIDE EC 3 MG CAP (ENTOCORT EC) PO SCH (08:49)
[2020-10-29] MEDS: POTASSIUM CHLORIDE 10 MEQ SR TABLET PO SCH (08:49)
[2020-10-29] MEDS: bisoproloL fumarate 5 MG TAB PO SCH (08:49)
[2020-10-29] MEDS: CEPHALEXIN 500 MG CAP PO SCH (08:49)
[2020-10-29] MEDS: ENOXAPARIN 30MG/0.3ML SYRINGE (J1650 PER 10MG) SC SCH (08:51)
[2020-10-29] MEDS ORDERED: PERCOCET PO (10:06)
[2020-10-29] MEDS ORDERED: TORS20TA2 PO (10:06)
--- NOTE | 2020-10-29 16:33 | DS.PDOC ---
Discharge Summary General Date of Admission Oct 27, 2020 at 10:56 Date of Discharge 10/29/20 Discharge Summary PROCEDURES PERFORMED DURING STAY: [None]. ADMITTING DIAGNOSES: Intractable back pain RADHA UTI Leg wounds Anxiety/depression Hyperlipidemia Hypertension DISCHARGE DIAGNOSES: Intractable back pain RADHA UTI Leg wounds Anxiety/depression Hyperlipidemia Hypertension COMPLICATIONS/CHIEF COMPLAINT: Low Back Pain, Sciatic Leg Pain. HISTORY OF PRESENT ILLNESS: Patient is a 80-year-old female who presents today for worsening low back pain. Patient has a history of chronic low back pain but has been getting worse over the last month. Patient saw neurology who told her that she has sciatica. Patient was supposed to have an appointment in 2 days to see a spinal surgeon however, she was unable to take it anymore so she decided come to the emergency department. Patient states that she has been c onfined to a wheelchair because of the back pain. Patient also has multiple leg wounds who she was seeing Dr. Henning of wound care for and was supposed to go today however, she was unable to get out of the car so they brought her to the emergency room. Patient denies any saddle anesthesia or any bowel incontinence. Patient states that she has had some incontinence with urine. Upon further questioning, it appears that this is mostly when she needs to go the bathroom she is unable to get to the bathroom because of the pain and ends up having a small amount of urine spill out into her undergarments. Patient denies any abdominal pain. Patient denies any numbness or tingling in her legs. Patient denies any weakness in her legs. Patient went to urgent care yesterday and was diagnosed with a urinary tract infection. Patient was started on cephalexin and given hydrocodoneacetaminophen for the pain which she says is helping. Patient states that when she wakes up in the morning the pain is at its worst and she cries until she takes the hydrocodoneacetaminophen. HOSPITAL COURSE: During the hospital stay the following issues addressed Intractable back pain X-ray showed Advanced multilevel degenerative spondylosis. No acute fracture/compression injury or subluxation. See MRI result below Pain management PT/OT RADHA Most likely secondary to intensive diuresis with torsemide Torsemide and allopurinol on hold Kidney function improved UTI Completed course of cephalexin for 5 days. Leg wounds No pus, in different stage of healing Hypertension Continue home meds Aortic stenosis Follow-up with surgical coder in the outpatient settings Hyperlipidemia Continue statin Anxiety/depression Continue home meds DISCHARGE MEDICATIONS: Please see below. ALLERGIES: Please see below. PHYSICAL EXAMINATION ON DISCHARGE: VITAL SIGNS: Please see below. GENERAL APPEARANCE: In mild distress HEENT: no scleral icterus, no JVD, EOMI CARDIOVASCULAR: S1S2 LUNGS: CTA ABDOMEN: soft & not tender w palpitation MUSCULOSKELETAL: no cyanosis, no swelling INTEGUMENT: no generalized pallor NEUROLOGICAL: cranial nerve function from 2-12 intact intact, follows commands, speech not dysarthric LABORATORY DATA: Please see below. IMAGING: [facility] NAME: CHUCHO TUCKER DATE OF : 1940 BUSINESS NUMBER: [id number] AGE: 80 SEX: F REPORT #: [id number] ROOM: [address] [facility]CHNOLOG[facility] EBONIE STEELE DO Ordered for Date&Time: 10/28/201811 cc: [~ rep ct ivnm] Service Date&Time: 10/28/201934 This report is in Signed status. Interpretation performed by [facility]. Thank you for having your radiology procedures performed at [facility] RADIOLOGY REPORT Date&Time printed: [~ rep prt dt last] [~ rep prt tm last] Page 2 of 2 [place] [id number] RADIOLOGY REPORT This report is in Signed status. Interpretation performed by [facility]. Thank you for having your radiology procedures performed at [facility] RADIOLOGY REPORT Date&Time printed: [~ rep prt dt last] [~ rep prt tm last] Page 1 of 2 PROCEDURE INFORMATION: Exam: MR Lumbar Spine Without Contrast Exam date and time: 10/28/2020 7:35 PM Age: 80 years old Clinical indication: Low back pain TECHNIQUE: Imaging protocol: Multiplanar magnetic resonance images of the lumbar spine without intravenous contrast. COMPARISON: CR Spine. Lumbosacral, complete 10/26/2020 5:22 PM FINDINGS: Vertebrae: No acute fracture in the lumbar spine. Normal alignment. Diffuse degenerative facet arthropathy. Spinal cord: The conus medullaris is normal appearance at the L1 level. L1-L2: No significant spinal canal stenosis or neural foraminal narrowing. L2-L3: Diffusely bulging annulus with disc herniation and possible free fragment extending inferiorly from the disc space along the posterior margin of the L3 vertebral body just to the left of midline. There is severe spinal canal stenosis with narrowing of both lateral recesses compressing the exiting L3 nerve roots. The neural foramina are patent. There is also compression of the thecal sac with severe spinal canal stenosis. The free disc fragment measures 1.5 cm in width by 1.9 cm cc by 7 mm AP. L3-L4: Diffusely bulging annulus with moderate to severe spinal canal stenosis. Stenosis is also due to a synovial cyst emanating from the medial margin of the left facet joint series 601, image 1 frames 11-13. This compresses the exiting left L4 nerve root. The neural foramina are patent. L4-L5: Diffusely bulging annulus with resultant moderate to severe spinal canal stenosis with narrowing of both lateral recesses and compression of the exiting L5 nerve roots. The neural foramina are patent. L5-S1: Diffusely bulging annulus narrows the neural foramen greater on right than left with compression of the right L5 nerve root. Series 601, image 1 frame 4. There is no spinal canal stenosis. Soft tissues: Bilateral renal cortical atrophy. IMPRESSION: 1. There is a large central/left paracentral disc herniation at the L2-L3 level compressing the thecal sac and extending inferiorly almost to the L3-L4 level due to a large free fragment. This may affect the lower lumbar and sacral nerve roots within the compressed thecal sac as well as the exiting L3 nerve roots. 2. Moderate to severe spinal canal stenosis at the L3-L4 and L4-L5 levels likely affecting the exiting L4 and L5 nerve roots respectively. There may also be compromise of the right L5 nerve root at the L5-S1 level in the narrowed neural foramen. Electronically signed by: Teodora Jones On 10/28/2020 20:37:32 PM DD: TEODORA JONES MD 10/28/201934 DT: SAÚL 10/28/202036 DS: CHANNING 10/28/202036 [~ rep ct labl] PROGNOSIS: Good ACTIVITY: [As tolerated]. DIET: Cardiac DISPOSITION: 01 Home, Self-Care. ITEMS TO FOLLOWUP ON ON OUTPATIENT: Follow-up with orthopedic team next week, follow-up with wound care next week, follow-up with PCP in 3 to 5 days DISCHARGE CONDITION: [Stable]. TIME SPENT ON DISCHARGE: 40 minutes. Vital Signs/I&Os Vital Signs Date Time Temp Pulse Resp B/P (MAP) Pulse Ox O2 Delivery O2 Flow Rate FiO2 10/29/20 08:49 71 130/56 10/29/20 06:00 97.9 19 92 Room Air 10/27/20 20:20 1.0 I&O- Last 24 Hours up to 6 AM 10/29/20 06:00 Intake Total 1570 ml Output Total 0 ml Balance 1570 ml Laboratory Data Labs 24H Laboratory Tests 2 10/29/20 06:43: Nucleated Red Blood Cells % (auto) 0.3H, Anion Gap 8, Glomerular Filtration Rate 31.4L, Calcium Level 8.8, Magnesium Level 2.2 CBC/BMP Laboratory Tests 10/29/20 06:43 Microbiology Microbiology 10/27/20 Urine Culture, Received Pending 10/26/20 Urine Culture - Final, Complete Discharge Medications Scheduled Aspirin (Aspirin EC) 81 Mg Tab, 81 MG PO Q2D, (Reported) TAKES AT BEDTIME EVERY OTHER NIGHT Atorvastatin Calcium (Atorvastatin Calcium) 80 Mg Tab, 80 MG PO QHS, (Reported) Bisoprolol Fumarate (Bisoprolol Fumarate) 5 Mg Tablet, 5 MG PO DAILY, (Reported) Budesonide (Budesonide EC) 3 Mg Capdr...er, 6 MG PO DAILY, (Reported) Diltiazem HCl (Cartia Xt) 240 Mg Cap, 240 MG PO DAILY, (Reported) Folic Acid (Folic Acid) 1 Mg Tab, 1 MG PO QHS, (Reported) Gabapentin (Gabapentin) 100 Mg Capsule, 100 MG PO BID, (Reported) Levothyroxine Sodium (Levoxyl) 100 Mcg Tablet, 100 MCG PO DAILY, (Reported) Potassium Chloride (Potassium Chloride) 20 Meq Tablet.er, 20 MEQ PO BID, (Reported) Quetiapine Fumarate (Quetiapine Fumarate) 25 Mg Tablet, 50 MG PO QHS, (Reported) Torsemide (Torsemide) 20 Mg Tablet, 10 MG PO DAILY TAKES AM/MIDDAY Venlafaxine HCl (Venlafaxine HCl) 75 Mg Tablet, 75 MG PO DAILY, (Reported) allopurinoL (allopurinoL) 300 Mg Tablet, 300 MG PO DAILY, (Reported) Scheduled PRN Albuterol Sulfate (Albuterol Sulfate Hfa) 8.5 Gm Hfa.aer.ad, 2 PUFFS INH QID PRN for SHORTNESS OF BREATH, (Reported) Oxycodone/Acetaminophen (Oxycodone-Acetaminophen 5-325) 1 Each Tablet, 1 TAB PO Q4HP PRN for PAIN LEVEL 4-10 Allergies Coded Allergies: indomethacin (Verified Allergy, Unknown, as takes asprin, 10/26/20) levofloxacin (Verified Allergy, Unknown, UNKNOWN REACTION, 10/26/20) tetracycline (Unverified Allergy, Unknown, UNKNOWN REACTION, 10/26/20) amlodipine (Verified Adverse Reaction, Mild, MUSCLE CRAMPS, 10/26/20) trazodone (Unverified Adverse Reaction, Mild, DIZZINESS, 10/26/20) EBONIE STEELE DO Oct 29, 2020 16:33
== END 2020-10-29 15:05 | disposition home or self-care (01) | DRG 551 ==
LOC: M ED 11:20 → M ED INP 11:21 → OBSVTOIN 10-27 10:56 → ENRESERV 10-27 16:20 → M MS5PR 10-27 18:40
PROVIDERS: ADMIT Family Medicine; ATTEND Internal Medicine
DX: M54.9 Dorsalgia, unspecified (principal); G93.41 Metabolic encephalopathy; N17.9 Acute kidney failure, unspecified; N39.0 Urinary tract infection, site not specified; L97.929 Non-pressure chronic ulcer of unspecified part of left lower leg with unspecified severity; L97.919 Non-pressure chronic ulcer of unspecified part of right lower leg with unspecified severity; N18.30 Chronic kidney disease, stage 3 unspecified; I12.9 Hypertensive chronic kidney disease with stage 1 through stage 4 chronic kidney disease, or unspecified chronic kidney disease; F41.9 Anxiety disorder, unspecified; F32.9 Major depressive disorder, single episode, unspecified; E78.5 Hyperlipidemia, unspecified; Z79.82 Long term (current) use of aspirin; Z79.899 Other long term (current) drug therapy; Z88.8 Allergy status to other drugs, medicaments and biological substances; E03.9 Hypothyroidism, unspecified; I35.0 Nonrheumatic aortic (valve) stenosis; M10.9 Gout, unspecified; K21.9 Gastro-esophageal reflux disease without esophagitis; Z90.81 Acquired absence of spleen

== ENCOUNTER → 2020-11-09 | Outpatient (REF) | payer MEDICARE, OTHER ==
[~2020-11-09] MED LIST changes: +ALLO300T2 PO; +PERCOCET PO
== END ==
LOC: M LAB REF 17:54
PROVIDERS: ATTEND Internal Medicine Nephrology
DX: N18.32 Chronic kidney disease, stage 3b (principal)

== ENCOUNTER 2020-11-27 16:42 | Emergency (ER) | payer MEDICARE, OTHER ==
[~2020-11-27] VITALS: Ht 162.6 cm; Wt 94.1 kg
[~2020-11-27 16:42] MED LIST changes: -DOXY100C PO; +DOXY100C3 PO; +QUET1TAB17 PO; -QUET25TA3 PO
--- NOTE | 2020-11-27 18:45 | REP ---
INDICATION: pain/swelling. COMPARISON: None. TECHNIQUE: Duplex FINDINGS: No evidence of deep venous thrombosis above or below the knee. 7 x 4 cm popliteal cyst. IMPRESSION: Negative venous duplex examination right lower extremity. Popliteal cyst. <Electronically signed by Gus Grider > 11/27/20 [id number]
[2020-11-27 21:43] LABS: HEMATOCRIT 40.5 % (36.0-47.0); MEAN CORPUSCULAR HEMOGLOBIN 33.5 pg (27.0-33.0); MEAN CORPUSCULAR HGB CONC 32.1 g/dl (32.0-36.5); MEAN CORPUSCULAR VOLUME 104.4 fl (80.0-96.0); PLATELET COUNT, AUTOMATED 232 10^3/uL (150-450); RED BLOOD COUNT 3.88 10^6/uL (4.00-5.40); WHITE BLOOD COUNT 14.8 10^3/uL (4.0-10.0)
--- NOTE | 2020-11-27 21:56 | REPVR ---
PROCEDURE INFORMATION: Exam: XR Right Ankle Exam date and time: 11/27/2020 8:50 PM Age: 80 years old Clinical indication: Injury or trauma; Fall; Swelling (edema); Ankle; Right; Additional info: Swelling/fell 2 wk ago TECHNIQUE: Imaging protocol: XR Right ankle. Views: 3 or more views. COMPARISON: CT ANGIO LOWER EXTREM 06/23/2020 12:30 PM FINDINGS: Bones/joints: No fractures. Soft tissues: Subcutaneous edema of the calf and ankle. IMPRESSION: 1. Diffuse subcutaneous edema. 2. Otherwise negative right ankle. Electronically signed by: Arsen White On 11/27/2020 21:56:14 PM
--- NOTE | 2020-11-27 21:57 | REPVR ---
PROCEDURE INFORMATION: Exam: XR Right Knee Exam date and time: 11/27/2020 8:59 PM Age: 80 years old Clinical indication: Injury or trauma; Fall; Sprain or strain; Ankle; Right; Additional info: Swelling/fell 2 wk ago TECHNIQUE: Imaging protocol: XR Right knee. Views: 4 or more views. COMPARISON: CT ANGIO LOWER EXTREM 06/23/2020 12:30 PM FINDINGS: Bones/joints: Joint space narrowing of the medial compartment of the knee with subchondral sclerosis. Degenerative spurring, medial greater than lateral. No joint effusion. Soft tissues: Diffuse subcutaneous edema. IMPRESSION: 1. Moderate degenerative osteoarthritis, greatest in the medial compartment. 2. Diffuse subcutaneous edema. 3. Otherwise negative right knee. No fracture or joint effusion. Electronically signed by: Arsen White On 11/27/2020 21:57:31 PM
[2020-11-27 22:10] LABS: ERYTHROCYTE SEDIMENTATION RATE 33 mm/hr (0-30)
[2020-11-27 22:18] LABS: ALBUMIN 3.2 GM/DL (3.2-5.2); BILIRUBIN,DIRECT 0.1 MG/DL (0.0-0.2); BILIRUBIN,TOTAL 0.4 MG/DL (0.2-1.0); C REACTIVE PROTEIN QUANTITATIV 0.78 MG/DL (0.00-0.30); TOTAL PROTEIN 6.5 GM/DL (6.4-8.2)
[2020-11-27] MEDS ORDERED: ceFAZolin SOD 2 GM in IV 1 EA IV ONE (22:20)
[2020-11-27 22:34] LABS: LYMPHOCYTES 20 % (16-44); MONOCYTES 5 % (0-5); NEUTROPHILS 67 % (28-66)
[2020-11-27 22:38] LABS: HOWELL-JOLLY BODIES 1+
[2020-11-27 22:39] LABS: TEAR DROP CELLS 1+
[2020-11-27 22:40] LABS: POIKILOCYTOSIS 2+; POLYCHROMASIA 1+
[2020-11-27 22:41] LABS: SCHISTOCYTES 2+
[2020-11-27 22:43] LABS: ANISOCYTOSIS 1+; PLATELET ESTIMATE NORMAL (NORMAL)
[2020-11-27] MEDS ORDERED: CLEO300C2 PO (23:16)
[2020-11-27 23:30] VITALS: BP 170/90
== END 2020-11-27 23:30 | disposition home or self-care (01) ==
LOC: M ED 16:42
DX: L03.115 Cellulitis of right lower limb (principal); R94.5 Abnormal results of liver function studies; M17.11 Unilateral primary osteoarthritis, right knee; M71.21 Synovial cyst of popliteal space [Baker], right knee; I12.9 Hypertensive chronic kidney disease with stage 1 through stage 4 chronic kidney disease, or unspecified chronic kidney disease; N18.30 Chronic kidney disease, stage 3 unspecified; E78.5 Hyperlipidemia, unspecified; K21.9 Gastro-esophageal reflux disease without esophagitis; E03.9 Hypothyroidism, unspecified; M54.5 Low back pain; F41.9 Anxiety disorder, unspecified; F32.9 Major depressive disorder, single episode, unspecified; Z90.81 Acquired absence of spleen; Z88.1 Allergy status to other antibiotic agents; Z88.8 Allergy status to other drugs, medicaments and biological substances; Z79.899 Other long term (current) drug therapy
CPT/HCPCS: 11042; 11045; 73564; 73610; 80047; 80076; 83605; 83880; 85025; 85652; 86140; 87040; 93971; 96365; 96366; 99284; G0463; J0690

== ENCOUNTER 2020-12-02 13:12 | Inpatient (IN) | payer MEDICARE, OTHER ==
[~2020-12-02] VITALS: Ht 162.6 cm; Wt 95.5 kg
[~2020-12-02 13:12] MED LIST changes: +CLEO300C2 PO
[2020-12-02] MEDS ORDERED: CLIN300C6 PO (13:19)
--- NOTE | 2020-12-02 17:27 | REP ---
INDICATION: r/o dvt COMPARISON: 11/27/2020. TECHNIQUE: Real time compression and duplex Doppler interrogation of the bilateral lower extremity deep venous system is performed. Compression ultrasound is performed of the bilateral peroneal and posterior tibial veins. FINDINGS: Bilaterally, the common femoral, superficial femoral and popliteal veins are fully compressible with transducer pressure and demonstrate normal spontaneous and phasic flow, without evidence of deep venous thrombosis. The bilateral peroneal and posterior tibial veins could not be visualized due to soft tissue edema. There are bilateral complex popliteal cysts, on the right measuring 7.6 x 1.1 x 4.6 cm and on the left 2.8 x 1.1 x 2.8 cm. IMPRESSION: No evidence of deep venous thrombosis of the bilateral lower extremity femoral popliteal venous system. Bilateral complex popliteal cysts. <Electronically signed by Florencio Black > 12/02/20 [id number]
[2020-12-02 18:01] LABS: BASO # 0.1 10^3/uL (0.0-0.2); BASO % 0.6 % (0.0-1.0); EOS # 0.1 10^3/uL (0.0-0.5); EOS % 0.4 % (0.0-3.0); HEMOGLOBIN 12.9 g/dl (12.0-15.5); LYMPH # 2.5 10^3/uL (1.5-5.0); MEAN CORPUSCULAR HEMOGLOBIN 33.9 pg (27.0-33.0); MEAN CORPUSCULAR HGB CONC 32.3 g/dl (32.0-36.5); MONO # 1.2 10^3/uL (0.0-0.8); NEUTROPHILS # 11.1 10^3/uL (1.5-8.5); PLATELET COUNT, AUTOMATED 257 10^3/uL (150-450); RED BLOOD COUNT 3.81 10^6/uL (4.00-5.40); WHITE BLOOD COUNT 15.5 10^3/uL (4.0-10.0)
--- NOTE | 2020-12-02 18:11 | REP ---
INDICATION: b/l lower extremity edema COMPARISON: 10/26/2020, 05/22/2020. TECHNIQUE: PA/Lateral FINDINGS: There is chronic elevation of the right hemidiaphragm. There is no acute infiltrate. Heart is not enlarged. There is calcification of the thoracic aorta. The mediastinal silhouette is unchanged. There are mild degenerative changes of the spine. IMPRESSION: No acute pulmonary disease. <Electronically signed by Florencio Black > 12/02/20 [id number]
[2020-12-02 18:21] LABS: RSV AMPLIFICATION NEGATIVE (NEGATIVE)
[2020-12-02 18:30] LABS: ERYTHROCYTE SEDIMENTATION RATE 33 mm/hr (0-30)
[2020-12-02 18:34] LABS: APPEARANCE, URINE CLEAR (CLEAR); BACTERIA, URINE AUTO NEGATIVE (NEGATIVE); BILIRUBIN, URINE AUTO NEGATIVE (NEGATIVE); BLOOD, URINE BLOOD NEGATIVE (NEGATIVE); COLOR, URINE YELLOW (YELLOW); GLUCOSE, URINE (UA) AUTO NEGATIVE (NEGATIVE); KETONE, URINE AUTO NEGATIVE (NEGATIVE); LEUKOCYTE ESTERASE, URINE AUTO TRACE (NEGATIVE); MUCUS, URINE SMALL (NEGATIVE); NITRITE, URINE AUTO NEGATIVE (NEGATIVE); PROTEIN, URINE AUTO NEGATIVE (NEGATIVE); RBC, URINE AUTO 1 /HPF (0-3); SPECIFIC GRAVITY URINE AUTO 1.008 (1.002-1.035); SQUAMOUS EPITHELIAL CELL UR AU 1 /HPF (0-6); UROBILINOGEN, URINE AUTO 0.2 mg/dL (0.0-2.0); WBC, URINE AUTO 2 /HPF (0-3)
[2020-12-02 18:37] LABS: ALBUMIN 3.4 GM/DL (3.2-5.2); BILIRUBIN,DIRECT 0.2 MG/DL (0.0-0.2); BILIRUBIN,TOTAL 0.4 MG/DL (0.2-1.0); C REACTIVE PROTEIN QUANTITATIV 1.06 MG/DL (0.00-0.30); CALCIUM LEVEL 8.5 MG/DL (8.8-10.2); CK-MB VALUE MASS 10.2 NG/ML (<3.6); CREATININE FOR GFR 1.5 MG/DL (0.55-1.30); GLOMERULAR FILTRATION RATE 35.8 (>39); MB/CK RELATIVE INDEX 1.25 (< OR =4); TOTAL PROTEIN 6.3 GM/DL (6.4-8.2); TROPONIN I 0.02 NG/ML (< 0.10)
[2020-12-02] MEDS ORDERED: VANCOMYCIN HCL 2,000 MG in D5W 500 ML IV ONE (19:00)
--- NOTE | 2020-12-02 19:54 | HPEPDOC ---
[facility] Medical History & Physical Date of Admission Dec 02, 2020 Date of Service: Dec 02, 2020 Primary Care Physician: Arnold Reece MD Attending Physician: RYLEE MICHELE MD History and Physical TIME OF SERVICE: 910PM CHIEF COMPLAINT: leg pain HISTORY OF PRESENT ILLNESS: , a 80 yr old F, was previously diagnosed with RLE cellulitis on Nov 29. Despite being started on oral clindamycin, the redness, pain and swelling at the RLE became worse. Her daughter, who is an RN, added that both the patients legs were also more swollen and she brought her mother to the ER. The patient denied having f/c/n/v. Unfortunately the patients who was at a [place] in [place] while the patient was being triaged in the ER. REVIEW OF SYSTEMS: 10-point review of systems negative except as listed in HPI PAST MEDICAL/ SURGICAL HISTORY: Multiple chronic non-healing wounds on her upper and lower extremities Splenectomy for hemolytic anemia Aortic stenosis. Hypertensive heart disease. Hyperlipidemia Hypothyroidism Depression Stage III chronic kidney disease Chronic CAD w placement of a MEHNAZ Chronic anxiety Microscopic colitis Gout GERD Hysterectomy with bilateral salpingo-oophorectomy in 1974. Cholecystectomy SOCIAL HISTORY: , her of 60+ yrs today. She lives next door to her daughter. 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 She doesnt use alcohol or recreational drugs FAMILY HISTORY: Father at 48 of cerebral aneurysm. Mother at 87 of heart disease ALLERGIES: Please see below. HOME MEDICATIONS: Please see below. PHYSICAL EXAMINATION: Vital Signs Date Time Temp Pulse Resp B/P (MAP) Pulse Ox O2 Delivery O2 Flow Rate FiO2 12/02/20 13:12 97.9 84 18 139/77 (97) 95 Room Air GENERAL APPEARANCE: well nourished and developed/ appears sad when talking about her HEENT: EOMI / MMM&P CARDIOVASCULAR: RRR/NMRG LUNGS: CTAB on RA ABDOMEN: contour obese / soft & NT w palpation MUSCULOSKELETAL: ANGE x 4 INTEGUMENT: + rubor, dalor and calor at RLE / she has a wound at the RUE covered with dressings & multiple abrasions and skin tears on her extremities NEUROLOGICAL: CN 2-12 grossly intact /speech not dysarthric PSYCHIATRIC: A&Ox 3 /able to understand and follow all commands LABORATORY DATA: IMAGING: Chest xray IMPRESSION: No acute pulmonary disease. Vascular US IMPRESSION: No evidence of deep venous thrombosis of the bilateral lower extremity femoral popliteal venous system. Bilateral complex popliteal cysts. MICROBIOLOGY: respiratory panel is neg ASSESSMENT: , a 80 yr old F w Multiple chronic non-healing wounds, HTN, DLP, Hypothyroidism, Depression, CKD3, CAD, Chronic anxiety, Gout & Javi roscopic colitis will be admitted for RLE cellulitis. PLAN: 1 RLE cellulitis She doesnt' have SIRS Her ALT-70 score for cellulitis is 6 points which indicates that there is a >82.2% likelihood of true cellulitis. Plan: admit to medical floor /switch to IV Clindamycin / f/u blood cx / fall precautions 2 BLE edema Likely due to venous insufficiency and or CKD Her BNP & albumin were wnl Plan; elevate legs c/w Torsemide 3 Multiple wounds /skin tears Plan: instructed the patient to consume a diet high in protein / will ask the day time team to consult 4 Transaminitis Likely 2/2 fatty liver Plan f/u Hep panel and liver US 5 Bilateral complex cysts Plan: the day time team may consider Ortho consult 6 Bereavement/ Depression / anxiety Plan: Quetiapine, Venlafaxine / PFS consult for d/c planning & to see if she needs additional assistance at home 7 Hypertensive heart disease Plan: Bisoprolol, Diltiazem, Torsemide 8 Hyperlipidemia / Chronic CAD w placement of a MEHNAZ Plan: Bisoprolol Atorvastatin & ASA 8 Hypothyroidism Plan: Levothyroxine 10 Stage III chronic kidney disease Plan: f/u BMP 11 Microscopic colitis Plan: f/u w GI as scheduled 12 Gout Plan: allopurinol 13 Class 2 obesity complicates care DVT px w Heparin Dispo: home after at least 2 midnights stay Home Medications Scheduled Amoxicillin/Potassium Clav (Amox-Clav 875-125 mg Tablet) 1 Each Tablet, 1 TAB PO BID Aspirin (Aspirin EC) 81 Mg Tab, 81 MG PO Q2D TAKES AT BEDTIME EVERY OTHER NIGHT Atorvastatin Calcium (Atorvastatin Calcium) 80 Mg Tab, 80 MG PO QHS Bisoprolol Fumarate (Bisoprolol Fumarate) 5 Mg Tablet, 5 MG PO DAILY Budesonide (Budesonide EC) 3 Mg Capdr...er, 6 MG PO DAILY Diltiazem HCl (Cartia Xt) 240 Mg Cap, 240 MG PO DAILY Doxycycline Hyclate (Doxycycline Hyclate) 100 Mg Capsule, 1 CAP PO BID Folic Acid (Folic Acid) 1 Mg Tab, 1 MG PO QHS Gabapentin (Gabapentin) 100 Mg Capsule, 100 MG PO BID Levothyroxine Sodium (Levoxyl) 100 Mcg Tablet, 100 MCG PO DAILY Potassium Chloride (Potassium Chloride) 20 Meq Tablet.er, 20 MEQ PO BID Quetiapine Fumarate (Quetiapine Fumarate) 25 Mg Tablet, 50 MG PO QHS Torsemide (Torsemide) 20 Mg Tablet, 10 MG PO BID Venlafaxine HCl (Venlafaxine HCl) 75 Mg Tablet, 75 MG PO DAILY allopurinoL (allopurinoL) 300 Mg Tablet, 300 MG PO DAILY Scheduled PRN Acetaminophen (Acetaminophen) 325 Mg Tablet, 650 MG PO Q4H PRN for MILD PAIN or TEMP > 101 Albuterol Sulfate (Albuterol Sulfate Hfa) 8.5 Gm Hfa.aer.ad, 2 PUFFS INH QID PRN for SHORTNESS OF BREATH Alprazolam (Alprazolam) 0.5 Mg Tablet, 0.5 MG PO DAILY PRN for ANXIETY Allergies Coded Allergies: indomethacin (Verified Allergy, Unknown, as takes asprin, 10/26/20) levofloxacin (Verified Allergy, Unknown, UNKNOWN REACTION, 10/26/20) tetracycline (Unverified Allergy, Unknown, UNKNOWN REACTION, 10/26/20) amlodipine (Verified Adverse Reaction, Mild, MUSCLE CRAMPS, 10/26/20) trazodone (Unverified Adverse Reaction, Mild, DIZZINESS, 10/26/20) A-FIB/CHADSVASC A-FIB History Current/History of A-Fib/PAF?: No Current PO Anticoag Therapy: No RYLEE MICHELE MD Dec 02, 2020 19:54
[2020-12-02] MEDS ORDERED: ACETAMINOPHEN TAB 650MG DOSE (2X325MG) PO PRN (19:55)
[2020-12-02] MEDS ORDERED: MOM 30ML SUSPENSION UDC PO PRN (19:55)
[2020-12-02] MEDS ORDERED: MAALOX 30 ML SUSP *UDC PO PRN (19:55)
[2020-12-02] MEDS ORDERED: VANCOMYCIN HCL 1,000 MG, VIAL MATE ADAPTER 1 EACH in NS 250 ML IV ONE ×2 (20:00→21:00)
[2020-12-02] MEDS ORDERED: ALPR0.5T3 PO (20:12)
[2020-12-02] MEDS ORDERED: TORS20TA2 PO (20:12)
[2020-12-02] MEDS ORDERED: HOME MED LIST COMPLETE! XX SCH (20:15)
--- NOTE | 2020-12-02 20:42 | ECGEPIP ---
[facility] - ED Test Date: 2020-12-02 Pat Name: CHUCHO TUCKER Department: Room: - Gender: Female Palletizer: JOLANTA : 1940 Requested By: KOSTA Barrios PA-C Order Number: [id number] Reading MD: Lara Avalos Measurements Intervals [place] Rate: 68 P: 46 CT: 208 QRS: -39 QRSD: 82 T: 49 QT: 386 QTc: 410 Interpretive Statements Normal sinus rhythm Left axis deviation Moderate voltage criteria for LVH, may be normal variant ( R in aVL , Ashwin product ) Inferior infarct , age undetermined Anterolateral infarct , age undetermined Electronically Signed on 12-02-2020 20:42:20 EDT by Lara Avalos
[2020-12-02 21:50] VITALS: BP 161/65
[2020-12-02] MEDS ORDERED: ALPRAZolam 0.5 MG TAB PO PRN (22:10)
[2020-12-02] MEDS ORDERED: ALBUTEROL 90 MCG/ACT 8GM HFA INHALER INH PRN (22:10)
[2020-12-02] MEDS: QUEtiapine FUMARATE 25 MG TAB PO SCH (22:26)
[2020-12-02] MEDS: ATORVASTATIN 20 MG TAB PO SCH (22:26)
[2020-12-02] MEDS: GABAPENTIN 100 MG CAP PO SCH (22:26)
[2020-12-02] MEDS: FOLIC ACID 1 MG TAB PO SCH (22:30)
[2020-12-02] MEDS: TORSEMIDE 10 MG TABLET PO SCH (22:31)
[2020-12-02] MEDS: POTASSIUM CHLORIDE 10 MEQ SR TABLET PO SCH (22:31)
[2020-12-03] MEDS: LEVOTHYROXINE 100MCG TABLET (0.1MG) PO SCH (05:22)
[2020-12-03] MEDS: HEPARIN SOD (PORCINE) 5000UNITS/ML 1ML VIAL/SYRINGE SC SCH ×3 (05:23→21:48)
[2020-12-03 06:00] VITALS: BP 130/53
[2020-12-03] MEDS ORDERED: CLINDAMYCIN 600 MG in IV 1 EA IV SCH (06:00)
[2020-12-03 07:03] LABS: HEMATOCRIT 32.5 % (36.0-47.0); MEAN CORPUSCULAR HEMOGLOBIN 33.7 pg (27.0-33.0); MEAN CORPUSCULAR HGB CONC 32.3 g/dl (32.0-36.5); MEAN CORPUSCULAR VOLUME 104.2 fl (80.0-96.0); PLATELET COUNT, AUTOMATED 212 10^3/uL (150-450); RED BLOOD COUNT 3.12 10^6/uL (4.00-5.40); WHITE BLOOD COUNT 14.3 10^3/uL (4.0-10.0)
[2020-12-03 07:14] LABS: ALBUMIN 2.3 GM/DL (3.2-5.2); BILIRUBIN,TOTAL 0.4 MG/DL (0.2-1.0); CALCIUM LEVEL 8.1 MG/DL (8.8-10.2); CREATININE FOR GFR 1.14 MG/DL (0.55-1.30); GLOMERULAR FILTRATION RATE 49.1 (>39); POTASSIUM SERUM 3.4 MEQ/L (3.5-5.1); TOTAL PROTEIN 5.1 GM/DL (6.4-8.2)
[2020-12-03 07:18] LABS: HEMOGLOBIN 10.5 g/dl (12.0-15.5)
[2020-12-03] MEDS: VENLAFAXINE 37.5 MG TAB PO SCH (08:51)
[2020-12-03] MEDS: BUDESONIDE EC 3 MG CAP (ENTOCORT EC) PO SCH (08:51)
[2020-12-03] MEDS: POTASSIUM CHLORIDE 10 MEQ SR TABLET PO SCH ×2 (08:52→19:51)
[2020-12-03] MEDS: bisoproloL fumarate 5 MG TAB PO SCH (08:52)
[2020-12-03] MEDS: allopurinoL 300 MG TAB PO SCH (08:52)
[2020-12-03] MEDS: GABAPENTIN 100 MG CAP PO SCH ×2 (08:53→19:50)
[2020-12-03] MEDS: TORSEMIDE 10 MG TABLET PO SCH ×2 (08:53→16:02)
[2020-12-03] MEDS ORDERED: VANCOMYCIN HCL 1,000 MG, VIAL MATE ADAPTER 1 EACH in NS 250 ML IV SCH (12:10)
[2020-12-03 12:17] LABS: HEPATITIS A ANTIBODY IGM NEGATIVE (NEGATIVE); HEPATITIS B CORE ANTIBODY IGM NEGATIVE (NEGATIVE); HEPATITIS B SURFACE ANTIGEN NEGATIVE (NEGATIVE); HEPATITIS C VIRUS ABY INDEX < 0.0 INDEX (<0.8)
[2020-12-03] MEDS: cefTRIAXone SOD 1 GM in D5W MINI-BAG PLUS 50 ML IV SCH (13:05)
[2020-12-03 14:00] VITALS: BP 150/66
[2020-12-03] MEDS: VANCOMYCIN HCL 750 MG, VIAL MATE ADAPTER 1 EACH in NS 250 ML IV SCH (15:27)
--- NOTE | 2020-12-03 17:22 | IPNPDOC ---
Date Seen The patient was seen on 12/03/20. Progress Note SUBJECTIVE: Patient seen and examined at bedside. Doing well considering that her yesterday will be admitted at a different hospital. She continues to report significant discomfort of her right leg and swelling. She is able to ambulate quite well and is mobile in bed. She denies any fevers chills chest pain shortness of breath cavitations nausea vomiting or diarrhea. OBJECTIVE PHYSICAL EXAMINATION: VITAL SIGNS: please see below General: NAD, comfortable HEENT: PERRLA, EOMI, sclerae clear Neck: supple, normal ROM, no JVD Respiratory: lungs CTAB, no wheeze, no rales, no crackles CVS: RRR, normal S1, S2, no murmurs Abdo: soft, no masses, no hepatosplenomegaly, BS+, no rebound tenderness Extremities: Right lower extremity swollen erythematous edematous with weeping wounds. Left leg is slightly erythematous with venous stasis. Pulses intact MSK: no joint deformities, normal ROM Neuro: no focal neuro deficits, moving all 4 extremities, CN2-12 intact. Strength 5/5 in all 4 extremities. No nystagmus. Psych: calm, cooperative, AAO x 3 LABORATORY DATA, IMAGING STUDIES, MICROBIOLOGY: Please see below. DVT prophylaxis ordered?: Heparin ASSESSMENT AND PLAN: , a 80 yr old F w Multiple chronic non-healing wounds, HTN, DLP, Hypothyroidism, Depression, CKD3, CAD, Chronic anxiety, Gout & Microscopic colitis admitted for RLE cellulitis PROBLEMS: RLE Cellulitis, purulent - stop clindamycin for risk of c diff, failed as outpatient - start vancomycin and ceftriaxone - culture secretions from skin tears - advanced wound care - elevate extremities. BLE edema Likely due to venous insufficiency and or CKD Her BNP & albumin were wnl elevate legs c/w Torsemide Multiple wounds /skin tears - wound care consulted, d/w Dr. Henning Transaminitis -Likely 2/2 fatty liver -f/u Hep panel and liver US Bilateral complex cysts - d/w Dr. Joy, ortho consult placed -order bilateral knee XRs Bereavement/ Depression / anxiety Quetiapine, Venlafaxine / PFS consult for d/c planning & to see if she needs additional assistance at home Hypertensive heart disease - Bisoprolol, Diltiazem, Torsemide Hyperlipidemia / Chronic CAD w placement of a MEHNAZ - c/w Bisoprolol Atorvastatin & ASA Hypothyroidism - c/w Levothyroxine Stage III chronic kidney disease - Cr 1.14 Microscopic colitis f/u w GI as scheduled Gout allopurinol Class 2 obesity complicates care DVT px w Heparin Dispo: home after at least 2 midnights stay VS, I&O, 24H, Fishbone Vital Signs/I&O Vital Signs Date Time Temp Pulse Resp B/P (MAP) Pulse Ox O2 Delivery O2 Flow Rate FiO2 12/03/20 14:00 98.1 73 17 150/66 (94) 94 Room Air I&O- Last 24 Hours up to 6 AM 12/03/20 06:00 Intake Total 740 ml Balance 740 ml Laboratory Data 24H LABS Laboratory Tests 2 12/02/20 17:37: Immature Granulocyte % (Auto) 3.0, Neutrophils (%) (Auto) 72.0H, Lymphocytes (%) (Auto) 16.0L, Monocytes (%) (Auto) 8.0, Eosinophils (%) (Auto) 0.4, Basophils (%) (Auto) 0.6, Neutrophils # (Auto) 11.1H, Lymphocytes # (Auto) 2.5, Monocytes # (Auto) 1.2H, Eosinophils # (Auto) 0.1, Basophils # (Auto) 0.1, Nucleated Red Blood Cells % (auto) 4.9H, Erythrocyte Sedimentation Rate 33H, Anion Gap 8, Glomerular Filtration Rate 35.8L, Lactic Acid Level 1.9, Calcium Level 8.5L, Total Bilirubin 0.4, Direct Bilirubin 0.2, Aspartate Amino Transf (AST/SGOT) 121H, Alanine Aminotransferase (ALT/SGPT) 187H, Alkaline Phosphatase 76, Total Creatine Kinase 813H, Creatine Kinase MB 10.2H, Creatine Kinase MB Relative Index 1.25, Troponin I 0.02, C-Reactive Protein, Quantitative 1.06H, WL-Vxo-H-Type Natriuretic Peptide 350, Total Protein 6.3L, Albumin 3.4, Albu min/Globulin Ratio 1.2, Coronavirus (COVID-19)(PCR) NEGATIVE, Influenza Type A (RT-PCR) NEGATIVE, Influenza Type B (RT-PCR) NEGATIVE, Respiratory Syncytial Virus (PCR) NEGATIVE 12/02/20 18:15: Urine Color YELLOW, Urine Appearance CLEAR, Urine pH 5.0, Urine Specific Merigold 1.008, Urine Protein NEGATIVE, Urine Glucose (Auto)(UA) NEGATIVE, Urine Ketones (Auto) NEGATIVE, Urine Blood NEGATIVE, Urine Nitrite NEGATIVE, Urine Bilirubin NEGATIVE, Urine Urobilinogen 0.2, Urine Leukocyte Esterase (Auto) TRACEH, Urine WBC (Auto) 2, Urine RBC (Auto) 1, Urine Hyaline Casts (Auto) 9, Urine Bacteria (Auto) NEGATIVE, Urine Squamous Epithelial Cells 1, Urine Mucus (Auto) SMALL, Urine Sperm (Auto) 12/03/20 06:02: Nucleated Red Blood Cells % (auto) 4.7H, Anion Gap 7L, Glomerular Filtration Rate 49.1, Calcium Level 8.1L, Total Bilirubin 0.4, Aspartate Amino Transf (AST/SGOT) 70H, Alanine Aminotransferase (ALT/SGPT) 125H, Alkaline Phosphatase 59, Total Protein 5.1L, Albumin 2.3#L, Albumin/Globulin Ratio 0.8L, Hepatitis A IgM Antibody NEGATIVE, Hepatitis B Surface Antigen NEGATIVE, Hepatitis B Core IgM Antibody NEGATIVE, Hepatitis C Antibody Index < 0.0 12/03/20 12:26: Random Vancomycin Level 17.7 CBC/BMP Laboratory Tests 12/02/20 17:37 12/03/20 06:02 Microbiology Microbiology 12/02/20 Blood Culture, Received Pending 12/02/20 Blood Culture, Received Pending SHANNA BALDWIN MD Dec 03, 2020 17:22
--- NOTE | 2020-12-03 17:44 | REP ---
INDICATION: transaminitis. COMPARISON: None. TECHNIQUE: Real-time sonographic evaluation of right upper quadrant performed. FINDINGS: There has been a prior cholecystectomy.. There is no intrahepatic or extrahepatic biliary dilatation, common bile duct measures 3 mm in maximum diameter. There is diffuse heterogeneous increased echotexture of the liver compatible with diffuse fibrofatty infiltration. No gross liver mass is seen. Pancreas could not be seen due to overlying bowel gas. The right kidney demonstrates no hydronephrosis, with a normal size of 10.7 cm in length. A simple cyst in the lower pole of the right kidney measures 1 cm in diameter.No free fluid is seen. IMPRESSION: Status post cholecystectomy. No biliary dilatation or free fluid. Diffuse fibrofatty infiltration of the liver. <Electronically signed by Florencio Black > 12/03/20 [id number]
--- NOTE | 2020-12-03 17:59 | REP ---
INDICATION: complex cysts, assess for arthritis COMPARISON: Right knee 11/27/2020. TECHNIQUE: Five views bilateral knees. FINDINGS: There is no evidence of acute fracture, dislocation, or intrinsic bone disease.There is moderately severe medial joint space narrowing bilaterally, with associated subchondral sclerosis and mild spurring. There is mild chondrocalcinosis also noted bilaterally. Bilaterally there is mild lateral patellofemoral compartment narrowing with subchondral sclerosis. There is mild spurring of the bilateral lateral patellar facets and superior poles of the patellas. There is a small suprapatellar effusion on the right. IMPRESSION: No fracture or dislocation. Moderately severe degenerative changes in the medial joint compartments bilaterally. Small suprapatellar effusion on the right. <Electronically signed by Florencio Black > 12/03/20 [id number]
[2020-12-03] MEDS: VANCOMYCIN HCL 500 MG in D5W MINI-BAG PLUS 100 ML IV SCH (18:16)
[2020-12-03] MEDS: QUEtiapine FUMARATE 25 MG TAB PO SCH (19:50)
[2020-12-03] MEDS: ATORVASTATIN 20 MG TAB PO SCH (19:50)
[2020-12-03] MEDS: FOLIC ACID 1 MG TAB PO SCH (19:50)
[2020-12-03] MEDS ORDERED: ASPIRIN 81MG ENTERIC TABLET PO SCH (21:00)
[2020-12-03 22:00] VITALS: BP 138/57
[2020-12-04] MEDS: LEVOTHYROXINE 100MCG TABLET (0.1MG) PO SCH (05:33)
[2020-12-04] MEDS: HEPARIN SOD (PORCINE) 5000UNITS/ML 1ML VIAL/SYRINGE SC SCH ×3 (05:33→21:55)
[2020-12-04 06:00] VITALS: BP 143/48
--- NOTE | 2020-12-04 06:11 | CR ---
CONSULTATION DATE: 12/03/2020 CONSULTING SERVICE: Orthopedic Surgery CONSULTING PHYSICIAN: Fernando Joy M.D. HISTORY OF PRESENT ILLNESS: This is a 80-year-old female with bilateral knee medial compartment osteoarthritis and suspected degenerative tears of the medial meniscus of the right and left knees with associated popliteal cysts. The patient has a complicated medical history of bilateral lower extremity cellulitis becoming exacerbated on the 29 of November. The patient had a history of IV antibiotics for her cellulitis. She was admitted to [facility] for further evaluation and treatment of her bilateral leg cellulitis. Internal Medicine consulted Orthopedics for incidental finding of popliteal cyst on the bilateral knees during an ultrasound exam. The patient otherwise has minimal to no complaints of bilateral knee pain during functional activities of daily living. She is able to ambulate throughout her house without assistive devices, however usually mobilizes with wheelchair secondary to her habitus. This is self-reported to me by the patient. REVIEW OF SYSTEMS: A 14 point review of systems was negative unless otherwise described in the HPI above. PAST MEDICAL HISTORY: 1. Multiple chronic non-healing wounds of her upper and lower extremities. 2. Splenectomy for hemolytic anemia. 3. Aortic stenosis. 4. Hypertensive heart disease. 5. Hyperlipidemia. 6. Hypothyroidism. 7. Depression. 8. Stage III chronic kidney disease. 9. Chronic CAD with placement of a MEHNAZ. 10.Chronic anxiety. 11.Microscopic colitis. 12.Gout. 13.GERD. 14.Hysterectomy with bilateral salpingo-oophorectomy in 1974. 15.Cholecystectomy. SOCIAL HISTORY: Recent of her of 60 plus years who . Patient lives next door to her daughter. 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 Remote history of smoking. Does not use IV drugs or alcohol FAMILY HISTORY: Father at 48 of a cerebral aneurysm. Mother at 87 of heart disease. ALLERGIES: Please see Internal Medicine note. PHYSICAL EXAMINATION: Patient was alert and oriented to person, time and place. She was motor intact to the bilateral lower extremities with 5/5 strength of the EHL, FHL, tibialis anterior, gastrocnemius and peroneal musculature. She had sensation intact to light touch, bilateral deep, superficial, peroneal, sural, saphenous and tibial nerve distributions. She had palpable dorsalis pedis and posterior tibial pulses and brisk capillary refill of the digits. On right knee, the patient had medial joint line pain. Range of motion was from 0 to 120 degrees. She was stable to varus and valgus stress at 0 and 30 degrees. She had crepitus in the patellofemoral joint. On the left knee, she had range of motion from 5 to 125 degrees. Stable to varus and valgus stress at 0 and 30 degrees. She did have tenderness to palpation about the medial joint line as well as positive Artemio's exam. RADIOGRAPHS: The patient had bilateral knee radiographs. The right knee demonstrated moderate to significant medial compartment osteoarthritis and moderate patellofemoral osteoarthritis with significant joint space narrowing of the medial compartment. Left knee: The patient had medial compartment osteoarthritis as well as patellofemoral osteoarthritis with significant joint space loss of the medial compartment as well as sclerotic changes and osteophytic lipping of the tibial plateau indicative of osteoarthritis. IMPRESSION: This is a 80-year-old female with bilateral knee osteoarthritis most significantly of the medial compartment, however, also existing in the patellofemoral compartments bilaterally. I suspect degenerative tears of the medial meniscus likely contributing to her popliteal cyst. PLAN: At this point in time given the patient's history of moderate bilateral medial compartment osteoarthritis of the knees with suspected degenerative tears of the right and left medial meniscus I am not surprised that she has popliteal cysts in the posterior aspect of her right and left knee. Given her function which is relatively high and her minimal to no complaints of knee pain, I suspect that an MRI at this point in time is not indicated since it would not change my management. I would suspect that the MRI would confirm my suspicion of degenerative meniscal tears associated with a bilateral knee popliteal cyst. I do however recommend Physical Therapy for knee strengthening and range of motion exercises as well as gait ambulation and weight loss. This would help her maintain her knee health and decrease the chance of future knee injury.
[2020-12-04 09:12] LABS: C REACTIVE PROTEIN QUANTITATIV 2.75 MG/DL (0.00-0.30)
[2020-12-04 10:13] LABS: CALCIUM LEVEL 8.3 MG/DL (8.8-10.2); CREATININE FOR GFR 1.09 MG/DL (0.55-1.30); GLOMERULAR FILTRATION RATE 51.7 (>39); POTASSIUM SERUM 3.8 MEQ/L (3.5-5.1)
[2020-12-04] MEDS: POTASSIUM CHLORIDE 10 MEQ SR TABLET PO SCH ×2 (10:28→21:55)
[2020-12-04] MEDS: TORSEMIDE 10 MG TABLET PO SCH ×2 (10:28→17:27)
[2020-12-04] MEDS: allopurinoL 300 MG TAB PO SCH (10:29)
[2020-12-04] MEDS: VENLAFAXINE 37.5 MG TAB PO SCH (10:29)
[2020-12-04] MEDS: GABAPENTIN 100 MG CAP PO SCH ×2 (10:29→21:55)
[2020-12-04] MEDS: BUDESONIDE EC 3 MG CAP (ENTOCORT EC) PO SCH (10:29)
[2020-12-04] MEDS: bisoproloL fumarate 5 MG TAB PO SCH (10:29)
[2020-12-04] MEDS: cefTRIAXone SOD 1 GM in D5W MINI-BAG PLUS 50 ML IV SCH (13:25)
--- NOTE | 2020-12-04 13:45 | CR ---
ADVANCED WOUND CARE CONSULTATION VIA TELEMEDICINE DATE: 12/04/2020 REQUESTING PHYSICIAN: SHANNA BALDWIN MD Wound care telemedicine provides a visual assessment of a wound without the benefit of physical examination. It can assist with establishing a diagnosis and etiology. This allows for an initial treatment plan. As wounds often change, it may be necessary to modify the original care. Our recommendations is periodic wound reassessment to monitor treatment. Failure to comply may result in nonhealing of the wound, possible complications and/or a poor outcome. The recommendations given will serve as treatment options. As I will not be following this patient, this care plan will require the attending physician to five and sign the orders. Upon discharge, outpatient follow-up can be scheduled at our [facility]. HISTORY: A 80-year-old morbidly obese minimally ambulatory female was admitted for right lower extremity cellulitis with superficial skin tears involving both right and left lower extremities. The patient has 4+ bilateral gravitational dependent edema and parchment-like thin skin. There are multiple areas of superficial ecchymoses due to a recent fall. At present, there are no open wounds. The patient's ambulatory status is minimal and she uses a wheelchair to get from place to place. The patient has a history of endstage renal disease although is not on dialysis at this time and also aortic stenosis. Basic treatment: Elevation of the lower extremities, moisturizer to the skin and Tubigrip stockings bilaterally. Any areas of slight weeping of serous fluid should be treated with skin prep to the periwound and covered with a foam dressing to be changed on a periodic basis. The mainstay of her treatment is a diuretic, avoiding prolonged dependent positioning of her lower extremities and mild compression. Upon discharge, we would be glad to see the patient in follow-up as she has been a patient here in the distant past. LUZ MARINA
[2020-12-04 14:00] VITALS: BP 170/75
[2020-12-04] MEDS ORDERED: **hydrALAZINE** 50 MG TAB PO ONE (15:25)
--- NOTE | 2020-12-04 15:31 | IPNPDOC ---
Date Seen The patient was seen on 12/04/20. Progress Note SUBJECTIVE: Patient seen and examined at bedside. She seems to be in good spirits today. Her children have been planning her first 's . She states that her discomfort and pain and swelling in her legs has improved since starting vancomycin and ceftriaxone. She denies any chest pain shortness of breath cavitations fevers or chills. OBJECTIVE PHYSICAL EXAMINATION: VITAL SIGNS: please see below General: NAD, comfortable HEENT: PERRLA, EOMI, sclerae clear Neck: supple, normal ROM, no JVD Respiratory: lungs CTAB, no wheeze, no rales, no crackles CVS: RRR, normal S1, S2, no murmurs Abdo: soft, no masses, no hepatosplenomegaly, BS+, no rebound tenderness Extremities: Right lower extremity swollen erythematous edematous with weeping wounds. Left leg is slightly erythematous with venous stasis. Pulses intact MSK: no joint deformities, normal ROM Neuro: no focal neuro deficits, moving all 4 extremities, CN2-12 intact. Strength 5/5 in all 4 extremities. No nystagmus. Psych: calm, cooperative, AAO x 3 LABORATORY DATA, IMAGING STUDIES, MICROBIOLOGY: Please see below. Bilateral Knee XR complete (12/03/20): Status post cholecystectomy. No biliary dilatation or free fluid. Diffuse fibrofatty infiltration of the liver. Liver US (12/03/20): Status post cholecystectomy. No biliary dilatation or free fluid. Diffuse fibrofatty infiltration of the liver. DVT prophylaxis ordered?: Heparin ASSESSMENT AND PLAN: , a 80 yr old F w Multiple chronic non-healing wounds, HTN, DLP, Hypothyroidism, Depression, CKD3, CAD, Chronic anxiety, Gout & Microscopic colitis admitted for RLE cellulitis PROBLEMS: RLE Cellulitis, purulent - stop clindamycin for risk of c diff, failed as outpatient - start vancomycin and ceftriaxone - culture secretions from skin tears - advanced wound care. Recommendations reviewed. - elevate extremities. Apply moisturized to skin and apply tubigrip stockings. Any areas of weeping should be covered with skin prep and foamdressing. - we will c/w torsemide to reduce amount of weeping. - patient will need to f/u with Dr. Pinzon in office. BLE edema Likely due to venous insufficiency and or CKD Her BNP & albumin were wnl elevate legs c/w Torsemide 10 gm PO bid - will add lasix 20 mg IV q8h to attempt to reduce edema. Multiple wounds /skin tears - wound care consulted, d/w Dr. Henning Transaminitis -Likely 2/2 fatty liver -f/u Hep panel and liver US Bilateral complex cysts - d/w Dr. Joy, ortho consult placed -order bilateral knee XRs: moderately severe degenerative changes in medial joint compartments bilaterally - consult reviewed. Rec to receive PT for strengthening and help decrease future knee injury. No acute surgical intervention for complex popliteal cysts. Bereavement/ Depression / anxiety Quetiapine, Venlafaxine / PFS consult for d/c planning & to see if she needs additional assistance at home Hypertensive heart disease - Bisoprolol, Diltiazem, Torsemide Hyperlipidemia / Chronic CAD w placement of a MEHNAZ - c/w Bisoprolol Atorvastatin & ASA Hypothyroidism - c/w Levothyroxine Stage III chronic kidney disease - Cr 1.14 Microscopic colitis - f/u w GI as scheduled Gout - c/wallopurinol Class 2 obesity complicates care DVT px w Heparin Dispo: home after at least 2 midnights stay VS, I&O, 24H, Fishbone Vital Signs/I&O Vital Signs Date Time Temp Pulse Resp B/P (MAP) Pulse Ox O2 Delivery O2 Flow Rate FiO2 12/04/20 14:00 97.9 76 18 170/75 (106) 90 Room Air I&O- Last 24 Hours up to 6 AM 12/04/20 05:59 Intake Total 940 ml Balance 940 ml Laboratory Data 24H LABS Laboratory Tests 2 12/04/20 08:31: Anion Gap 5L, Glomerular Filtration Rate 51.7, Calcium Level 8.3L, C-Reactive Protein, Quantitative 2.75H 12/04/20 14:56: CBC/BMP Laboratory Tests 12/04/20 08:31 Microbiology Microbiology 12/03/20 Gram Stain - Final, Resulted 12/03/20 Wound Culture, Resulted Pending 12/02/20 Blood Culture - Preliminary, Resulted No growth after 24 hours . All specim... 12/02/20 Blood Culture - Preliminary, Resulted No growth after 24 hours . All specim... SHANNA BALDWIN MD Dec 04, 2020 15:31
[2020-12-04 15:38] VITALS: BP 150/78
[2020-12-04] MEDS: VANCOMYCIN HCL 750 MG, VIAL MATE ADAPTER 1 EACH in NS 250 ML IV SCH (15:52)
[2020-12-04] MEDS: FUROSEMIDE 20MG/2ML VIAL (J1940) IV SCH ×2 (15:52→23:07)
[2020-12-04] MEDS: VANCOMYCIN HCL 500 MG in D5W MINI-BAG PLUS 100 ML IV SCH (17:27)
[2020-12-04 20:15] VITALS: BP 137/55
[2020-12-04] MEDS: FOLIC ACID 1 MG TAB PO SCH (21:55)
[2020-12-04] MEDS: QUEtiapine FUMARATE 25 MG TAB PO SCH (21:55)
[2020-12-04] MEDS: ATORVASTATIN 20 MG TAB PO SCH (21:55)
[2020-12-05] MEDS: LEVOTHYROXINE 100MCG TABLET (0.1MG) PO SCH (05:27)
[2020-12-05] MEDS: HEPARIN SOD (PORCINE) 5000UNITS/ML 1ML VIAL/SYRINGE SC SCH (05:28)
[2020-12-05 06:00] VITALS: BP 148/57
[2020-12-05 09:03] LABS: BASO # 0.1 10^3/uL (0.0-0.2); BASO % 0.8 % (0.0-1.0); EOS # 0.2 10^3/uL (0.0-0.5); EOS % 1.3 % (0.0-3.0); HEMATOCRIT 36.7 % (36.0-47.0); LYMPH # 3.5 10^3/uL (1.5-5.0); LYMPH % 26.3 % (24.0-44.0); MEAN CORPUSCULAR HEMOGLOBIN 33.9 pg (27.0-33.0); MEAN CORPUSCULAR HGB CONC 32.7 g/dl (32.0-36.5); MEAN CORPUSCULAR VOLUME 103.7 fl (80.0-96.0); MONO # 0.9 10^3/uL (0.0-0.8); MONO % 7.1 % (2.0-8.0); NEUTROPHILS # 8.2 10^3/uL (1.5-8.5); NEUTROPHILS % 62.1 % (36.0-66.0); PLATELET COUNT, AUTOMATED 269 10^3/uL (150-450); RED BLOOD COUNT 3.54 10^6/uL (4.00-5.40); WHITE BLOOD COUNT 13.2 10^3/uL (4.0-10.0)
[2020-12-05] MEDS: FUROSEMIDE 20MG/2ML VIAL (J1940) IV SCH (09:16)
[2020-12-05] MEDS: TORSEMIDE 10 MG TABLET PO SCH (09:17)
[2020-12-05] MEDS: GABAPENTIN 100 MG CAP PO SCH (09:17)
[2020-12-05] MEDS: allopurinoL 300 MG TAB PO SCH (09:17)
[2020-12-05] MEDS: VENLAFAXINE 37.5 MG TAB PO SCH (09:17)
[2020-12-05] MEDS: POTASSIUM CHLORIDE 10 MEQ SR TABLET PO SCH (09:18)
[2020-12-05] MEDS: BUDESONIDE EC 3 MG CAP (ENTOCORT EC) PO SCH (09:25)
[2020-12-05 09:28] VITALS: BP 158/71
[2020-12-05] MEDS: bisoproloL fumarate 5 MG TAB PO SCH (09:28)
[2020-12-05 10:15] LABS: ALBUMIN 2.9 GM/DL (3.2-5.2); BILIRUBIN,TOTAL 0.5 MG/DL (0.2-1.0); CALCIUM LEVEL 8.9 MG/DL (8.8-10.2); CREATININE FOR GFR 1.16 MG/DL (0.55-1.30); GLOMERULAR FILTRATION RATE 48.1 (>39); MAGNESIUM LEVEL 2.2 MG/DL (1.8-2.4); POTASSIUM SERUM 3.8 MEQ/L (3.5-5.1); TOTAL PROTEIN 5.9 GM/DL (6.4-8.2)
--- NOTE | 2020-12-05 10:33 | REP ---
INDICATION: r/o fracture COMPARISON: None. TECHNIQUE: AP and lateral views of the right tibia/fibula. FINDINGS: Age-related osteopenia noted along with moderate arthritic changes at the knee and ankle. Generalized swelling at the ankle. No obvious acute fracture or dislocation identified. No subcutaneous emphysema or foreign body. IMPRESSION: Osteopenia and degenerative changes. No acute fracture or dislocation appreciated. <Electronically signed by Zoran Richmond > 12/05/20 1022
[2020-12-05] MEDS ORDERED: DOXY100C3 PO (12:58)
[2020-12-05] MEDS ORDERED: ACET1TAB55 PO (12:58)
[2020-12-05] MEDS ORDERED: TORS20TA2 PO (12:58)
[2020-12-05] MEDS ORDERED: AMOX875T2 PO (12:58)
--- NOTE | 2020-12-05 13:01 | DS.PDOC ---
Discharge Summary General Date of Admission Dec 02, 2020 at 19:54 Date of Discharge 12/05/20 Discharge Summary PROCEDURES PERFORMED DURING STAY: [None]. ADMITTING DIAGNOSES: 1. . DISCHARGE DIAGNOSES: 1. . COMPLICATIONS/CHIEF COMPLAINT: Bilateral Lower Extremity Edema. HISTORY OF PRESENT ILLNESS: . HOSPITAL COURSE: . DISCHARGE MEDICATIONS: Please see below. ALLERGIES: Please see below. PHYSICAL EXAMINATION ON DISCHARGE: VITAL SIGNS: Please see below. GENERAL: HEENT: NECK: CARDIOVASCULAR EXAMINATION: RESPIRATORY EXAMINATION: ABDOMINAL EXAMINATION: EXTREMITIES: SKIN: NEUROLOGICAL EXAMINATION: PSYCHIATRIC EXAMINATION: LABORATORY DATA: Please see below. IMAGING: PROGNOSIS: ACTIVITY: [As tolerated]. DIET: DISCHARGE PLAN: DISPOSITION: . DISCHARGE INSTRUCTIONS: 1. . ITEMS TO FOLLOWUP ON ON OUTPATIENT: 1. . DISCHARGE CONDITION: [Stable]. TIME SPENT ON DISCHARGE: minutes. Vital Signs/I&Os Vital Signs Date Time Temp Pulse Resp B/P (MAP) Pulse Ox O2 Delivery O2 Flow Rate FiO2 12/05/20 09:28 83 158/71 12/05/20 06:00 97.9 18 93 Room Air I&O- Last 24 Hours up to 6 AM 12/05/20 06:00 Intake Total 2160 ml Output Total 0 ml Balance 2160 ml Laboratory Data Labs 24H Laboratory Tests 2 12/04/20 14:56: Vancomycin Level Trough 16.0 12/05/20 08:37: Immature Granulocyte % (Auto) 2.4, Neutrophils (%) (Auto) 62.1, Lymphocytes (%) (Auto) 26.3, Monocytes (%) (Auto) 7.1, Eosinophils (%) (Auto) 1.3, Basophils (%) (Auto) 0.8, Neutrophils # (Auto) 8.2, Lymphocytes # (Auto) 3.5, Monocytes # (Auto) 0.9H, Eosinophils # (Auto) 0.2, Basophils # (Auto) 0.1, Nucleated Red Blood Cells % (auto) 6.7H, Anion Gap 7L, Glomerular Filtration Rate 48.1, Calcium Level 8.9, Magnesium Level 2.2, Total Bilirubin 0.5, Aspartate Amino Transf (AST/SGOT) 64H, Alanine Aminotransferase (ALT/SGPT) 127H, Alkaline Phosphatase 72, Total Protein 5.9L, Albumin 2.9#L, Albumin/Globulin Ratio 1.0L CBC/BMP Laboratory Tests 12/05/20 08:37 Microbiology Microbiology 12/03/20 Gram Stain - Final, Resulted 12/03/20 Wound Culture, Resulted Pending 12/02/20 Blood Culture - Preliminary, Resulted No Growth after 48 hours. All Specime... 12/02/20 Blood Culture - Preliminary, Resulted No Growth after 48 hours. All Specime... Discharge Medications Scheduled Amoxicillin/Potassium Clav (Amox-Clav 875-125 mg Tablet) 1 Each Tablet, 1 TAB PO BID Aspirin (Aspirin EC) 81 Mg Tab, 81 MG PO Q2D, (Reported) TAKES AT BEDTIME EVERY OTHER NIGHT Atorvastatin Calcium (Atorvastatin Calcium) 80 Mg Tab, 80 MG PO QHS, (Reported) Bisoprolol Fumarate (Bisoprolol Fumarate) 5 Mg Tablet, 5 MG PO DAILY, (Reported) Budesonide (Budesonide EC) 3 Mg Capdr...er, 6 MG PO DAILY, (Reported) Diltiazem HCl (Cartia Xt) 240 Mg Cap, 240 MG PO DAILY, (Reported) Doxycycline Hyclate (Doxycycline Hyclate) 100 Mg Capsule, 1 CAP PO BID Folic Acid (Folic Acid) 1 Mg Tab, 1 MG PO QHS, (Reported) Gabapentin (Gabapentin) 100 Mg Capsule, 100 MG PO BID, (Reported) Levothyroxine Sodium (Levoxyl) 100 Mcg Tablet, 100 MCG PO DAILY, (Reported) Potassium Chloride (Potassium Chloride) 20 Meq Tablet.er, 20 MEQ PO BID, (Reported) Quetiapine Fumarate (Quetiapine Fumarate) 25 Mg Tablet, 50 MG PO QHS, (Reported) Torsemide (Torsemide) 20 Mg Tablet, 10 MG PO BID Venlafaxine HCl (Venlafaxine HCl) 75 Mg Tablet, 75 MG PO DAILY, (Reported) allopurinoL (allopurinoL) 300 Mg Tablet, 300 MG PO DAILY, (Reported) Scheduled PRN Acetaminophen (Acetaminophen) 325 Mg Tablet, 650 MG PO Q4H PRN for MILD PAIN or TEMP > 101 Albuterol Sulfate (Albuterol Sulfate Hfa) 8.5 Gm Hfa.aer.ad, 2 PUFFS INH QID PRN for SHORTNESS OF BREATH, (Reported) Alprazolam (Alprazolam) 0.5 Mg Tablet, 0.5 MG PO DAILY PRN for ANXIETY, (Reported) Allergies Coded Allergies: indomethacin (Verified Allergy, Unknown, as takes asprin, 10/26/20) levofloxacin (Verified Allergy, Unknown, UNKNOWN REACTION, 10/26/20) tetracycline (Unverified Allergy, Unknown, UNKNOWN REACTION, 10/26/20) amlodipine (Verified Adverse Reaction, Mild, MUSCLE CRAMPS, 10/26/20) trazodone (Unverified Adverse Reaction, Mild, DIZZINESS, 10/26/20) SHANNA BALDWIN MD Dec 05, 2020 13:01
== END 2020-12-05 13:54 | disposition home or self-care (01) | DRG 603 ==
LOC: M ED 13:12 → M ED INP 19:54 → M MSPAV 21:49
PROVIDERS: ADMIT Internal Medicine; ATTEND Family Medicine
DX: L03.115 Cellulitis of right lower limb (principal); I11.0 Hypertensive heart disease with heart failure; N18.30 Chronic kidney disease, stage 3 unspecified; K76.0 Fatty (change of) liver, not elsewhere classified; Z79.82 Long term (current) use of aspirin; Z79.899 Other long term (current) drug therapy; Z88.8 Allergy status to other drugs, medicaments and biological substances; Z90.81 Acquired absence of spleen; E78.5 Hyperlipidemia, unspecified; E03.9 Hypothyroidism, unspecified; I35.0 Nonrheumatic aortic (valve) stenosis; F32.9 Major depressive disorder, single episode, unspecified; I25.10 Atherosclerotic heart disease of native coronary artery without angina pectoris; Z95.2 Presence of prosthetic heart valve; M10.9 Gout, unspecified; K21.9 Gastro-esophageal reflux disease without esophagitis; E66.9 Obesity, unspecified; K52.9 Noninfective gastroenteritis and colitis, unspecified

== ENCOUNTER → 2020-12-22 | Outpatient (REF) | payer MEDICARE, OTHER ==
[~2020-12-22] MED LIST changes: +ACET1TAB55 PO; +AMOX875T2 PO; +APAP325T4 PO; +CLIN300C6 PO
[2020-12-22 17:44] LABS: BASO # 0.1 10^3/uL (0.0-0.2); BASO % 0.8 % (0.0-1.0); EOS # 0.3 10^3/uL (0.0-0.5); HEMATOCRIT 39.5 % (36.0-47.0); HEMOGLOBIN 12.5 g/dl (12.0-15.5); LYMPH # 3.6 10^3/uL (1.5-5.0); LYMPH % 22.6 % (24.0-44.0); MEAN CORPUSCULAR HEMOGLOBIN 34.2 pg (27.0-33.0); MEAN CORPUSCULAR HGB CONC 31.6 g/dl (32.0-36.5); MEAN CORPUSCULAR VOLUME 107.9 fl (80.0-96.0); MONO # 1.4 10^3/uL (0.0-0.8); MONO % 8.8 % (2.0-8.0); NEUTROPHILS # 10.1 10^3/uL (1.5-8.5); PLATELET COUNT, AUTOMATED 259 10^3/uL (150-450); RED BLOOD COUNT 3.66 10^6/uL (4.00-5.40); WHITE BLOOD COUNT 15.8 10^3/uL (4.0-10.0)
[2020-12-22 18:03] LABS: ALBUMIN 2.8 GM/DL (3.2-5.2); BILIRUBIN,TOTAL 0.8 MG/DL (0.2-1.0); CALCIUM LEVEL 9.4 MG/DL (8.8-10.2); CREATININE FOR GFR 1.01 MG/DL (0.55-1.30); FREE T4 1.13 NG/DL (0.76-1.46); GLOMERULAR FILTRATION RATE 56.4 (>39); POTASSIUM SERUM 4.5 MEQ/L (3.5-5.1); THYROID STIMULATING HORMONE 1.93 uIU/ML (0.358-3.740)
== END ==
LOC: M SFHCADAM 14:03
PROVIDERS: ATTEND Family Medicine
DX: D72.829 Elevated white blood cell count, unspecified (principal); I11.9 Hypertensive heart disease without heart failure; E03.9 Hypothyroidism, unspecified
CPT/HCPCS: 80053; 84439; 84443; 85025; G0463

== ENCOUNTER 2021-01-15 12:57 | Inpatient (IN) | payer MEDICARE, OTHER ==
[~2021-01-15] VITALS: Ht 162.6 cm; Wt 96.6 kg
[~2021-01-15 12:57] MED LIST changes: -APAP325T4 PO; +CLIN-250 PO; -CLIN300C6 PO
--- NOTE | 2021-01-15 14:08 | REP ---
INDICATION: DYSPNEA/COUGH. COMPARISON: Comparison chest x-ray December 02, 2020. TECHNIQUE: Portable upright AP chest radiograph. FINDINGS: Right hemidiaphragm remains somewhat elevated unchanged. Heart is mildly prominent unchanged. The pulmonary vasculature is not increased. Pleural angles are sharp. No infiltrate is seen. The aorta is somewhat tortuous. IMPRESSION: No acute abnormality. Cardiomegaly and elevated right hemidiaphragm unchanged. <Electronically signed by Enrique Ch > 01/15/21 [id number]
[2021-01-15 14:17] LABS: BASO # 0.1 10^3/uL (0.0-0.2); BASO % 0.5 % (0.0-1.0); EOS % 0.4 % (0.0-3.0); HEMATOCRIT 34.5 % (36.0-47.0); HEMOGLOBIN 11.1 g/dl (12.0-15.5); LYMPH # 2.7 10^3/uL (1.5-5.0); LYMPH % 27.1 % (24.0-44.0); MEAN CORPUSCULAR HEMOGLOBIN 33.1 pg (27.0-33.0); MEAN CORPUSCULAR HGB CONC 32.2 g/dl (32.0-36.5); MONO # 0.6 10^3/uL (0.0-0.8); MONO % 5.8 % (2.0-8.0); NEUTROPHILS # 6.5 10^3/uL (1.5-8.5); NEUTROPHILS % 65.1 % (36.0-66.0); PLATELET COUNT, AUTOMATED 326 10^3/uL (150-450); RED BLOOD COUNT 3.35 10^6/uL (4.00-5.40)
[2021-01-15 14:33] LABS: INR 0.99; PROTHROMBIN TIME 13.4 SECONDS (12.7-14.5)
[2021-01-15 14:50] LABS: ALBUMIN 2.3 GM/DL (3.2-5.2); BILIRUBIN,DIRECT 0.2 MG/DL (0.0-0.2); BILIRUBIN,TOTAL 0.5 MG/DL (0.2-1.0); CALCIUM LEVEL 8.2 MG/DL (8.8-10.2); CK-MB VALUE MASS 2.6 NG/ML (<3.6); CREATININE FOR GFR 1.71 MG/DL (0.55-1.30); GLOMERULAR FILTRATION RATE 30.7 (>39); MB/CK RELATIVE INDEX 0.84 (< OR =4); TOTAL PROTEIN 5.6 GM/DL (6.4-8.2); TROPONIN I 0.06 NG/ML (< 0.10)
[2021-01-15 14:58] LABS: D-DIMER QUANT > 4000 ng/ml (<500)
[2021-01-15] MEDS ORDERED: KCL 10MEQ/100ML SWI (KRUN) 10 MEQ in IV 1 EA IV ONE (15:00)
[2021-01-15] MEDS ORDERED: NS 500 ML IV ONE ×2 (15:00→18:35)
[2021-01-15] MEDS ORDERED: POTASSIUM CHLORIDE 10MEQ SR TABLET PO ONE ×2 (15:05→18:35)
[2021-01-15] MEDS ORDERED: ISOVUE-370 76% 100ML VIAL As Ordered ONE (15:08)
--- NOTE | 2021-01-15 16:10 | REP ---
INDICATION: covid+, elev d-dimer, eval for PE. COMPARISON: None. TECHNIQUE: Contrast dose: 75 ML of Isovue [address] technique: Helical scanning is acquired and overlapping 1.5 mm and contiguous 3 mm axial images are reformatted. In addition, maximum intensity projection and multiplanar re-formation images are generated in sagittal and coronal imaging projections. FINDINGS: There is good opacification in the pulmonary arterial tree. There is no evidence of vessel cut off or filling defect to suggest pulmonary embolus. Homogeneous opacity is seen in the thoracic aorta. There is no evidence of aneurysm or dissection. There is no evidence of pleural or pericardial effusion. Cardiomegaly is observed. No hilar or mediastinal mass is seen. No adenopathy is observed. Lung window settings demonstrate linear platelike atelectatic changes in the right lower lobe. There are mild linear platelike atelectatic changes in the left lower lobe posterolateral inferiorly. Right hemidiaphragm is elevated. No focal infiltrate is appreciated. In the upper abdomen, normal adrenal glands are seen. The spleen is surgically absent. Visualized upper abdominal structures are otherwise unremarkable. IMPRESSION: No CT evidence of pulmonary embolus. Post splenectomy. Cardiomegaly. Bibasilar platelike atelectasis. Some vascular calcification. <Electronically signed by Enrique Ch > 01/15/21 [id number]
[2021-01-15] MEDS ORDERED: TORS20TA2 PO (16:36)
[2021-01-15] MEDS ORDERED: VENL75TA2 PO (16:36)
[2021-01-15] MEDS ORDERED: APAP325T4 PO (16:36)
[2021-01-15] MEDS ORDERED: HOME MED LIST COMPLETE! XX SCH (16:40)
[2021-01-15] MEDS ORDERED: KCL 40MEQ in NS 1000ML 1,000 ML IV ONE (18:35)
[2021-01-15] MEDS ORDERED: ALPRAZolam 0.5 MG TAB PO PRN (18:45)
[2021-01-15] MEDS ORDERED: COMBIVENT RESPIMAT 100-20MCG INHALER 4GM INH PRN (18:45)
[2021-01-15 19:00] LABS: MAGNESIUM LEVEL 1.7 MG/DL (1.8-2.4)
--- NOTE | 2021-01-15 19:28 | HPEPDOC ---
[facility] Medical History & Physical Date of Admission Jan 15, 2021 Date of Service: Jan 15, 2021 Attending Physician: SHANNA BALDWIN MD History and Physical CHIEF COMPLAINT: [80 y/o female c/o nash, cough, malaise, sob worsening over 1-2 weeks] HISTORY OF PRESENT ILLNESS: [Thi sis a 80 y/o female with a pmh of cad s/p stenting, chf, ckd3, htn, hld and hypothyroidism who presents to our ED on 01/15 with a cc of many general health symptoms such as headache, dizziness, weakness, fatigue, productive cough and poor appetite that have been evolving and getting worse over the past two weeks. Patient has subsequently also developed new shortness of breath and recently fevers as well. Patient states that she was concerned and decided to come to be evaluated in our ED as she has not been able to eat over the past few days and yet has also begun having diarrhea and nausea. Patient, at the time of my exam, denies any chest pain, hemoptysis, syncope, dysuria, vomiting, calf pain, syncope, recent falls, dysuria. Patient found to be COVID+ in our ED despite receiving her covid vaccination. PAST MEDICAL HISTORY: 1. [See HPI PAST SURGICAL HISTORY: 1. [Cardiac stenting]. 2. [Appendectomy]. 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 Ex lap x3 5. Hysterectomy 6. L Knee arthroscopy]. SOCIAL HISTORY: Tobacco use:[Denies] ETOH: [Denies] Illicit drug use: [Denies] FAMILY HISTORY: Reviewed - none pertinent ALLERGIES: Please see below. REVIEW OF SYSTEMS: CONSTITUTIONAL: [See HPI]. HEENT: [See HPI]. CARDIOVASCULAR: [Denies chest pain, palpitations]. RESPIRATORY: [See HPI]. GASTROINTESTINAL: [Denies abd pain. Admits to nausea, diarrhea.]. GENITOURINARY: [Denies dysuria]. SKIN: [Denies rash]. MUSCULOSKELETAL: [Denies acute joint/hannah pain]. NEUROLOGICAL: [Denies syncope, paresthesias0]. ENDOCRINE: [Denies hx of DM]. HEMATOLOGIC/LYMPHATIC: [Denies hx of vte]. HOME MEDICATIONS: Please see below. PHYSICAL EXAMINATION: VITAL SIGNS: Please see below. GENERAL APPEARANCE: [This is a pleasant 81 y/o female who is alert and oriented to all questioning. She has mildly increased wob but does not appear to be in any distress]. HEENT: [No mass or lesion. EOMI. No scleral icterus. Nares patent. Oral mucosa dry]. CARDIOVASCULAR: [Borderline tachy rate, regular rhythm]. LUNGS: [Decreased breath sounds. No wheezing, rales, rhonchi]. ABDOMEN: [Soft, nontender]. MUSCULOSKELETAL: [No joint deformity noted]. EXTREMITIES: [Mild edema noted to b/l lower extremities to pre-tibial region. There are several chronic lower extremity wounds that are bandaged with clean, intact dressings. Pulses intact]. NEUROLOGICAL: [Speech clear. A+Ox3. No focal deficits. Patient moves all fours freely]. PSYCHIATRIC: [Mood and affect appear appropriate]. LABORATORY DATA: See below. IMAGING: [CXR: FINDINGS: Right hemidiaphragm remains somewhat elevated unchanged. Heart is mildly prominent unchanged. The pulmonary vasculature is not increased. Pleural angles are sharp. No infiltrate is seen. The aorta is somewhat tortuous. IMPRESSION: No acute abnormality. Cardiomegaly and elevated right hemidiaphragm unchanged. CTA Chest: FINDINGS: There is good opacification in the pulmonary arterial tree. There is no evidence of vessel cut off or filling defect to suggest pulmonary embolus. Homogeneous opacity is seen in the thoracic aorta. There is no evidence of aneurysm or dissection. There is no evidence of pleural or pericardial effusion. Cardiomegaly is observed. No hilar or mediastinal mass is seen. No adenopathy is observed. Lung window settings demonstrate linear platelike atelectatic changes in the right lower lobe. There are mild linear platelike atelectatic changes in the left lower lobe posterolateral inferiorly. Right hemidiaphragm is elevated. No focal infiltrate is appreciated. In the upper abdomen, normal adrenal glands are seen. The spleen is surgically absent. Visualized upper abdominal structures are otherwise unremarkable. IMPRESSION: No CT evidence of pulmonary embolus. Post splenectomy. Cardiomegaly. Bibasilar platelike atelectasis. Some vascular calcification.] MICROBIOLOGY: Please see below. ASSESSMENT: [Thi sis a 80 y/o female with a pmh of cad s/p stenting, chf, ckd3, htn, hld and hypothyroidism who presents to our ED on 01/15 with a cc of many general health symptoms such as headache, dizziness, weakness, fatigue, product nahid cough and poor appetite that have been evolving and getting worse over the past two weeks. Patient has subsequently also developed new shortness of breath and recently fevers as well. Patient found to be COVID+ in our ED despite receiving her covid vaccination. Patient also found to have RADHA on labwork in our ED with cr acutely elevated to 1.7 from baseline 1.1]. . PLAN: 1. [RADHA on CKD3 - patients cr acutely elevated to 1.7 from baseline of around 1.1 - almost certainly pre-renal d/t recent poor oral intake i/s/o acute viral respiratory illness - ua, urine electrolytes ordered - will give ivf overnight - admit to med surg for tx 2. COVID - patient currently mildly hypoxic requiring 2L supplemental O2 - patient ddimer acutely elevated so that it is undetectable by our lab, however cta chest negative - will begin remdesevir/dexamethasone protocol while in house - continue supplemental o2 titrated to >90 - combivents for sx relief - tylenol for fevers - trend inflammatory markers 3. Hypokalemia - Chronic issue, likely acutely exacerbated by acute renal failure - will supplement, repeat in am 4. CHF - patient no acutely fluid overloaded - continue diltiazem, bisoprolo, torsemide 5. Depression/anxiety - will continue home effexor, seroquel, xanax 6. Gout - continue allopurinol 7. Hypothyroidism - continue synthroid DVT prophylaxis - asa and lovenox ]. Vital Signs Vital Signs Date Time Temp Pulse Resp B/P (MAP) Pulse Ox O2 Delivery O2 Flow Rate FiO2 01/15/21 16:00 76 16 144/70 (94) 96 01/15/21 13:33 Nasal Cannula 2.0 Laboratory Data Labs 24H Laboratory Tests 2 01/15/21 14:03: Immature Granulocyte % (Auto) 1.1, Neutrophils (%) (Auto) 65.1, Lymphocytes (%) (Auto) 27.1, Monocytes (%) (Auto) 5.8, Eosinophils (%) (Auto) 0.4, Basophils (%) (Auto) 0.5, Neutrophils # (Auto) 6.5, Lymphocytes # (Auto) 2.7, Monocytes # (Auto) 0.6, Eosinophils # (Auto) 0.0, Basophils # (Auto) 0.1, Nucleated Red Blood Cells % (auto) 2.7H, Prothrombin Time 13.4, Prothromb Time International Ratio 0.99, D-Dimer, Quantitative > 4000H, Anion Gap 10, Glomerular Filtration Rate 30.7L, Lactic Acid Level 1.3, Calcium Level 8.2L, Magnesium Level 1.7L, Total Bilirubin 0.5, Direct Bilirubin 0.2, Aspartate Amino Transf (AST/SGOT) 53H, Alanine Aminotransferase (ALT/SGPT) 29, Alkaline Phosphatase 73, Total Creatine Kinase 311H, Creatine Kinase MB 2.6, Creatine Kinase MB Relative Index 0.84, Troponin I 0.06, ZD-Ycc-D-Type Natriuretic Peptide 110, Total Protein 5.6L, Albumin 2.3L, Albumin/Globulin Ratio 0.7L CBC/BMP Laboratory Tests 01/15/21 14:03 Microbiology Microbiology 01/15/21 Blood Culture, Received Pending 01/15/21 Blood Culture, Received Pending 01/15/21 Respiratory Virus Panel (PCR) ([facility]) - Final, Complete SARS-CoV-2 (COVID 19) Home Medications Scheduled Aspirin (Aspirin EC) 81 Mg Tab, 81 MG PO Q2D TAKES AT BEDTIME Atorvastatin Calcium (Atorvastatin Calcium) 80 Mg Tab, 80 MG PO QHS Bisoprolol Fumarate (Bisoprolol Fumarate) 5 Mg Tablet, 5 MG PO DAILY Budesonide (Budesonide EC) 3 Mg Capdr...er, 6 MG PO DAILY Diltiazem HCl (Cartia Xt) 240 Mg Cap, 240 MG PO DAILY Folic Acid (Folic Acid) 1 Mg Tab, 1 MG PO DAILY Gabapentin (Gabapentin) 100 Mg Capsule, 100 MG PO BID Levothyroxine Sodium (Levoxyl) 100 Mcg Tablet, 100 MCG PO DAILY Potassium Chloride (Potassium Chloride) 20 Meq Tablet.er, 20 MEQ PO BID Quetiapine Fumarate (Quetiapine Fumarate) 25 Mg Tablet, 50 MG PO QHS Torsemide (Torsemide) 20 Mg Tablet, 20 MG PO BID Venlafaxine HCl (Venlafaxine HCl) 75 Mg Tablet, 75 MG PO DAILY allopurinoL (allopurinoL) 300 Mg Tablet, 300 MG PO DAILY Scheduled PRN Acetaminophen (Acetaminophen) 325 Mg Tablet, 325 MG PO Q4H PRN for MILD PAIN OR TEMP > 101 Albuterol Sulfate (Albuterol Sulfate Hfa) 8.5 Gm Hfa.aer.ad, 2 PUFFS INH QID PRN for SHORTNESS OF BREATH Alprazolam (Alprazolam) 0.5 Mg Tablet, 0.5 MG PO DAILY PRN for ANXIETY Allergies Coded Allergies: indomethacin (Verified Allergy, Unknown, as takes asprin, 01/15/21) levofloxacin (Verified Allergy, Unknown, UNKNOWN REACTION, 01/15/21) tetracycline (Verified Allergy, Unknown, UNKNOWN REACTION, 01/15/21) amlodipine (Verified Adverse Reaction, Mild, MUSCLE CRAMPS, 01/15/21) trazodone (Verified Adverse Reaction, Mild, DIZZINESS, 01/15/21) A-FIB/CHADSVASC A-FIB History Current/History of A-Fib/PAF?: No JOSUÉ CHUNG Jan 15, 2021 19:28
[2021-01-15 20:20] LABS: INR 1.01; PROTHROMBIN TIME 13.7 SECONDS (12.7-14.5)
[2021-01-15 20:21] LABS: PARTIAL THROMBOPLASTIN TIME 30.5 SECONDS (25.9-37.0)
[2021-01-15] MEDS ORDERED: REMDESIVIR 200 MG in NS 250 ML IV ONE (22:45)
[2021-01-15 23:00] VITALS: BP 115/54
[2021-01-16] VITALS: O2SAT 98
[2021-01-16] MEDS: ATORVASTATIN 20 MG TAB PO SCH ×2 (00:22→20:16)
[2021-01-16] MEDS: dexameTHASONE 4 MG/ML 1ML VIAL (J1100 PER 1MG) IV SCH ×2 (00:22→20:15)
[2021-01-16] MEDS: GABAPENTIN 100 MG CAP PO SCH ×3 (00:22→20:16)
[2021-01-16] MEDS: TORSEMIDE 20 MG TAB PO SCH ×2 (00:23→09:04)
[2021-01-16] MEDS: QUEtiapine FUMARATE 50MG TAB PO SCH ×2 (00:25→20:16)
[2021-01-16] MEDS: POTASSIUM CHLORIDE 10MEQ SR TABLET PO SCH ×2 (00:27→09:05)
[2021-01-16] MEDS ORDERED: SODIUM CHLORIDE 0.9% INJ 10 ML SYR IV ONE (00:45)
[2021-01-16] MEDS: NS 1,000 ML IV SCH ×4 (02:17→22:25)
[2021-01-16] MEDS: LEVOTHYROXINE 100MCG TABLET (0.1MG) PO SCH (05:55)
[2021-01-16 06:00] VITALS: BP 133/79
[2021-01-16 07:51] LABS: HEMATOCRIT 34.8 % (36.0-47.0); HEMOGLOBIN 11.2 g/dl (12.0-15.5); MEAN CORPUSCULAR HEMOGLOBIN 33.4 pg (27.0-33.0); MEAN CORPUSCULAR HGB CONC 32.2 g/dl (32.0-36.5); MEAN CORPUSCULAR VOLUME 103.9 fl (80.0-96.0); PLATELET COUNT, AUTOMATED 307 10^3/uL (150-450); RED BLOOD COUNT 3.35 10^6/uL (4.00-5.40); WHITE BLOOD COUNT 8.6 10^3/uL (4.0-10.0)
[2021-01-16 08:00] VITALS: O2SAT 94
[2021-01-16 08:05] LABS: BILIRUBIN,DIRECT 0.2 MG/DL (0.0-0.2); BILIRUBIN,TOTAL 0.4 MG/DL (0.2-1.0); CALCIUM LEVEL 7.8 MG/DL (8.8-10.2); CREATININE FOR GFR 1.8 MG/DL (0.55-1.30); MAGNESIUM LEVEL 1.8 MG/DL (1.8-2.4); POTASSIUM SERUM 3.4 MEQ/L (3.5-5.1); TOTAL PROTEIN 5.7 GM/DL (6.4-8.2)
[2021-01-16 08:25] LABS: LYMPHOCYTES 11 % (16-44); METAMYELOCYTES 1 % (0-0); NEUTROPHILS 70 % (28-66)
[2021-01-16 08:27] LABS: ANISOCYTOSIS 1+; PLATELET ESTIMATE NORMAL (NORMAL)
[2021-01-16 08:28] LABS: POLYCHROMASIA 1+; SCHISTOCYTES 2+
[2021-01-16 08:29] LABS: GIANT PLATELETS 1+
[2021-01-16] MEDS ORDERED: ENOXAPARIN 30MG/0.3ML SYRINGE (J1650 PER 10MG) SC SCH (09:00)
[2021-01-16] MEDS: FOLIC ACID 1 MG TAB PO SCH (09:03)
[2021-01-16] MEDS: BUDESONIDE EC 3 MG CAP (ENTOCORT EC) PO SCH (09:03)
[2021-01-16] MEDS: allopurinoL 300 MG TAB PO SCH (09:04)
[2021-01-16] MEDS: VENLAFAXINE 37.5 MG TAB PO SCH (09:04)
[2021-01-16] MEDS: bisoproloL fumarate 5 MG TAB PO SCH (09:04)
[2021-01-16] MEDS: ASPIRIN 81MG ENTERIC TABLET PO SCH (09:04)
--- NOTE | 2021-01-16 11:08 | IPNPDOC ---
Subjective Date Seen The patient was seen on 01/16/21. Subjective Chief Complaint/HPI Patient was seen and examined at bedside this morning. She was awoken from sleep and reported feeling " cold" otherwise had no complaints. She denied chest pain, palpitations, headaches, shortness of breath, nausea, vomiting, problems with urination and bowel movements. She also denied dizziness, weakness, fatigue and productive cough and poor appetite today. Overnight no acute events reported. Objective Physical Examination Other physical findings General: Lying in bed, no acute distress Head/Neck/Throat: Trachea midline, mucous membranes moist Eyes: Sclera anicteric, no erythema or discharge appreciated bilaterally Thorax: On 3 L nasal cannula saturating at 97%, lungs clear to auscultation bilaterally, no wheezes/rales/rhonchi Cardiovascular: Normal rate, regular rhythm, normal S1, S2; no S3, S4, rubs/gallops/murmurs, radial and pedal pulses are palpable Abdomen: Bowel sounds present, soft/nontender/nondistended Genitourinary: No CVA tenderness, no Lewis in place Musculoskeletal: Moving all extremities, no edema Skin: there is skin breakdown around the ankle region that was wrapped by nursing staff Neurologic: awake, alert, speech fluent and goal-directed, no focal deficits, grossly intact Assessment /Plan Assessment #Acute on chronic kidney disease (stage III) -Creatinine on 12/22/2020 was 1.01 mg/dL. Suspect that this is prerenal azotemia secondary to poor p.o. intake; she was also taking torsemide at home. -continue with gentle IV hydration and hold diuretics for now #COVID -Requiring supplemental oxygenation. Continue with remdesivir and dexamethasone. #Electrolyte abnormalities -Replete potassium. #CHF -No signs of acute exacerbation at this time. Due to her renal failure we will hold diuretics. #CAD -Continue with aspirin and bisoprolol. #Hypertension -Continue with diltiazem and bisoprolol #Depression/anxiety -Continue with quetiapine, venlafaxine, and alprazolam as needed #Gout -continue allopurinol #Hypothyroidism -continue levothyroxine #DVT prophylaxis -Heparin subcu Plan/VTE VTE Prophylaxis Ordered?: Yes VS, I&O, 24H, Fishbone Vital Signs/I&O Vital Signs Date Time Temp Pulse Resp B/P (MAP) Pulse Ox O2 Delivery O2 Flow Rate FiO2 10/2/21 09:04 70 145/85 01/16/21 06:00 97.6 20 97 Nasal Cannula 3.0 I&O- Last 24 Hours up to 6 AM 01/16/21 06:00 Intake Total 550 ml Balance 550 ml Laboratory Data 24H LABS Laboratory Tests 2 01/15/21 14:03: Immature Granulocyte % (Auto) 1.1, Neutrophils (%) (Auto) 65.1, Lymphocytes (%) (Auto) 27.1, Monocytes (%) (Auto) 5.8, Eosinophils (%) (Auto) 0.4, Basophils (%) (Auto) 0.5, Neutrophils # (Auto) 6.5, Lymphocytes # (Auto) 2.7, Monocytes # (Auto) 0.6, Eosinophils # (Auto) 0.0, Basophils # (Auto) 0.1, Nucleated Red Blood Cells % (auto) 2.7H, Prothrombin Time 13.4, Prothromb Time International Ratio 0.99, D-Dimer, Quantitative > 4000H, Anion Gap 10, Glomerular Filtration Rate 30.7L, Lactic Acid Level 1.3, Calcium Level 8.2L, Magnesium Level 1.7L, Total Bilirubin 0.5, Direct Bilirubin 0.2, Aspartate Amino Transf (AST/SGOT) 53H, Alanine Aminotransferase (ALT/SGPT) 29, Alkaline Phosphatase 73, Total Creatine Kinase 311H, Creatine Kinase MB 2.6, Creatine Kinase MB Relative Index 0.84, Troponin I 0.06, NZ-Mot-U-Type Natriuretic Peptide 110, Total Protein 5.6L, Albumin 2.3L, Albumin/Globulin Ratio 0.7L 01/15/21 19:49: Prothrombin Time 13.7, Prothromb Time International Ratio 1.01, Troponin I 0.06, Activated Partial Thromboplast Time 30.5 01/16/21 07:10: Neutrophils (%) (Auto) , Nucleated Red Blood Cells % (auto) 2.7H, Anion Gap 7L, Glomerular Filtration Rate 29.0L, Calcium Level 7.8L, Magnesium Level 1.8, Total Bilirubin 0.4, Direct Bilirubin 0.2, Aspartate Amino Transf (AST/SGOT) 46H, Alanine Aminotransferase (ALT/SGPT) 25, Alkaline Phosphatase 63, Total Protein 5.7L, Albumin 2.0L, Albumin/Globulin Ratio 0.5L, Neutrophils 70H, Band Neutrophils 18H, Lymphocytes (Manual) 11L, Metamyelocytes 1H, Polychromasia 1+, Anisocytosis 1+, Macrocytosis 2+, Schistocytes 2+, Giant Platelets 1+, Platelet Estimate NORMAL CBC/BMP Laboratory Tests 01/15/21 14:03 01/16/21 07:10 Microbiology Microbiology 01/15/21 Blood Culture, Received Pending 01/15/21 Blood Culture, Received Pending 01/15/21 Respiratory Virus Panel (PCR) ([facility]) - Final, Complete SARS-CoV-2 (COVID 19) CODY MAYNARD M.D. Jan 16, 2021 11:08
[2021-01-16] MEDS ORDERED: POTASSIUM CHLORIDE 10MEQ SR TABLET PO ONE (11:15)
[2021-01-16 14:00] VITALS: BP 104/78
[2021-01-16 14:38] LABS: APPEARANCE, URINE CLEAR (CLEAR); BACTERIA, URINE AUTO NEGATIVE (NEGATIVE); BILIRUBIN, URINE AUTO NEGATIVE (NEGATIVE); BLOOD, URINE BLOOD NEGATIVE (NEGATIVE); COLOR, URINE YELLOW (YELLOW); GLUCOSE, URINE (UA) AUTO NEGATIVE (NEGATIVE); KETONE, URINE AUTO NEGATIVE (NEGATIVE); LEUKOCYTE ESTERASE, URINE AUTO NEGATIVE (NEGATIVE); MUCUS, URINE SMALL (NEGATIVE); NITRITE, URINE AUTO NEGATIVE (NEGATIVE); PROTEIN, URINE AUTO NEGATIVE (NEGATIVE); RBC, URINE AUTO 1 /HPF (0-3); SPECIFIC GRAVITY URINE AUTO 1.024 (1.002-1.035); SQUAMOUS EPITHELIAL CELL UR AU 3 /HPF (0-6); UROBILINOGEN, URINE AUTO 0.2 mg/dL (0.0-2.0); WBC, URINE AUTO 2 /HPF (0-3)
[2021-01-16 14:44] LABS: CREATININE,RANDOM URINE 91.9 MG/DL; TOTAL PROTEIN,RANDOM URINE 15.9 MG/DL (0.0-12.0)
[2021-01-16 20:00] VITALS: O2SAT 96
[2021-01-16] MEDS: REMDESIVIR 100 MG in NS 250 ML IV SCH (20:15)
[2021-01-16] MEDS: SODIUM CHLORIDE 0.9% INJ 10 ML SYR IV SCH (20:16)
[2021-01-16 22:00] VITALS: BP 109/57
--- NOTE | 2021-01-17 05:29 | ECGEPIP ---
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
[2021-01-17 05:33] LABS: HEMATOCRIT 34.5 % (36.0-47.0); HEMOGLOBIN 10.9 g/dl (12.0-15.5); MEAN CORPUSCULAR HEMOGLOBIN 33.4 pg (27.0-33.0); MEAN CORPUSCULAR HGB CONC 31.6 g/dl (32.0-36.5); MEAN CORPUSCULAR VOLUME 105.8 fl (80.0-96.0); PLATELET COUNT, AUTOMATED 326 10^3/uL (150-450); RED BLOOD COUNT 3.26 10^6/uL (4.00-5.40); WHITE BLOOD COUNT 18.9 10^3/uL (4.0-10.0)
[2021-01-17] MEDS: LEVOTHYROXINE 100MCG TABLET (0.1MG) PO SCH (05:43)
[2021-01-17 05:45] LABS: INR 0.91; PROTHROMBIN TIME 12.6 SECONDS (12.7-14.5)
[2021-01-17 05:46] LABS: PARTIAL THROMBOPLASTIN TIME 29.7 SECONDS (25.9-37.0)
[2021-01-17 06:00] VITALS: BP 116/58
[2021-01-17 06:03] LABS: ALBUMIN 2.2 GM/DL (3.2-5.2); BILIRUBIN,DIRECT 0.1 MG/DL (0.0-0.2); BILIRUBIN,TOTAL 0.3 MG/DL (0.2-1.0); CALCIUM LEVEL 7.5 MG/DL (8.8-10.2); CREATININE FOR GFR 2.41 MG/DL (0.55-1.30); GLOMERULAR FILTRATION RATE 20.7 (>39); MAGNESIUM LEVEL 1.8 MG/DL (1.8-2.4); POTASSIUM SERUM 4.7 MEQ/L (3.5-5.1); TROPONIN I 0.09 NG/ML (< 0.10)
[2021-01-17 06:51] LABS: LYMPHOCYTES 11 % (16-44); METAMYELOCYTES 2 % (0-0); MONOCYTES 1 % (0-5); NEUTROPHILS 68 % (28-66); PLASMA CELL 1 % (0-0)
[2021-01-17 06:53] LABS: ANISOCYTOSIS 2+
[2021-01-17 06:54] LABS: SCHISTOCYTES 2+
[2021-01-17 06:59] LABS: HOWELL-JOLLY BODIES 1+; PLATELET ESTIMATE NORMAL (NORMAL); SPHEROCYTES 1+
[2021-01-17] MEDS: VENLAFAXINE 37.5 MG TAB PO SCH (09:39)
[2021-01-17] MEDS: ASPIRIN 81MG ENTERIC TABLET PO SCH (09:39)
[2021-01-17] MEDS: BUDESONIDE EC 3 MG CAP (ENTOCORT EC) PO SCH (09:40)
[2021-01-17] MEDS: bisoproloL fumarate 5 MG TAB PO SCH (09:40)
[2021-01-17] MEDS: FOLIC ACID 1 MG TAB PO SCH (09:41)
[2021-01-17] MEDS: GABAPENTIN 100 MG CAP PO SCH ×2 (09:41→21:48)
[2021-01-17] MEDS: allopurinoL 300 MG TAB PO SCH (09:41)
[2021-01-17] MEDS: NS 1,000 ML IV SCH (11:28)
--- NOTE | 2021-01-17 13:05 | IPNPDOC ---
Subjective Date Seen The patient was seen on 01/17/21. Subjective Chief Complaint/HPI Patient seen and examined at bedside this morning. She was awoken from sleep and was slightly confused as she thought she was in the hotel. Initially when she was asked what year it was she reported 1982 but when asked again she said it was 2020. She was also able to answer the president was. She was also following commands. She denied shortness of breath, chest pain, abdominal pain, nausea, vomiting, problem with urination or bowel movements. Objective Physical Examination Other physical findings General: Lying in bed, no acute distress Head/Neck/Throat: Trachea midline, mucous membranes moist Eyes: Sclera anicteric, no erythema or discharge appreciated bilaterally Thorax: On 3 L nasal cannula saturating at 97%, lungs clear to auscultation bilaterally, no wheezes/rales/rhonchi Cardiovascular: Normal rate, regular rhythm, normal S1, S2; no S3, S4, rubs/gallops/murmurs, radial and pedal pulses are palpable Abdomen: Bowel sounds present, soft/nontender/nondistended Genitourinary: No CVA tenderness, no Lewis in place Musculoskeletal: Moving all extremities, no edema Skin: there is skin breakdown around the ankle region that was wrapped by nursing staff Neurologic: AAOx2, speech fluent and goal-directed, no focal deficits, grossly intact Assessment /Plan Assessment #Acute on chronic kidney disease (stage III) -Creatinine on 12/22/2020 was 1.01 mg/dL. Suspect that this is prerenal azotemia secondary to poor p.o. intake; received contrast for her CT scan; also was on torsemide that has been discontinued -continue with gentle IV hydration and hold diuretics for now #Delirium -Spoke to the patient's daughter, Dulce who reported she gets confused at times at baseline. -Continue with reorientation #COVID -Requiring supplemental oxygenation. Continue with remdesivir and dexamethasone. #Leukocytosis -Significant increase in her white count today but remains afebrile. Obtain procalcitonin levels and if elevated will initiate antibiotics. #Electrolyte abnormalities -Resolved #CHF -No signs of acute exacerbation at this time. Due to her renal failure we will hold diuretics. #CAD -Continue with aspirin and bisoprolol. #Hypertension -Continue with diltiazem and bisoprolol #Depression/anxiety -Continue with quetiapine, venlafaxine, and alprazolam as needed #Gout -continue allopurinol #Hypothyroidism -continue levothyroxine #DVT prophylaxis -Heparin subcu Plan/VTE VTE Prophylaxis Ordered?: Yes VS, I&O, [facility] Vital Signs/I&O Vital Signs Date Time Temp Pulse Resp B/P (MAP) Pulse Ox O2 Delivery O2 Flow Rate FiO2 01/17/21 06:00 97.9 64 20 116/58 (77) 96 Nasal Cannula 2.0 I&O- Last 24 Hours up to 6 AM 01/17/21 06:00 Intake Total 1755 ml Output Total 350 ml Balance 1405 ml Laboratory Data 24H LABS Laboratory Tests 2 01/16/21 13:58: Urine Color YELLOW, Urine Appearance CLEAR, Urine pH 5.0, Urine Specific [place] 1.024, Urine Protein NEGATIVE, Urine Glucose (Auto)(UA) NEGATIVE, Urine Ketones (Auto) NEGATIVE, Urine Blood NEGATIVE, Urine Nitrite NEGATIVE, Urine Bilirubin NEGATIVE, Urine Urobilinogen 0.2, Urine Leukocyte Esterase (Auto) NEGATIVE, Urine WBC (Auto) 2, Urine RBC (Auto) 1, Urine Hyaline Casts (Auto) 0, Urine Bacteria (Auto) NEGATIVE, Urine Squamous Epithelial Cells 3, Urine Mucus (Auto) SMALL, Urine Sperm (Auto) , Urine Osmolality 295, Urine Random Creatinine 91.9, Urine Random Total Protein 15.9H, Urine Random Sodium 27 01/17/21 05:00: Neutrophils (%) (Auto) , Nucleated Red Blood Cells % (auto) 1.4H, Neutrophils 68H, Band Neutrophils 17H, Lymphocytes (Manual) 11L, Monocytes (Manual) 1, Metamyelocytes 2H, Plasma Cells 1H, Anisocytosis 2+, Macrocytosis 2+, Spherocytes 1+, Schistocytes 2+, [place] Bodies 1+, Platelet Estimate NORMAL, Prothrombin Time 12.6, Prothromb Time International Ratio 0.91, Activated Partial Thromboplast Time 29.7, Fibrinogen 437, Anion Gap 5L, Glomerular Filtration Rate 20.7L, Calcium Level 7.5L, Magnesium Level 1.8, Ferritin 211, Total Bilirubin 0.3, Direct Bilirubin 0.1, Aspartate Amino Transf (AST/SGOT) 46H, Alanine Aminotransferase (ALT/SGPT) 24, Alkaline Phosphatase 67, Lactate Dehydrogenase 453H, Total Creatine Kinase 185, Troponin I 0.09#, XJ-Sae-C-Type Natriuretic Peptide 491H, Total Protein 6.0L, Albumin 2.2L, Albumin/Globulin Ratio 0.6L CBC/BMP Laboratory Tests 01/17/21 05:00 Microbiology Microbiology 01/15/21 Blood Culture - Preliminary, Resulted No growth after 24 hours . All specim... 01/15/21 Blood Culture - Preliminary, Resulted No growth after 24 hours . All specim... 01/15/21 Respiratory Virus Panel (PCR) ([facility]) - Final, Complete SARS-CoV-2 (COVID 19) CODY MAYNARD M.D. Jan 17, 2021 12:40
[2021-01-17 14:25] VITALS: BP 120/63
[2021-01-17 20:00] VITALS: BP 118/80
[2021-01-17] MEDS: dexameTHASONE 4 MG/ML 1ML VIAL (J1100 PER 1MG) IV SCH (21:48)
[2021-01-17] MEDS: QUEtiapine FUMARATE 50MG TAB PO SCH (21:48)
[2021-01-17] MEDS: REMDESIVIR 100 MG in NS 250 ML IV SCH (21:49)
[2021-01-17] MEDS: ATORVASTATIN 20 MG TAB PO SCH (21:49)
[2021-01-17] MEDS: SODIUM CHLORIDE 0.9% INJ 10 ML SYR IV SCH (23:19)
[2021-01-18] MEDS: NS 1,000 ML IV SCH ×3 (00:30→23:10)
[2021-01-18] MEDS: HEPARIN SOD (PORCINE) 5000UNITS/ML 1ML VIAL/SYRINGE SQ SCH ×3 (05:07→20:43)
[2021-01-18] MEDS: LEVOTHYROXINE 100MCG TABLET (0.1MG) PO SCH (05:07)
[2021-01-18 06:00] VITALS: BP 135/64
[2021-01-18 06:30] LABS: HEMATOCRIT 33.3 % (36.0-47.0); HEMOGLOBIN 10.6 g/dl (12.0-15.5); MEAN CORPUSCULAR HEMOGLOBIN 33.2 pg (27.0-33.0); MEAN CORPUSCULAR HGB CONC 31.8 g/dl (32.0-36.5); MEAN CORPUSCULAR VOLUME 104.4 fl (80.0-96.0); PLATELET COUNT, AUTOMATED 293 10^3/uL (150-450); RED BLOOD COUNT 3.19 10^6/uL (4.00-5.40); WHITE BLOOD COUNT 16.2 10^3/uL (4.0-10.0)
[2021-01-18 06:47] LABS: CALCIUM LEVEL 7.7 MG/DL (8.8-10.2); CREATININE FOR GFR 2.15 MG/DL (0.55-1.30); GLOMERULAR FILTRATION RATE 23.6 (>39); PHOSPHORUS LEVEL 2.9 MG/DL (2.5-4.9); POTASSIUM SERUM 4.9 MEQ/L (3.5-5.1)
[2021-01-18 07:14] LABS: ANISOCYTOSIS 1+; LYMPHOCYTES 8 % (16-44); MONOCYTES 3 % (0-5); NEUTROPHILS 76 % (28-66); PLATELET ESTIMATE NORMAL (NORMAL); POIKILOCYTOSIS 1+
[2021-01-18 07:15] LABS: OVALOCYTES 1+
[2021-01-18 07:16] LABS: SMUDGE CELLS 1+
[2021-01-18 08:00] VITALS: O2SAT 96
[2021-01-18] MEDS: BUDESONIDE EC 3 MG CAP (ENTOCORT EC) PO SCH (08:39)
[2021-01-18] MEDS: ASPIRIN 81MG ENTERIC TABLET PO SCH (08:39)
[2021-01-18] MEDS: VENLAFAXINE 37.5 MG TAB PO SCH (08:39)
[2021-01-18] MEDS: allopurinoL 300 MG TAB PO SCH (08:40)
[2021-01-18] MEDS: GABAPENTIN 100 MG CAP PO SCH ×2 (08:40→20:42)
[2021-01-18] MEDS: FOLIC ACID 1 MG TAB PO SCH (08:40)
[2021-01-18] MEDS: bisoproloL fumarate 5 MG TAB PO SCH (08:41)
--- NOTE | 2021-01-18 09:19 | IPNPDOC ---
Subjective Date Seen The patient was seen on 01/18/21. Subjective Chief Complaint/HPI Patient seen and examined at bedside this morning. She is slightly confused but this is her baseline. She believes she is in a hotel room, otherwise she knows the year, and the current president. She reports feeling well and was asking when she would be able to go home. She denied chest pain, shortness of breath, abdominal pain, nausea, vomiting, problems with urination or bowel movements. Objective Physical Examination Other physical findings General: Lying in bed, no acute distress Head/Neck/Throat: Trachea midline, mucous membranes moist Eyes: Sclera anicteric, no erythema or discharge appreciated bilaterally Thorax: On 2 L nasal cannula saturating at 97%, lungs clear to auscultation bilaterally, no wheezes/rales/rhonchi Cardiovascular: Normal rate, regular rhythm, normal S1, S2; no S3, S4, rubs/gallops/murmurs, radial and pedal pulses are palpable Abdomen: Bowel sounds present, soft/nontender/nondistended Genitourinary: No CVA tenderness, no Lewis in place Musculoskeletal: Moving all extremities, no edema Skin: there is skin breakdown around the ankle region that was wrapped by nursing staff Neurologic: AAOx2, speech fluent and goal-directed, no focal deficits, grossly i ntact Assessment /Plan Assessment #Acute on chronic kidney disease (stage III) -Creatinine on 12/22/2020 was 1.01 mg/dL. Suspect that this is prerenal azotemia secondary to poor p.o. intake; received contrast for her CT scan; also was on torsemide that has been discontinued -continue with gentle IV hydration and hold diuretics for now #Delirium -Spoke to the patient's daughter, Dulce who reported she gets confused at times at baseline. -Continue with reorientation #COVID -Requiring supplemental oxygenation. Continue with remdesivir and dexamethasone. #Superimposed pna -Increased white count, and procal. will start ceftriaxone and azithromycin. #Electrolyte abnormalities -Resolved #Diastolic CHF -Echocardiogram done on 05/19/2020 notes left ventricular ejection fraction 55 to 60% with grade 1 diastolic dysfunction. -No signs of acute exacerbation at this time. Due to her renal failure we will hold diuretics. #CAD -Continue with aspirin and bisoprolol. #Hypertension -Continue with diltiazem and bisoprolol #Depression/anxiety -Continue with quetiapine, venlafaxine, and alprazolam as needed #Gout -continue allopurinol #Hypothyroidism -continue levothyroxine #DVT prophylaxis -Heparin subcu Updates: Son in law called asking for updates. No information was released as he was not listed as healthcare proxy/nok and to respect pt privacy. Both daughter's listed did not answer the phone. Plan/VTE VTE Prophylaxis Ordered?: Yes VS, I&O, 24H, Fishbone Vital Signs/I&O Vital Signs Date Time Temp Pulse Resp B/P (MAP) Pulse Ox O2 Delivery O2 Flow Rate FiO2 01/18/21 08:41 69 135/64 01/18/21 06:00 96.2 19 98 Nasal Cannula 2.0 I&O- Last 24 Hours up to 6 AM 01/18/21 06:00 Intake Total 530 ml Output Total 200 ml Balance 330 ml Laboratory Data 24H LABS Laboratory Tests 2 01/18/21 06:05: Neutrophils (%) (Auto) , Nucleated Red Blood Cells % (auto) 1.6H, Neutrophils 76H, Band Neutrophils 13H, Lymphocytes (Manual) 8L, Monocytes (Manual) 3, Poikilocytosis 1+, Anisocytosis 1+, Macrocytosis 2+, Ovalocytes 1+, Smudge Cells 1+, Platelet Estimate NORMAL, Anion Gap 6L, Glomerular Filtration Rate 23.6L, Calcium Level 7.7L, Phosphorus Level 2.9, Magnesium Level 2.0 CBC/BMP Laboratory Tests 01/18/21 06:05 Microbiology Microbiology 01/15/21 Blood Culture - Preliminary, Resulted No Growth after 48 hours. All Specime... 01/15/21 Blood Culture - Preliminary, Resulted No Growth after 48 hours. All Specime... 01/15/21 Respiratory Virus Panel (PCR) ([facility]) - Final, Complete SARS-CoV-2 (COVID 19) CODY MAYNARD M.D. Jan 18, 2021 09:19
[2021-01-18 12:00] VITALS: O2SAT 92
[2021-01-18] MEDS ORDERED: cefTRIAXone SOD 1GM VIAL (J0696 PER 250MG) IM SCH (12:15)
[2021-01-18] MEDS: AZITHROMYCIN 250MG TABLET PO SCH (13:17)
[2021-01-18] MEDS: cefTRIAXone SOD 1 GM in D5W MINI-BAG PLUS 50 ML IV SCH (13:17)
[2021-01-18 16:23] VITALS: BP 125/64
[2021-01-18] MEDS: ATORVASTATIN 20 MG TAB PO SCH (20:42)
[2021-01-18] MEDS: dexameTHASONE 4 MG/ML 1ML VIAL (J1100 PER 1MG) IV SCH (20:42)
[2021-01-18] MEDS: QUEtiapine FUMARATE 50MG TAB PO SCH (20:42)
[2021-01-18] MEDS: REMDESIVIR 100 MG in NS 250 ML IV SCH (20:42)
[2021-01-18] MEDS: SODIUM CHLORIDE 0.9% INJ 10 ML SYR IV SCH (20:43)
[2021-01-18 22:00] VITALS: BP 125/60
[2021-01-19] MEDS: LEVOTHYROXINE 100MCG TABLET (0.1MG) PO SCH (05:15)
[2021-01-19] MEDS: HEPARIN SOD (PORCINE) 5000UNITS/ML 1ML VIAL/SYRINGE SQ SCH ×3 (05:15→20:24)
[2021-01-19 05:49] VITALS: BP 118/65
[2021-01-19 05:54] LABS: BASO # 0.1 10^3/uL (0.0-0.2); BASO % 0.6 % (0.0-1.0); EOS % 0.1 % (0.0-3.0); HEMATOCRIT 31.6 % (36.0-47.0); HEMOGLOBIN 10.3 g/dl (12.0-15.5); LYMPH # 1.5 10^3/uL (1.5-5.0); LYMPH % 8.3 % (24.0-44.0); MEAN CORPUSCULAR HEMOGLOBIN 33.4 pg (27.0-33.0); MEAN CORPUSCULAR HGB CONC 32.6 g/dl (32.0-36.5); MEAN CORPUSCULAR VOLUME 102.6 fl (80.0-96.0); MONO # 0.6 10^3/uL (0.0-0.8); MONO % 3.5 % (2.0-8.0); NEUTROPHILS # 14.9 10^3/uL (1.5-8.5); NEUTROPHILS % 82.6 % (36.0-66.0); PLATELET COUNT, AUTOMATED 275 10^3/uL (150-450); RED BLOOD COUNT 3.08 10^6/uL (4.00-5.40)
[2021-01-19 05:58] LABS: INR 0.94; PROTHROMBIN TIME 12.9 SECONDS (12.7-14.5)
[2021-01-19 05:59] LABS: PARTIAL THROMBOPLASTIN TIME 33.4 SECONDS (25.9-37.0)
[2021-01-19 06:32] LABS: BILIRUBIN,DIRECT 0.1 MG/DL (0.0-0.2); BILIRUBIN,TOTAL 0.3 MG/DL (0.2-1.0); CALCIUM LEVEL 7.6 MG/DL (8.8-10.2); CREATININE FOR GFR 1.86 MG/DL (0.55-1.30); GLOMERULAR FILTRATION RATE 27.9 (>39); MAGNESIUM LEVEL 1.8 MG/DL (1.8-2.4); POTASSIUM SERUM 4.7 MEQ/L (3.5-5.1); TOTAL PROTEIN 5.8 GM/DL (6.4-8.2); TROPONIN I 0.03 NG/ML (< 0.10)
[2021-01-19 08:00] VITALS: O2SAT 97
[2021-01-19] MEDS: AZITHROMYCIN 250MG TABLET PO SCH (09:13)
[2021-01-19] MEDS: GABAPENTIN 100 MG CAP PO SCH ×2 (09:14→20:25)
[2021-01-19] MEDS: ASPIRIN 81MG ENTERIC TABLET PO SCH (09:14)
[2021-01-19] MEDS: VENLAFAXINE 37.5 MG TAB PO SCH (09:14)
[2021-01-19] MEDS: bisoproloL fumarate 5 MG TAB PO SCH (09:14)
[2021-01-19] MEDS: FOLIC ACID 1 MG TAB PO SCH (09:14)
[2021-01-19] MEDS: allopurinoL 300 MG TAB PO SCH (09:14)
[2021-01-19 09:38] LABS: D-DIMER QUANT 2310.94 ng/ml (<500)
[2021-01-19 12:00] VITALS: O2SAT 94
[2021-01-19] MEDS: cefTRIAXone SOD 1 GM in D5W MINI-BAG PLUS 50 ML IV SCH (13:02)
--- NOTE | 2021-01-19 19:13 | IPNPDOC ---
Date Seen The patient was seen on 01/19/21. Progress Note Subjective: AAOx3, denies incr SOB, fevers, chills, n/v/d. Objective: Physical Examination VS: Please see below General: Lying in bed, no acute distress Head/Neck/Throat: Trachea midline, mucous membranes moist Eyes: Sclera anicteric, no erythema or discharge appreciated bilaterally Thorax: On 2 L nasal cannula saturating at 97%, lungs clear to auscultation bilaterally, no wheezes/rales/rhonchi Cardiovascular: Normal rate, regular rhythm, normal S1, S2; no S3, S4, rubs/gallops/murmurs, radial and pedal pulses are palpable Abdomen: obese abd, Bowel sounds present, soft/nontender Genitourinary: No CVA tenderness, no Lewis in place Musculoskeletal: Moving all extremities, no edema Skin: there is skin breakdown around the ankle region that was wrapped by nursing staff RLE, LLE ulcer, chronic, not fouls smelling Neurologic: AAOx2, speech fluent and goal-directed, no focal deficits, grossly intact Laboratory: Please see below Assessment /Plan: #COVID 19 infection with superimposed PNA -Remains on 2 L NC 95%. Not worsening -Elevated procalcitonin, WBC -Continue with remdesivir and dexamethasone, IS, isolation precautions, abx #Superimposed pna -See above #Deconditioning likely 2/2 to acute illness, baseline deconditioned state -PT/OT #Acute on chronic kidney disease (stage III) likely 2/2 to prerenal azotemia, meds vs 2/2 to contrast -Cr improved to 1.86 -continue with gentle IV hydration, watch for worsening s/s of fluid overload -Daily labs, avoid nephrotoxic medications #Delirium -AAOx3 today -Prior hospitalist spoke to the patient's daughter, Dulce who reported she gets confused at times at baseline. -Continue with reorientation #Leukocytosis likely steroid-induced -WBC 18K, no worsening s/s of infection -CBC daily #Diastolic CHF, no acute exacerbation -Echocardiogram done on 05/19/2020 notes left ventricular ejection fraction 55 to 60% with grade 1 diastolic dysfunction. -Currently holding diuretics with lower ext edema present -Resume when appropriate with Cr improvement #Lower ext ulcers, chronic -Not worsened -Dr. Henning consulted as she was to follow up with him soon as o/p #CAD -Continue with aspirin and bisoprolol. #Hypertension -Continue with diltiazem and bisoprolol #Depression/anxiety -Continue with quetiapine, venlafaxine, and alprazolam as needed #Gout -continue allopurinol #Hypothyroidism -continue levothyroxine #DVT prophylaxis -Heparin subcu DISPOSITION: PT/OT ordered today. Uses walker at baseline. VS, I&O, 24H, Fishbone Vital Signs/I&O Vital Signs Date Time Temp Pulse Resp B/P (MAP) Pulse Ox O2 Delivery O2 Flow Rate FiO2 01/19/21 15:01 3.0 01/19/21 14:00 98.6 65 22 95 Nasal Cannula 01/19/21 09:15 118/65 I&O- Last 24 Hours up to 6 AM 01/19/21 06:00 Intake Total 1840 ml Output Total 850 ml Balance 990 ml Laboratory Data 24H LABS Laboratory Tests 2 01/19/21 05:34: Immature Granulocyte % (Auto) 4.9H, Neutrophils (%) (Auto) 82.6H, Lymphocytes (%) (Auto) 8.3L, Monocytes (%) (Auto) 3.5, Eosinophils (%) (Auto) 0.1, Basophils (%) (Auto) 0.6, Neutrophils # (Auto) 14.9H, Lymphocytes # (Auto) 1.5, Monocytes # (Auto) 0.6, Eosinophils # (Auto) 0.0, Basophils # (Auto) 0.1, Nucleated Red Blood Cells % (auto) 1.7H, Prothrombin Time 12.9, Prothromb Time International Ratio 0.94, Activated Partial Thromboplast Time 33.4, Fibrinogen 399, D-Dimer, Quantitative 2310.94H, Anion Gap 9, Glomerular Filtration Rate 27.9L, Calcium Level 7.6L, Magnesium Level 1.8, Ferritin 175, Total Bilirubin 0.3, Direct Bilirubin 0.1, Aspartate Amino Transf (AST/SGOT) 40H, Alanine Aminotransferase (ALT/SGPT) 26, Alkaline Phosphatase 72, Lactate Dehydrogenase 472H, Total Creatine Kinase 136, Troponin I 0.03, SA-Xer-L-Type Natriuretic Peptide 1156H, Total Protein 5.8L, Albumin 2.0L, Albumin/Globulin Ratio 0.5L, Procalcitonin <0.05 CBC/BMP Laboratory Tests 01/19/21 05:34 Microbiology Microbiology 01/15/21 Blood Culture - Preliminary, Resulted No Growth after 72 hours. All specime... 01/15/21 Blood Culture - Preliminary, Resulted No Growth after 72 hours. All specime... 01/15/21 Respiratory Virus Panel (PCR) ([facility]) - Final, Complete SARS-CoV-2 (COVID 19) Current Medications Current Medications Medications (Trade) Dose Ordered Sig/Mercedes Route PRN Reason Start Time Stop Time Status Last Admin Dose Admin Acetaminophen (Tylenol Tab) 650 mg Q4HP PRN PO MILD PAIN or TEMP > 101 01/15/21 18:45 Albuterol/ Ipratropium (Combivent Respimat 100-20mcg) 1 puff Q4HP PRN INH SHORTNESS OF BREATH 01/15/21 18:45 Allopurinol (Zyloprim) 300 mg DAILY PO 01/16/21 09:00 01/19/21 09:14 Alprazolam (Xanax) 0.5 mg DAILY PRN PO ANXIETY 01/15/21 18:45 Aspirin (Ecotrin) 81 mg DAILY PO 01/16/21 09:00 01/19/21 09:14 Atorvastatin Calcium (Lipitor) 80 mg QHS PO 01/15/21 21:00 01/18/21 20:42 Azithromycin (Zithromax Tab) 500 mg DAILY PO 01/18/21 09:00 01/24/21 08:59 01/19/21 09:13 Bisoprolol Fumarate (Zebeta) 5 mg DAILY PO 01/16/21 09:00 01/19/21 09:14 Budesonide (Entocort Ec) 6 mg DAILY PO 01/16/21 09:00 01/18/21 12:21 DC 01/18/21 08:39 Ceftriaxone Sodium 1 gm/ Dextrose 50 ml @ 100 mls/hr Q24H IV 01/18/21 13:00 01/19/21 13:02 Ceftriaxone Sodium (Rocephin) 1 gm Q24H IM 01/18/21 12:15 01/18/21 12:26 DC Dexamethasone (Decadron) 6 mg DAILY@2100 IV 01/15/21 21:00 01/18/21 20:42 Diltiazem HCl (Cardizem Cd) 240 mg DAILY PO 01/16/21 09:00 01/19/21 09:15 Enoxaparin Sodium (Lovenox) 30 mg DAILY SC 01/16/21 09:00 01/16/21 11:12 DC 01/16/21 09:03 Folic Acid (Folic Acid) 1 mg DAILY PO 01/16/21 09:00 01/19/21 09:14 Gabapentin (Neurontin) 100 mg BID PO 01/15/21 21:00 01/19/21 09:14 Heparin Sodium (Porcine) (Heparin) 5,000 units Q8H SQ 01/18/21 06:00 01/19/21 13:02 Home Med (Home Med List Complete!) ASDIRECTED XX 01/15/21 16:40 01/15/21 16:44 DC Levothyroxine Sodium (Synthroid) 100 mcg DAILY@0600 PO 01/16/21 06:00 01/19/21 05:15 Potassium Chloride (Micro-K Extencaps) 20 meq BID PO 01/15/21 21:00 01/16/21 11:12 DC 01/16/21 09:05 Quetiapine Fumarate (SEROquel) 50 mg QHS PO 01/15/21 21:00 01/18/21 20:42 Remdesivir 100 mg/ Sodium Chloride 270 ml @ 270 mls/hr Q24H IV 01/16/21 20:00 01/20/21 19:59 01/18/21 20:42 Sodium Chloride 1,000 ml @ 50 mls/hr Q20H IV 01/15/21 18:35 01/18/21 23:10 Sodium Chloride (Saline Lock Flush) 30 ml Q24H IV 01/16/21 21:00 01/20/21 20:59 01/18/21 20:43 Torsemide (Demadex) 20 mg BID PO 01/15/21 21:00 01/16/21 11:12 DC 01/16/21 09:04 Venlafaxine HCl (Effexor) 75 mg DAILY PO 01/16/21 09:00 01/19/21 09:14 Allergies Coded Allergies: indomethacin (Verified Allergy, Unknown, as takes asprin, 01/15/21) levofloxacin (Verified Allergy, Unknown, UNKNOWN REACTION, 01/15/21) tetracycline (Verified Allergy, Unknown, UNKNOWN REACTION, 01/15/21) amlodipine (Verified Adverse Reaction, Mild, MUSCLE CRAMPS, 01/15/21) trazodone (Verified Adverse Reaction, Mild, DIZZINESS, 01/15/21) Wendy Kennedy MD Jan 19, 2021 19:13
[2021-01-19] MEDS: ATORVASTATIN 20 MG TAB PO SCH (20:23)
[2021-01-19] MEDS: QUEtiapine FUMARATE 50MG TAB PO SCH (20:24)
[2021-01-19] MEDS: REMDESIVIR 100 MG in NS 250 ML IV SCH (20:24)
[2021-01-19] MEDS: dexameTHASONE 4 MG/ML 1ML VIAL (J1100 PER 1MG) IV SCH (20:25)
[2021-01-19] MEDS: NS 1,000 ML IV SCH (20:57)
[2021-01-19] MEDS: SODIUM CHLORIDE 0.9% INJ 10 ML SYR IV SCH (21:00)
[2021-01-19 22:00] VITALS: BP 120/67
[2021-01-19 22:30] VITALS: O2SAT 92
[2021-01-20] MEDS: LEVOTHYROXINE 100MCG TABLET (0.1MG) PO SCH (05:24)
[2021-01-20] MEDS: HEPARIN SOD (PORCINE) 5000UNITS/ML 1ML VIAL/SYRINGE SQ SCH ×3 (05:25→22:31)
[2021-01-20 05:36] VITALS: BP 144/65
[2021-01-20 08:02] LABS: HEMATOCRIT 32.9 % (36.0-47.0); HEMOGLOBIN 10.5 g/dl (12.0-15.5); MEAN CORPUSCULAR HEMOGLOBIN 32.9 pg (27.0-33.0); MEAN CORPUSCULAR HGB CONC 31.9 g/dl (32.0-36.5); MEAN CORPUSCULAR VOLUME 103.1 fl (80.0-96.0); PLATELET COUNT, AUTOMATED 282 10^3/uL (150-450); RED BLOOD COUNT 3.19 10^6/uL (4.00-5.40); WHITE BLOOD COUNT 13.9 10^3/uL (4.0-10.0)
[2021-01-20 08:21] LABS: ALBUMIN 2.1 GM/DL (3.2-5.2); BILIRUBIN,TOTAL 0.4 MG/DL (0.2-1.0); CALCIUM LEVEL 7.9 MG/DL (8.8-10.2); CREATININE FOR GFR 1.4 MG/DL (0.55-1.30); GLOMERULAR FILTRATION RATE 38.7 (>39); MAGNESIUM LEVEL 1.8 MG/DL (1.8-2.4); POTASSIUM SERUM 4.2 MEQ/L (3.5-5.1); TOTAL PROTEIN 5.7 GM/DL (6.4-8.2)
[2021-01-20] MEDS: ASPIRIN 81MG ENTERIC TABLET PO SCH (09:11)
[2021-01-20] MEDS: FOLIC ACID 1 MG TAB PO SCH (09:11)
[2021-01-20] MEDS: GABAPENTIN 100 MG CAP PO SCH ×2 (09:11→20:23)
[2021-01-20] MEDS: VENLAFAXINE 37.5 MG TAB PO SCH (09:11)
[2021-01-20] MEDS: AZITHROMYCIN 250MG TABLET PO SCH (09:11)
[2021-01-20] MEDS: allopurinoL 300 MG TAB PO SCH (09:12)
[2021-01-20] MEDS: bisoproloL fumarate 5 MG TAB PO SCH (09:12)
[2021-01-20] MEDS: cefTRIAXone SOD 1 GM in D5W MINI-BAG PLUS 50 ML IV SCH ×2 (13:00→17:45)
[2021-01-20 14:00] VITALS: BP 160/68
--- NOTE | 2021-01-20 15:56 | IPNPDOC ---
Date Seen The patient was seen on 01/20/21. Progress Note Subjective: Pleasantly confused today but AAOx2 (place and year), denies incr SOB, fevers, chills, n/v/d. Objective: Physical Examination VS: Please see below General: Lying in bed, no acute distress Head/Neck/Throat: Trachea midline, mucous membranes moist Eyes: Sclera anicteric, no erythema or discharge appreciated bilaterally Thorax: On 2 L nasal cannula saturating at 95%, lungs clear to auscultation bilaterally, no wheezes/rales/rhonchi Cardiovascular: Normal rate, regular rhythm, normal S1, S2; no S3, S4, rubs/gallops/murmurs, radial and pedal pulses are palpable Abdomen: obese abd, Bowel sounds present, soft/nontender Genitourinary: No CVA tenderness, no Lewis in place Musculoskeletal: Moving all extremities, no edema Skin: there is skin breakdown around the ankle region, bandaged RLE, LLE ulcer which are chronic Neurologic: AAOx2, speech fluent and goal-directed, no focal deficits, grossly intact Laboratory: Please see below Assessment /Plan: #COVID 19 infection with superimposed PNA -2 L NC 95% earlier today but now currently trialing on RA. Not worsening -Elevated procalcitonin, WBC improving. -Continue with remdesivir (Day 5 and to stop after today), dexamethasone, IS, isolation precautions, abx #Superimposed pna -See above #Deconditioning likely 2/2 to acute illness, baseline deconditioned state -PT: Pt will beneift from skilled PT intervention to optimize safety and with functional mobility. -C/w services while here #Acute on chronic kidney disease (stage III) likely 2/2 to prerenal azotemia, meds vs 2/2 to contrast -Cr improved from 1.86--> 1.4 today -Continue with gentle IV hydration, watch for worsening s/s of fluid overload -Daily labs, avoid nephrotoxic medications #Hyperglycemia, likely steroid induced -BS >200 -F/u HbA1c -Started on levemir daily, FS AC/HS while on dexa, consistent carb diet #Delirium -AAOx2 today -Prior hospitalist spoke to the patient's daughter, Dulce who reported she gets confused at times at baseline. -Continue with reorientation #Leukocytosis likely steroid-induced- improving -WBC 13.9K, no worsening s/s of infection -CBC daily #Diastolic CHF, no acute exacerbation -Echocardiogram done on 05/19/2020 notes left ventricular ejection fraction 55 to 60% with grade 1 diastolic dysfunction. -Currently holding diuretics with lower ext edema present -Stop fluids when Cr normalizes and resume diuretics when appropriate with Cr improvement #Lower ext ulcers, chronic -Dr. Henning consulted as she was to follow up with him soon as o/p #CAD -Continue with aspirin and bisoprolol. #Hypertension -Continue with diltiazem and bisoprolol #Depression/anxiety -Continue with quetiapine, venlafaxine, and alprazolam as needed #Gout -continue allopurinol #Hypothyroidism -continue levothyroxine #DVT prophylaxis -Heparin subcu DISPOSITION: PT recommendations above. Called daughter Shari and left message. Discharge at this time is unknown. VS, I&O, 24H, Fishbone Vital Signs/I&O Vital Signs Date Time Temp Pulse Resp B/P (MAP) Pulse Ox O2 Delivery O2 Flow Rate FiO2 01/20/21 14:05 95 Room Air 01/20/21 14:00 97.6 69 22 160/68 (98) 2.0 I&O- Last 24 Hours up to 6 AM 01/20/21 06:00 Intake Total 1250 ml Balance 1250 ml Laboratory Data 24H LABS Laboratory Tests 2 01/20/21 07:01: Nucleated Red Blood Cells % (auto) 2.7H, Anion Gap 8, Glomerular Filtration Rate 38.7L, Calcium Level 7.9L, Magnesium Level 1.8, Total Bilirubin 0.4, Aspartate Amino Transf (AST/SGOT) 44H, Alanine Aminotransferase (ALT/SGPT) 25, Alkaline Phosphatase 69, Total Protein 5.7L, Albumin 2.1L, Albumin/Globulin Ratio 0.6L CBC/BMP Laboratory Tests 01/20/21 07:01 Microbiology Microbiology 01/15/21 Blood Culture - Final, Complete NO GROWTH AFTER 5 DAYS 01/15/21 Blood Culture - Final, Complete NO GROWTH AFTER 5 DAYS 01/15/21 Respiratory Virus Panel (PCR) ([facility]) - Final, Complete SARS-CoV-2 (COVID 19) Wendy Kennedy MD Jan 20, 2021 15:55
[2021-01-20] MEDS: LEVEMIR (INSULIN DETEMIR) 1 UNITS/0.01ML SC SCH (17:45)
[2021-01-20] MEDS: NS 1,000 ML IV SCH (18:13)
[2021-01-20 19:26] LABS: HEMOGLOBIN A1c 6.1 %
[2021-01-20] MEDS: dexameTHASONE 4 MG/ML 1ML VIAL (J1100 PER 1MG) IV SCH (20:22)
[2021-01-20] MEDS: QUEtiapine FUMARATE 50MG TAB PO SCH (20:23)
[2021-01-20] MEDS: ATORVASTATIN 20 MG TAB PO SCH (20:23)
[2021-01-20 22:00] VITALS: BP 152/65
[2021-01-20] MEDS: ACETAMINOPHEN TAB 650MG DOSE (2X325MG) PO PRN (23:51)
[2021-01-21] MEDS: HEPARIN SOD (PORCINE) 5000UNITS/ML 1ML VIAL/SYRINGE SQ SCH ×3 (05:28→21:57)
[2021-01-21] MEDS: LEVOTHYROXINE 100MCG TABLET (0.1MG) PO SCH (05:28)
[2021-01-21 06:00] VITALS: BP 137/63
[2021-01-21 08:52] LABS: HEMATOCRIT 26.7 % (36.0-47.0); HEMOGLOBIN 8.8 g/dl (12.0-15.5); MEAN CORPUSCULAR HEMOGLOBIN 33.2 pg (27.0-33.0); MEAN CORPUSCULAR VOLUME 100.8 fl (80.0-96.0); PLATELET COUNT, AUTOMATED 250 10^3/uL (150-450); RED BLOOD COUNT 2.65 10^6/uL (4.00-5.40); WHITE BLOOD COUNT 18.2 10^3/uL (4.0-10.0)
[2021-01-21 09:12] LABS: BILIRUBIN,DIRECT 0.2 MG/DL (0.0-0.2); BILIRUBIN,TOTAL 0.4 MG/DL (0.2-1.0); CREATININE FOR GFR 1.55 MG/DL (0.55-1.30); GLOMERULAR FILTRATION RATE 34.4 (>39); POTASSIUM SERUM 4.1 MEQ/L (3.5-5.1); TOTAL PROTEIN 5.5 GM/DL (6.4-8.2); TROPONIN I 0.02 NG/ML (< 0.10)
[2021-01-21 09:22] LABS: INR 1.09; PROTHROMBIN TIME 14.6 SECONDS (12.7-14.5)
[2021-01-21 09:28] LABS: PARTIAL THROMBOPLASTIN TIME 78.1 SECONDS (25.9-37.0)
[2021-01-21] MEDS: VENLAFAXINE 37.5 MG TAB PO SCH (09:36)
[2021-01-21] MEDS: AZITHROMYCIN 250MG TABLET PO SCH (09:36)
[2021-01-21] MEDS: GABAPENTIN 100 MG CAP PO SCH ×2 (09:36→21:56)
[2021-01-21] MEDS: FOLIC ACID 1 MG TAB PO SCH (09:36)
[2021-01-21] MEDS: allopurinoL 300 MG TAB PO SCH (09:36)
[2021-01-21] MEDS: bisoproloL fumarate 5 MG TAB PO SCH (09:37)
[2021-01-21] MEDS: LEVEMIR (INSULIN DETEMIR) 1 UNITS/0.01ML SC SCH (09:37)
[2021-01-21] MEDS: ASPIRIN 81MG ENTERIC TABLET PO SCH (09:37)
[2021-01-21 11:47] VITALS: BP 150/64
[2021-01-21] MEDS ORDERED: LIDOCAINE 1% MDV 20ML VIAL As Ordered ONE (13:44)
[2021-01-21] MEDS: NS 1,000 ML IV SCH (15:44)
[2021-01-21] MEDS: cefTRIAXone SOD 1 GM in D5W MINI-BAG PLUS 50 ML IV SCH (15:44)
[2021-01-21] MEDS ORDERED: SODIUM CHLORIDE 0.9% INJ 10 ML SYR IV PRN (16:15)
--- NOTE | 2021-01-21 16:57 | REP ---
PROCEDURE NAME: PICC LINE INSERTION W/SITERITE CLINICAL INFORMATION: iv MEDS, POOR ACCESS. COMPARISON: None. PROCEDURE DESCRIPTION: The procedure was performed by Lucia Howard [facility], under the direct supervision of Dr. Ch. The risks and benefits of the procedure were explained to the patient and an informed consent was obtained verbally as this patient is currently COVID positive. Directly prior to the start of the procedure a formal time-out was completed at the patient's bedside. The right basilic vein was localized using ultrasound guidance. The skin was prepped and draped in sterile fashion. One mL of 1% lidocaine 10 mg/mL was used as a local anesthetic. Using ultrasound guidance the right basilic vein was cannulated, and a 0.018 guidewire was inserted and advanced to the level of SVC using fluoroscopic guidance. The needle was removed and a 5.5 [place] dilator and peel-away sheath was inserted over the guidewire. A 5.5 [place] dual lumen catheter was cut to a length of 35 cm. The dilator was removed and the catheter was inserted over the guidewire with the tip ending at the level of the SVC. The peel-away sheath was removed and the catheter was flushed with heparinized saline as per hospital protocol. The catheter was affixed to the skin and a sterile dressing was applied. The patient tolerated the procedure well and there were no immediate complications. CONCLUSION: PICC line insertion into the right basilic vein. No fluoroscopy was utilized for this procedure, imaging was obtained by serial portable chest x-rays. <Electronically signed by Lucia Howard > 01/21/21 1646 <Electronically signed by Enrique Ch > 01/21/21 [id number]
--- NOTE | 2021-01-21 18:14 | CR ---
ADVANCED WOUND CARE CONSULTATION VIA TELEMEDICINE DATE: 01/21/2021 CONSULTATION REQUESTED BY: Wendy Kennedy M.D. REASON FOR CONSULTATION: In regards to local wound care suggestions involving the lower extremities. Wound care Telemedicine provides a visual assessment of a wound or wounds without the benefit of physical examination. It can assist with establishing a diagnosis and etiology. This allows for an initial treatment plan. As wounds often change, it may be necessary to modify the original care. Our recommendation is periodic wound reassessment to monitor treatment. Failure to comply may result in nonhealing of the wound or wounds, possible complications and/or a poor outcome. The recommendations given will serve as treatment options. As I will not be following this patient, this care plan will require the attending physician to give and sign the orders. Upon discharge, outpatient followup can be scheduled at our wound care center. HISTORY OF PRESENT ILLNESS: A 80-year-old female admitted for a positive COVID test, change in sensorium, with a history of congestive heart failure. The patient appears somewhat confused and could not really answer questions appropriately, and little clinical information was given. Patient has been seen recently in our wound care center for multiple skin tears secondary to falls and massive lower extremity gravitational edema. She was admitted on 01/15/2021 and has been essentially at bed rest for most of the time. For this reason, her lower extremity wounds have significantly improved, although there is still pitting edema. TREATMENT RECOMMENDATIONS: Wounds involving the right and left lower extremities are small and represent partial thickness. No indication for antibiotics, as the patient is still on intravenous (IV) ceftriaxone and with a normal chest x-ray and being afebrile, the indication is in question. The wounds should be cleansed with Vashe and covered with foam dressings. Bilateral tubal support stockings should be utilized, along with mild Trendelenburg position. MTDD
[2021-01-21] MEDS: SODIUM CHLORIDE 0.9% INJ 10 ML SYR IV SCH (18:19)
--- NOTE | 2021-01-21 18:24 | IPNPDOC ---
Date Seen The patient was seen on 01/21/21. Progress Note Subjective: WBC and CR increased;however, had not received fluids or abx since yesterday lost vascular access. PICC placed today and all meds resumed. More confused today but remains on RA, no distress. She denies incr SOB, fevers, chills, n/v/d. Objective: Physical Examination VS: Please see below General: Lying in bed, no acute distress Head/Neck/Throat: Trachea midline, mucous membranes moist Eyes: Sclera anicteric, no erythema or discharge appreciated bilaterally Thorax: On 2 L nasal cannula saturating at 95%, lungs clear to auscultation bilaterally, no wheezes/rales/rhonchi Cardiovascular: Normal rate, regular rhythm, normal S1, S2; no S3, S4, rubs/gallops/murmurs, radial and pedal pulses are palpable Abdomen: obese abd, Bowel sounds present, soft/nontender Genitourinary: No CVA tenderness, no Lewis in place Musculoskeletal: Moving all extremities, no edema Skin: there is skin breakdown around the ankle region, bandaged RLE, LLE ulcer which are chronic. Bruised upper extrem b/l with redness but no tenderness or pitting swelling Neurologic: AAOx2, speech fluent and goal-directed, no focal deficits, grossly intact Laboratory: Please see below Assessment /Plan: #COVID 19 infection with superimposed PNA -Remains comfortable on RA -WBC increased to 18K ;however, on steroids and did not get ceftriaxone 01/20/21 due to losing access- started up again today after PICC placed -Elevated procalcitonin -Completed remdesivir. Continuing dexamethasone (Day 7), ceftriaxone (Day 5), IS, isolation precautions #Superimposed pna -See above #Deconditioning likely 2/2 to acute illness, baseline deconditioned state -PT: Pt will beneift from skilled PT intervention to optimize safety and with functional mobility. -C/w services while here #Acute on chronic kidney disease (stage III) likely 2/2 to prerenal azotemia, meds vs 2/2 to contrast -Cr worsened likely 2/2 to no fluids with no IV access -Continue with gentle IV hydration, watch for worsening s/s of fluid overload -Daily labs, avoid nephrotoxic medications #Hyperglycemia, likely steroid induced -BS >200 -HbA1c wnl -levemir daily increasead, FS AC/HS while on dexa, consistent carb diet #Delirium -AAOx2 today -Prior hospitalist spoke to the patient's daughter, Dulce who reported she gets confused at times at baseline. -Continue with reorientation #Leukocytosis likely steroid-induced- improving -WBC 18K- did not get abx 01/20/21 due to loss of access -no worsening s/s of infection -CBC daily #Diastolic CHF, no acute exacerbation -Echocardiogram done on 05/19/2020 notes left ventricular ejection fraction 55 to 60% with grade 1 diastolic dysfunction. -Currently holding diuretics with lower ext edema present -Stop fluids when Cr normalizes and resume diuretics when appropriate with Cr improvement -BNP increasing, watch closely #Lower ext ulcers, chronic -Dr. Henning consulted as she was to follow up with him soon as o/p #CAD -Continue with aspirin and bisoprolol. #Hypertension -Continue with diltiazem and bisoprolol #Depression/anxiety -Continue with quetiapine, venlafaxine, and alprazolam as needed #Gout -continue allopurinol #Hypothyroidism -continue levothyroxine #DVT prophylaxis -Heparin subcu DISPOSITION: PT recommendations above. Discharge at this time is unknown. VS, I&O, 24H, Fishbone Vital Signs/I&O Vital Signs Date Time Temp Pulse Resp B/P (MAP) Pulse Ox O2 Delivery O2 Flow Rate FiO2 01/21/21 11:47 97.9 90 20 150/64 (92) 95 Room Air 01/20/21 20:23 I&O- Last 24 Hours up to 6 AM 01/21/21 06:00 Intake Total 1590 ml Output Total 850 ml Balance 740 ml Laboratory Data 24H LABS Laboratory Tests 2 01/20/21 21:31: Bedside Glucose (Misc Panel) 186H 01/21/21 05:26: Bedside Glucose (Misc Panel) 188H 01/21/21 07:44: Nucleated Red Blood Cells % (auto) 3.1H, Prothrombin Time 14.6H, Prothromb Time International Ratio 1.09, Activated Partial Thromboplast Time 78.1H, Fibrinogen 309, Anion Gap 9, Glomerular Filtration Rate 34.4L, Calcium Level 8.0L, Ferritin 230, Total Bilirubin 0.4, Direct Bilirubin 0.2, Aspartate Amino Transf (AST/SGOT) 43H, Alanine Aminotransferase (ALT/SGPT) 28, Alkaline Phosphatase 63, Lactate Dehydrogenase 538H, Total Creatine Kinase 137, Troponin I 0.02, ZY-Aua-I-Type Natriuretic Peptide 1719H, Total Protein 5.5L, Albumin 2.0L, Albumin/Globulin Ratio 0.6L, Procalcitonin 0.05 01/21/21 11:44: Bedside Glucose (Misc Panel) 181H 01/21/21 17:03: Bedside Glucose (Misc Panel) 161H CBC/BMP Laboratory Tests 01/21/21 07:44 Microbiology Microbiology 01/15/21 Blood Culture - Final, Complete NO GROWTH AFTER 5 DAYS 01/15/21 Blood Culture - Final, Complete NO GROWTH AFTER 5 DAYS 01/15/21 Respiratory Virus Panel (PCR) ([facility]) - Final, Complete SARS-CoV-2 (COVID 19) Wendy Kennedy MD Jan 21, 2021 18:23
[2021-01-21] MEDS: QUEtiapine FUMARATE 50MG TAB PO SCH (21:56)
[2021-01-21] MEDS: ATORVASTATIN 20 MG TAB PO SCH (21:57)
[2021-01-21] MEDS: dexameTHASONE 4 MG/ML 1ML VIAL (J1100 PER 1MG) IV SCH (22:10)
[2021-01-21 22:47] VITALS: BP 142/62
[2021-01-22] VITALS (10 sets, daily range): BP systolic 127–173; BP diastolic 61–85
[2021-01-22] MEDS: LEVOTHYROXINE 100MCG TABLET (0.1MG) PO SCH (06:26)
[2021-01-22] MEDS: HEPARIN SOD (PORCINE) 5000UNITS/ML 1ML VIAL/SYRINGE SQ SCH (06:26)
[2021-01-22] MEDS: SODIUM CHLORIDE 0.9% INJ 10 ML SYR IV SCH ×2 (06:38→18:35)
[2021-01-22] MEDS: VENLAFAXINE 37.5 MG TAB PO SCH (08:51)
[2021-01-22] MEDS: bisoproloL fumarate 5 MG TAB PO SCH (08:51)
[2021-01-22] MEDS: AZITHROMYCIN 250MG TABLET PO SCH (08:51)
[2021-01-22] MEDS: GABAPENTIN 100 MG CAP PO SCH ×2 (08:51→22:41)
[2021-01-22] MEDS: ASPIRIN 81MG ENTERIC TABLET PO SCH (08:51)
[2021-01-22] MEDS: FOLIC ACID 1 MG TAB PO SCH (08:51)
[2021-01-22] MEDS: LEVEMIR (INSULIN DETEMIR) 1 UNITS/0.01ML SC SCH (08:58)
[2021-01-22 09:27] LABS: MEAN CORPUSCULAR HEMOGLOBIN 33.2 pg (27.0-33.0); MEAN CORPUSCULAR VOLUME 103.5 fl (80.0-96.0); PLATELET COUNT, AUTOMATED 206 10^3/uL (150-450); RED BLOOD COUNT 1.99 10^6/uL (4.00-5.40); WHITE BLOOD COUNT 17.4 10^3/uL (4.0-10.0)
[2021-01-22 09:36] LABS: HEMATOCRIT 20.6 % (36.0-47.0); HEMOGLOBIN 6.6 g/dl (12.0-15.5)
[2021-01-22 09:54] LABS: BILIRUBIN,TOTAL 0.4 MG/DL (0.2-1.0); CALCIUM LEVEL 7.7 MG/DL (8.8-10.2); CREATININE FOR GFR 1.21 MG/DL (0.55-1.30); GLOMERULAR FILTRATION RATE 45.8 (>39); TOTAL PROTEIN 4.9 GM/DL (6.4-8.2)
[2021-01-22] MEDS: cefTRIAXone SOD 1 GM in D5W MINI-BAG PLUS 50 ML IV SCH (13:52)
--- NOTE | 2021-01-22 15:56 | REP ---
INDICATION: left upper ext swelling. COMPARISON: None. TECHNIQUE: Multiple ultrasonographic images of the deep venous structures of the left upper extremity were obtained to rule out deep venous thrombosis. The contralateral subclavian vein was also interrogated in a limited fashion for comparison. FINDINGS: There is no abnormal echogenic material seen in any of the visualized deep venous structures of the left upper extremity. Coaptation where applicable is appropriate throughout. Seen in the anterior proximal humeral soft tissues in the region of the biceps muscle there is a 17 x 2.6 x 2.9 cm sized nearly anechoic structure which extends into the lateral proximal forearm. IMPRESSION: 1. There is no evidence of deep vein thrombosis. 2. Large complex fluid collection as described above suspicious for a musculotendinous tear possibly of the biceps tendon. MRI is suggested for further evaluation. <Electronically signed by Arun Quiles > 01/22/21 [id number]
[2021-01-22] MEDS ORDERED: FUROSEMIDE 20MG/2ML VIAL (J1940) IV ONE ×2 (16:00→19:00)
--- NOTE | 2021-01-22 17:33 | IPNPDOC ---
Date Seen The patient was seen on 01/22/21. Progress Note Subjective: LUE bruising worsened over 24 hours, complaining of left upper ext pain. Possible biceps tear in LUE, cannot do MRI due to confusion. H/H low, transfusing 2 units PRBC. Occult blood ordered. Updated daughter 2 times today. She denies incr SOB, fevers, chills, n/v/d. Objective: Physical Examination: VS: Please see below General: Lying in bed, no acute distress Head/Neck/Throat: Trachea midline, mucous membranes moist Eyes: Sclera anicteric, no erythema or discharge appreciated bilaterally Thorax: lungs clear to auscultation bilaterally, no wheezes/rales/rhonchi Cardiovascular: Normal rate, regular rhythm, normal S1, S2; no S3, S4, rubs/gallops/murmurs, radial and pedal pulses are palpable Abdomen: obese abd, Bowel sounds present, soft/nontender Genitourinary: No CVA tenderness, no Lewis in place Musculoskeletal: Moving all extremities, edema +2 lower ext, pulses present in all extremities Skin: there is skin breakdown around the ankle region, bandaged RLE, LLE ulcer which are chronic. increased bruised upper extrem b/l with redness but no tenderness or pitting swelling Neurologic: AAOx2, speech fluent and goal-directed, no focal deficits, grossly intact Laboratory: Please see below imaging: Doppler LUE: 1. There is no evidence of deep vein thrombosis. 2. Large complex fluid collection as described above suspicious for a musculotendinous tear possibly of the biceps tendon. MRI is suggested for further evaluation. Assessment /Plan: #COVID 19 infection with superimposed PNA -Remains comfortable on RA -WBC increased to 18K ;however, on steroids and did not get ceftriaxone 01/20/21 due to losing access- started up again today after PICC placed -Elevated procalcitonin -Completed remdesivir, ceftriaxone, dexamethasone. C/w IS, isolation precautions #Superimposed pna -See above #Left upper extremity pain/redness r/o bicep tear -Doppler LUE above -No warmth or sign of cellulitis, pulses present -Cannot do MRI today due to receiving blood and no MRI on weekend. -Discussed with orthopedic surgery who does not recommend MRI as surgery would not be done on this patient anyway. -Pain control, conservative management #Worsening anemia possibly 2/2 to LUE bleed/muscle tear/hematoma v.s GI bleed -H/H dropped to 6.6/20.6, asymptomatic, VS stable -Occult blood ordered but no bloody stools recorded -AC and ASA stopped -Transfusing 2 units PRBC today, f/u post transfusion H/H and daily CBC . Monitor for s/s of worsening swelling of the left arm, checking pulses and tenseness. Giving lasix after each PRBC. #Acute on chronic kidney disease (stage III) likely 2/2 to prerenal azotemia, meds vs 2/2 to contrast -Cr wnl today, IVFS stopped due to increased swelling -Watch labs closely as she will get two doses of lasix tonight after each PRBC -Daily labs, avoid other nephrotoxic medications #Hyperglycemia, likely steroid induced -BS slightly improved -HbA1c wnl -levemir daily, FS AC/HS, consistent carb diet #Deconditioning likely 2/2 to acute illness, baseline deconditioned state -PT: Pt will beneift from skilled PT intervention to optimize safety and with functional mobility. -C/w services while here -CAUTION with possible left bicep tear with activity #Delirium possibly 2/2 to high dose steroids vs. acute illness with prolonged hospitalization -AAOx2 today- similar to days prior -confused at times at baseline -Continue with reorientation -D/c steroids today #Leukocytosis likely steroid-induced -WBC elevated -no worsening s/s of infection -CBC daily -D/c steroids today #Diastolic CHF, no acute exacerbation -Echocardiogram done on 05/19/2020 notes left ventricular ejection fraction 55 to 60% with grade 1 diastolic dysfunction. -Stop fluids today, lasix x 2 doses watching cr closely daily -BNP increasing #Lower ext ulcers, chronic -Dr. Henning consulted -Wounds should be cleansed with Vashe and covered with foam dressings. Bilateral tubal support stockings should be utilized, along with mild Trendelenburg position. #CAD -HOlding ASA, c/w bisoprolol. #Hypertension -Continue with diltiazem and bisoprolol #Depression/anxiety -Continue with quetiapine, venlafaxine, and alprazolam as needed #Gout -continue allopurinol #Hypothyroidism -continue levothyroxine #DVT prophylaxis -Heparin subcu STOPPED due to left upper ext bruising/suspected hematoma. SCD s/teds DISPOSITION: PT recommendations above. Discharge at this time is unknown. Updated daughter and POA today x 2. VS, I&O, 24H, Fishbone Vital Signs/I&O Vital Signs Date Time Temp Pulse Resp B/P (MAP) Pulse Ox O2 Delivery O2 Flow Rate FiO2 01/22/21 15:41 98.8 82 18 142/68 92 Room Air 01/20/21 20:23 I&O- Last 24 Hours up to 6 AM 01/22/21 06:00 Output Total 175 ml Balance -175 ml Laboratory Data 24H LABS Laboratory Tests 2 01/21/21 21:06: Bedside Glucose (Misc Panel) 191H 01/21/21 21:30: Bedside Glucose (Misc Panel) 160H 01/22/21 05:56: Bedside Glucose (Misc Panel) 174H 01/22/21 08:54: Nucleated Red Blood Cells % (auto) 6.5H, Anion Gap 7L, Glomerular Filtration Rate 45.8, Calcium Level 7.7L, Total Bilirubin 0.4, Aspartate Amino Transf (AST/SGOT) 50H, Alanine Aminotransferase (ALT/SGPT) 29, Alkaline Phosphatase 68, Total Protein 4.9L, Albumin 2.0L, Albumin/Globulin Ratio 0.7L 01/22/21 11:48: Bedside Glucose (Misc Panel) 188H CBC/BMP Laboratory Tests 01/22/21 08:54 Microbiology Microbiology 01/15/21 Blood Culture - Final, Complete NO GROWTH AFTER 5 DAYS 01/15/21 Blood Culture - Final, Complete NO GROWTH AFTER 5 DAYS 01/15/21 Respiratory Virus Panel (PCR) ([facility]) - Final, Complete SARS-CoV-2 (COVID 19) Wendy Kennedy MD Jan 22, 2021 17:33
--- NOTE | 2021-01-22 18:11 | CR ---
CONSULTATION DATE: 01/22/2021 CHIEF COMPLAINT: Left upper extremity swelling. HISTORY OF PRESENT ILLNESS: This patient was called in consultation to myself by Dr. Kennedy today at 1522 on advice in terms of management. The patient has upper extremity pain after many intravenous attempts. The patient is admitted to the COVID unit. Apparently there is some swelling of the upper extremity with no signs or concerns of an infection. An ultrasound was performed, which shows a gross fluid collection, and Dr. Kennedy was wondering about obtaining an MRI, which would be difficult or impossible given the patient's current medical status and delirium. The patient has been on prophylactic anticoagulation; however, this has been stopped, as well as having a recent drop in hemoglobin with recent transfusions. PHYSICAL EXAMINATION: Per Dr. Kennedy, the patient has normal pulse with some swelling to the upper extremity but no redness, drainage, warmth, or other signs of infection. Per the hospitalist, it looks like a hematoma, and the patient does have pain there. There are no radiographs taken. There is an ultrasound of the left upper extremity, date of service 01/22/2021 at 1542. The radiologist's impression is 1) There is no evidence of deep venous thrombosis. 2) Large complex fluid collection, 17 x 2.6 x 2.9 cm, and a echoic, suspicious for musculotendinous tear, possibly a biceps tendon. MRI suggested for further evaluation. ASSESSMENT AND PLAN: This 80-year-old female with upper extremity swelling on the left side that seems per the history and physical exam given to me by Dr. Kennedy to be a hematoma. Again, per my interpretation of the information provided to me, there are no signs of an infection or need to acutely evaluate or drain this hematoma. Infection is in the differential, although, per the hospitalist, this is more consistent with a hematoma. I did suggest obtaining a radiograph of the humerus. In terms of the utility of further examining the biceps tear, if the patient does have a biceps tear, this is not something to acutely consider doing any sort of operation, especially given their current medical status. I recommend stabilizing their hemoglobin, symptomatic management of the upper extremity, ruling out a fracture, and calling for any concerning features, like redness, warmth, drainage, pain with minimal range of motion, or other signs of infection of the skin, soft tissues, or joint. In addition, apparently patient has normal platelets. No signs of deep venous thrombosis. I recommend checking coagulation status, ensuring normal hemoglobin, and please call for any further questions or concerns. This was communicated to Dr. Kennedy, and she understood and had no further questions.
[2021-01-22] MEDS: ATORVASTATIN 20 MG TAB PO SCH (22:42)
[2021-01-22] MEDS: QUEtiapine FUMARATE 50MG TAB PO SCH (22:42)
[2021-01-23] VITALS (10 sets, daily range): BP systolic 119–162; BP diastolic 58–76
[2021-01-23] MEDS: LEVOTHYROXINE 100MCG TABLET (0.1MG) PO SCH (05:56)
[2021-01-23] MEDS: SODIUM CHLORIDE 0.9% INJ 10 ML SYR IV SCH ×2 (05:56→17:52)
[2021-01-23 07:58] LABS: HEMOGLOBIN 7.3 g/dl (12.0-15.5); MEAN CORPUSCULAR HEMOGLOBIN 32.2 pg (27.0-33.0); MEAN CORPUSCULAR HGB CONC 33.2 g/dl (32.0-36.5); MEAN CORPUSCULAR VOLUME 96.9 fl (80.0-96.0); PLATELET COUNT, AUTOMATED 192 10^3/uL (150-450); RED BLOOD COUNT 2.27 10^6/uL (4.00-5.40); WHITE BLOOD COUNT 21.6 10^3/uL (4.0-10.0)
[2021-01-23 08:12] LABS: BILIRUBIN,TOTAL 0.6 MG/DL (0.2-1.0); CALCIUM LEVEL 7.9 MG/DL (8.8-10.2); CREATININE FOR GFR 1.24 MG/DL (0.55-1.30); GLOMERULAR FILTRATION RATE 44.5 (>39); POTASSIUM SERUM 4.2 MEQ/L (3.5-5.1); TOTAL PROTEIN 4.9 GM/DL (6.4-8.2)
--- NOTE | 2021-01-23 08:18 | REP ---
INDICATION: suspecting left bicep tear COMPARISON: None. TECHNIQUE: AP, lateral, oblique views of the left humerus FINDINGS: Age-related degenerative changes at the shoulder and elbow. The humerus is intact. No obvious acute fracture or dislocation. No subcutaneous emphysema or foreign body identified. The surrounding soft tissues are grossly unremarkable by radiographic evaluation. IMPRESSION: Age-related changes. No obvious acute process by radiographic evaluation. <Electronically signed by Zoran Richmond > 01/23/21 0828
[2021-01-23] MEDS: LEVEMIR (INSULIN DETEMIR) 1 UNITS/0.01ML SC SCH (08:53)
[2021-01-23] MEDS: AZITHROMYCIN 250MG TABLET PO SCH (08:54)
[2021-01-23] MEDS: GABAPENTIN 100 MG CAP PO SCH ×2 (08:54→20:54)
[2021-01-23] MEDS: bisoproloL fumarate 5 MG TAB PO SCH (08:56)
[2021-01-23] MEDS: FOLIC ACID 1 MG TAB PO SCH (08:56)
[2021-01-23] MEDS: VENLAFAXINE 37.5 MG TAB PO SCH (08:57)
[2021-01-23] MEDS ORDERED: FUROSEMIDE 40MG/4ML VIAL (J1940) IV SCH (09:00)
[2021-01-23] MEDS ORDERED: DOCUSATE SODIUM 100MG CAPSULE PO PRN (09:20)
[2021-01-23] MEDS ORDERED: MIRALAX *UNIT DOSE* 17GM PACKET PO PRN (09:20)
--- NOTE | 2021-01-23 14:09 | IPNPDOC ---
Date Seen The patient was seen on 01/23/21. Progress Note Subjective: Increasing ecchymosis, pain of left upper arm. Surgery consulted and has evaluated. Spoke with hematology about rising PTT, suggested FFP monitoring other labs closely. Spoke with daughter about possible transfer to identify possible bleeding vessel in left upper ext and Annie would like mother to stay here to try what we are currently doing- to see if this helps. Updated nurse. P kieran medication ordered. DNR/DNI now. Patient still pleasantly confused and denies incr SOB, fevers, chills, n/v/d. Objective: Physical Examination VS: Please see below General: Lying in bed, no acute distress Head/Neck/Throat: Trachea midline, mucous membranes moist Eyes: Sclera anicteric, no erythema or discharge appreciated bilaterally Thorax: On 2 L nasal cannula saturating at 95%, lungs clear to auscultation bilaterally, no wheezes/rales/rhonchi Cardiovascular: Normal rate, regular rhythm, normal S1, S2; no S3, S4, rubs/gallops/murmurs, radial and pedal pulses are palpable Abdomen: obese abd, Bowel sounds present, soft/nontender Genitourinary: No CVA tenderness, no Lewis in place Musculoskeletal: Moving all extremities, no edema Skin: there is skin breakdown around the ankle region, bandaged RLE, LLE ulcer which are chronic. left arm elevated. increased ecchymosis of upper and lower left arm, bruising wrapping around left upper back and left flank, left breast, slightly tender to touch, no crepitus, +2 pitting edema of b/l upper ext, L>R arm in size Neurologic: AAOx1, speech fluent and goal-directed, no focal deficits, grossly intact Laboratory: Please see below Assessment /Plan: #Left upper arm ecchymosis severe, hematoma likely 2/2 to intramuscular bleed from torn bicep. Cannot r/o clotting factor d/o in presence of COVID 19 as contributing factor -Imaging in chart -Stopped all heparin products -WBC increased-likely incr is reactive due to bleed + steroids . No cellulitis seen -Discussed with orthopedic surgery and general surgery -No surgical intervention at this time, no IR to identify bleeding vessel over the weekend here. D/w Annie (POA- [phone]) who opted to keep patient here and if available on Monday then maybe then if bleed does not seem to have stopped. -PTT and PT elevated, consulted hematology (Dr. Powell) who suspects using clot ting factors 2/2 to large bleed. -Ordered 2 FFP now, checking fibrinogen. If fibrinogen <100, give 1-3 cryoprecipitate. -Check fibrinogen, PT/PTT/INR, CBC and FPD Q6H -Call hematology any time to discuss -POA aware that this treatment above may not help with bleeding to stop. If cristobal ent gets worse or treatment appears to not be helping, please discuss with Annie about advancing level of care. They do not wish to get much more aggressive in treatment than above. #COVID 19 infection with superimposed PNA -Remains comfortable on RA -WBC increased -Elevated procalcitonin -Completed remdesivir, ceftriaxone, dexamethasone. Keeping azithromycin x 1-2 more days. IS, isolation precautions #Superimposed pna -See above #Deconditioning likely 2/2 to acute illness, baseline deconditioned state -PT: Pt will beneift from skilled PT intervention to optimize safety and with functional mobility. -HOld services due to arm above #Acute on chronic kidney disease (stage III) likely 2/2 to prerenal azotemia, meds vs 2/2 to contrast -Cr wnl -Stopped IVFs, watch Cr with diuresis -Daily labs, avoid nephrotoxic medications #Hyperglycemia, likely steroid induced -HbA1c wnl -levemir daily increasead, FS AC/HS , consistent carb diet -If not eating well, caution while on levemir- watch for hypoglycemia. Also stopped steroids so BS may drop #Delirium likely 2/2 to steroids and prolonged hospital stay -AAOx1 today -BL confused but this is more extreme -Continue with reorientation #Leukocytosis likely steroid-induced, reactive to bleed -WBC worsened -no worsening s/s of infection -CBC daily #Diastolic CHF, no acute exacerbation -Echocardiogram done on 05/19/2020 notes left ventricular ejection fraction 55 to 60% with grade 1 diastolic dysfunction. -Diuresing -BNP increasing, watch closely #Lower ext ulcers, chronic -Dr. Henning consulted as she was to follow up with him soon as o/p #CAD -Continue with aspirin and bisoprolol. #Hypertension -Continue with diltiazem and bisoprolol #Depression/anxiety -Continue with quetiapine, venlafaxine, and alprazolam as needed #Gout -continue allopurinol #Hypothyroidism -continue levothyroxine DVT px -SCD DISPOSITION: DNR/DNI today, will fill molst out with Annie over the phone tomorrow- she wanted to speak with family. Now general surgery, hematology involved. VS, I&O, 24H, Fishbone Vital Signs/I&O Vital Signs Date Time Temp Pulse Resp B/P (MAP) Pulse Ox O2 Delivery O2 Flow Rate FiO2 01/23/21 08:56 93 155/72 01/23/21 05:25 97.2 20 90 Room Air 01/20/21 20:23 I&O- Last 24 Hours up to 6 AM 01/23/21 06:00 Intake Total 1065 ml Output Total 600 ml Balance 465 ml Laboratory Data 24H LABS Laboratory Tests 2 01/22/21 17:06: Bedside Glucose (Misc Panel) 161H 01/23/21 05:35: Bedside Glucose (Misc Panel) 134H 01/23/21 07:09: Nucleated Red Blood Cells % (auto) 8.4H, Anion Gap 8, Glomerular Filtration Rate 44.5, Calcium Level 7.9L, Total Bilirubin 0.6, Aspartate Amino Transf (AST/SGOT) 54H, Alanine Aminotransferase (ALT/SGPT) 30, Alkaline Phosphatase 66, Total Protein 4.9L, Albumin 2.0L, Albumin/Globulin Ratio 0.7L 01/23/21 09:59: Lactic Acid Level 1.6 01/23/21 12:06: Bedside Glucose (Misc Panel) 153H CBC/BMP Laboratory Tests 01/23/21 07:09 Microbiology Microbiology 01/15/21 Blood Culture - Final, Complete NO GROWTH AFTER 5 DAYS 01/15/21 Blood Culture - Final, Complete NO GROWTH AFTER 5 DAYS 01/15/21 Respiratory Virus Panel (PCR) ([facility]) - Final, Complete SARS-CoV-2 (COVID 19) Wendy Kennedy MD Jan 23, 2021 14:09
[2021-01-23 17:29] LABS: HEMATOCRIT 23.5 % (36.0-47.0); MEAN CORPUSCULAR HEMOGLOBIN 33.1 pg (27.0-33.0); MEAN CORPUSCULAR VOLUME 97.1 fl (80.0-96.0); PLATELET COUNT, AUTOMATED 160 10^3/uL (150-450); RED BLOOD COUNT 2.42 10^6/uL (4.00-5.40); WHITE BLOOD COUNT 22.5 10^3/uL (4.0-10.0)
[2021-01-23 17:41] LABS: INR 1.07; PARTIAL THROMBOPLASTIN TIME 30.9 SECONDS (25.9-37.0); PROTHROMBIN TIME 14.3 SECONDS (12.7-14.5)
[2021-01-23 17:44] LABS: D-DIMER QUANT 1906.04 ng/ml (<500)
[2021-01-23] MEDS ORDERED: MORPHINE 4 MG/ML 1ML VIAL/SYRINGE (J2270) IV PRN (18:45)
[2021-01-23] MEDS: QUEtiapine FUMARATE 50MG TAB PO SCH (20:55)
[2021-01-23] MEDS: ATORVASTATIN 20 MG TAB PO SCH (20:55)
[2021-01-23 23:27] LABS: INR 1.13; PROTHROMBIN TIME 14.9 SECONDS (12.7-14.5)
[2021-01-23 23:28] LABS: PARTIAL THROMBOPLASTIN TIME 28.2 SECONDS (25.9-37.0)
[2021-01-23 23:30] LABS: D-DIMER QUANT 2072.89 ng/ml (<500)
[2021-01-24 04:00] VITALS: BP 157/86
[2021-01-24 05:36] VITALS: BP 157/86
[2021-01-24 06:52] VITALS: BP 135/74
[2021-01-24] MEDS: LEVOTHYROXINE 100MCG TABLET (0.1MG) PO SCH (07:03)
[2021-01-24] MEDS: SODIUM CHLORIDE 0.9% INJ 10 ML SYR IV SCH ×2 (07:03→17:22)
[2021-01-24 08:33] LABS: MEAN CORPUSCULAR HEMOGLOBIN 32.6 pg (27.0-33.0); MEAN CORPUSCULAR HGB CONC 33.7 g/dl (32.0-36.5); MEAN CORPUSCULAR VOLUME 96.6 fl (80.0-96.0); PLATELET COUNT, AUTOMATED 136 10^3/uL (150-450); RED BLOOD COUNT 1.78 10^6/uL (4.00-5.40); WHITE BLOOD COUNT 25.6 10^3/uL (4.0-10.0)
[2021-01-24 08:35] LABS: HEMATOCRIT 17.2 % (36.0-47.0); HEMOGLOBIN 5.8 g/dl (12.0-15.5)
[2021-01-24 08:44] LABS: INR 1.11; PROTHROMBIN TIME 14.7 SECONDS (12.7-14.5)
[2021-01-24 08:45] LABS: PARTIAL THROMBOPLASTIN TIME 32.3 SECONDS (25.9-37.0)
[2021-01-24 08:48] LABS: ALBUMIN 1.9 GM/DL (3.2-5.2); BILIRUBIN,TOTAL 0.7 MG/DL (0.2-1.0); CALCIUM LEVEL 7.7 MG/DL (8.8-10.2); CREATININE FOR GFR 1.99 MG/DL (0.55-1.30); D-DIMER QUANT 1585.97 ng/ml (<500); GLOMERULAR FILTRATION RATE 25.7 (>39); POTASSIUM SERUM 4.5 MEQ/L (3.5-5.1); TOTAL PROTEIN 4.4 GM/DL (6.4-8.2)
[2021-01-24] MEDS ORDERED: MORPHINE 2 MG/ML 1ML VIAL (J2270) IV PRN (09:25)
--- NOTE | 2021-01-24 09:48 | CR.PDOC ---
General Date of Consultation: Jan 24, 2021 Referring Provider: Wendy Kennedy MD Consultation REASON FOR CONSULTATION/CHIEF COMPLAINT: [Blrrding from left arm in patient with COVID]. HISTORY OF PRESENT ILLNESS: [&11 year old lady with COVID at least ten days. She has delirium and not able to tell me where she is from. She states that she has ongoing pain in her arm. Not able to quantifiy it outside of "not good"]. ALLERGIES: Please see below. HOME MEDICATIONS: Please see below. PAST MEDICAL HISTORY: 1. . 2. . PAST SURGICAL HISTORY: 1. 2. FAMILY HISTORY: Father: Mother: Siblings: Children: Hereditary Diseases: Unexpected deaths due to medical reasons: SOCIAL HISTORY: Marital status and/or living arrangements: Children: Employment: Tobacco use: ETOH: Illicit drug use: IV drug use: Other relevant social factors: REVIEW OF SYSTEMS: CONSTITUTIONAL: [pain in left arm and oozing blood.Not able to provide a more detailled ROS]. HEENT: . CARDIOVASCULAR: . RESPIRATORY: . GENITOURINARY: . MUSCULOSKELETAL: . GASTROINTESTINAL: . SKIN: . NEUROLOGICAL: . PSYCHIATRIC: . ENDOCRINE: . HEMATOLOGIC/LYMPHATIC: . ALLERGIC/IMMUNOLOGIC: . PHYSICAL EXAMINATION: VITAL SIGNS: Please see below. GENERAL APPEARANCE: [Chronically ill with ecchymoses and oozing blood through skin. Ecchymosis on other areas of skin.]. HEENT: . RESPIRATORY: . CARDIOVASCULAR: . ABDOMEN: . EXTREMITIES: . NEUROLOGICAL: [delirium]. PSYCHIATRIC: . LABORATORY DATA: Please see below. ASSESSMENT/PLAN: 1. [Patient coagulation parameters do not explain the bleeding into the left arm and the ozzing. She did receive FFP per my suggestion and no significan improvement. PT is minimaly elevated and Vitamin K may be provided. Not likely to have a significan impact.]. 2. [Patient has pain and Dr Kennedy has increased the frequency of morphine injections Per family request patient is now on comfort care. Palliative care will be consulted in the AM. They are not available over the weekend. 10 min face to face and 60 minutes review of labs, imaging and history yesterday and today. Please call us back should you require any further assistance. ]. Vital Signs/I&O Vital Signs Date Time Temp Pulse Resp B/P (MAP) Pulse Ox O2 Delivery O2 Flow Rate FiO2 01/24/21 06:52 97.5 78 20 135/74 96 Room Air 01/20/21 20:23 I&O- Last 24 Hours up to 6 AM 01/24/21 05:59 Intake Total 967 ml Output Total 750 ml Balance 217 ml Laboratory Data Labs 24H Laboratory Tests 2 01/23/21 09:59: Lactic Acid Level 1.6 01/23/21 12:06: Bedside Glucose (Misc Panel) 153H 01/23/21 16:54: Bedside Glucose (Misc Panel) 186H 01/23/21 16:55: Nucleated Red Blood Cells % (auto) 8.9H 01/23/21 17:05: Prothrombin Time 14.3H, Prothromb Time International Ratio 1.07, Activated Parti al Thromboplast Time 30.9, Fibrinogen 321, D-Dimer, Quantitative 1906.04H 01/23/21 20:25: Bedside Glucose (Misc Panel) 188H 01/23/21 23:03: Prothrombin Time 14.9H, Prothromb Time International Ratio 1.13, Activated Partial Thromboplast Time 28.2, Fibrinogen 290, D-Dimer, Quantitative 2072.89H 01/24/21 06:17: Bedside Glucose (Misc Panel) 154H 01/24/21 07:37: Nucleated Red Blood Cells % (auto) 11.9H, Prothrombin Time 14.7H, Prothromb Time International Ratio 1.11, Activated Partial Thromboplast Time 32.3, Fibrinogen 305, D-Dimer, Quantitative 1585.97H, Anion Gap 9, Glomerular Filtration Rate 25.7L, Calcium Level 7.7L, Total Bilirubin 0.7, Aspartate Amino Transf (AST/SGOT) 76H, Alanine Aminotransferase (ALT/SGPT) 33, Alkaline Phosphatase 63, Total Protein 4.4L, Albumin 1.9L, Albumin/Globulin Ratio 0.8L CBC/BMP Laboratory Tests 01/23/21 16:55 01/24/21 07:37 Microbiology Microbiology 01/23/21 Blood Culture, Received Pending 01/23/21 Blood Culture, Received Pending 01/23/21 Stool Occult Blood ([facility]) - Final, Complete 01/15/21 Blood Culture - Final, Complete NO GROWTH AFTER 5 DAYS 01/15/21 Blood Culture - Final, Complete NO GROWTH AFTER 5 DAYS 01/15/21 Respiratory Virus Panel (PCR) ([facility]) - Final, Complete SARS-CoV-2 (COVID 19) Allergies Coded Allergies: indomethacin (Verified Allergy, Unknown, as takes asprin, 01/15/21) levofloxacin (Verified Allergy, Unknown, UNKNOWN REACTION, 01/15/21) tetracycline (Verified Allergy, Unknown, UNKNOWN REACTION, 01/15/21) amlodipine (Verified Adverse Reaction, Mild, MUSCLE CRAMPS, 01/15/21) trazodone (Verified Adverse Reaction, Mild, DIZZINESS, 01/15/21) Home Medications Scheduled Aspirin (Aspirin EC) 81 Mg Tab, 81 MG PO Q2D, (Reported) TAKES AT BEDTIME Atorvastatin Calcium (Atorvastatin Calcium) 80 Mg Tab, 80 MG PO QHS, (Reported) Bisoprolol Fumarate (Bisoprolol Fumarate) 5 Mg Tablet, 5 MG PO DAILY, (Reported) Budesonide (Budesonide EC) 3 Mg Capdr...er, 6 MG PO DAILY, (Reported) Diltiazem HCl (Cartia Xt) 240 Mg Cap, 240 MG PO DAILY, (Reported) Folic Acid (Folic Acid) 1 Mg Tab, 1 MG PO DAILY, (Reported) Gabapentin (Gabapentin) 100 Mg Capsule, 100 MG PO BID, (Reported) Levothyroxine Sodium (Levoxyl) 100 Mcg Tablet, 100 MCG PO DAILY, (Reported) Potassium Chloride (Potassium Chloride) 20 Meq Tablet.er, 20 MEQ PO BID, (Reported) Quetiapine Fumarate (Quetiapine Fumarate) 25 Mg Tablet, 50 MG PO QHS, (Reported) Torsemide (Torsemide) 20 Mg Tablet, 20 MG PO BID, (Reported) Venlafaxine HCl (Venlafaxine HCl) 75 Mg Tablet, 75 MG PO DAILY, (Reported) allopurinoL (allopurinoL) 300 Mg Tablet, 300 MG PO DAILY, (Reported) Scheduled PRN Acetaminophen (Acetaminophen) 325 Mg Tablet, 325 MG PO Q4H PRN for MILD PAIN OR TEMP > 101, (Reported) Albuterol Sulfate (Albuterol Sulfate Hfa) 8.5 Gm Hfa.aer.ad, 2 PUFFS INH QID PRN for SHORTNESS OF BREATH, (Reported) Alprazolam (Alprazolam) 0.5 Mg Tablet, 0.5 MG PO DAILY PRN for ANXIETY, (Reported) RENATO HERMAN MD Jan 24, 2021 09:48
[2021-01-24] MEDS: VENLAFAXINE 37.5 MG TAB PO SCH (10:16)
[2021-01-24] MEDS: GABAPENTIN 100 MG CAP PO SCH ×2 (10:16→20:09)
[2021-01-24] MEDS: MORPHINE 4 MG/ML 1ML VIAL/SYRINGE (J2270) IV PRN ×2 (10:17→20:10)
--- NOTE | 2021-01-24 15:38 | IPNPDOC ---
Date Seen The patient was seen on 01/24/21. Progress Note Subjective: Despite the patient having 2 FFP, 3 units of blood her H&H was lower this morning at 5.8/17.2. WBC increased to 25,000. Creatinine increased also from 1.24 to 1.99 with continued signs of bleeding in the left upper extremity. There is also increased bruising seen and swelling seen of the left breast , left flank, left shoulder and left-sided back. It appears the bleed has not stopped and there are now several areas of the left upper extremity which are bleeding and a new skin tear on the left forearm. On exam by myself she appeared comfortable but more lethargic than even day prior. With no improvement seen and now organ dysfunction present, I called the patient's power of personal injury attorney and daughter to update her. She had made it clear that the family did not wish to be more aggressive than likely blood products. Options of further treatment were discussed. At this time the patient is family would like her to be made comfort measures only. MOLST form was filled out, orders changed in the computer. Objective: Physical Examination VS: Please see below General: Lying in bed, no acute distress, appears comfortable but not very conversant Head/Neck/Throat: Trachea midline, mucous membranes moist Eyes: Sclera anicteric, no erythema or discharge appreciated bilaterally Thorax: On 2 L nasal cannula saturating at 95%, lungs clear to auscultation bilaterally, no wheezes/rales/rhonchi Cardiovascular: Normal rate, regular rhythm, normal S1, S2; no S3, S4, rubs/gallops/murmurs, radial and pedal pulses are palpable Abdomen: obese abd, Bowel sounds present, soft/nontender Genitourinary: No CVA tenderness, no Woodson in place Musculoskeletal: Moving all extremities, no edema Skin: there is skin breakdown around the ankle region, bandaged RLE, LLE ulcer which are chronic. left arm elevated. Compared to 01/23/21, even more increased ecchymosis of upper and lower left arm, bruising wrapping around left upper back and left flank, left breast, slightly tender to touch, no crepitus, +2 pitting edema of b/l upper ext, L>R arm in size. Skin tear and several new areas of bl eeding of LUE. Neurologic: AAOx1, speech fluent and goal-directed when awakened, no focal deficits, grossly intact Laboratory: Please see below Assessment /Plan: #Left upper arm ecchymosis severe, hematoma likely 2/2 to intramuscular bleed from torn bicep. Cannot r/o clotting factor d/o in presence of COVID 19 as contributing factor -Imaging in chart -Stopped all heparin products 01/21/21 -S/p 3 units PRBC, 2 FFP with worsened H/H today, continued bleeding. -WBC increased-likely incr is reactive due to bleed + steroids . -Discussed with orthopedic surgery and general surgery. Currently no surgical intervention at this time, no IR in our facility to identify bleeding vessel over the weekend here. -I had consulted hematology (Dr. Powell) who suspects using clotting factors 2/2 to large bleed. -Fibrinogen was normal so no cryoprecipitate was given. -At this time, we will stop all efforts in attempting to incr H/H in presence of bleed which is likely not stopped. -TOP WADDY status #COVID 19 infection with superimposed PNA -Remains comfortable on RA -WBC increased, elevated procalcitonin -Completed remdesivir, ceftriaxone, dexamethasone. Isolation precautions #Superimposed pna -See above #Deconditioning likely 2/2 to acute illness, baseline deconditioned state -Stopping all services -Bedrest #Acute on chronic kidney disease (stage III) likely 2/2 continuing bleed and prior to that, prerenal azotemia, meds, contrast -Worsened Cr at 1.99 -Will keep woodson for comfort #Hyperglycemia, likely steroid induced -Stopped insulins in presence of poor appetite, TOP WADDY status. #Delirium likely 2/2 to steroids and prolonged hospital stay -AAOx1 today #Leukocytosis likely steroid-induced, reactive to bleed #Diastolic CHF, no acute exacerbation -Echocardiogram done on 05/19/2020 notes left ventricular ejection fraction 55 to 60% with grade 1 diastolic dysfunction. #Lower ext ulcers, chronic -Dr. Henning had been following #CAD -stop bb, not on asa due to bleeding #Hypertension -stopped diltiazem and bisoprolol #Depression/anxiety -C/w quetiapine, venlafaxine, started ativen #Gout #Hypothyroidism DISPOSITION: Made TOP WADDY today, changed from inpatient to [facility] status. Discussed current condition in great detail with Annie, her daughter and POA. In the AM, will update SW that family is interested in Hospice. VS, I&O, 24H, Fishbone Vital Signs/I&O Vital Signs Date Time Temp Pulse Resp B/P (MAP) Pulse Ox O2 Delivery O2 Flow Rate FiO2 01/24/21 10:27 18 Room Air 01/24/21 06:52 97.5 78 135/74 96 01/20/21 20:23 I&O- Last 24 Hours up to 6 AM 01/24/21 05:59 Intake Total 967 ml Output Total 750 ml Balance 217 ml Laboratory Data 24H LABS Laboratory Tests 2 01/23/21 16:54: Bedside Glucose (Misc Panel) 186H 01/23/21 16:55: Nucleated Red Blood Cells % (auto) 8.9H 01/23/21 17:05: Prothrombin Time 14.3H, Prothromb Time International Ratio 1.07, Activated Partial Thromboplast Time 30.9, Fibrinogen 321, D-Dimer, Quantitative 1906.04H 01/23/21 20:25: Bedside Glucose (Misc Panel) 188H 01/23/21 23:03: Prothrombin Time 14.9H, Prothromb Time International Ratio 1.13, Activated Partial Thromboplast Time 28.2, Fibrinogen 290, D-Dimer, Quantitative 2072.89H 01/24/21 06:17: Bedside Glucose (Misc Panel) 154H 01/24/21 07:37: Prothrombin Time 14.7H, Prothromb Time International Ratio 1.11, Activated Partial Thromboplast Time 32.3, Fibrinogen 305, D-Dimer, Quantitative 1585.97H, Nucleated Red Blood Cells % (auto) 11.9H, Anion Gap 9, Glomerular Filtration Rate 25.7L, Calcium Level 7.7L, Total Bilirubin 0.7, Aspartate Amino Transf (AST/SGOT) 76H, Alanine Aminotransferase (ALT/SGPT) 33, Alkaline Phosphatase 63, Total Protein 4.4L, Albumin 1.9L, Albumin/Globulin Ratio 0.8L CBC/BMP Laboratory Tests 01/23/21 16:55 01/24/21 07:37 Microbiology Microbiology 01/23/21 Blood Culture, Received Pending 01/23/21 Blood Culture, Received Pending 01/23/21 Stool Occult Blood ([facility]) - Final, Complete 01/15/21 Blood Culture - Final, Complete NO GROWTH AFTER 5 DAYS 01/15/21 Blood Culture - Final, Complete NO GROWTH AFTER 5 DAYS 01/15/21 Respiratory Virus Panel (PCR) ([facility]) - Final, Complete SARS-CoV-2 (COVID 19) Wendy Kennedy MD Jan 24, 2021 15:38
[2021-01-24] MEDS: QUEtiapine FUMARATE 50MG TAB PO SCH (20:59)
[2021-01-25] MEDS: SODIUM CHLORIDE 0.9% INJ 10 ML SYR IV SCH ×2 (05:54→18:22)
[2021-01-25] MEDS: MORPHINE 4 MG/ML 1ML VIAL/SYRINGE (J2270) IV PRN ×3 (07:27→21:03)
[2021-01-25] MEDS: VENLAFAXINE 37.5 MG TAB PO SCH (09:01)
[2021-01-25] MEDS: GABAPENTIN 100 MG CAP PO SCH ×2 (09:01→21:03)
[2021-01-25] MEDS: QUEtiapine FUMARATE 50MG TAB PO SCH (21:03)
[2021-01-26] MEDS: SODIUM CHLORIDE 0.9% INJ 10 ML SYR IV SCH ×2 (06:30→18:34)
[2021-01-26] MEDS: VENLAFAXINE 37.5 MG TAB PO SCH (09:08)
[2021-01-26] MEDS: GABAPENTIN 100 MG CAP PO SCH ×2 (09:08→20:32)
[2021-01-26] MEDS: MORPHINE 4 MG/ML 1ML VIAL/SYRINGE (J2270) IV PRN ×2 (09:09→13:16)
[2021-01-26] MEDS: QUEtiapine FUMARATE 50MG TAB PO SCH (20:32)
[2021-01-27] MEDS: SODIUM CHLORIDE 0.9% INJ 10 ML SYR IV SCH ×2 (05:46→17:46)
[2021-01-27] MEDS: MORPHINE 4 MG/ML 1ML VIAL/SYRINGE (J2270) IV PRN ×2 (12:12→17:46)
[2021-01-27] MEDS: ACETAMINOPHEN TAB 650MG DOSE (2X325MG) PO PRN (12:14)
[2021-01-27] MEDS: VENLAFAXINE 37.5 MG TAB PO SCH (12:14)
[2021-01-27] MEDS: GABAPENTIN 100 MG CAP PO SCH ×2 (12:14→20:11)
[2021-01-27] MEDS: QUEtiapine FUMARATE 50MG TAB PO SCH (20:11)
[2021-01-28] MEDS: SODIUM CHLORIDE 0.9% INJ 10 ML SYR IV SCH ×2 (05:12→18:40)
[2021-01-28] MEDS: VENLAFAXINE 37.5 MG TAB PO SCH (09:00)
[2021-01-28] MEDS: GABAPENTIN 100 MG CAP PO SCH ×2 (09:00→21:03)
[2021-01-28] MEDS: MORPHINE 4 MG/ML 1ML VIAL/SYRINGE (J2270) IV PRN (12:13)
[2021-01-28] MEDS: ACETAMINOPHEN TAB 650MG DOSE (2X325MG) PO PRN (21:03)
[2021-01-28] MEDS: QUEtiapine FUMARATE 50MG TAB PO SCH (21:03)
[2021-01-29] MEDS: SODIUM CHLORIDE 0.9% INJ 10 ML SYR IV SCH ×2 (04:55→18:49)
[2021-01-29] MEDS: VENLAFAXINE 37.5 MG TAB PO SCH (09:00)
[2021-01-29] MEDS: GABAPENTIN 100 MG CAP PO SCH ×2 (09:00→20:49)
[2021-01-29] MEDS: MORPHINE 4 MG/ML 1ML VIAL/SYRINGE (J2270) IV PRN ×2 (11:11→14:38)
[2021-01-29] MEDS: QUEtiapine FUMARATE 50MG TAB PO SCH (20:49)
[2021-01-29] MEDS: LORazepam 2 MG/ML VIAL IV PRN (20:55)
[2021-01-30] MEDS: SODIUM CHLORIDE 0.9% INJ 10 ML SYR IV SCH ×2 (06:12→17:18)
[2021-01-30] MEDS: LORazepam 2 MG/ML VIAL IV PRN (10:20)
[2021-01-30] MEDS: VENLAFAXINE 37.5 MG TAB PO SCH (10:20)
[2021-01-30] MEDS: GABAPENTIN 100 MG CAP PO SCH ×2 (10:20→20:13)
[2021-01-30] MEDS: MORPHINE 4 MG/ML 1ML VIAL/SYRINGE (J2270) IV PRN (12:12)
[2021-01-30] MEDS: QUEtiapine FUMARATE 50MG TAB PO SCH (20:13)
[2021-01-31 04:19] VITALS: BP 134/61
[2021-01-31] MEDS: SODIUM CHLORIDE 0.9% INJ 10 ML SYR IV SCH ×2 (06:33→15:30)
[2021-01-31] MEDS: GABAPENTIN 100 MG CAP PO SCH ×2 (11:07→22:16)
[2021-01-31] MEDS: LORazepam 2 MG/ML VIAL IV PRN ×2 (11:07→17:40)
[2021-01-31] MEDS: VENLAFAXINE 37.5 MG TAB PO SCH (11:07)
[2021-01-31] MEDS: MORPHINE 4 MG/ML 1ML VIAL/SYRINGE (J2270) IV PRN (15:29)
[2021-01-31] MEDS: QUEtiapine FUMARATE 50MG TAB PO SCH (22:15)
[2021-01-31] MEDS: ACETAMINOPHEN TAB 650MG DOSE (2X325MG) PO PRN (22:15)
[2021-02-01] MEDS: ACETAMINOPHEN TAB 650MG DOSE (2X325MG) PO PRN ×2 (05:34→22:44)
[2021-02-01] MEDS: LORazepam 2 MG/ML VIAL IV PRN ×3 (05:34→15:32)
[2021-02-01] MEDS: SODIUM CHLORIDE 0.9% INJ 10 ML SYR IV SCH ×2 (05:34→15:32)
--- NOTE | 2021-02-01 08:49 | CR.PDOC ---
General Surgery Consultation Date of Consultation 01/24/21 History and Physical CONSULT REPORT FOR: Dr. Wendy Kennedy (hospitalist service) REASON FOR CONSULTATION: hematoma, bleeding on left arm HISTORY OF PRESENT ILLNESS: Patient admitted in the hospital since January 15, 2021 for multiple complaints including weakness, lethargy, confusion was found to be Covid positive. He does not look like she was on baseline anticoagulation at home. She has been confused throughout all her stay in the event losing vascular access on her so multiple attempts at placement of lines has been done in both extremities. Eventually she has had a PICC line placed on the right arm eventually. There were no documented traumatic episodes or fall during this hospitalization. She is on heparin subQ for prophylaxis. Over the course of to Monday she was noted to have increasing ecchymosis involving the left upper arm initially and then this progressed through to the whole of the arm and later on through to the chest wall. An ultrasound study of the area shows possibility of a torn mu scle on the upper arm and orthopedics has been previously consulted. With the continuing bleeding presentation I was asked by Dr. Kennedy to evaluate and suggest further steps in the care. PAST MEDICAL/SURGICAL HISTORY: reviewed from the documentations in the chart ALLERGIES: Please see below. HOME MEDICATIONS: Please see below. REVIEW OF SYSTEMS: unable to obtain due to patients mental condition/confusion PHYSICAL EXAMINATION: VITALS SIGNS: Please see below. I examined the patient with her nurse. She was sitting up on the bed. She looks very confused though does not look to be belligerent or fighting. She is awake and alert but looks very weak and unable to support herself sitting up nor with standing up but she was trying to transfer to the commode. The whole of the left arm is purplish in color with a deep ecchymosis. The upper arm seems to be uniformly swollen. The soft tissues are boggy but I do not feel any distinct or fluctuance collection. The soft tissues are soft and does not look tense. The dorsum of the arm appears swollen. Patient not able to fully close her fingers and make a fist due to the swelling. There are good pulses. There is good capillary return on the fingers. There are some scattered skin ecchymosis on the lateral anterior and posterior chest wall. I do not see any deep collections on the axilla or chest wall. Both lower extremities are citlali edly chronically edematous with thickened skin consistent with lymphedema. LABORATORY DATA: Please see below. IMAGING STUDIES: She had a vascular ultrasound done 01/22/2021 which shows no evidence of deep vein thrombosis, large complex fluid collection 17 x 2.6 x 2.9 cm suspicious for musculotendinous tear possibly of the biceps tendon IMPRESSION AND PLAN: Left arm hematoma. There is a involvement of the whole of the left arm with deep ecchymosis of the skin which in itself looks to be thin and fragile at baseline. There is no sign of compartment syndrome. There is some suggestion of a large hematoma at the upper arm. This is causing some retrograde swelling of the hand but still has a good vascular flow given the good capillary return of the tips of the fingers. There is some mild extension of the ecchymosis to the chest wall. Looking at her laboratory studies and as well as the progression of the events that seem to have happened evening into Monday when there was a drop in the hemoglobin hematocrit. No documented traumatic episodes. I am not sure if there were any attempts at putting a PICC line on that arm or getting access through the antecubital area. Nevertheless, she is hemodynamically stable. Hemoglobin hematocrit are low but seems to have stabilized. I am asked to make suggestions on how to further her care. The questions in my mind is whether there would be any benefit on opening up the hematoma or just letting it tamponade by itself. My concern is once restarted opening the soft tissue, she will have a gaping wound and given the uniform purplish ecchymosis of the skin and soft tissue will be hard to differentiate between what is healthy and what has been affected by the bleeding and thus this may prove more difficult in terms of skin coverage or soft tissue coverage later on. I would compared this to having a burn on the arm. I spoke to Dr. Kennedy about this. Options would be to transfer her to possibly burn care but given she is Covid positive they would probably refuse. Watchful waiting is always an option to let things demarcate and decide later on if we need to debride which ever what or how much of her tissues proved to be that are necrotic. I am not sure if doing a compression dressing will be feasible given that the patient is confused and the nurse has been telling me that she has been pulling away the ABD dressings that they were placing on the arm. If she cooperates, we should elevate the arm and continue with none stick dressings to the area to catch the drainage. She has a breakdown at the medial side where she is leaking some of the fluid/hematoma out. Unfortunately there is no good option. I would monitor closely for signs of expanding hematoma, problems with perfusion of the arm which may need us to emergently open up the arm for exploration. Vital Signs Vital Signs Date Time Temp Pulse Resp B/P (MAP) Pulse Ox O2 Delivery O2 Flow Rate FiO2 01/31/21 04:19 97.9 100 18 134/61 (85) 90 Room Air I&Os I&O- Last 24 Hours up to 6 AM 02/01/21 05:59 Intake Total 30 ml Output Total 200 ml Balance -170 ml Laboratory Data Microbiology Microbiology 01/23/21 Blood Culture - Final, Complete NO GROWTH AFTER 5 DAYS 01/23/21 Blood Culture - Final, Complete NO GROWTH AFTER 5 DAYS 01/23/21 Stool Occult Blood ([facility]) - Final, Complete Home Medications Scheduled Aspirin (Aspirin EC) 81 Mg Tab, 81 MG PO Q2D, (Reported) TAKES AT BEDTIME Atorvastatin Calcium (Atorvastatin Calcium) 80 Mg Tab, 80 MG PO QHS, (Reported) Bisoprolol Fumarate (Bisoprolol Fumarate) 5 Mg Tablet, 5 MG PO DAILY, (Reported) Budesonide (Budesonide EC) 3 Mg Capdr...er, 6 MG PO DAILY, (Reported) Diltiazem HCl (Cartia Xt) 240 Mg Cap, 240 MG PO DAILY, (Reported) Folic Acid (Folic Acid) 1 Mg Tab, 1 MG PO DAILY, (Reported) Gabapentin (Gabapentin) 100 Mg Capsule, 100 MG PO BID, (Reported) Levothyroxine Sodium (Levoxyl) 100 Mcg Tablet, 100 MCG PO DAILY, (Reported) Potassium Chloride (Potassium Chloride) 20 Meq Tablet.er, 20 MEQ PO BID, (Reported) Quetiapine Fumarate (Quetiapine Fumarate) 25 Mg Tablet, 50 MG PO QHS, (Reported) Torsemide (Torsemide) 20 Mg Tablet, 20 MG PO BID, (Reported) Venlafaxine HCl (Venlafaxine HCl) 75 Mg Tablet, 75 MG PO DAILY, (Reported) allopurinoL (allopurinoL) 300 Mg Tablet, 300 MG PO DAILY, (Reported) Scheduled PRN Acetaminophen (Acetaminophen) 325 Mg Tablet, 325 MG PO Q4H PRN for MILD PAIN OR TEMP > 101, (Reported) Albuterol Sulfate (Albuterol Sulfate Hfa) 8.5 Gm Hfa.aer.ad, 2 PUFFS INH QID PRN for SHORTNESS OF BREATH, (Reported) Alprazolam (Alprazolam) 0.5 Mg Tablet, 0.5 MG PO DAILY PRN for ANXIETY, (Reported) Allergies Coded Allergies: indomethacin (Verified Allergy, Unknown, as takes asprin, 01/15/21) levofloxacin (Verified Allergy, Unknown, UNKNOWN REACTION, 01/15/21) tetracycline (Verified Allergy, Unknown, UNKNOWN REACTION, 01/15/21) amlodipine (Verified Adverse Reaction, Mild, MUSCLE CRAMPS, 01/15/21) trazodone (Verified Adverse Reaction, Mild, DIZZINESS, 01/15/21) ANGELITA BACH MD Feb 01, 2021 08:49
[2021-02-01] MEDS: MORPHINE 4 MG/ML 1ML VIAL/SYRINGE (J2270) IV PRN ×2 (10:32→15:32)
[2021-02-01] MEDS: GABAPENTIN 100 MG CAP PO SCH ×2 (10:42→22:44)
[2021-02-01] MEDS: VENLAFAXINE 37.5 MG TAB PO SCH (10:42)
[2021-02-01] MEDS: QUEtiapine FUMARATE 50MG TAB PO SCH (22:44)
[2021-02-02] MEDS: ACETAMINOPHEN TAB 650MG DOSE (2X325MG) PO PRN (06:30)
[2021-02-02] MEDS: LORazepam 2 MG/ML VIAL IV PRN ×4 (06:30→20:51)
[2021-02-02] MEDS: SODIUM CHLORIDE 0.9% INJ 10 ML SYR IV SCH ×2 (06:31→17:38)
[2021-02-02] MEDS: VENLAFAXINE 37.5 MG TAB PO SCH (09:00)
[2021-02-02] MEDS: GABAPENTIN 100 MG CAP PO SCH ×3 (09:00→20:54)
[2021-02-02] MEDS: MORPHINE 4 MG/ML 1ML VIAL/SYRINGE (J2270) IV PRN (15:04)
--- NOTE | 2021-02-02 20:04 | IPNPDOC ---
Date Seen The patient was seen on 02/02/21. Progress Note Subjective: Patient's left upper extremity appears less bruised with some areas that are still weeping, overall less swollen. The patient remained IP NETWORK ARCHITECT status and the family would like to keep her as such. They had no acute complaints or issues to discuss. Objective: Physical Examination VS: none taken, IP NETWORK ARCHITECT General: Lying in bed, no acute distress, appears comfortable Head/Neck/Throat: Trachea midline, mucous membranes moist Eyes: Sclera anicteric, no erythema or discharge appreciated bilaterally Thorax: On 2 L nasal cannula saturating at 95%, lungs clear to auscultation bilaterally, no wheezes/rales/rhonchi Cardiovascular: Normal rate, regular rhythm, normal S1, S2; no S3, S4, rubs/gallops/murmurs, radial and pedal pulses are palpable Abdomen: obese abd, Bowel sounds present, soft/nontender Genitourinary: No CVA tenderness, no Lewis in place Musculoskeletal: Moving all extremities, no edema Skin: there is skin breakdown around the ankle region, bandaged RLE, LLE ulcer which are chronic. left arm elevated. Much decreased ecchymosis of upper and lower left arm with some weeping of wounds, bruising wrapping around left upper back and left flank, left breast, slightly tender to touch still. no crepitus, +1 pitting edema of b/l lower Neurologic: did not test Laboratory: None DIAGNOSES PRIOR TO MAKING IP NETWORK ARCHITECT: #Left upper arm ecchymosis severe, hematoma likely 2/2 to intramuscular bleed from torn bicep. Cannot r/o clotting factor d/o in presence of COVID 19 as contributing factor #COVID 19 infection with superimposed PNA #Superimposed pna #Deconditioning likely 2/2 to acute illness, baseline deconditioned state #Acute on chronic kidney disease (stage III) likely 2/2 continuing bleed and prior to that, prerenal azotemia, meds, contrast #Hyperglycemia, likely steroid induced #Delirium likely 2/2 to steroids and prolonged hospital stay #Leukocytosis likely steroid-induced, reactive to bleed #Diastolic CHF, no acute exacerbation #Lower ext ulcers, chronic #CAD #Hypertension #Depression/anxiety #Gout #Hypothyroidism DISPOSITION: IP NETWORK ARCHITECT still. Discussed with daughter Annie at beside. Cannot go to Hospice Home and daughter does not wish to take home so she will stay here. SW involved. VS, I&O, 24H, Fishbone Vital Signs/I&O Vital Signs Date Time Temp Pulse Resp B/P (MAP) Pulse Ox O2 Delivery O2 Flow Rate FiO2 02/02/21 15:04 20 01/31/21 04:19 97.9 100 134/61 (85) 90 Room Air I&O- Last 24 Hours up to 6 AM 02/02/21 06:00 Intake Total 60 ml Output Total 475 ml Balance -415 ml Laboratory Data Microbiology Microbiology 01/23/21 Blood Culture - Final, Complete NO GROWTH AFTER 5 DAYS 01/23/21 Blood Culture - Final, Complete NO GROWTH AFTER 5 DAYS 01/23/21 Stool Occult Blood ([facility]) - Final, Complete Wendy Kennedy MD Feb 02, 2021 20:04
[2021-02-02] MEDS: QUEtiapine FUMARATE 50MG TAB PO SCH ×2 (20:51→20:54)
[2021-02-03] MEDS: MORPHINE 4 MG/ML 1ML VIAL/SYRINGE (J2270) IV PRN ×3 (02:08→20:00)
[2021-02-03] MEDS: LORazepam 2 MG/ML VIAL IV PRN ×6 (02:08→22:29)
[2021-02-03] MEDS: SODIUM CHLORIDE 0.9% INJ 10 ML SYR IV SCH ×2 (05:56→17:33)
[2021-02-03] MEDS: VENLAFAXINE 37.5 MG TAB PO SCH (09:00)
[2021-02-03] MEDS: GABAPENTIN 100 MG CAP PO SCH ×2 (09:00→20:01)
[2021-02-03] MEDS: QUEtiapine FUMARATE 50MG TAB PO SCH (20:01)
[2021-02-04] MEDS: MORPHINE 4 MG/ML 1ML VIAL/SYRINGE (J2270) IV PRN ×7 (00:29→22:13)
[2021-02-04] MEDS: LORazepam 2 MG/ML VIAL IV PRN ×10 (00:29→22:12)
[2021-02-04] MEDS: SODIUM CHLORIDE 0.9% INJ 10 ML SYR IV SCH ×2 (06:54→17:44)
[2021-02-04] MEDS: GABAPENTIN 100 MG CAP PO SCH ×2 (09:00→20:22)
[2021-02-04] MEDS: VENLAFAXINE 37.5 MG TAB PO SCH (10:10)
[2021-02-04] MEDS ORDERED: SCOPOLAMINE 1MG TRANSDERMAL PATCH TOP PRN (14:30)
[2021-02-04] MEDS ORDERED: ATROPINE SULFATE 1% OP SOLN 2 ML BTL SL PRN (14:30)
[2021-02-04] MEDS: QUEtiapine FUMARATE 50MG TAB PO SCH (20:22)
[2021-02-05] MEDS: LORazepam 2 MG/ML VIAL IV PRN ×5 (00:18→14:39)
[2021-02-05] MEDS: MORPHINE 4 MG/ML 1ML VIAL/SYRINGE (J2270) IV PRN ×5 (00:19→14:39)
[2021-02-05] MEDS: SODIUM CHLORIDE 0.9% INJ 10 ML SYR IV SCH ×2 (06:32→15:11)
[2021-02-05] MEDS: GABAPENTIN 100 MG CAP PO SCH (09:00)
[2021-02-05] MEDS: VENLAFAXINE 37.5 MG TAB PO SCH (09:00)
[2021-02-05] MEDS ORDERED: ACETAMINOPHEN 650 MG SUPP PR PRN (14:20)
--- NOTE | 2021-02-05 19:50 | DS.PDOC ---
Discharge Summary General Date of Admission Jan 15, 2021 at 18:34 Date of Discharge 02/05/21 Attending Physician: Wendy Kennedy MD Discharge Summary THIS IS A SUMMARY HISTORY OF PRESENT ILLNESS: Patient is a 80 y/o female with a pmh of cad s/p stenting, chf, ckd3, htn, hld and hypothyroidism who presents to our ED on 01/15 with a cc of many general health symptoms such as headache, dizziness, weakness, fatigue, productive cough and poor appetite that have been evolving and getting worse over the past two weeks. Patient has subsequently also developed new shortness of breath and recently fevers as well. Patient states that she was concerned and decided to come to be evaluated in our ED as she has not been able to eat over the past few days and yet has also begun having diarrhea and nausea. Patient, at the time of my exam, denies any chest pain, hemoptysis, syncope, dysuria, vomiting, calf pain, syncope, recent falls, dysuria. Patient found to be COVID+ in our ED despite receiving her covid vaccination. She was admitted for COVID 19 infection with superimposed PNA. HOSPITAL COURSE: Patient's hospital course was complicated by acute on chronic kidney disease (stage III) likely 2/2 prerenal azotemia, meds, and contrast. She was treated for COVID 19 infection with superimposed PNA and eventually came off supplemental O2. She had developed delirium likely 2/2 to steroids and prolonged hospital stay which led to her getting restless at times. She would attempt to sit up in bed. She was noted to have left upper arm ecchymosis severe, hematoma likely 2/2 to intramuscular bleed from torn bicep from her pulling herself up in bed. We could not r/o clotting factor d/o in presence of COVID 19 as contributing factor. She developed severe anemia 2/2 to likely intramuscular bleed from trauma to LUE /bicep tear. Despite the patient having 2 FFP, 3 units of blood her H&H was lower at 5.8/17.2. WBC increased to 25,000. Creatinine increased also from 1.24 to 1.99 with continued signs of bleeding in the left upper extremity. There was increased bruising seen and swelling seen of the left breast , left flank, left shoulder and left-sided back. It appears the bleed had not stopped and there were several areas of the left upper extremity which are bleeding and a new skin tear on the left forearm. On exam by myself she appeared comfortable but more lethargic than even day prior. With no improvement seen and now organ dysfunction present, I called the patient's power of lead sql developer and daughter to update her. She had made it clear that the family did not wish to be more aggressive than likely blood products. They did not wish to be transferred to another facility to have IR cauterize a possible bleed. Options of further treatment were discussed. At that time the patient's family made comfort measures only. MOLST form was filled out, orders changed in the computer. Patient passed on 02/05/21 at 4 PM. PAST MEDICAL HISTORY: 1. [See HPI PAST SURGICAL HISTORY: 1. [Cardiac stenting]. 2. [Appendectomy]. 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 Ex lap x3 5. Hysterectomy 6. L Knee arthroscopy]. SOCIAL HISTORY: Tobacco use:[Denies] ETOH: [Denies] Illicit drug use: [Denies] FAMILY HISTORY: Reviewed - none pertinent PE: VS: none taken, PHILOSOPHY PROFESSOR General: Lying in bed, no acute distress, appears comfortable Head/Neck/Throat: Trachea midline, mucous membranes moist Eyes: Sclera anicteric, no erythema or discharge appreciated bilaterally Thorax: On 2 L nasal cannula saturating at 95%, lungs clear to auscultation bilaterally, no wheezes/rales/rhonchi Cardiovascular: Normal rate, regular rhythm, normal S1, S2; no S3, S4, rubs/gallops/murmurs, radial and pedal pulses are palpable Abdomen: obese abd, Bowel sounds present, soft/nontender Genitourinary: No CVA tenderness, no Lewis in place Musculoskeletal: Moving all extremities, no edema Skin: there is skin breakdown around the ankle region, bandaged RLE, LLE ulcer which are chronic. left arm elevated. Much decreased ecchymosis of upper and lower left arm with some weeping of wounds, bruising wrapping around left upper back and left flank, left breast, slightly tender to touch still. no crepitus, +1 pitting edema of b/l lower Neurologic: did not test Laboratory: None Laboratory: Please see below DIAGNOSES AT TIME OF : #Left upper arm ecchymosis severe, hematoma likely 2/2 to intramuscular bleed from torn bicep. Cannot r/o clotting factor d/o in presence of COVID 19 as contributing factor #Severe anemia 2/2 to likely intramuscular bleed from trauma to LUE /bicep tear #Failure to thrive #COVID 19 infection with superimposed PNA #Superimposed pna #Deconditioning likely 2/2 to acute illness, baseline deconditioned state #Acute on chronic kidney disease (stage III) likely 2/2 continuing bleed and prior to that, prerenal azotemia, meds, contrast #Hyperglycemia, likely steroid induced #Delirium likely 2/2 to steroids and prolonged hospital stay #Leukocytosis likely steroid-induced, reactive to bleed #Diastolic CHF, no acute exacerbation #Lower ext ulcers, chronic #CAD #Hypertension #Depression/anxiety #Gout #Hypothyroidism TIME SPENT ON DISCHARGE: 35 minutes. Vital Signs/I&Os Vital Signs Date Time Temp Pulse Resp B/P (MAP) Pulse Ox O2 Delivery O2 Flow Rate FiO2 02/05/21 14:30 103.5 02/04/21 05:08 24 01/31/21 04:19 100 134/61 (85) 90 Room Air I&O- Last 24 Hours up to 6 AM 02/05/21 06:00 Intake Total 0 ml Balance 0 ml Discharge Medications Scheduled Aspirin (Aspirin EC) 81 Mg Tab, 81 MG PO Q2D, (Reported) TAKES AT BEDTIME Atorvastatin Calcium (Atorvastatin Calcium) 80 Mg Tab, 80 MG PO QHS, (Reported) Bisoprolol Fumarate (Bisoprolol Fumarate) 5 Mg Tablet, 5 MG PO DAILY, (Reported) Budesonide (Budesonide EC) 3 Mg Capdr...er, 6 MG PO DAILY, (Reported) Diltiazem HCl (Cartia Xt) 240 Mg Cap, 240 MG PO DAILY, (Reported) Folic Acid (Folic Acid) 1 Mg Tab, 1 MG PO DAILY, (Reported) Gabapentin (Gabapentin) 100 Mg Capsule, 100 MG PO BID, (Reported) Levothyroxine Sodium (Levoxyl) 100 Mcg Tablet, 100 MCG PO DAILY, (Reported) Potassium Chloride (Potassium Chloride) 20 Meq Tablet.er, 20 MEQ PO BID, (Reported) Quetiapine Fumarate (Quetiapine Fumarate) 25 Mg Tablet, 50 MG PO QHS, (Reported) Torsemide (Torsemide) 20 Mg Tablet, 20 MG PO BID, (Reported) Venlafaxine HCl (Venlafaxine HCl) 75 Mg Tablet, 75 MG PO DAILY, (Reported) allopurinoL (allopurinoL) 300 Mg Tablet, 300 MG PO DAILY, (Reported) Scheduled PRN Acetaminophen (Acetaminophen) 325 Mg Tablet, 325 MG PO Q4H PRN for MILD PAIN OR TEMP > 101, (Reported) Albuterol Sulfate (Albuterol Sulfate Hfa) 8.5 Gm Hfa.aer.ad, 2 PUFFS INH QID PRN for SHORTNESS OF BREATH, (Reported) Alprazolam (Alprazolam) 0.5 Mg Tablet, 0.5 MG PO DAILY PRN for ANXIETY, (Reported) Allergies Coded Allergies: indomethacin (Verified Allergy, Unknown, as takes asprin, 01/15/21) levofloxacin (Verified Allergy, Unknown, UNKNOWN REACTION, 01/15/21) tetracycline (Verified Allergy, Unknown, UNKNOWN REACTION, 01/15/21) amlodipine (Verified Adverse Reaction, Mild, MUSCLE CRAMPS, 01/15/21) trazodone (Verified Adverse Reaction, Mild, DIZZINESS, 01/15/21) Wendy Kennedy MD Feb 05, 2021 19:50
== END 2021-02-05 16:00 | disposition expired | DRG 177 ==
LOC: M ED 12:57 → EDBD 12:57 → M ED INP 18:34 → UNDOADMIN 18:34 → M ED INP 21:51 → M 4MAIN 21:59
PROVIDERS: ADMIT Family Medicine; ATTEND Internal Medicine
PROC: 02HV33Z Insertion of Infusion Device into Superior Vena Cava, Percutaneous Approach (ICD-10-PCS; 2021-01-21)
PROC: 30233N1 Transfusion of Nonautologous Red Blood Cells into Peripheral Vein, Percutaneous Approach (ICD-10-PCS; principal; 2021-01-22)
PROC: 30233K1 Transfusion of Nonautologous Frozen Plasma into Peripheral Vein, Percutaneous Approach (ICD-10-PCS; 2021-01-24)
DX: U07.1 COVID-19 (principal); J12.82 Pneumonia due to coronavirus disease 2019; N17.9 Acute kidney failure, unspecified; I13.0 Hypertensive heart and chronic kidney disease with heart failure and stage 1 through stage 4 chronic kidney disease, or unspecified chronic kidney disease; I50.32 Chronic diastolic (congestive) heart failure; D68.9 Coagulation defect, unspecified; D62 Acute posthemorrhagic anemia; G72.81 Critical illness myopathy; E46 Unspecified protein-calorie malnutrition; L97.909 Non-pressure chronic ulcer of unspecified part of unspecified lower leg with unspecified severity; I24.9 Acute ischemic heart disease, unspecified; N18.30 Chronic kidney disease, stage 3 unspecified; R73.9 Hyperglycemia, unspecified; M79.81 Nontraumatic hematoma of soft tissue; S46.202A Unspecified injury of muscle, fascia and tendon of other parts of biceps, left arm, initial encounter; E87.6 Hypokalemia; I25.10 Atherosclerotic heart disease of native coronary artery without angina pectoris; D72.829 Elevated white blood cell count, unspecified; F41.9 Anxiety disorder, unspecified; F32.9 Major depressive disorder, single episode, unspecified; M10.9 Gout, unspecified; Z95.2 Presence of prosthetic heart valve; E03.9 Hypothyroidism, unspecified; Z51.5 Encounter for palliative care